=== PATIENT | female | born 1965 | race Caucasian/White ===

== ENCOUNTER 2021-10-01 21:27 | Emergency (ER) | payer MEDICARE, MEDICAID, SELFPAY ==
--- NOTE | ~2021-10-01 | XR_ITS ---
EXAMINATION: XR chest 2V DATE: 10/01/2021 22:28 INDICATION: Right to midsternal chest pain radiating to the right shoulder TECHNIQUE: PA and lateral views of the chest were obtained. COMPARISON: None FINDINGS: The lungs are clear with no focal airspace opacities, pulmonary edema, pleural effusion or pneumothor ax. The cardiomediastinal silhouette is normal. Mild thoracic kyphosis. Anterior wedging of a midthor acic vertebral body. IMPRESSION: 1. No acute cardiopulmonary disease. Reviewed, dictated and finalized at location A.
--- NOTE | ~2021-10-01 | CT_ITS ---
EXAMINATION: CTA chest PE protocol DATE: 10/02/2021 00:03 INDICATION: Midsternal chest pain. TECHNIQUE: Computed tomography (CT) pulmonary angiogram of the chest was performed with 100 mL Omnipa que-350 intravenous contrast. Additional 3D reconstructions utilizing coronal maximum intensity proje ction (MIP) were performed. Automated exposure control and iterative reconstruction technique were em ployed. The dose-length product was 794.42 mGy-cm. COMPARISON: None FINDINGS: Good contrast opacification of the pulmonary arteries. There is mild streak artifact from dense contr ast in the superior vena cava and right atrium. No significant motion artifact yielding diagnostic qu ality study which demonstrates no pulmonary embolism. Minimal linear discoid atelectasis at the later al basilar right lower lobe. No pneumonia, pulmonary edema, pleural effusion or pneumothorax. Heart s ize is normal. No pericardial effusion. Thoracic aorta is normal in caliber with no dissection. No pa thologically enlarged thoracic lymphadenopathy. Diffuse hepatic steatosis. Mild thoracic spondylosis. IMPRESSION: 1. No pulmonary embolism or other acute cardiopulmonary disease. Reviewed, dictated and finalized at location A.
--- NOTE | 2021-10-01 21:28 | ECG_ITS ---
Measurements Intervals [place] Rate: 72 P: -31 [place]: 154 QRS: 48 QRSD: 106 T: 24 QT: 398 QTc: 437 Interpretive Statements SINUS RHYTHM NONSPECIFIC T-WAVE ABNORMALITY NO PREVIOUS ECG AVAILABLE FOR COMPARISON Electronically Signed On 10-02-2021 8:03:56 CDT by Zak Gordon M.D.
[2021-10-01 21:38] VITALS: BP 151/76; PULSE 74; RESP 16; TEMP 36.3; O2SAT 100
--- NOTE | 2021-10-01 22:07 | ED.CHESTPAIN ---
HPI - Chest Pain General Chief Complaint: Chest Pain Stated Complaint: CHEST PAIN RADIATED TO BACK Time Seen by Provider: 10/01/21 21:46 History of Present Illness HPI narrative: 56-year-old female presents to the emergency room for evaluation of right anterior chest pain. Patient states that approximately 4:00 this afternoon she developed a constant, sharp chest pain that radiates up into her right shoulder. Patient states she is able to reproduce the pain with inspiration and with movement. Patient states that prior to arrival she took 1 nitro, and this did not change her pain level. Patient denies shortness of breath, dyspnea, nausea/vomiting or syncope. Related Data Allergies Allergy/AdvReac Type Severity Reaction Status Date / Time No Known Allergies Allergy Verified 10/01/21 22:03 Review of Systems Review of Systems: CONSTITUTIONAL: Denies fever, chills, or sweats. EYES: Denies visual changes, redness, or discharge. ENT: Denies rhinorrhea, congestion, sore throat, or otalgia. CARDIOVASCULAR: Reports chest pain RESPIRATORY: Denies cough or dyspnea. GASTROINTESTINAL: Denies abdominal pain, nausea, vomiting, or diarrhea. GENITOURINARY: Denies dysuria or hematuria. SKIN: Denies rash or itching. MUSCULOSKELETAL: Denies back pain, joint pain, or myalgia. NEUROLOGIC: Denies headache, numbness, dizziness, or weakness. PSYCHIATRIC: Denies anxiety or depression. [facility] Past Medical History Medical History (Updated 10/02/21 @ 02:56 by Dread Kenyon, EXECUTIVE MEETING MANAGER) Angina at rest Diabetes GERD (gastroesophageal reflux disease) Exam Narrative: GENERAL: Well-appearing, well-nourished, and in no acute distress. HEAD: Normocephalic, atraumatic. EYES: PERRLA and EOMI. CHEST: Clear to auscultation. No respiratory distress. No wheezes rales or rhonchi HEART: Regular rate and rhythm. No murmur heard. Normal peripheral pulses. ABDOMEN: Soft, nontender, nondistended, normal active bowel sounds. EXTREMITIES: Normal range of motion. No edema. SKIN: Warm, dry, no rash. NEURO: No focal deficits. Alert and oriented x3. PSYCH: Normal mood and affect. Course Vital Signs Vital signs: Vital Signs Temperature 36.3 C L 10/01/21 21:38 Pulse Rate 74 10/01/21 21:38 Respiratory Rate 16 10/01/21 21:38 Blood Pressure 151/76 H 10/01/21 21:38 Pulse Oximetry 100 10/01/21 21:38 Temperature 36.3 C L 10/01/21 21:38 Pulse Rate 64 10/02/21 01:58 Respiratory Rate 20 10/02/21 01:58 Blood Pressure 130/69 10/02/21 01:58 Pulse Oximetry 98 10/02/21 01:58 MDM - Chest Pain MDM Narrative Medical decision making narrative: 56-year-old female presented to the emergency room for evaluation of chest pain. Patient states that prior to arrival she took a nitro which did not alleviate her symptoms. Patient states that her chest pain was reproducible with inspiration and movement, then she frequently experiences pain. CBC, CMP and serial troponins were all unremarkable. Chest x-ray showed no acute cardio pulmonary process. Patient was given a course of Toradol for which she said resolved her pain. Patient has denied any shortness of breath. Discussed the CTA results with the patient, she is requesting to go home and will follow up with her primary care physician on Sunday. Discussed the risks and benefits of the patient not seeking further evaluation while she is here in the emergency room patient stated understanding. Differential Diagnosis Differential diagnosis: Likely atypical chest pain Medical Records Data Attestation: I reviewed the patient's medical records. Lab Data Attestation: I reviewed the patient's lab results. Result diagrams: 10/01/21 22:10 10/01/21 22:10 Labs: Lab Results 10/01/21 10/01/21 10/01/21 Range/Units 22:10 22:10 22:10 WBC 6.6 (4.5-10.0) K/mm3 RBC 4.13 L (4.2-5.4) M/mm3 Hgb 12.5 (12.0-15.0) g/dL Hct 38.1 (37.0-47.0) % MCV 92.3 (80-100) fl M
[2021-10-01 22:15] LABS: Basophils Percent Auto 0.5 % (0.2-1.2); Eosinophils Absolute Auto 0.1 K/mm3 (0-0.3); Eosinophils Percent Auto 1.7 % (0-4.4); Hematocrit 38.1 % (37.0-47.0); Hemoglobin 12.5 g/dL (12.0-15.0); Immature Granulocyte Absolute 0.02 K/mm3 (0.00-0.031); Immature Granulocyte Percent A 0.3 % (0-0.5); Lymphocytes Absolute Auto 2.21 K/mm3 (0.9-3.2); Lymphocytes Percent Auto 33.7 % (18.3-44.2); Mean Corpuscular HGB Conc 32.8 g/dl (32-36); Mean Corpuscular Hemoglobin 30.3 pg (26-34); Mean Corpuscular Volume 92.3 fl (80-100); Mean Platelet Volume 11.8 fl (7.4-10.4); Monocytes Absolute Auto 0.4 K/mm3 (0.1-0.6); Monocytes Percent Auto 6.4 % (2.6-8.5); Neutrophils Absolute Auto 3.8 K/mm3 (1.3-6.7); Neutrophils Percent Auto 57.4 % (45.5-73.1); Platelet Count Result 189 k/mm3 (150-375); Red Blood Count 4.13 M/mm3 (4.2-5.4); Red Cell Distribution Width 13.7 % (11.5-14.5); White Blood Count 6.6 K/mm3 (4.5-10.0)
[2021-10-01 22:25] LABS: Alanine Aminotransferase 51 U/L (4-35); Albumin Level 4.3 g/dL (3.5-5.1); Alkaline Phosphatase 115 U/L (38-126); Anion Gap 8 mmol/L (8-16); Aspartate Amino Transferase 43 U/L (14-36); Bilirubin,Total 0.2 mg/dL (0.2-1.3); Blood Urea Nitrogen 7 mg/dL (7-17); Calcium 9.7 mg/dL (8.4-10.2); Carbon Dioxide 21 mmol/L (22-30); Chloride 110 mmol/L (98-107); Estimated CRCL calculation 100 ml/min; Estimated Glomerular Filt Rate > 60; Glucose 97 mg/dL (65-110); Lipase 113 U/L (23-300); Potassium 3.4 mmol/L (3.4-5.0); Sodium 139 mmol/L (137-145)
[2021-10-01 22:27] LABS: INR 1.1; Prothrombin Time 13.5 Seconds (11.1-14.7)
[2021-10-01 22:28] LABS: Partial Thromboplastin Time 34.5 SECONDS (22.3-36.8)
[2021-10-01] MEDS: KETOROLAC 30 MG/ML VIAL (*BKC) IV PUSH (22:30)
[2021-10-01 22:37] LABS: Troponin I < 0.012 ng/mL (0.000-0.034)
[2021-10-01 22:48] LABS: D Dimer 0.86 ug/mL (<0.48)
[2021-10-02 00:08] VITALS: BP 128/75; PULSE 68; RESP 19; O2SAT 96
--- NOTE | 2021-10-02 01:52 | PC.NURSE ---
This RN called lab to follow-up on 3hr trop. Lab states that they had issues with machine and will result soon
[2021-10-02 01:55] LABS: Troponin I < 0.012 ng/mL (0.000-0.034)
[2021-10-02 01:58] VITALS: BP 130/69; PULSE 64; RESP 20; O2SAT 98
[2021-10-02 03:08] VITALS: BP 136/75; PULSE 66; RESP 20; O2SAT 96
== END 2021-10-02 03:09 | disposition home or self-care (01) ==
PROVIDERS: Emergency Medicine; Emergency Provider Nurse Practitioner Family; PCP Internal Medicine Gastroenterology
DX: R07.89 Other chest pain (principal); E11.9 Type 2 diabetes mellitus without complications; K21.9 Gastro-esophageal reflux disease without esophagitis; R94.31 Abnormal electrocardiogram [ECG] [EKG]
CPT/HCPCS: 36415; 71046; 71275; 80053; 83690; 84484; 85025; 85380; 85610; 85730; 93005; 96374; 99284; J1885; Q9967

== ENCOUNTER 2022-04-18 16:25 | Emergency (ER) | payer MEDICARE, MEDICAID, SELFPAY ==
--- NOTE | ~2022-04-18 | XR_ITS ---
EXAMINATION: XR chest 2V DATE: 04/18/2022 17:05 INDICATION: Cough. TECHNIQUE: Frontal and lateral views of the chest were obtained on 3 radiographs. COMPARISON: Chest 2 views 10/01/2021, chest CT 10/01/2021 FINDINGS: The chest demonstrates clear lungs without pneumonia, pleural effusion, or pneumothorax. Th e heart size is normal. IMPRESSION: 1. No acute cardiopulmonary disease. Reviewed, dictated and finalized at location A. ARE MANAGER
[2022-04-18 16:27] VITALS: BP 155/78; PULSE 82; RESP 18; TEMP 36.5; O2SAT 100
--- NOTE | 2022-04-18 16:32 | ECG_ITS ---
Measurements Intervals [place] Rate: 70 P: 22 [place]: 159 QRS: 49 QRSD: 104 T: 45 QT: 382 QTc: 413 Interpretive Statements SINUS RHYTHM NORMAL ECG COMPARED TO ECG 10/01/2021 21:34:24 NO SIGNIFICANT CHANGES Electronically Signed On 04-18-2022 19:24:21 MANAGER BENEFIT by Tal Woodson D.O.
[2022-04-18 17:27] LABS: Basophils Absolute Auto 0.1 K/mm3 (0.0-0.1); Basophils Percent Auto 0.7 % (0.2-1.2); Eosinophils Absolute Auto 0.1 K/mm3 (0-0.3); Eosinophils Percent Auto 1.7 % (0-4.4); Hematocrit 40.6 % (37.0-47.0); Hemoglobin 13.1 g/dL (12.0-15.0); Immature Granulocyte Absolute 0.01 K/mm3 (0.00-0.031); Immature Granulocyte Percent A 0.1 % (0-0.5); Lymphocytes Absolute Auto 2.32 K/mm3 (0.9-3.2); Mean Corpuscular HGB Conc 32.3 g/dl (32-36); Mean Corpuscular Hemoglobin 30.3 pg (26-34); Mean Corpuscular Volume 93.8 fl (80-100); Mean Platelet Volume 11.7 fl (7.4-10.4); Monocytes Absolute Auto 0.5 K/mm3 (0.1-0.6); Monocytes Percent Auto 6.3 % (2.6-8.5); Neutrophils Absolute Auto 4.5 K/mm3 (1.3-6.7); Neutrophils Percent Auto 60.2 % (45.5-73.1); Platelet Count Result 203 k/mm3 (150-375); Red Blood Count 4.33 M/mm3 (4.2-5.4); Red Cell Distribution Width 13.2 % (11.5-14.5); White Blood Count 7.5 K/mm3 (4.5-10.0)
[2022-04-18 17:38] LABS: Alanine Aminotransferase 34 U/L (6-35); Albumin Level 4.2 g/dL (3.5-5.1); Alkaline Phosphatase 111 U/L (38-126); Anion Gap 10 mmol/L (8-16); Aspartate Amino Transferase 26 U/L (14-36); Bilirubin,Total 0.4 mg/dL (0.2-1.3); Blood Urea Nitrogen 9 mg/dL (7-17); Calcium 9.7 mg/dL (8.4-10.2); Carbon Dioxide 24 mmol/L (22-30); Chloride 107 mmol/L (98-107); Estimated CRCL calculation 89 ml/min; Estimated Glomerular Filt Rate > 60; Glucose 175 mg/dL (65-110); Potassium 3.9 mmol/L (3.4-5.0); Sodium 141 mmol/L (137-145)
[2022-04-18 19:12] VITALS: BP 142/90; PULSE 85; RESP 16; O2SAT 99
[2022-04-18 19:50] VITALS: PULSE 78; RESP 18
[2022-04-18] MEDS: IPRATROPIUM BR 0.02% INH SOLN 0.5 MG/2.5 ML VIAL INHALATION (19:50)
[2022-04-18] MEDS: ALBUTEROL SULFATE NEB 2.5 MG/3 ML INH 5 MG INHALATION (19:50)
--- NOTE | 2022-04-18 19:55 | ED.SOB ---
HPI - SOB/Dyspnea General Chief Complaint: Shortness of Breath/Dyspnea Stated Complaint: cough X3 months, SOB Time Seen by Provider: 04/18/22 19:02 History of Present Illness HPI Narrative: Patient is a 56-year-old female who presents ER with cough. Reports its ongoing for the last 3 months. Over the last 3 days she has developed some green sputum. Has history of asthma for which she does not take any medications that she used to be prescribed. She is a smoker. No fevers or chills or sweats. She does have some pain in the chest wall due to coughing frequently. No exertional chest discomfort. No fevers or chills or sweats. Patient reports in September she had a possible PE so she takes Xarelto. Chart review shows [facility] radiology saw streak artifact and could not make a determination however radiology here read as no PE. Patient also reports stress test last year that was negative. Patient reports she was talking to family members who reported that her grandma had cancer and this made her concerned and she felt she should come be evaluated. Related Data Home Medications Medication Instructions Recorded Confirmed hydrocodone 7.5 mg-acetaminophen tablet 04/18/22 325 mg tablet metformin 500 mg tablet mg 04/18/22 metoprolol tartrate 25 mg tablet mg 04/18/22 omeprazole 20 mg capsule,delayed mg 04/18/22 release rivaroxaban 20 mg tablet (Xarelto) mg 04/18/22 Allergies Allergy/AdvReac Type Severity Reaction Status Date / Time No Known Allergies Allergy Verified 04/18/22 19:15 Review of Systems Review of Systems: All systems reviewed & are unremarkable except as noted in HPI and below Constitutional: Constitutional: Denies chills, Denies fatigue and Denies fever(s) ENT: Denies nasal congestion and Denies sore throat Cardiovascular: Cardiovascular: Denies chest pain, Denies rapid heart rate and Denies radiating jaw, neck or arm pain Comments: Chest wall pain Respiratory: Respiratory: Reports cough, Denies dyspnea and Denies wheezing Gastrointestinal: Gastrointestinal: Denies abdominal pain, Denies nausea and Denies vomiting [facility] Past Medical History Medical History (Updated 04/18/22 @ 20:46 by Hector Mederos MD) Angina at rest Asthma Diabetes GERD (gastroesophageal reflux disease) Surgical History Surgical History (Updated 04/18/22 @ 19:59 by Hector Mederos MD) No pertinent past surgical history Social History Social History (Updated 04/18/22 @ 19:59 by Hector Mederos MD) Smoking status: Current every day smoker Exam Narrative: GENERAL: Well-appearing, well-nourished, and in no acute distress. HEAD: Normocephalic, atraumatic. ENT: Mucous membranes moist. CHEST: Mild scattered wheezing bilaterally right greater than left. No respiratory distress. HEART: Regular rate and rhythm. Normal peripheral pulses. ABDOMEN: Soft, nontender, nondistended. EXTREMITIES: Normal range of motion. No edema. SKIN: Warm, dry, no rash. NEURO: Alert and oriented x3. PSYCH: Normal mood and affect. Course Course Emergency Course: Lungs clear after nebulizer treatment. Patient feels like she is breathing better. Discharge home. Vital Signs Vital signs: Vital Signs Temperature 97.7 F 04/18/22 16:27 Pulse Rate 82 04/18/22 16:27 Respiratory Rate 18 04/18/22 16:27 Blood Pressure 155/78 H 04/18/22 16:27 Pulse Oximetry 100 04/18/22 16:27 Oxygen Delivery Room Air 04/18/22 16:27 Temperature 97.7 F 04/18/22 16:27 Pulse Rate 79 04/18/22 20:04 Respiratory Rate 19 04/18/22 20:04 Blood Pressure 142/90 H 04/18/22 19:12 Pulse Oximetry 99 04/18/22 19:12 Oxygen Delivery Room Air 04/18/22 16:27 MDM - SOB/Dyspnea Lab Data Result diagrams: 04/18/22 17:18 04/18/22 17:18 Labs: Lab Results 04/18/22 04/18/22 Range/Units 17:18 17:18 WBC 7.5 (4.5-10.0) K/mm3 RBC 4.33 (4.2-5.4) M/mm3 Hgb 13.1 (12.0-15.0) g
[2022-04-18 20:04] VITALS: PULSE 79; RESP 19
[2022-04-18 20:50] VITALS: BP 137/60; PULSE 88; RESP 19; O2SAT 99
== END 2022-04-18 20:50 | disposition home or self-care (01) ==
PROVIDERS: Emergency Medicine; Emergency Provider Emergency Medicine; PCP Internal Medicine Gastroenterology
DX: J40 Bronchitis, not specified as acute or chronic (principal); E11.9 Type 2 diabetes mellitus without complications; K21.9 Gastro-esophageal reflux disease without esophagitis
CPT/HCPCS: 36415; 71046; 80053; 85025; 93005; 94640; 99283

== ENCOUNTER 2022-12-29 17:42 | Emergency (ER) | payer MEDICARE, MEDICAID, SELFPAY ==
[2022-12-29] VITALS (13 sets, daily range): BP systolic 137–149; BP diastolic 74–83; PULSE 58–65; RESP 12–21; TEMP 36.4; O2SAT 96–100
--- NOTE | 2022-12-29 18:38 | ED.GENADULT ---
HPI - General Adult General Chief complaint: Dizziness Stated complaint: Dizzy and emesis Time Seen by Provider: 12/29/22 18:11 History of Present Illness HPI narrative: Patient is a 57-year-old female who presents ER with spinning dizziness. Sudden onset this morning. Anytime she turns her head to room moves and she feels nauseous. She has had multiple episodes of emesis. No focal numbness or weakness to an arm or leg. No slurred speech. No ringing or ears. No recent sinus congestion or sore throat or productive cough. She has not had similar symptoms previously. She has not taken any medications. Related Data Home Medications Medication Instructions Recorded Confirmed hydrocodone 7.5 mg-acetaminophen tablet 04/18/22 325 mg tablet metformin 500 mg tablet mg 04/18/22 metoprolol tartrate 25 mg tablet mg 04/18/22 omeprazole 20 mg capsule,delayed mg 04/18/22 release rivaroxaban 20 mg tablet (Xarelto) mg 04/18/22 Allergies Allergy/AdvReac Type Severity Reaction Status Date / Time No Known Allergies Allergy Verified 12/29/22 18:13 Review of Systems Review of Systems: All systems reviewed & are unremarkable except as noted in HPI and below Constitutional: Constitutional: Denies chills, Denies fatigue and Denies fever(s) Eyes: Eyes: Denies change in vision Neurologic: Reports dizziness, Denies headache(s), Denies focal weakness and Denies numbness PMFSH Past Medical History Medical History (Updated 12/29/22 @ 20:34 by Hector Mederos MD) Angina at rest Asthma Diabetes GERD (gastroesophageal reflux disease) Surgical History Surgical History (Updated 04/18/22 @ 19:59 by Hector Mederos MD) No pertinent past surgical history Social History Social History (Updated 04/18/22 @ 19:59 by Hector Mederos MD) Smoking status: Current every day smoker Exam Narrative: GENERAL: Well-appearing, well-nourished, and in no acute distress. HEAD: Normocephalic, atraumatic. EYES: PERRL and EOMI. ENT: Mucous membranes moist. TMs normal bilaterally. CHEST: Clear to auscultation. No respiratory distress. HEART: Regular rate and rhythm. Normal peripheral pulses. EXTREMITIES: Normal range of motion. No edema. SKIN: Warm, dry, no rash. NEURO: Alert and oriented x3. PSYCH: Normal mood and affect. Course Course Emergency Course: Patient resting comfortably. Dizziness significant improved with fluids and meclizine. Discussed treatment for home and patient verbalized understanding and feels comfortable with plan. Vital Signs Vital signs: Vital Signs Temperature 97.5 F L 12/29/22 17:53 Pulse Rate 65 12/29/22 17:53 Respiratory Rate 15 12/29/22 17:53 Blood Pressure 144/75 H 12/29/22 17:53 Pulse Oximetry 97 12/29/22 17:53 Oxygen Delivery Room Air 12/29/22 17:53 Temperature 97.5 F L 12/29/22 17:53 Pulse Rate 60 12/29/22 20:54 Respiratory Rate 20 12/29/22 20:54 Blood Pressure 137/77 12/29/22 20:54 Pulse Oximetry 100 12/29/22 20:54 Oxygen Delivery Room Air 12/29/22 18:09 Medical Decision Making Vital Signs Vital Signs: Vital Signs Temperature 97.5 F L 12/29/22 17:53 Pulse Rate 65 12/29/22 17:53 Respiratory Rate 15 12/29/22 17:53 Blood Pressure 144/75 H 12/29/22 17:53 Pulse Oximetry 97 12/29/22 17:53 Oxygen Delivery Room Air 12/29/22 17:53 Temperature 97.5 F L 12/29/22 17:53 Pulse Rate 60 12/29/22 20:54 Respiratory Rate 20 12/29/22 20:54 Blood Pressure 137/77 12/29/22 20:54 Pulse Oximetry 100 12/29/22 20:54 Oxygen Delivery Room Air 12/29/22 18:09 Lab Data Labs: Lab Results 12/29/22 Range/Units 19:07 POC Capillary Glucose 118 H (65-105) mg/dl Discharge Plan Discharge Clinical Impression: Vertigo Patient Disposition: Home, Self-Care Condition: Stable Instructions: Vertigo (ED) Additional Instructions: Return the ER if you have focal weakness or
[2022-12-29] MEDS: ONDANSETRON INJ 4 MG/2 ML VIAL IV PUSH (18:45)
[2022-12-29] MEDS: MECLIZINE HCL 25 MG TABLET PO (18:45)
[2022-12-29] MEDS: SODIUM CHLORIDE 0.9% IV 1,000 ML 999 ML IV CONT (18:46)
[2022-12-29 19:10] LABS: Glucose Point of Care 118 mg/dl (65-105)
== END 2022-12-29 21:00 | disposition home or self-care (01) ==
PROVIDERS: Emergency Provider Emergency Medicine; PCP Internal Medicine Gastroenterology
DX: R42 Dizziness and giddiness (principal); J45.909 Unspecified asthma, uncomplicated; E11.9 Type 2 diabetes mellitus without complications; K21.9 Gastro-esophageal reflux disease without esophagitis; F17.200 Nicotine dependence, unspecified, uncomplicated; Z79.84 Long term (current) use of oral hypoglycemic drugs; Z79.01 Long term (current) use of anticoagulants
CPT/HCPCS: 82948; 96361; 96374; 99284; A9270; J2405; J7030

== ENCOUNTER 2023-10-13 16:47 | Emergency (ER) | payer MEDICARE, MEDICAID, SELFPAY ==
[2023-10-13 16:58] VITALS: BP 143/70; PULSE 91; RESP 17; TEMP 36.4; O2SAT 99
--- NOTE | 2023-10-13 17:19 | ED.EXTPRO ---
HPI - Extremity Problem General Chief complaint: Extremity Problem,Nontraumatic Stated complaint: left elbow pain Time Seen by Provider: 10/13/23 17:10 Source: patient Mode of arrival: ambulatory Limitations: no limitations History of Present Illness HPI Narrative: This is a 58 year old female who presents to the ED with chief complaint of left elbow pain ongoing for the past month. Patient reports the pain is intermittent and worse with certain movements. Reports full flexion and full extension of the elbow worsens the pain. Unsure of any specific injury. Patient reports she had negative x-rays with her doctor at [place] recently. She has not been using any [id number] pain medications. Reports that she has tried hot water bottles on the elbow with minimal relief. Denies numbness, weakness or any further sites of pain. Related Data Home Medications Medication Instructions Recorded Confirmed hydrocodone 7.5 mg-acetaminophen tablet 04/18/22 325 mg tablet metformin 500 mg tablet mg 04/18/22 metoprolol tartrate 25 mg tablet mg 04/18/22 omeprazole 20 mg capsule,delayed mg 04/18/22 release rivaroxaban 20 mg tablet (Xarelto) mg 04/18/22 Allergies Allergy/AdvReac Type Severity Reaction Status Date / Time No Known Allergies Allergy Verified 10/13/23 17:00 Review of Systems Review of Systems: All systems as dictated in [facility] Past Medical History Medical History (Updated 10/13/23 @ 17:36 by Philippe Ya PA-C) Angina at rest Asthma Diabetes GERD (gastroesophageal reflux disease) Surgical History Surgical History (Updated 04/18/22 @ 19:59 by Hector Mederos MD) No pertinent past surgical history Social History Social History (Updated 04/18/22 @ 19:59 by Hector Mederos MD) Smoking status: Current every day smoker Exam Narrative: GENERAL: Well-appearing, well-nourished, and in no acute distress. MSK: Mild tenderness to the lateral epicondyle of the elbow. Pain with full extension and full flexion of the elbow. Soft compartments. Neurovascularly intact distally SKIN: Warm, dry, no rash. NEURO: Alert and oriented x3. No focal deficits. PSYCH: Normal mood and affect. Course Vital Signs Vital signs: Vital Signs Temperature 97.6 F 10/13/23 16:58 Pulse Rate 91 10/13/23 16:58 Respiratory Rate 17 10/13/23 16:58 Blood Pressure 143/70 H 10/13/23 16:58 Pulse Oximetry 99 10/13/23 16:58 Oxygen Delivery Room Air 10/13/23 16:58 Temperature 97.6 F 10/13/23 16:58 Pulse Rate 91 10/13/23 16:58 Respiratory Rate 17 10/13/23 16:58 Blood Pressure 143/70 H 10/13/23 16:58 Pulse Oximetry 99 10/13/23 16:58 Oxygen Delivery Room Air 10/13/23 16:58 MDM - Extremity (Nontraumatic) MDM Narrative Medical decision making narrative: This is a 58-year-old female who presents to the ED with chief complaint of 1 month left elbow pain. No injury. Vitals are normal. Exam shows tenderness at the lateral epicondyle. Symptoms and presentation are consistent with lateral epicondylitis/tendinitis. No need for further imaging today. Will Rx naproxen b.i.d.. Pt will be discharged in stable condition. Return precautions given and supportive measures discussed. Pt is understanding and agreeable with plan for discharge and follow-up with PCP. Discharge Plan Discharge Clinical Impression: Epicondylitis, lateral Patient Disposition: Home, Self-Care Condition: Stable Instructions: Antibiotic Form, Tennis Elbow (ED) Additional Instructions: Exam is reassuring. This should self resolve over the next several weeks. Please take naproxen twice per day. Follow-up with your doctor. If you have any new or worsening symptoms please return to the ER for further evaluation. Prescriptions: New naproxen 500 mg tablet 500 mg PO BID PRN (Reason: pain) Qty: 30 0RF No Action metformin 500 mg tablet hydrocodone-acetami
[2023-10-13] MEDS: NAPROXEN 500 MG TABLET PO (17:48)
== END 2023-10-13 17:55 | disposition home or self-care (01) ==
LOC: ANHED 17:38
PROVIDERS: Emergency Provider Physician Assistant; PCP Internal Medicine Gastroenterology
DX: M77.12 Lateral epicondylitis, left elbow (principal); J45.909 Unspecified asthma, uncomplicated; E11.9 Type 2 diabetes mellitus without complications; K21.9 Gastro-esophageal reflux disease without esophagitis; F17.200 Nicotine dependence, unspecified, uncomplicated; Z79.84 Long term (current) use of oral hypoglycemic drugs; Z79.01 Long term (current) use of anticoagulants
CPT/HCPCS: 99283; A9270

== ENCOUNTER 2024-07-28 09:48 | Outpatient (CLI) | payer MEDICARE, SELFPAY ==
--- NOTE | ~2024-07-28 | MR_ITS ---
EXAMINATION: MR sacroiliac jts wo con DATE: 07/28/2024 10:35 INDICATION: Low back pain TECHNIQUE: Magnetic resonance imaging (MRI) of the sacroiliac joints was performed without intravenou s contrast. Sequences included sagittal PD-weighted FS FSE, coronal oblique T2-weighted FS FSE, viraj nal oblique T1-weighted FSE, coronal oblique T2-weighted FSE, oblique axial T2-weighted FS FSE and ob lique axial T1-weighted FSE. COMPARISON: None FINDINGS: 3 mm retrolisthesis L4 on L5. Discs are minimally bulging with annular fissures at both L4-L5 and L5- S1 but without central canal stenosis. Moderate osteoarthritis at the bilateral facet joints at L4-5 and L5-S1. Bone alignment is otherwise normal. Likely osteonecrosis at the bilateral femoral heads wi th high signal intensity crescent sign underlying the surface at the anterosuperior left femoral head . Mild osteoarthritis at the bilateral hips. Marrow signal is otherwise unremarkable. Moderate osteoa rthritis at the bilateral sacroiliac joints without erosions to suggest an inflammatory sacroiliitis. 1.6 cm low signal intensity likely calcified uterine fibroid. IMPRESSION: 1. Moderate bilateral sacral back osteoarthritis without erosions to suggest inflammatory sacroiliiti s. 2. 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 3. Mild lower lumbar spondylosis. 4. 1.6 cm likely calcified uterine fibroid. Reviewed, dictated and finalized at location A. [facility] IMPRESSION: 1. Moderate bilateral sacral back osteoarthritis without erosions to suggest in flammatory sacroiliitis. 2. 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 3. Mild lower lumbar spondylosis. 4. 1.6 cm likely calcified uterine fibroid.
--- OUTSIDE RECORDS SUMMARY | 2024-07-28 12:35 | XMS_ITS | Data Portability ---
Author Organization [facility] Address [address] [place] [address] Care Team Providers Care Conduit Bender Name Role Phone SURJIT FULLER Primary Care Provider [phone] Assessment No assessment recorded. Plan of Treatment Reminders Order Date Submit Date Provider Last Modified By Organization Details Last Modified Time Details Appointments ANY 15 2024 04:00P M Dee Hernandez MD Not available Not available Not available ANY 2024 01:30P M Surjit Fuller MD Not available Not available Not available Lab ESR (erythroc yte sedimenta tion rate), blood 2024 025 [facility], [address], [place], [address], 07/10/2024 10:13:25 YOMI (antinucl ear antibodie s) screen, ifa, serum 2024 025 [facility], [address], [place], [address], 07/10/2024 10:13:23 rf (rheumato id factor), serum 2024 025 [facility], [address], [place], [address], 07/10/2024 10:13:26 ccp (cyclic citrullin ated peptide) iga+igg, serum 2024 025 [facility], [address], [place], [address], 07/10/2024 10:13:22 CMP, serum or plasma 2023 024 [facility], [address], [place], [address], 05/28/2024 07:13:22 CBC 2023 024 [facility], [address], [place], [address], 05/28/2024 07:13:23 surgical pathology study 2023 024 [facility], [address], [place], [address], 04/08/2024 15:17:09 bacterial vaginosis + vaginitis panel, vaginal 2023 024 [facility], [address], [place], [address], 03/30/2024 06:43:28 HbA1c (hemoglob in A1c), blood 2023 024 [email or web address] In-Office Order, Internal Use Only DO Not Attach Compendium DO Not Attach Compendium, Do Not Delete/merge, [id number] 03/25/2024 15:57:11 Referral dermatolo gist referral - vulvar psoriasis minimally responsiv e to steroid cream 2023 024 JOCE Hdz MD, [address] [facility] , [place], [address], 07/16/2024 04:43:50 Procedures None recorded. Surgeries None recorded. Imaging None recorded. Medication Orders clotrimaz ole 1 % topical cream 2024 025 [id number], [address], [place], [address], 07/07/2024 15:26:26 Diflucan 150 mg tablet 2024 025 [id number], [address], [place], [address], 07/07/2024 15:26:23 loratadin e 10 mg tablet 2024 025 [id number], [address] [place], [address], 07/07/2024 15:26:26 calcipotr iene 0.005 % topical ointment 2023 024 [id number], [address], [address], 05/13/2024 17:20:15 prednison e 20 mg tablet 2023 024 [id number], [address], [address], 05/13/2024 16:50:08 promethaz ine-DM 6.25 mg-15 mg/5 mL oral syrup 2023 024 [id number], [address], [address], 05/06/2024 16:51:31 clobetaso l 0.05 % topical cream 2023 024 [facility], [address] [place], [address], 04/15/2024 09:43:54 doxepin 25 mg capsule 2023 024 [facility][id number], [address] [place], [address], 05/22/2024 10:03:24 loratadin e 10 mg tablet 2023 [email or web address] [facility] #[id number], [address], [place], [address], 05/22/2024 10:04:22 Patient TargetsNo targets recorded. Patient Instructions Encounter Date Encounter Id Patient Instructions Last Modified By Organization Details Last Modified Time 05/06/2024 [id number] bronchitis: care instructions [email or web address] Not available 05/06/2024 16:51:26 cough: care instructions Not available 05/06/2024 16:51:26 When You Want to Lose Weight: Care Instructions [email or web address] Not available 05/06/2024 16:51:26 Reason for Referral Boiling Off Winder Referral for P soriasis vulvar psoriasis minimally responsive to steroid cream Referring Physician: Dee Hernandez, Family Medicine, Encounter Date: 05/13/2024 Results Created Date Observation Date Name Description Value Unit Range Abnormal Flag Note LastModifiedBy Organization Detail LastModifiedTime 03/25/2003/28/2024 NUSWA B BV YESSICA+C AND6+ CT/GC /T... atopobium vaginae LOW - 0 score Not Available [facility] ([facility]) [address] [facility], [place], [address], 03/30/2024 06:43:28 03/25/2003/28/2024 NUSWA B BV YESSICA+C AND6+ CT/GC /T... bvab 2 LOW - 0 score Not Available [facility] ([facility]) [address] [facility], [place], [address], 03/30/2024 06:43:28 03/25/2003/28/2024 NUSWA B BV YESSICA+C AND6+ CT/GC /T... megasphaera 1 LOW - 0 score Calcu late total score by jennifer romero the 3 indiv idual bacte rial vagin osis (BV) marke r score s toget her. Total score is inter prete d as follo ws: Total score 0-1: Indic ates the absen ce of BV. Total score 2: Indet ermin ate for BV. Addit ional clini radha data shoul d be evalu ated to estab tanisha a diagn osis. Total score 3-6: Indic ates the prese nce of BV. Not Available [facility] ([facility]) [address] [place], [address], 03/30/2024 06:43:28 03/25/2003/28/2024 NUSWA B BV YESSICA+C AND6+ CT/GC /T... dejah albicans, YESSICA NEGATI VE negati ve Not Available [facility] ([facility]) [address] [place], [address], 03/30/2024 06:43:28 03/25/2003/28/2024 NUSWA B BV YESSICA+C AND6+ CT/GC /T... dejah glabrata, YESSICA NEGATI VE negati ve Not Available [facility] ([facility]) [address] [place], [address], 03/30/2024 06:43:28 03/25/2003/28/2024 NUSWA B BV YESSICA+C AND6+ CT/GC /T... trich vag by YESSICA NEGATI VE negati ve Not Available [facility] ([facility]) [address] [place], [address], 03/30/2024 06:43:28 03/25/2003/28/2024 NUSWA B BV YESSICA+C AND6+ CT/GC /T... chlamydia trachomatis, YESSICA NEGATI VE negati ve Not Available [facility] ([facility]) [address] [place], [address], 03/30/2024 06:43:28 03/25/2003/28/2024 NUSWA B BV YESSICA+C AND6+ CT/GC /T... neisseria gonorrhoeae, YESSICA NEGATI VE negati ve Not Available [facility] ([facility]) [address] [place], [address], 03/30/2024 06:43:28 03/25/20 24 03/28/2024 NUSWA B BV YESSICA+C AND6+ CT/GC /T... hsv 1 YESSICA NEGATI VE negati ve Not Available [facility] ([facility]) [address] [place], [address], 03/30/2024 06:43:28 03/25/2003/28/2024 NUSWA B BV YESSICA+C AND6+ CT/GC /T... hsv 2 YESSICA NEGATI VE negati ve Not Available [facility] ([facility]) [address] [place], [address], 03/30/2024 06:43:28 03/25/2003/29/2024 NUSWA B BV YESSICA+C AND6+ CT/GC /T... C parapsilosis /tropicalis NEGATI VE negati ve This assay does not diffe renti ate C. tropi calis and C. parap suraj is. Not Available [facility] ([facility]) [address] [facility], [place], [address], 03/30/2024 06:43:28 03/25/2003/29/2024 NUSWA B BV YESSICA+C AND6+ CT/GC /T... dejah lusitaniae, YESSICA NEGATI VE negati ve Not Available [facility] ([facility]) [address] [place], [address], 03/30/2024 06:43:28 03/25/2003/29/2024 NUSWA B BV YESSICA+C AND6+ CT/GC /T... dejah krusei, YESSICA NEGATI VE negati ve Not Available [facility] ([facility]) [address] [place], [address], 03/30/2024 06:43:28 03/25/20 24 03/25/2024 HbA1c (hemo globi n A1c), blood HbA1c 8.9 Not Available In-Office Order Internal Use Only DO Not Attach Compendium DO Not Attach Compendium, Do Not Delete/merge, [id number] 03/25/2024 15:30:39 04/02/20 24 04/08/2024 PATHO LOGY REPOR T . COMMEN T Mater ial submi tted: . vulva - VULVA Not Available [facility] ([facility]) [address] [facility], [place], [address], 04/08/2024 15:17:09 04/02/20 24 04/08/2024 PATHO LOGY REPOR T . COMMEN T Clini tahir provi ded ICD-1 0: N90.8 9 Not Available [facility] ([facility]) [address] [facility], [place], [address], 04/08/2024 15:17:09 04/02/20 24 04/08/2024 PATHO LOGY REPOR T . COMMEN T Clini radha histo ry: . OTHER SPECI FIED NONIF LAMMA TORY DISOR DERS OF VULVA AND PERIN EUM Not Available [facility] ([facility]) [address] [facility], [place], [address], 04/08/2024 15:17:09 04/02/20 24 04/08/2024 PATHO LOGY REPOR T . COMMEN T Diagn osis: PSORI ASIFO RM VULVI TIS. COMME NT: THIS BIOPS Y SPECI MEN DEMON STRAT ES PROMI NENT PSORI ASIFO RM EPIDE RMAL HYPER PLASI A IN ADDIT ION TO FOCAL EROSI ON, CONFL UENT PARAK ERATO SIS AND INTRA EPIDE RMAL/ INTRA CORNE AL NEUTR OPHIL S. ALTHO UGH PAS STAIN IS NEGAT KULWANT FOR FUNGA L FORMS , A FALSE NEGAT KULWANT REACT ION FOR FUNGA L STAIN IN A SUPER FICIA L MYCOS IS SUCH MARITO DIASI S OR TINEA CRURI S CANNO T TOTAL LY BE EXCLU DED. INVER SE PSORI ASIS WOULD ALSO ENTER THE DIFFE R- ENTIA L DIAGN OSIS ON A HISTO PATHO LOGIC BASIS . NO DEFIN ITIVE DYSPL PANCHITO IS OBSER ERNESTO. CLINI COPAT HOLOG IC CORRE LATIO N IS RECOM CALEB Riley TMZ 04/08 1301 Local Not Available [facility] ([facility]) [address] [place], [address], 04/08/2024 15:17:09 04/02/2004/08/2024 PATHO LOGY REPOR T . COMMEN T Elect adrian rivera d: . Elisabeth MD, [place] topat holog ist Not Available [facility] ([facility]) [address] [place], [address], 04/08/2024 15:17:09 04/02/2004/08/2024 PATHO LOGY REPOR T . COMMEN T Gross descr iptio n: . 1 Conta iner, forma lina-f illed , label ed with patie nt ident ifica tion. VULVA : 1 SHAVE BIOPS Y OF MORRELL SKIN MEASU RING 0.4 X 0.2 X 0.2 CM. THE SURGI RADHA GRZEGORZ N IS INKED BLACK . THE SPECI MEN IS SUBMI TTED INTAC T. IT IS SUBMI TTED ENTIR KAVON IN CASSE TTE(S ) A1. ORT/O RT 04/03 1155 Local Not Available [facility] ([facility]) [address] [place], [address], 04/08/2024 15:17:09 04/02/20 24 04/08/2024 PATHO JOSSY STRINGER T Patho logis t provi ded ICD-1 0: L30.9 Not Available [facility] ([facility]) [address] [facility], [place], [address], 04/08/2024 15:17:09 04/02/20 24 04/08/2024 PATHO LOGIlia STRINGER T CPT . [address] 1, [address]802 1 Not Available [facility] ([facility]) [address] [facility], [place], [address], 04/08/2024 15:17:09 05/27/20 24 05/28/2024 COMP. METAB OLIC PANEL (14) glucose 484 mg/dL 70-99 above high normal Not Available [facility] ([facility]) [address] [facility], [place], [address], 05/28/2024 07:13:22 05/27/20 24 05/28/2024 COMP. METAB OLIC PANEL (14) BUN 9 mg/dL 6-24 Not Available [facility] ([facility]) [address] [facility], [place], [address], 05/28/2024 07:13:22 05/27/20 24 05/28/2024 COMP. METAB OLIC PANEL (14) creatinine 0.83 mg/dL 0.57-1 .00 Not Available [facility] ([facility]) [address] [facility], [place], [address], 05/28/2024 07:13:22 05/27/20 24 05/28/2024 COMP. METAB OLIC PANEL (14) eGFR 83 mL/mi n/1.7 3 >59 Not Available [facility] ([facility]) [address] [facility], [place], [address], 05/28/2024 07:13:22 05/27/20 24 05/28/2024 COMP. METAB OLIC PANEL (14) BUN/creatini ne ratio 11 9-23 Not Available [facility] [address] [facility], [place], [address], 05/28/2024 07:13:22 05/27/20 24 05/28/2024 COMP. METAB OLIC PANEL (14) sodium 137 mmol/ L 134-14 4 Not Available [facility] ([facility]) [address] [facility], [place], [address], 05/28/2024 07:13:22 05/27/20 24 05/28/2024 COMP. METAB OLIC PANEL (14) potassium 4.4 mmol/ L 3.5-5. 2 Not Available [facility] ([facility]) [address] [facility], [place], [address], 05/28/2024 07:13:22 05/27/20 24 05/28/2024 COMP. METAB OLIC PANEL (14) chloride 102 mmol/ L 96-106 Not Available [facility] ([facility]) [address] [facility], [place], [address], 05/28/2024 07:13:22 05/27/20 24 05/28/2024 COMP. METAB OLIC PANEL (14) carbon dioxide, total 22 mmol/ L 20-29 Not Available [facility] ([facility]) [address] [facility], [place], [address], 05/28/2024 07:13:22 05/27/20 24 05/28/2024 COMP. METAB OLIC PANEL (14) calcium 10.2 mg/dL 8.7-10 .2 Not Available [facility] ([facility]) [address] [facility], [place], [address], 05/28/2024 07:13:22 05/27/20 24 05/28/2024 COMP. METAB OLIC PANEL (14) protein, total 6.2 g/dL 6.0-8. 5 Not Available [facility] ([facility]) [address] [facility], [place], [address], 05/28/2024 07:13:22 05/27/20 24 05/28/2024 COMP. METAB OLIC PANEL (14) albumin 3.9 g/dL 3.8-4. 9 Not Available [facility] ([facility]) [address] [facility], [place], [address], 05/28/2024 07:13:22 05/27/20 24 05/28/2024 COMP. METAB OLIC PANEL (14) globulin, total 2.3 g/dL 1.5-4. 5 Not Available [facility] ([facility]) [address] [facility] [place], [address], 05/28/2024 07:13:22 05/27/20 24 05/28/2024 COMP. METAB OLIC PANEL (14) bilirubin, total 0.3 mg/dL 0.0-1. 2 Not Available [facility] ([facility]) [address] [facility], [place], [address], 05/28/2024 07:13:22 05/27/20 24 05/28/2024 COMP. METAB OLIC PANEL (14) alkaline phosphatase 123 IU/L 44-121 above high normal Not Available [facility] ([facility]) [address] [facility] [place], [address], 05/28/2024 07:13:22 05/27/20 24 05/28/2024 COMP. METAB OLIC PANEL (14) AST (SGOT) 18 IU/L 0-40 Not Available [facility] ([facility]) [address] [facility] [place], [address], 05/28/2024 07:13:22 05/27/20 24 05/28/2024 COMP. METAB OLIC PANEL (14) ALT (SGPT) 28 IU/L 0-32 Not Available [facility] ([facility]) [address] [place], [address], 05/28/2024 07:13:22 05/27/20 24 05/28/2024 CBC, PLATE LET, NO DIFFE RENTI AL WBC 5.9 x10e3 /uL 3.4-10 .8 Not Available [facility] ([facility]) [address] [facility], [place], [address], 05/28/2024 07:13:23 05/27/20 24 05/28/2024 CBC, PLATE LET, NO DIFFE RENTI AL RBC 4.42 x10e6 /uL 3.77-5 .28 Not Available [facility] ([facility]) [address] [facility], [place], [address], 05/28/2024 07:13:23 05/27/20 24 05/28/2024 CBC, PLATE LET, NO DIFFE RENTI AL hemoglobin 13.1 g/dL 11.1-1 5.9 Not Available [facility] ([facility]) [address] [facility], [place], [address], 05/28/2024 07:13:23 05/27/2005/28/2024 CBC, PLATE LET, NO DIFFE RENTI AL hematocrit 41.9 % 34.0-4 6.6 Not Available [facility] ([facility]) [address] [facility], [place], [address], 05/28/2024 07:13:23 05/27/20 24 05/28/2024 CBC, PLATE LET, NO DIFFE RENTI AL MCV 95 fL 79-97 Not Available [facility] ([facility]) [address] [place], [address], 05/28/2024 07:13:23 05/27/20 24 05/28/2024 CBC, PLATE LET, NO DIFFE RENTI AL MCH 29.6 pg 26.6-3 3.0 Not Available [facility] ([facility]) [address] [place], [address], 05/28/2024 07:13:23 05/27/20 24 05/28/2024 CBC, PLATE LET, NO DIFFE RENTI AL MCHC 31.3 g/dL 31.5-3 5.7 below low normal Not Available [facility] ([facility]) [address] [facility], [place], [address], 05/28/2024 07:13:23 05/27/20 24 05/28/2024 CBC, PLATE LET, NO DIFFE RENTI AL RDW 12.9 % 11.7-1 5.4 Not Available [facility] ([facility]) [address] [facility], [place], [address], 05/28/2024 07:13:23 05/27/20 24 05/28/2024 CBC, PLATE LET, NO DIFFE RENTI AL platelets 172 x10e3 /uL 150-45 0 Not Available [facility] ([facility]) [address] [facility], [place], [address], 05/28/2024 07:13:23 07/07/19 25 07/08/2024 ANTI- CCP AB, IGG/I GA anti-ccp Ab, IgG/IgA 3 units 0-19 Negat kulwant <20 Weak posit kulwant 20 - 39 Moder ate posit kulwant 40 - 59 Stron g posit kulwant >59 Not Available [facility] ([facility]) [address] [place], [address], 07/10/2024 10:13:22 07/07/19 25 07/10/2024 YOMI BY IFA RFX TITER /LANA KAMI YOMI by ifa rfx titer/patter n POSITI VE abnormal Negat kulwant <1:80 Borde rline 1:80 Posit kulwant >1:80 Not Available [facility] ([facility]) [address] [place], [address], 07/10/2024 10:13:23 07/07/19 25 07/08/2024 SEDIM ENTAT ION RATE- WESTE RGREN sedimentatio n rate-westerg bjorn 59 mm/HR 0-40 above high normal Not Available [facility] ([facility]) [address] [facility], [place], [address], 07/10/2024 10:13:25 07/07/19 25 07/08/2024 RHEUM ATOID FACTO R (RF) rheumatoid factor (rf) <10.0 IU/mL <14.0 Not Available [facility] [address] [facility], [place], [address], 07/10/2024 10:13:26 07/07/19 25 07/10/2024 JOSEPH STAIN ING PATTE RNS nucleolar pattern 1:160 above high normal ICAP nomen clatu re: AC-8, 9,10 Not Available [facility] ([facility]) [address] [facility], [place], [address], 07/10/2024 10:13:27 07/07/19 25 07/10/2024 JOSEPH STAIN ING PATTE RNS speckled pattern 1:80 ICAP nomen clatu re: AC-2, 4,5,2 9 Not Available [facility] ([facility]) [address] [facility], [place], [address], 07/10/2024 10:13:27 07/07/1907/10/2024 JOSEPH STAIN ING PATTE RNS note: [facility] ----- ----- --- ----- ----- ----- ----- ----- ----- ----- ----- ----- Homog eneou s Syste adilia Lupus Eryth emato diego, Drug Induc ed Syste adilia Lupus Eryth emato diego, Chron ic Autoi mmune hepat itis, Fitz ile Idiop athic Arthr itis ----- ----- --- ----- ----- ----- ----- ----- ----- ----- ----- ----- Speck led Sjogr en Syndr ome, Syste adilia Lupus Eryth emato diego, Subac brittani Cutan eous Lupus , Neona efrain Lupus , Conge nital Heart Block , Mixed Conne ctive Tissu e Disea se, Scler oderm a-dif fuse, Scler oderm a-Aut oimmu ne Myosi tis Overl ap Syndr ome, Syste adilia Lupus Eryth emato diego-S clero derma -Auto immun e Myosi tis Overl ap Syndr ome, Syste adilia Autoi mmune Rheum atic Disea se, Melany Gomez ctive Tissu e Disea se ----- ----- --- ----- ----- ----- ----- ----- ----- ----- ----- ----- Nucle olar Syste adilia Scler osis, Scler oderm a-Aut oimmu ne Myosi tis Overl ap Syndr ome, Sjogr en Syndr ome, Gabby ud pheno bob , Pulmo nary Arter ial Hyper tensi on, Syste adilia Autoi mmune Rheum atic Disea se, Lindsay chris ----- ----- --- ----- ----- ----- ----- ----- ----- ----- ----- ----- Centr omere Scler oderm a-CRE ST, Limit ed Cutan eous SSc, Gabby ud's Pheno bob , Prima ry Bilia ry Chola ngiti s ----- ----- --- ----- ----- ----- ----- ----- ----- ----- ----- ----- Nucle ar Dot Prima ry Bilia ry Chola ngiti s ----- ----- --- ----- ----- ----- ----- ----- ----- ----- ----- ----- Nucle ar Prima ry Bilia ry Chola ngiti s, Autoi mmune Membr ane Hepat itis/ Liver disea se, Syste adilia Autoi mmune Rheum atic Disea se, Autoi mmune Cytop enias , Linea r Scler oderm a, Antip hosph olipi d Syndr ome ----- ----- --- ----- ----- ----- ----- ----- ----- ----- ----- ----- Not Available [facility] ([facility]) [address] [facility], [place], [address], 07/10/2024 10:13:27 07/12/19 25 07/11/2024 XR, sacro iliac joint (s) No observ ation record ed. [address] [place], [address], 07/14/2024 10:34:43 07/12/19 25 07/11/2024 XR, sacro iliac joint (s) No observ ation record ed. [facility] [address] [place], [address], 07/13/2024 17:44:38 07/12/19 25 07/11/2024 XR, lumba r spine No observ ation record ed. [facility] [address] [place], [address], 07/13/2024 17:44:38 07/12/19 25 07/11/2024 XR, lumba r spine No observ ation record ed. [address] [place], [address], 07/14/2024 10:35:05 07/28/19 25 07/28/2024 MRI, sacro iliac joint (s), w/o contr ast No observ ation record ed. [facility] [address], [place], [address], 07/28/2024 12:17:48 Result Notes None recorded. Problems Name Problem SNOMED Code Status Onset Date Resolution Date Notes Provider Name and Address Organization Details Recorded Time Pain in pelvis 15258887 Completed 03/11/2021 MEGAN Mccollum 1 13:03:04 Bilatera l hip joint pain 81019796284 078029 Active 2017 Not Available [facility] 4 02:26:05 Skin lesion 49961089 Completed 201703/11/2021 MEGAN Mccollum 13:03:45 History of respirat ory disease 698188426 Completed 201803/11/2021 Resolved MEGAN Mccollum SISKIP 13:04:06 Pain in left thumb 72667887828 82904 Completed 201803/11/2021 MEGAN Mccollum [facility] 13:03:07 Pain in throat 098010414 Completed 201803/11/2021 MEGAN Mccollum [facility] 1 13:03:01 Effusion of joint of right knee 21030639720 9104 Completed 201803/11/2021 MEGAN Mccollum [facility] 13:02:24 Varicose veins of lower extremit y 08925843 Active 2018 Not Available [facility] 4 02:26:05 Subacrom ial impingem ent 723303305 Active Not Available [facility] 4 02:26:05 Disorder of joint of foot 292637134 Active 2019 Not Available [facility] 4 02:26:05 Screenin g for disorder Completed 201903/11/2021 MEGAN Mccollum 1 13:02:56 Pre-surg lucía evaluati on Completed 201903/11/2021 Dylan oliveira, [place] - [facility] 1 13:02:59 Low back pain 638772151 Active 2020 Not Available [facility] 4 02:26:05 Medicati on monitori ng Active 2020 Not Available [facility] 4 02:26:05 Sore throat 678744064 Active 2021 Not Available [facility] 4 02:26:05 Type 2 diabetes mellitus 70331351 Active 2021 Not Available [facility] 4 02:26:05 Lesion of left eyelid 55228485001 164608 Active 2021 Not Available [facility] 4 02:26:05 Hypercal cemia 02186972 Active 2021 Not Available [facility] 4 02:26:05 Cough 50976817 Active 2021 Not Available [facility] 4 02:26:05 Dysphagi a 95294118 Active 2021 Not Available [facility] 4 02:26:05 Morbid obesity 244008839 Active 2022 Not Available [facility] 4 02:26:05 Disorder of vision 75982965 Active 2022 Not Available [facility] 4 02:26:05 Obese 895458548 Completed 03/11/2021 Dylan [place], [place] [facility] 1 13:03:12 Pain of bilatera l knee regions 23106582803 4102 Active 2022 Not Available [facility] 4 02:26:05 Bilatera l shoulder joint pain 91958813560 153722 Active 2022 Not Available [facility] 4 02:26:05 Pain of left elbow joint 70990142703 164120 Active 2023 Surjit Fuller MD Attn: Accounting ,[address] [place], [address] , [place] [facility] 4 16:48:54 Hyperlip idemia 03659873 Active 2023 Surjit Fuller MD Attn: Accounting ,[address] [facility], [place], [address] , [place] [facility] 4 14:59:10 Bronchit is 64925592 Active 2023 Surjit Fuller MD Attn: Accounting ,[address] [facility], [place], [address] , [place] [facility] 4 16:35:58 Chest pain 70282711 Completed 03/11/2021 Dylan [place], [place] [facility] 13:02:11 Knee pain Completed 03/11/2021 [place] [facility] 13:03:26 Shoulder pain 65764266 Completed 03/11/2021 [place] [facility] 13:02:51 Hypergly cemia 18449520 Completed 03/11/2021 [place] [facility] 13:03:34 Hypoglyc emic disorder 171075032 Completed 03/11/2021 [place] [facility] 13:03:36 Low back pain 764332430 Completed 03/11/2021 Surjit Fuller MD Attn: Accounting ,[address] [facility], [place], [address] , [place] [facility] 18:27:38 Urticari a 546416643 Completed 03/11/2021 [place] [facility] 13:02:46 Injury of shoulder region 589814456 Completed 03/11/2021 [place] [facility] 13:03:27 Hemorrho ids 76215340 Active Not Available [facility] 4 02:26:05 Osteoart hritis [id number] Active Not Available [facility] 4 02:26:05 Disorder of shoulder [id number] Completed 03/11/2021 Dylan Tanika null, [place] [facility] 1 13:02:16 Uterine leiomyom a [id number] Active Not Available [facility] 4 02:26:05 Asthma [id number] Active Not Available [facility] 4 02:26:05 Gastroes ophageal reflux disease [id number] Active Not Available [facility] 4 02:26:05 Degenera tion of interver tebral disc [id number] Active Not Available [facility] 4 02:26:05 Hypoglyc emia [id number] Completed 02/06/2017 Surjit Fuller MD Attn: Accounting ,[address] [place], [address] , [place] - [facility] 7 19:12:24 Atherosc lerosis Active Not Available [facility] 4 02:26:05 Hip pain 04168357 Completed 03/11/2021 MEGAN Mccollum - [facility] 13:02:32 Constipa tion 00803609 Active 2015 Not Available [facility] 4 02:26:05 Foot callus 643909473 Completed 201603/11/2021 MEGAN Mccollum - [facility] 13:02:27 Vitamin D deficien cy 35846594 Active 2016 Not Available [facility] 4 02:26:05 Random blood glucose outside referenc e range 810874068 Completed 201603/11/2021 Dylan oliveira [place] - [facility] 13:02:54 Hypergly cemic disorder 247366486 Completed 201603/11/2021 Dylan oliveira [place] - [facility] 13:03:38 Venous insuffic iency of leg 316111225 Completed 201603/11/2021 Dylan oliveira [place] - [facility] 13:02:43 Impaired glucose toleranc e with hyperins ulism 235520323 Completed 201603/11/2021 MEGAN Mccollum - [facility] 13:03:40 Sleep pattern disturba moe 01726792 Completed 201603/11/2021 Dylan oliveira, [facility] 13:02:49 Medicati on monitori ng Completed 201603/11/2021 Surjit Fuller MD Attn: Accounting ,[address] [place], [address] , [facility] - [facility] 17:01:09 Notes:Some problems listed i n Documents: #[id number], #[id number], #[id number], #[id number], #[id number] could not be added to this patient's chart. Please review these documents and add these problems to the patient's chart manually as needed. Problem Notes None recorded. Procedures Surgical History Date Name Laterality Status Provider Name and Address Organization Details Recorded Time 2 Date of Last Pap Smear completed Violette Calvin [place] - [facility] 01/18/2022 15:59:18 7 Joint Injection completed Dread Barrientos MD [address], [place], [address], [facility] - [facility] 05/22/2017 13:55:43 7 Joint Injection completed Dread Barrientos MD [address], [place], [address], [facility] - [facility] 04/24/2017 11:20:55 7 Most Recent Mammogram completed Mercedez Allen MA [place] - [facility] 01/07/2019 15:37:24 7 Joint Injection completed Dread Barrientos MD [address], [place], [address], [facility] - [facility] 04/17/2017 12:32:53 7 Joint Injection completed Dread Barrientos MD [address], [place], [address], [facility] - [facility] 10/10/2016 12:25:30 7 Joint Injection completed Dread Barrientos MD [address], [place], [address], [place] - [facility] 10/03/2016 11:19:10 6 Joint Injection completed Dread Barrientos MD [address] [place], [address], [facility] - [facility] 03/07/2016 10:50:52 5 Unlisted procedure shoulder completed Sylvia Urrutia [place] - [facility] 03/28/2016 16:09:14 6 Elbow mold outsid lock hinge completed Sylvia Urrutia MA [place] - [facility] 03/28/2016 16:07:48 6 Knee arthroscopy/dr medellin completed Alfred Chowdary MD Attn: Accounting,[address] [place], [address], [facility] - [facility] 07/25/2019 14:34:28 4 Other completed Betzy Christy [place] - [facility] 07/08/2014 15:23:43 2 Tubal Ligation completed Gay Sin [place] - [facility] 02/19/2017 16:29:11 hammer toe operation completed Violette Calvin [place] - [facility] 03/14/2021 16:16:44 Imaging Results Imaging Date Name Status LastModified by Organiz ation Details LastModified Time 07/11/2024 XR, sacroiliac joint(s) completed [address] [place], [address], 07/14/2024 10:34:43 07/11/2024 XR, sacroiliac joint(s) active [facility] [address] [place], [address], 07/13/2024 17:44:38 07/11/2024 XR, lumbar spine active [facility] [address] [place], [address], 07/13/2024 17:44:38 07/11/2024 XR, lumbar spine completed [address] [facility], [place], [address], 07/14/2024 10:35:05 07/28/2024 MRI, sacroiliac joint(s), w/o contrast active [facility] [address] [facility] [address], [place], [address], 07/28/2024 12:17:48 Procedure Notes None recorded. Medical Equipment None Reported. Allergies No known drug allergies Medications Name Sig Start Date Stop Date Status Note LastModified by Organization Details LastModified Time Prescript ion - Renewal 11/01 completed Not Available Not Available Not Available eq acetamin tab 500mg active Not Available Not Available No t Available accu-chek guide test strips strp active Not Available Not Available Not Available multivita min tablet Take 1 tablet every day by oral route. 07/27 completed Not Available Not Available Not Available cyclobenz aprine 10 mg tablet 05/31 completed Not Available Not Available Not Available metformin 500 mg tablet TAKE 1 TABLET BY MOUTH TWICE A DAY 07/12 completed Diarrhea Not Available Not Available Not Available promethaz ine-DM 6.25 mg-15 mg/5 mL oral syrup Take 5 mL 4 times a day by oral route. 2023 active Not Available Not Available Not Avai lable acetamino phen 325 mg tablet 12/20 completed Not Available Not Available Not Available tizanidin e 2 mg tablet Take 1 tablet every 8 hours by oral route as needed. 05/16 completed Not Available Not Available Not Available cetirizin e 10 mg tablet TAKE 1 TABLET BY MOUTH EVERY DAY active Not Available Not Available No t Available azithromy aarti 250 mg tablet TAKE DIRECTED ON PACKAGE 05/06 completed Not Available Not Available Not Available ibuprofen 800 mg tablet Take 1 tablet 3 times a day by oral route with meals. 12/20 completed Not Available Not Available Not Available Lidocaine Viscous 2 % mucosal solution gargle with two tsp four times daily 05/02 completed Not Available Not Available Not Available fluconazo le 150 mg tablet TAKE 1 TABLET BY MOUTH NOW THEN REPEAT IN 2 DAYS active Not Available Not Available No t Available benzonata te 200 mg capsule TAKE 1 CAPSULE BY MOUTH EVERY 8 HOURS NEEDED FOR COUGH 05/06 completed Not Available Not Available Not Available doxepin 25 mg capsule PLEASE SEE ATTACHED FOR DETAILED DIRECTIO NS 05/22 completed Not Available Not Available Not Available ranitidin e 300 mg tablet TAKE 1 TABLET BY MOUTH TWICE A DAY 12/20 completed Not Available Not Available Not Available Senna Lax 8.6 mg tablet 11/01 completed Not Available Not Available Not Available hydrocodo ne 5 mg-acetam inophen 325 mg tablet Take 1 tablet every 12 hours by oral route. 12/13 completed Not Available Not Available Not Available ondansetr on HCl 8 mg tablet 05/16 completed Not Available Not Available Not Available prednison e 20 mg tablet TAKE 1 TABLET BY MOUTH TWICE DAILY FOR 3 DAYS 05/13 completed Not Available Not Available Not Available clobetaso l 0.05 % topical cream APPLY TO AFFECTED AREA TWICE A DAY 04/15 completed Changed to ointment Not Available Not Available Not Available Accu-Chek Softclix Lancets USE TO CHECK BLOOD SUGAR TWICE A DAY DIRECTED 12/04 completed Not Available Not Available Not Available clotrimaz ole 1 % vaginal cream INSERT 1 APPLICAT ORFUL VAGINALL Y DAILY AT BEDTIME X7 DAYS 12/04 completed Not Available Not Available Not Available meclizine 12.5 mg tablet TAKE 1 TABLET BY MOUTH THREE TIMES A DAY NEEDED FOR DIZZINES S, VERTIGO active Not Available Not Available No t Available dextromet horphan-g uaifenesi n 10 mg-100 mg/5 mL oral syrup Take 10 mL 4 times a day by oral route. 12/04 completed Not Available Not Available Not Available ciproflox acin 500 mg tablet 11/01 completed Not Available Not Available Not Available sulfameth oxazole 800 mg-trimet hoprim 160 mg tablet 05/16 completed Not Available Not Available Not Available omeprazol e 40 mg capsule,d elayed release TAKE 1 CAPSULE BY MOUTH TWICE A DAY BEFORE A MEAL active Not Available Not Available No t Available aspirin 81 mg tablet,de layed release 11/01 completed Not Available Not Available Not Available acetamino phen 500 mg tablet Take 2 tablets every 6 hours by oral route as needed. active Not Available Not Available No t Available glimepiri de 2 mg tablet TAKE 1 TABLET BY MOUTH EVERY DAY 09/05 completed Not Available Not Available Not Available Kenalog 40 mg/mL suspensio n for injection Take 1 mL by injectio n route. 05/16 completed Not Available Not Available Not Available meloxicam 7.5 mg tablet 07/25 completed Not Available Not Available Not Available oxycodone -acetamin ophen 5 mg-325 mg tablet Take 1 tablet every 12 hours by oral route as needed. 03/28 completed Not Available Not Available Not Available famotidin e 20 mg tablet Take 1 tablet twice a day by oral route. 05/02 completed Not Available Not Available Not Available magnesium oxide 400 mg (241.3 mg magnesium ) tablet active Not Available Not Available Not Available dexametha sone 1 mg tablet 05/16 completed Not Available Not Available Not Available hydrocodo ne 7.5 mg-acetam inophen 325 mg tablet TAKE 1 TABLET BY MOUTH TWICE A DAY NEEDED active Not Available Not Available No t Available cephalexi n 500 mg capsule active Not Available Not Available Not Available nystatin 100,000 unit/gram topical cream APPLY 1 APPLICAT ION ON THE SKIN TWICE A DAY 05/06 completed Not Available Not Available Not Available ranitidin e 150 mg tablet TAKE ONE TABLET BY MOUTH TWICE DAILY active Not Available Not Available No t Available glimepiri de 4 mg tablet Take 1 tablet every day by oral route with meal(s) for 90 days, for DM. 2023 active Not Available Not Available Not Avai lable prednison e 50 mg tablet TAKE 1 TABLET BY MOUTH EVERY DAY 05/02 completed Not Available Not Available Not Available promethaz ine 25 mg tablet 12/20 completed Not Available Not Available Not Available omeprazol e 20 mg capsule,d elayed release TAKE 1 CAPSULE BY MOUTH TWICE A DAY 12/04 completed Not Available Not Available Not Available hydroxyzi ne HCl 25 mg tablet TAKE 1 TABLET BY MOUTH 3 TIMES A DAY NEEDED FOR ITCHING active Not Available Not Available No t Available ergocalci ferol (vitamin D2) 1,250 mcg (50,000 unit) capsule TAKE 1 CAPSULE BY MOUTH ONE TIME PER WEEK 05/16/ 2023 active Not Available Not Available Not Avai lable clobetaso l 0.05 % topical ointment APPLY TO AFFECTED AREA TWICE A DAY active Not Available Not Available No t Available levofloxa aarti 500 mg tablet 05/16 completed Not Available Not Available Not Available methylpre dnisolone 4 mg tablets in a dose pack TAKE DIRECTED ON PACKAGE 05/06 completed Not Available Not Available Not Available albuterol sulfate HFA 90 mcg/actua tion aerosol inhaler 2 PUFF INHALED FOUR TIMES DAILY NEEDED FOR SHORTNES S OF BREATH OR WHEEZING 12/04 completed Not Available Not Available Not Available ondansetr on 4 mg disintegr ating tablet TAKE 1 TABLET BY MOUTH EVERY 6 HOURS NEEDED FOR NAUSEA AND VOMITING 05/06 completed Not Available Not Available Not Available fluticaso ne propionat e 50 mcg/actua tion nasal spray,diego pension 1 SPRAY IN EACH NOSTRIL EVERY NIGHT BEFORE BED active Not Available Not Available No t Available clotrimaz ole 1 % topical cream APPLY TO AFFECTED AREA TWICE A DAY IN THE MORNING AND IN THE EVENING active Not Available Not Available No t Available loratadin e 10 mg tablet one tab po q am 2024 active Not Available Not Available Not Avai lable naproxen 500 mg tablet TAKE 1 TABLET BY MOUTH TWICE A DAY NEEDED FOR PAIN active Not Available Not Available No t Available amoxicill in 875 mg-potass ium clavulana te 125 mg tablet TAKE 1 TABLET BY MOUTH TWICE A DAY 12/20 completed Not Available Not Available Not Available nabumeton e 500 mg tablet Take 1 tablet twice a day by oral route. active Not Available Not Available No t Available acarbose 25 mg tablet 07/25 completed Not Available Not Available Not Available calcipotr iene 0.005 % topical ointment APPLY A THIN LAYER TO THE AFFECTED AREA(S) BY TOPICAL ROUTE ONCE DAILY ; RUB IN GENTLY AND COMPLETE LY active Not Available Not Available No t Available oxycodone 5 mg tablet 11/01 completed Not Available Not Available Not Available neomycin 3.5 mg/g-poly myxin B 10,000 unit/g-de xameth 0.1 % eye oint APPLY A SMALL AMOUNT TO LEFT UPPER EYE LID TWICE A DAY FOR 1 WEEK 05/02 completed Not Available Not Available Not Available Low Dose Aspirin 81 mg tablet,de layed release Take 1 tablet every day by oral route. 01/18 completed Not Available Not Available Not Available Alcohol Prep Pads USE TO TEST BLOOD SUGAR ONCE DAILY 12/04 completed Not Available Not Available Not Available metoprolo l tartrate 25 mg tablet TAKE 1 TABLET BY MOUTH TWICE A DAY 12/04 completed Not Available Not Available Not Available lactulose 10 gram/15 mL oral solution TAKE 15 ML EVERY DAY BY ORAL ROUTE. 07/25 completed Not Available Not Available Not Available Proctosol HC active Not Available Not Available Not Available Januvia 100 mg tablet TAKE 1 TABLET BY MOUTH EVERY DAY 02/26 completed Not Available Not Available Not Available Symbicort 80 mcg-4.5 mcg/actua tion HFA aerosol inhaler 2 puff INH BID 2014 active Not Available Not Available Not Avai lable omeprazol e 20 mg tablet,de layed release TAKE ONE TABLET BY MOUTH ONCE DAILY 05/16 completed Not Available Not Available Not Available Calcium with Vitamin D 600 mg-10 mcg (400 unit) tablet Take 1 tablet twice a day by oral route. 07/27 completed Not Available Not Available Not Available GaviLyte- N 420 gram oral solution 12/20 completed Not Available Not Available Not Available Xarelto 15 mg tablet TAKE 1 TABLET BY MOUTH TWICE DAILY X21 DAYS, THEN 20 MG TABLET ONCE DAILY 05/02 completed Not Available Not Available Not Available Xarelto 20 mg tablet TAKE 1 TABLET BY MOUTH EVERY DAY active Not Available Not Available No t Available Linzess 290 mcg capsule 05/16 completed Not Available Not Available Not Available Farxiga 5 mg tablet Take one tab daily in AM 2024 active Not Available Not Available Not Avai lable Jardiance 10 mg tablet TAKE 1 TABLET EVERY DAY BY ORAL ROUTE DIRECTED FOR 30 DAYS, FOR DM. 07/07 completed Not Available Not Available Not Available Jardiance 25 mg tablet TAKE 1 TABLET BY MOUTH EVERY DAY active Not Available Not Available No t Available Movantik 25 mg tablet Take 1 tablet every day by oral route. 05/16 completed Not Available Not Available Not Available Accu-Chek Guide test strips USE TO TEST TWICE DAILY BEFORE BREAKFAS T AND DINNER 2024 active Not Available Not Available Not Avai lable Accu-Chek Guide Me Glucose Meter USE DIRECTED 12/04 completed Not Available Not Available Not Available Flowflex COVID-19 Antigen Home Test kit USE DIRECTED 12/04 completed Not Available Not Available Not Available Vitals Date Recorded Body height Body mass index (BMI) Body weight Oxygen saturation Oxygen saturation in Arterial blood by Pulse oximetry Heart rate Systolic blood pressure Diastolic blood pressure Provider Name and Address Organization Details Last Updated DateTime 4 181.61 cm 35.9 kg/m2 212718. 61 g 98 % 98 % 90 /min 130 mm[Hg] 80 mm[Hg] Sue Perkins MA [facility] 4 15:07:07 Date Recorded Body height Body mass index (BMI) Body weight Oxygen saturation Oxygen saturation in Arterial blood by Pulse oximetry Heart rate Systolic blood pressure Diastolic blood pressure Provider Name and Address Organization Details Last Updated DateTime 4 181.61 cm 36.2 kg/m2 875387. 79 g 98 % 98 % 77 /min 128 mm[Hg] 80 mm[Hg] Sue Perkins MA [facility] 4 14:02:48 Date Recorded Body height Body mass index (BMI) Body weight Heart rate Oxygen saturation Oxygen saturation in Arterial blood by Pulse oximetry Systolic blood pressure Diastolic blood pressure Provider Name and Address Organization Details Last Updated DateTime 4 181.61 cm 35.9 kg/m2 450804. 61 g 84 /min 97 % 97 % 134 mm[Hg] 85 mm[Hg] Candi Garland MA [facility] 4 16:15:33 Date Recorded Body height Body mass index (BMI) Body weight Oxygen saturation Oxygen saturation in Arterial blood by Pulse oximetry Heart rate Systolic blood pressure Diastolic blood pressure Provider Name and Address Organization Details Last Updated DateTime 4 181.61 cm 36 kg/m2 918008. 2 g 97 % 97 % 88 /min 122 mm[Hg] 80 mm[Hg] Sue Perkins MA [facility] 4 16:52:02 Date Recorded Body height Body temperature Body mass index (BMI) Body weight Oxygen saturation Oxygen saturation in Arterial blood by Pulse oximetry Heart rate Systolic blood pressure Diastolic blood pressure Provider Name and Address Organization Details Last Updated DateTime 5 179.07 cm 98 [degF] 37.5 kg/m2 658453. 98 g 97 % 97 % 82 /min 120 mm[Hg] 78 mm[Hg] Sue Perkins MA [place] - [facility] 5 14:04:11 Social History Question Answer Notes LastModified by Organizat ion Details LastModified Time Tobacco Smoking Status Current Some Day Smoker Glenys Lorenz MA null, [place] - [facility] 09/18/2023 14:37:54 Do You Have An Advance Directive? No [email or web address] Information not available 03/28/2016 What Is Your Level Of Alcohol Consumption? Occasional Special Occasions Only Information not available 07/27/2021 Is Blood Transfusion Acceptable In An Emergency? Yes Information not available 03/28/2016 What Is Your Level Of Caffeine Consumption? Heavy Daily Soda And Tea [email or web address] Information not available 03/28/2016 How Much Tobacco Do You Chew? None [email or web address] Information not available 03/28/2016 Are You Currently Employed? Yes Information not available 02/19/2017 What Type Of Diet Are You Following? REGULAR [email or web address] Information not available 03/28/2016 Which Illicit Or Recreational Drugs Have You Used? Denies [email or web address] Information not available 03/28/2016 Do You Or Have You Ever Used E-cigarettes Or Vape? 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 With Others Information not available 02/19/2017 What Was The Date Of Your Most Recent Tobacco Screening? 07/07/2024 Information not available 07/07/2024 How Many Children Do You Have? 3 Information not available 03/28/2016 Performs Monthly Self-breast Exam? No [email or web address] Information not available 03/28/2016 Do You Use Protection During Sex? No [email or web address] Information not available 03/28/2016 What Is Your Relationship Status? Information not available 03/28/2016 Seat Belts Used Routinely Yes Information not available 03/28/2016 Are You Sexually Active? No Been 3-4 Months [email or web address] Information not available 03/28/2016 Do You Have Smoke And Carbon Monoxide Detectors In Your Home? No Information not available 07/27/2021 At What Age Did You Start Smoking Tobacco? 15 [email or web address] Information not available 11/30/2014 Are You Passively Exposed To Smoke? Yes [email or web address] Information not available 07/06/2022 Do You Or Have You Ever Used Smokeless Tobacco? Never Used Smokeless Tobacco [email or web address] Information not available 07/25/2019 How Much Tobacco Do You Smoke? 0.5 PPD Information not available 12/28/2016 General Stress Level Medium Depends [email or web address] Information not available 03/28/2016 Do You Use Any Illicit Or Recreational Drugs? No Information not available 07/27/2021 Do You Use Sunscreen Routinely? No [email or web address] Information not available 03/28/2016 Has Tobacco Cessation Counseling Been Provided? Yes Information not available 03/14/2021 On What Date Was Tobacco Cessation Counseling Provided? 07/07/2024 Information not available 07/07/2024 How Many Years Have You Smoked Tobacco? 36 [email or web address] Information not available 03/28/2016 Do You Or Have You Ever Used Any Other Forms Of Tobacco Or Nicotine? No Information not available 03/14/2021 Sex: Unknown Functional Status Question Answer Note LastModified by Organizat ion Details LastModified Time What is your exercise level? Occasional [email or web address] Information not available 03/28/2016 Mental Status None recorded. Family History Relationship Description Onset Age of this Age Resolved Age Notes LastModified by Organization Details LastModified Time Mother Heart disease 62 [email or web address] Not available 03/07 09:45:12 Father Malignant tumor of lung 41 [email or web address] Not available 03/07 09:45:12 Sister Alive Adore [email or web address] Not available 03/07/2016 09:45:12 Sister Alive Stanton mills [email or web address] Not available 03/07/2016 09:45:12 Sister Motor vehicle accident victim 24 Amina [email or web address] Not available 03/07 09:45:12 Brother Alive Not availabl e 03/07/2016 09:45:12 Medical History Condition Response Heart Problems Y Other N High Blood Pressure N Breast Cancer N Thyroid Problems N Kidney or Bladder Problems N GI Problems Y Depression N Blood Clots N Lung Disease N Acne N Eating Disorder N Anemia N Anesthesia Complications N Headaches/Migraines N Anxiety Disorder N Diabetes Y Ovarian Cancer N Muscle, Joint, or Bone Problems Y Blood Transfusions N Arthritis Y Seizures/Epilepsy N Polyps N Infertility N Acid Reflux (GERD) Y Cancer N Abuse/Domestic Violence N Asthma Y Endometriosis N High Cholesterol N Hepatitis N Liver Disease N Heart Disease N Pre-Eclampsia N Hypertension N Osteoporosis Y Gynecological History Statement/Question Response Abnormal Pap N Date of LMP STIs/STDs N HPV Vaccine N Duration of Flow (days) 0 Most Recent Mammogram 04/23/2017 Age at Menarche 17 Current Control Method Tubal Ligat ion Age at First Child 21 Frequency of Cycle (Q days) Sexually Active? N Menses Monthly N Date of Last Pap Smear 01/18/2022 Sexual Problems? N LMP Desired Control Method Sterilizati on Obstetrics History GPAL:G 3 P 3 0 0 3 Type Value Multiple Births 0 Full Term 3 Induced 0 Spontaneous 0 Premature 0 Living 3 Ectopics 0 Total 3 Immunizations Vaccine Type Date Status Note Provider Nam e and Address Organization Details Recorded Time COVID-19, mRNA, LNP-S, PF, 30 mcg/0.3 mL dose 1 completed Not Available [facility] 06/29/2023 02:26:06 Tdap 9 completed Not Available [facility] 06/28/2019 02:44:51 Influenza, split virus, quadrivalent, preservative 0 completed Alfred Chowdary MD Attn: Accounting[address] [facility], [place], [address], [facility] 07/25/2019 15:04:16 Past Encounters Encounter ID Performer Location Encounter Start Date Encounter Closed Date Diagnosis/Indication Diagnosis SNOMED-CT Code Diagnosis ICD10 Code Diagnosis Note [id number] Rocio [place] [address] [place] [address] 05/22/2014 14:48:27 05/25/2014 09:53:52 Osteoarthritis 084156425 Offered orthopedic injection, but patient declined as if she is surgical candidate we did not want to prolong timeframe. Also she is to alternate acetaminop hen and ibuprofen. Gastroesop hageal reflux disease [id number] CARLEY Jacome (MANAGER STAR) [address] [place] [phone] 07/08/2014 14:47:32 07/08/2014 20:36:17 Pain in pelvis 33008733 Uterine leiomyoma 71927058 [id number] Linnette Felix, EDMOND-C Rocio r[place]y [address] [facility] [place] [address] 08/14/2014 14:42:00 08/14/2014 16:30:22 Obese [id number] Exposure t o Hepatitis C virus 010783632 Asthma 471281919 Gastroesop hageal reflux disease 973543852 Osteoarthritis 546135983 Offered orthopedic injection, but patient declined as if she is surgical candidate we did not want to prolong timeframe. Also she is to alternate acetaminop hen and ibuprofen. [id number] Chandana (Adult Med) [address] [place] [phone] 11/30/2014 10:31:26 11/30/2014 12:39:36 Chest pain 42113206 Gastroesop hageal reflux disease 273269410 Asthma 584873660 Knee pain 71161058 Shoulder pain 85792533 Hyperglycemia 03235522 Hypoglycemic disorder 460651277 Pain in pelvis 67823659 Low back pain 733345212 Urticaria 638362624 [id number] Rosa Ellington (Adult Med) [address] [place] [id number] 02/08/2015 15:21:52 02/08/2015 16:40:21 Hyperglycemia 37354001 Shoulder pain 55838826 Knee pain 76705032 [id number] Sasha Diaz is Chandana (Adult Med) [address] [place] [address] 05/10/2015 15:08:13 05/10/2015 15:56:09 Disorder of shoulder 018539392 M25.811 Hyperglycemia 29513196 R 73.9 [id number] Garcia Ellington (Adult Med) [address] [place] [address] 08/02/2015 13:43:24 08/02/2015 16:03:18 Shoulder pain 40688566 M25.511 Obese 360181029 E66.9 Knee pain 11979997 M25.5 69 [id number] MD Chandana Barraagn (Adult Med) [address] [place] [address] 11/29/2015 15:24:40 11/29/2015 18:10:02 Shoulder pain 99363525 M25.511 Gastroesop hageal reflux disease 108807876 K21.0 [id number] Sasha Diaz is Chandana (Adult Med) [address] [place] [address] 01/24/2016 12:17:38 01/24/2016 18:06:57 Knee pain 53341534 M25.569 Hip pain 51276319 M25.55 1 M25.552 [id number] Leah [facility] [address] [place] [address] 03/07/2016 09:29:32 03/07/2016 12:08:45 Knee pain 80902364 M25.561 M25.562 Degenerati on of intervertebral disc 01703856 M51.9 Gastroesop hageal reflux disease 880662365 K21.9 Low back pain 648979503 M54.5 Obese 639998404 E66.9 [id number] FREDDY Schroeder (MANAGER STAR) [address] [place] [address] 29704-958 0 03/28/2016 15:02:47 03/30/2016 10:13:41 Uterine leiomyoma 94953739 D25.9 Gynecologi c examination 76036176 Z01.419 Screening mammography 24 452589 Z12.31 [id number] MD Chandana Barragan (Adult Med) [address] [place] [address] 86857-673 0 05/10/2016 16:15:36 05/10/2016 17:53:38 Knee pain 22649422 M25.569 Constipation 23612270 K5 9.00 Possibly opioid induced [id number] MD Chandana Barragan (Adult Med) [address] [place] [address] 97755-791 0 09/25/2016 15:31:12 09/25/2016 16:36:34 Hyperglycemia 35254842 R73.9 Osteoarthritis 108765034 M19.90 Atherosclerosis 62268059 I70.90 Gastroesop hageal reflux disease 185717427 K21.0 Knee pain 32071216 M25.5 69 [id number] Dread Barrientos MD [facility] [address] [place] [address] 10/03/2016 10:03:21 10/03/2016 11:55:59 Osteoarthritis of knee 003415163 M17.0 [id number] Dread Barrientos MD [facility] [address] [place] [address] 2 10/10/2016 10:54:55 10/10/2016 12:58:39 Osteoarthritis of knee 029122619 M17.0 Pain in right knee 39996 16908 02661 M25.363 [id number] Dylan Ellington (MANAGER STAR) [address] [place] [address]11-081 0 11/01/2016 14:56:31 11/01/2016 17:41:22 Surgical follow-up 684082184 Z09 E 07/2016 Uterine leiomyoma 488737 05 D25.9 Chronic id iopathic constipation 38847371 K59.04 [id number] MD Chandana Barragan (Adult Med) [address] [place] [address]20-990 0 12/28/2016 14:06:53 12/29/2016 15:04:17 Hyperglycemic disorder 136164584 R73.9 Random blo od glucose outside reference range 828284997 R73.09 Hypoglycemic disorder 23 1906180 E16.2 Venous ins ufficiency of leg 878541384 I87.2 Diccussed wearing support hose [id number] MD Chandana Barragan (Adult Med) [address] [place] [address] 41374-376 0 02/06/2017 16:08:55 02/06/2017 18:00:15 Impaired glucose tolerance with hyperinsulism 539857827 R73.02 Has been referred to endocrinol ogy. Awaiting appt. 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 Vitamin D deficiency 347 28942 E55.9 Gastroesop hageal reflux disease 967584957 K21.0 [id number] Dylan Sagastume Chandana (MANAGER STAR) [address] [place] [address] 81907-439 0 02/19/2017 15:56:55 02/20/2017 15:58:47 Chronic constipation 690235749 K59.09 Impaired g lucose tolerance 2127432 R73.02 increase exercise and portion control, increase protein Reactive hypoglycemia 31 7006 E16.1 needs to eat small, frequent meals throughout the day- increase protein in diet- note provided for work Uterine leiomyoma 084120 05 D25.9 discussed results of most recent pelvic U/S- fibroids essentiall y unchanged Screening mammography 24 360309 Z12.31 [id number] MD Chandana Barragan (Adult Med) [address] [place] [address]64-502 0 04/09/2017 15:43:10 04/10/2017 13:03:25 Knee pain 57956963 M25.569 Impaired g lucose tolerance with hyperinsulism 196897496 R73.02 Obese 960772442 E66.9 Asthma 721697145 J45.90 9 Medication monitoring 39 8852194 Z51.81 [id number] Dread Barrientos MD [facility] [address] [place] [address] 04/17/2017 10:55:55 04/17/2017 12:54:34 Shoulder pain 46749003 M25.511 Subacromia l impingement 770088696 M75.41 [id number] Dread Barrientos MD [facility] [address] [place] [address] 04/24/2017 09:44:23 04/24/2017 12:23:45 Osteoarthritis of knee 942263344 M17.0 [id number] Dread Barrientos MD [facility] [address] [place] [address] 05/22/2017 10:41:04 05/22/2017 14:00:40 Osteoarthritis of knee 783184618 M17.0 [id number] MD Chandana Barragan (Adult Med) [address] [place] [address] 71527[address]220 0 09/19/2017 16:11:16 09/20/2017 09:58:47 Medication monitoring 625777298 Z51.81 Pt to do on 09/20/2017 Low back pain 789301150 M54.5 Knee pain 86241796 M25.5 69 [id number] MD Chandana Barragan (Adult Med) [address] [place] [address] 11539-876 0 10/30/2017 16:14:45 10/31/2017 10:36:59 Low back pain 305544083 M54.5 Bilateral hip joint pain 9422190542 0396711 M25.551 M25.488 [id number] Dread Barrientos MD [facility] [address] [place] [address]784 2 01/01/2018 10:02:16 01/07/2018 16:09:10 Knee pain 04073608 M25.561 M25.317 [id number] MD Chandana Barragan (Adult Med) [address] [place] [address] 18851-474 0 01/10/2018 14:57:20 01/10/2018 16:21:16 Skin lesion 54311857 L98.9 Hip pain 31404357 M25.55 1 M25.552 Osteoarthritis 779291955 M19.90 [id number] MD Chandana Schwab (Adult Med) [address] [place] [address]959[address]949 0 05/16/2018 12:00:37 05/16/2018 12:51:28 Chronic instability of knee 316345907 M23.52 M23.51 F/U with her PCP DR. Cayden Fuller. [id number] FREDDY Aldrich (Adult Med) [address] [place] [address]63-110 0 09/11/2018 11:58:28 09/12/2018 11:46:17 Pain in left thumb 9688854533 903081 M79.645 Knee pain 62987095 M25.5 69 Medication monitoring 39 6198876 Z51.81 History of respiratory disease 998132540 Z87.09 Resolved Pain in throat 499802841 R07.0 Observe Chest pain 96501385 R07. 9 F/U with cardiology Bilateral hip joint pain 5168454840 3870724 M25.551 M25.440 [id number] MD Chandana Barragan (Adult Med) [address] [place] [address] 83379-169 0 12/02/2018 17:11:32 12/02/2018 18:24:41 Varicose veins of lower extremity 37054177 I83.893 Effusion o f joint of right knee 8832071035 01816 M25.927 [id number] Dylan Sagastume Chandana (MANAGER STAR) [address] [place] [address] 21587-499 0 01/07/2019 15:05:52 01/08/2019 11:50:51 Gynecologic examination 75503629 Z01.419 please call patient at for all test results. ok to leave voicemail no problem Exposure t o sexually transmissible disorder 576614956 Z20.2 Screening mammography 24 860044 Z12.31 [id number] FREDDY Aldrich (Adult Med) [address] [place] [address] 88102-105 0 02/20/2019 11:47:07 02/24/2019 10:06:36 Administration of diphtheria, pertussis, and tetanus vaccine 116390720 Z23 [id number] MD Chandana Barragan (Adult Med) [address] [place] [address] 20802-300 0 04/03/2019 14:55:10 04/04/2019 09:42:31 Effusion of joint of right knee 3883865262 37236 M25.461 History of respiratory disease 816915116 Z87.09 Resolved Bilateral hip joint pain 7538350732 7415677 M25.551 M25.367 [id number] MD Chandana Blake (Adult Med) [address] [place] [address] 68462-404 0 07/25/2019 14:06:14 07/28/2019 08:53:42 Administration of influenza vaccine 54868011 Z23 Osteoarthr itis of knee 421517074 M17.9 [place] is neededUDS okay but needs to be repeatedHy drocodone PRN Screening for malignant neoplasm of colon 087858627 Z12.11 General ex amination of patient 068527214 Z00.01 Hypoglycemia 297007586 E 16.2 Nicotine dependence 5629 4008 F17.555 [id number] MD Chandana Barragan (Adult Med) [address] [place] [address] 40554-053 0 08/12/2019 14:52:07 08/12/2019 17:35:57 Gastroesophageal reflux disease 396650122 K21.0 Osteoarthr itis of knee 032243750 M17.9 [id number] MD Chandana Barragan (Adult Med) [address] [place] [address] 97040-718 0 04/08/2020 08:47:26 04/09/2020 10:59:30 Disorder of joint of foot 529676295 M25.9 Will need cardiology and medical clearance for foot surgery [id number] MD Chandana Barragan (Adult Med) [address] [place] [address] 30323-727 0 04/28/2020 16:03:27 04/29/2020 14:39:20 Disorder of joint of foot 400568406 M25.9 Pre-surger y evaluation 455726635 Z01.818 Osteoarthr itis of knee 618477657 M17.9 [id number] MD Chandana Barragan (Adult Med) [address] [place] [address] 65601-406 0 09/13/2020 09:37:35 09/14/2020 14:12:58 Gastroesophageal reflux disease 662017055 K21.9 Low back pain 477556249 M54.5 Medication monitoring 39 5906403 Z51.81 [id number] MD Chandana Barragan (Adult Med) [address] [place] [address] 23677-145 0 12/20/2020 12:09:56 12/21/2020 14:02:01 Low back pain 993748478 M54.5 Osteoarthritis 023323164 M17.11 Vitamin D deficiency 347 10105 E55.9 Bilateral hip joint pain 7471446816 6213459 M25.551 M25.552 Degenerati on of intervertebral disc 74661795 M51.9 [id number] Dylan Sagastume Chandana (MANAGER STAR) [address] [place] [address] 48951-141 0 03/14/2021 16:03:08 03/15/2021 10:35:27 Gynecologic examination 95878369 Z01.419 Z11.51 please call patient at for all test results. [facility] Screening mammography 24 103220 Z12.31 Gastroesop hageal reflux disease 214784025 K21.9 [id number] MD Chandana Barragan (Adult Med) [address] [place] [address] 46112-079 0 05/31/2021 16:35:33 06/01/2021 07:45:57 Gastroesophageal reflux disease 492520108 K21.9 Will restart H2 chandler Osteoarthritis 962382540 M17.11 Atherosclerosis 74439873 I70.90 Asthma 764487485 J45.90 9 [id number] BARBRA FAIR (MANAGER STAR) [address] [place] [address] 47467-158 0 07/27/2021 16:21:09 08/08/2021 10:02:41 Well woman monitoring check done 491966585 Z76.89 Cervical cancer screening: Last Pap December 2018, unsatisfac tory, HPV negative. Pt due to for repeat cytology, to reschedule at later date.Breas t cancer screening: Last mammogram Mar 2021, BIRADS 2. Discussed SBEColonos copy: [facility] eption: s/p BTL, postmenopa usalDiet/e xercise: Counseled regarding importance of physical activity, healthy diet and appropriat e calcium intake.RTC in 6 months for Pap/WWE. [id number] MD Chandana Barragan (Adult Med) [address] [place] [address] 17981-698 0 08/08/2021 12:32:16 08/09/2021 10:32:36 Gastroesophageal reflux disease 115103061 K21.9 Hold H2 chandler. Increase PPI dose [id number] BARBRA FAIR [facility] (MANAGER STAR) [address] [place] [address] 76307-976 0 01/18/2022 15:44:32 02/08/2022 11:46:23 Gynecologic examination 98955516 Z01.419 Normal gynecologi c exam today.Cerv ical cancer screening: Last Pap smear on 01/07/2019 that was unsatisfac tory cytology. Pap performed today.Olga st cancer screening: Last mammogram was on 03/24/21 and was normal. Discussed SBEColonos copy: UTDSTI screening: Deferred. Patient reports she hasn't been sexually active for about 1 year and has been in a monogamous ecu healthh ip with her for 14 years.Cont raception: s/p tubal ligationDi et/exercis e: Counseled regarding importance of physical activity, healthy diet and appropriat e calcium intake.RTC in 1yr Screening for malignant neoplasm of breast 311215545 Z12.31 Annual screening mammogram due March 2022. Obesity 355272941 E66.9 BMI 35.1. Educated patient on healthy lifestyle including well balanced diet and daily exercise of 30 minutes or more. [id number] MD Chandana Barragan (Adult Med) [address] [place] [address] 56057-205 0 02/06/2022 14:51:26 02/07/2022 08:37:01 Lesion of left eyelid 0843741190 7108720 H02.9 Bilateral hip joint pain 8561086088 4511952 M25.551 M25.287 [id number] MD Chandana Barragan (Adult Med) [address] [place] [address] 86261-122 0 05/02/2022 12:14:26 05/03/2022 15:31:26 Cough 00575511 R05.9 Hypercalcemia 83869222 E 83.52 PTH Nl; elevated ionized Ca [id number] BARBRA FAIR (MANAGER STAR) [address] [place] [address] 10234-932 0 07/06/2022 15:40:34 07/13/2022 12:23:50 Hemorrhoids 76925853 K64.9 Persistent x years with intermitte nt flares. Requests referral for hemorrhoid removal. Vulvovaginitis 40484710 N76.0 PE c/w persistent yeast infection. Cultures obtained to confirm. Nystatin cream prescribed since clotrimazo le was ineffectiv e. Fluconazol e renewed. Advised to apply ice packs for itching instead of scratching to avoid further infection. Keep areas clean and dry. Limit pad use and make sure to remove wet pads. RTC if symptoms do not improve. Urge incon tinence of urine 06317165 N39.41 Discussed lifestyle adjustment s such as bladder training and PFPT/Kegel 's and good glycemic control. Pt will consider medication s if symptoms persist. [id number] MD Chandana Barragan (Adult Med) [address] [place] [address] 87583-421 0 07/12/2022 11:02:27 07/17/2022 14:44:37 Type 2 diabetes mellitus 47045641 E11.9 patient requesting testing supplies. [id number] MD Chandana Barragan (Adult Med) [address] [place] [address] 67178-712 0 08/07/2022 13:44:03 08/09/2022 10:55:17 Type 2 diabetes mellitus 57555148 E11.9 Needs better control. Will increase glimepirid e. F/U with dietary Morbid obesity 127204440 E66.01 [id number] MD Chandana Barragan (Adult Med) [address] [place] [address] 36744-611 0 09/05/2022 10:05:41 09/06/2022 16:18:41 Type 2 diabetes mellitus 33186791 E11.9 Well controlled on current regimen. Pt to continue current regimen. F/U with dietary. OK to get cataract surgery. Morbid obesity 067268629 E66.01 Disorder of vision 17971 002 H53.9 OK toproceed wiht [id number] MD Chandana Barragan (Adult Med) [address] [place] [address] 27119-438 0 09/18/2022 14:49:41 09/19/2022 11:38:48 Bilateral hip joint pain 5254347545 0104487 M25.551 M25.552 Type 2 mulu betes mellitus 51756512 E11.9 Well controlled on current regimen. Pt to continue current regimen. F/U with dietary. OK to get eyes checked for new prescripti ons Morbid obesity 646298899 E66.01 [id number] Surjit Fuller MD [facility] (Adult Med) [address] [place] [address] 48156-694 0 01/15/2023 14:23:30 01/16/2023 14:04:21 Obesity 610805900 E66.9 Varicose v eins of lower extremity 12378611 I83.893 Bilateral shoulder joint pain 5812514959 6681306 M25.511 Refer to ortho. Pain of bi lateral knee regions 6942045309 30138 M25.561 M25.562 Refer back to ortho. Hypoglycemic disorder 23 9900003 E16.2 Decrease glimepirid e to 2 mg/d Type 2 mulu betes mellitus 95893017 E11.9 PM hypoglycem ia . Decrease glimepirid e to 2 mg/dl [id number] MD Chandana Barragan (Adult Med) [address] [place] [address] 38331-299 0 02/26/2023 14:54:40 02/27/2023 12:15:11 Morbid obesity 337108978 E66.01 Low back pain 444523807 M54.50 Asthma 988784478 J45.90 9 Atherosclerosis 30128205 I70.90 Degenerati on of intervertebral disc 40035353 M51.9 Dysphagia 49532818 R13.1 0 Type 2 mulu betes mellitus 75578832 E11.9 PM hypoglycem ia . Decrease glimepirid e to 2 mg/dl Varicose v eins of lower extremity 82635628 I83.893 Bilateral hip joint pain 1770092844 3549592 M25.551 M25.468 [id number] Surjit Fuller MD [facility] (Adult Med) [address] [place] [address] 27607-410 0 08/06/2023 14:29:32 08/07/2023 16:25:15 Obesity 368295507 E66.9 Type 2 mulu betes mellitus 69114480 E11.9 PM hypoglycem ia . Decrease glimepirid e to 2 mg/dl. Has been inconsiste nt since her sister's in 4/23 Medication monitoring 39 1657974 Z51.81 Will do with labs Bilateral hip joint pain 3877327290 6561528 M25.551 M25.855 [id number] Dee Hernandez MD [facility] (Adult Med) [address] [place] [address] 51369-628 0 09/18/2023 14:25:04 10/04/2023 14:18:34 Obesity 922093733 E66.9 Discussed healthy diet. Recommende d lean meats. Recommende d less carbohydra miller and more fiber and protein. Vaginitis 14459107 N76.0 Recurrent vaginal itching. Explained to patient that may be due to vaginal dryness secondary to post menopause. Will try Diflucan but if symptoms continue recommend a follow up appointmen t for an exam and treatment options for vaginal dryness. Screening for malignant neoplasm of breast 318950347 Z12.39 Menopause 107057759 Z78. 0 Patient had a period for several years after her ablation and then she did not have a period for over a year. I confirmed to patient that she is menopausal . She is not experienci ng menopausal symptoms except the possibilit y of menopausal dryness. If symptoms continue despite treatment with antifungal will follow up for further evaluation . Screening mammography 24 082168 Z12.31 [id number] Surjit Fuller MD [facility] (Adult Med) [address] [place] [address] 39978-746 0 12/05/2023 14:29:00 12/08/2023 08:21:44 Obesity 978299344 E66.8 Atherosclerosis 69716403 I70.90 Hyperlipidemia 82356780 E78.5 Shoulder pain 51791038 M 25.511 Type 2 mulu betes mellitus 63069867 E11.9 Discussed importance of dietary control [id number] MD Chandana Moreno (Adult Med) [address] [place] [address] 60826-387 0 03/25/2024 14:54:40 04/01/2024 09:30:13 Type 2 diabetes mellitus 83947155 E11.9 Recently uncontroll ed and may be contributi ng to recurrent yeast vaginitis. Vaginitis 44487903 N76.0 Symptoms and exam consistent with lichen sclerosis. Will return for biopsy to confirm. Has an appointmen t in two weeks so week will do the biopsy then. Until then will treat with oral medication to avoid interferin g with the biopsy. If she is still not able to tolerate it she will let me know and I will try to work her in earlier for the biopsy. Will treat with Doxepin at night and antihistam ine during the day. [id number] MD Chandana Moreno (Adult Med) [address] [place] [address] 44309-760 0 04/02/2024 13:53:04 04/09/2024 12:21:46 Lesion of vulva 400169527 N90.89 Tolerated biopsy procedure well. Hemostasis maintained . Advised patient to contact me if she has any evidence of bleeding or infection (drainage, fever, pain). She can take Tylenol or Ibuprofen for the first forty eight hours if needed. If she needs any pain medication after that she should let me know. Since we have the biopsy and the exam and symptoms are consistent with vulvar lichen sclerosus, I will have her start treatment with Clobestaso l cream, and I will let her know when I get the biopsy result. [id number] MD Chandana Barragan (Adult Med) [address] [place] [address] 33907-553 0 05/06/2024 15:53:58 05/07/2024 12:34:42 Morbid obesity 692533153 E66.01 Bronchitis 31315328 J40 Continue prednisone . Add cough suppressan t Cough 66930481 R05.9 Pain of bi lateral knee regions 9625413088 58809 M25.561 M25.562 Refer back to ortho. Disability plate card form completed [id number] MD Chandana Moreno (Adult Med) [address] [place] [address] 95573-321 0 05/13/2024 16:39:29 05/15/2024 12:02:29 Psoriasis 7053100 L40.9 vulvar psoriasis. Has used high potency steroid cream for several months. Was using it regularly and now has decreased to as needed. 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 Discussed side effects including skin irritation . If she cannot tolerate the Calcipotri femi consider oral medication such as Methotrexa te. Discussed this with patient. Will get CMP and CBC today in case we need to consider oral medication . Will also put in a Dermatolog y referral in case we need assistance with medication s for treatment. Will follow up in two months. [id number] MD Chandana Moreno (Adult Med) [address] [place] [address] 07/07/2024 13:51:15 07/09/2024 10:18:58 Joint pain 90843062 M25.50 Has been dealing with multiple joint pains for some time. 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 Will do some blood work to check for auto immune arthritis. Type 2 muul betes mellitus 45100840 E11.9 Uncontroll ed and likely contributi ng to yeast infection. Discussed adding a GLP-1 which could help her glucose and help her with weight control for her joint pains. I will leave a message with Dr. Fuller to let him know we discussed this. Psoriasis of vulva 41451 4003 L40.9 Only thing that has helped is the Clobetasol cream. Calcipotri femi did not help. We discussed using a systemic medication . Would like to try Methotrexa te. Reviewed side effects. Would start with 2.5 mg three times a day once a week. Will wait to start this until she gets the yeast infection treated and hopefully her diabetes is better controlled . She will follow up in three weeks after her visit with her primary care. Tinea cruris 763043561 B 35.6 Rash on inguinal crease consistent with fungus. Treat with topical cream and pill. Follow up in three weeks. Health Concerns Section Related Observation LastModified by Organization Detai ls LastModified Time None Recorded Concern Status LastModified by Organization Details LastModified Time None Recorded Advance Directives Directive N: Payers Encounter Date Sequence Insurance Name Policy Number Policy Lieberman Covered Member ID Lieberman Member ID Guarantor Name 03/25/2024 1 [facility] (MEDICARE REPLACEMENT/AD VANTAGE - HMO) [id number] Brittney Joseph [id number] Brittney Joseph 03/25/2024 2 [place] WHEN MEDICARE OR MEDICARE REPLACEMENT PRIMARY) Brittney Joseph [id number] Brittney Joseph 04/02/2024 1 [facility] (MEDICARE REPLACEMENT/AD VANTAGE - HMO) [id number] Brittney M Drummer [id number] Brittney Drummer 05/06/2024 1 [facility] (MEDICARE REPLACEMENT/AD VANTAGE - HMO) [id number] Brittney M Drummer [id number] Brittney Drummer 05/13/2024 1 [facility] (MEDICARE REPLACEMENT/AD VANTAGE - HMO) [id number] Brittney M Drummer [id number] Brittney Drummer 07/07/2024 1 [facility] (MEDICARE REPLACEMENT/AD VANTAGE - HMO) [id number] Brittney M Drummer [id number] Brittney Drummer Notes Date Note Type Note Provider Name and Address Organization Details Recorded Time 03/25/2024 text/html here for vaginal complaints, when saw me in September had vaginal itching, when took first Diflucan it helped for a week, when took second one it didn't help at all, vaginal cream did not help either, has been itching very bad since, stays in gown all day long, took medicine on September, at the top on the inside there is a bump, toward the bottom on both sides noticed two other bumps, sister had cervical cancer, diabetes not well controlled, PAP in 2021 normal, with twenty one years, Dee Hernandez MD Attn: Accounting, [address] [place], [address], [facility] 03/25/2024 18:07:37 04/02/2024 text/html here for vulvar biopsy, symptoms continue, medication did not help itching at all, took one Doxepin at night and the Loratidine in the morning, no allergies, Dee Hernandez MD Attn: Accounting[address] [place], [address], [place] [facility] 04/02/2024 14:49:55 05/06/2024 text/html Three week histo ry of URI with cough, headache, sore throat. Treated with medrol, z pack, antihistamine, flonase and cough suppressant. Pt somewhat improved. Cough no better and causes headache. Surjit Fuller MD Attn: Accounting[address] [place], [address], [place] [facility] 05/06/2024 16:54:48 05/13/2024 text/html follow up, used cream showers maybe once a week, when first got it used it every night for about a week or week and a half, then went down to when it started itching which was every two to four days, Dee Hernandez MD Attn: Accounting[address] , [place], [address], [place] [facility] 05/13/2024 18:07:03 07/07/2024 text/html new rash in the groin area, it is in the femoral crease, first noticed it a month ago, it is different than the psoriasis, does not itch but is painful, was there for about a week and a half, resolved and now has been back for a week and a half, the only time the psoriaisis was better was when she was using the Clobetasol cream, has been out of it, the calcipotriene has not been helping, wipes after she urinates instead of blotting, has had multiple joint pains for some time, knees need to be replaced, back pain and hip pain, Dee Hernandez MD Attn: Accounting[address] , [place], [address], [place] [facility] 07/07/2024 18:48:37 OBGyn Episode Ob Episode Information Episode Created Date Number of Fetuses Patient Bloodtype Patient rh Status Prepregnancy Weight lbs Domestic Partner Domestic Partner Phone Father Name Noodle Maker Status 03/28/20 16 1 CLOSED Fetus Data First Name Last Name Admitted to NICU Weight (g) Sex Living Outcome Pediatric Complications Fetus ID Race Codes Race Delivery Type 2778.25 1 Full Term [id number] Fabian Calculation Initial Fabian Date Initial Exam Date Initial Exam Provider Initial Ultrasound Date Last Menstrual Period Date Ultra Sound Weeks Gestation 0 Eighteen To Twenty Week Fabian Update Ultra Sound Date Fundal Height At Umbil Quickening Date Ultra Sound Latest Weeks Gestation Final Fabian Confirmed By Final Fabian Confirmed Date Final Fabian Date Ultra Sound Latest Days Gestation 0 0 Menstrual History Last Menstrual Date Menses Monthly On Bcp Conception Prior Menses Frequency Hcg Plus Date Menarche Onset Age Delivery Information Delivery Date Delivery Type Labor Anesthesia Weeks Gestation Incision Type Labor Labor Length Hrs Delivered By Post Complications Tubal Sterilization Discharge Date Comments 7 None 40 false Discharge Information Feeding Method Contraceptive Method Maternal HG B and HCT Levels Ob Episode Information Episode Created Date Number of Fetuses Patient Bloodtype Patient rh Status Prepregnancy Weight lbs Domestic Partner Domestic Partner Phone Father Name Noodle Maker Status 03/28/20 16 1 CLOSED Fetus Data First Name Last Name Admitted to NICU Weight (g) Sex Living Outcome Pediatric Complications Fetus ID Race Codes Race Delivery Type [id number] Full Term [id number] Vaginal Fabian Calculation Initial Fabian Date Initial Exam Date Initial Exam Provider Initial Ultrasound Date Last Menstrual Period Date Ultra Sound Weeks Gestation 0 Eighteen To Twenty Week Fabian Update Ultra Sound Date Fundal Height At Umbil Quickening Date Ultra Sound Latest Weeks Gestation Final Fabian Confirmed By Final Fabian Confirmed Date Final Fabian Date Ultra Sound Latest Days Gestation 0 0 Menstrual History Last Menstrual Date Menses Monthly On Bcp Conception Prior Menses Frequency Hcg Plus Date Menarche Onset Age Delivery Information Delivery Date Delivery Type Labor Anesthesia Weeks Gestation Incision Type Labor Labor Length Hrs Delivered By Post Complications Tubal Sterilization Discharge Date Comments 2 None 40 false Discharge Information Feeding Method Contraceptive Method Maternal HG B and HCT Levels Ob Episode Information Episode Created Date Number of Fetuses Patient Bloodtype Patient rh Status Prepregnancy Weight lbs Domestic Partner Domestic Partner Phone Father Name Noodle Maker Status 03/28/20 16 1 CLOSED Fetus Data First Name Last Name Admitted to NICU Weight (g) Sex Living Outcome Pediatric Complications Fetus ID Race Codes Race Delivery Type [id number] Full Term [id number] Fabian Calculation Initial Fabian Date Initial Exam Date Initial Exam Provider Initial Ultrasound Date Last Menstrual Period Date Ultra Sound Weeks Gestation 0 Eighteen To Twenty Week Fabian Update Ultra Sound Date Fundal Height At Umbil Quickening Date Ultra Sound Latest Weeks Gestation Final Fabian Confirmed By Final Fabian Confirmed Date Final Fabian Date Ultra Sound Latest Days Gestation 0 0 Menstrual History Last Menstrual Date Menses Monthly On Bcp Conception Prior Menses Frequency Hcg Plus Date Menarche Onset Age Delivery Information Delivery Date Delivery Type Labor Anesthesia Weeks Gestation Incision Type Labor Labor Length Hrs Delivered By Post Complications Tubal Sterilization Discharge Date Comments 9 None 40 false Discharge Information Feeding Method Contraceptive Method Maternal HG B and HCT Levels
--- OUTSIDE RECORDS SUMMARY | 2024-07-28 12:35 | XMS_ITS | Data Portability ---
Author Organization [place] - [facility] [employer], Main Office Address [address] [place] [address] Care Team Providers Care Aircraft [employer] Name Role Phone RUTH FULLER Primary Care Provider RUTH FULLER Referring Provider Assessment Encounter Date Assessment Date Assessment LastModified by Organization Details LastModified Time 02/01/2023 02/01/2023 HPI: 57-year-old female came in today for evaluation of her bilateral knee pain. She has been having symptoms in her knees for years. She has been using zkgl-xvb-ctraeai anti-inflammatori es pain control. Recently she has had to stop using those because she was started on Xarelto due to onset of AFib. Patient was seeing Dr. Barrientos and getting cortisone injections in the past. They quit working for her. She has not had an injection for at least 5 or 6 years. She has had no previous surgeries to either knee. Physical exam: 57-year-old female she is 5 ft 11 and 258 lb or BMI is 36.1. She has mild effusions in both knees. Range motion is from 3-135 degrees bilaterally. She has moderate tenderness over both medial joint lines to palpation. No pain with patellofemoral grind bilaterally. No lateral joint line tenderness bilaterally. Hip range of motion is full without discomfort bilaterally. Negative Stinchfield maneuver bilaterally. No edema in either lower extremity. 2+ dorsalis pedis pulse in both feet. Normal ligament exam to both knees. After ChloraPrep used on skin 20 mg Kenalog and 3 cc of 0.5% ropivacaine was injected into the right knee. Risk infection discussed. Patient is diabetic and we talked about the fact that her blood sugars will go up for the next several days due to the injections so that she is aware that. Impression: 57-year-old female who has xhck-wp-isaszwnj medial compartment osteoarthritis both knees. I discussed x-ray findings with her. Again she is not a candidate for anti-inflammatori es due to being on the Xarelto. One option is to obtain MRI scans of both knees to determine whether not she may have meniscal pathology causing her symptoms. I think this is less likely to be the case. She is having no symptoms or catching locking. It is mostly just pain that progresses as the day progresses. And certainly this typically correlates with osteoarthritis. She is obese. BMI is 36. We discussed weight loss by reducing her caloric intake. Her arthritis is mild enough that I think that if she loses weight there is a good chance that her symptoms will significantly improve. We did talk about cortisone injections. She did not have good luck with them approximately 5 years ago but would like to try them at this point. She is diabetic so we will separate these by week to allow her blood sugars to regulate back down. She tolerated the injection well on the right knee and we will see her back in a week for injection in the left. We can also reassess how the right knee is doing. Certainly if the shots will give her satisfactory improvement then the next step would be MRIs of the knees we discussed that as well. 30 minutes was spent in treatment patient more than half of this in tprn-ac-ebtv conversation Not available 02/01/2023 15:40:44 02/08/2023 02/08/2023 HPI: Patient returns. She is here for cortisone injection in the left knee. She has shot the right 1 week ago. Blood sugars barely change she states. The highest it was 130 following cortisone injection. Again she has medial compartment osteoarthritis in both knees. She is on Xarelto and not a anti-inflammatori es candidate. She is here for the injection left knee. Physical exam: 57-year-old female she walks well. She has mild effusion left knee. Range of motion is from 0-135 degrees. Auzn-ka-myukpqoz tenderness over the medial joint line to palpation. After ChloraPrep was used on the skin 20 mg Kenalog and 3 cc of 0.5% ropivacaine was injected into the left knee. Impression: 57-year-old female who has erwf-ws-vsacnrab medial compartment osteoarthritis in both knees. She is on Xarelto chronically therefore a candidate for anti-inflammatori es. She did get good relief from the injection right knee 1 week ago so hopefully she will get the same relief from the 1 on the left today. She can repeat these in the future as often as every 3 months needed she will keep that mind. Discussed again about weight loss which is going to be the most beneficial thing for her. At this point will see her back as needed. 20 minutes spent treatment patient more than half of this in jyfj-vc-fiao conversation Not available 02/08/2023 11:37:33 02/22/2023 02/22/2023 HPI: 57-year-old female came in today for evaluation of her right greater than left shoulder pain. She has been having symptoms for about 6 weeks. She recalls no injury or trauma. She has pain with overhead activities or with overuse. She feels most the pain over the anterior deltoid and occasionally the lateral deltoid. Patient had arthroscopy done to her right shoulder 2014 by us. Her rotator cuff was in excellent condition and did not require any surgical intervention. She had acromioplasty and arthroscopic distal clavicle excision. She had uneventful recovery. She has had no surgery or treatments done on the left in the past. 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 Physical exam: 57-year-old female alert. She is 5 ft 11 and 258 lb her BMI is 361. She has active elevation of both shoulders to 145 with some ajtx-jj-jjuejlrp discomfort in the anterior deltoid. External rotation 80 bilaterally internal rotation is to T10 bilaterally. She has no pain with external rotation or internal rotation. Subscap lift-off is intact in both shoulders. She has excellent strength with abduction as well as external rotation in both shoulders. Tfkj-dm-lybyxthu pain with primary impingement testing bilaterally. There is no AC joint tenderness in either shoulder. Mild tenderness over the anterior supraspinatus tendon insertion in both shoulders. 2+ radial pulse in both wrists. Impression: 57-year-old female who has most likely rotator cuff tendinitis in both shoulders right greater than left. She has excellent strength on physical exam so I think that her rotator cuffs are intact and healthy. As initial management I have recommended a course of formal physical therapy for impingement tendinitis protocol. Am also going to prescribe her a Medrol Dosepak to try to help get a jump start on his symptoms in her shoulders. We will set up therapy will see her back in a month for re-evaluation. Not available 02/22/2023 14:44:20 03/22/2023 03/22/2023 HPI: Patient returns. She is here for follow-up of her bilateral shoulder pain. She did not get therapy set up yet. First opening They had is not until next week. She took a Medrol Dosepak in her shoulders are doing much better. a right shoulder little bit sore today because she was throwing darts last night which she does every Sunday. Otherwise her symptoms are very minimal in the shoulders. Physical exam: 57-year-old female alert pleasant. She has active elevation to 145 bilaterally. External rotation 80 bilaterally internal rotation is to T12 bilaterally. No pain with range of motion. She has good strength with external rotation well as abduction both shoulders. Impression: 57-year-old female who had most likely rotator cuff tendinitis in both of her shoulders. She is still having a little irritation in the right most likely due to the overuse of throwing darts last night. I did recommend she keep her therapy appointments so that she can be taught how to stretch and strengthen the rotator cuff muscles and hopefully will keep her from having symptoms in the future and she is going to do this. At this point see her back as needed. Not available 03/22/2023 14:25:06 Plan of Treatment Reminders Order Date Submit Date Provider Last Modified By Organization Details Last Modified Time Details Appointments None recorded. Lab None recorded. Referral None recorded. Procedures injection/a spiration joint/bursa (PROC) - in office procedure, administere d by provider 2022 023 [email or web address] In-Office Order, Internal Use Only DO Not Attach Compendium DO Not Attach Compendium, Do Not Delete/merge, [id number] 3 11:19:09 Surgeries None recorded. Imaging XR, shoulder 2022 023 [email or web address] [facility] [place], [address] [place] [address], [place], [address], 3 08:50:49 XR, knee 2022 023 [email or web address] [facility], [address] [place] [address], [place], [address], 3 16:03:17 Medication Orders Kenalog 10 mg/mL suspension for injection 2022 023 Not available 14:00:42 ropivacaine (PF) 5 mg/mL (0.5 %) injection solution 2022 023 [email or web address] Not available 14:00:47 Patient TargetsNo targets recorded. Patient InstructionsNo instructions recorded. Reason for Referral None Reported. Results Created Date Observation Date Name Description Value Unit Range Abnormal Flag Note LastModifiedBy Organization Detail LastModifiedTime 02/02/20 23 XR, knee No observ ation record ed. [facility] [address], [place], [address], 02/01/2023 15:36:55 02/23/20 XR, shoul jessica No observ ation record ed. [facility] [address] [facility], [place], [address], 02/22/2023 14:41:34 Result Notes None recorded. Problems Name Problem SNOMED Code Status Onset Date Resolution Date Notes Provider Name and Address Organization Details Recorded Time Radiothera py follow-up 287172973 Active Not Available [facility] 3 16:28:25 Partial thickness rotator cuff tear 366224291 Active Not Available [facility] 3 16:28:25 Osteoarthr itis of knee 059865410 Active Not Available [facility] 3 16:28:26 Shoulder joint pain 651121783 Active Not Available [facility] 3 16:28:26 Recurrent dislocatio n of shoulder region 01022755 Active Not Available [facility] 3 16:28:26 Disorder of rotator cuff 450981731 Active Not Available [facility] 3 16:28:26 Pain of bilateral knee joints 7806835562682 04 Active 2022 AI Reeves null, [facility] 3 14:45:15 Osteoarthr itis of left knee joint 0587320517751 09 Active 2022 AI Solis null, [facility] 3 11:15:04 Bilateral shoulder joint pain 2434539292744 9104 Active 2022 AI Solis null, [facility] 3 14:01:49 Problem Notes None recorded. Procedures Surgical History Date Name Laterality Status Provider Name and Address Organization Details Recorded Time hammer toe operation completed Not Available [facility] 08/09/2022 16:27:20 Unlisted procedure shoulder completed Not Available [facility] 08/09/2022 16:27:20 Elbow mold outsid lock hinge completed Not Available [facility] 08/09/2022 16:27:20 Tubal Ligation completed Not Available [facility] 08/09/2022 16:27:20 other completed Not Available [facility] 06/2022 16:27:20 Knee arthroscopy/dra rodriguez completed Not Available [facility] 08/09/2022 16:27:20 Imaging Results Imaging Date Name Status LastModified by Organiz ation Details LastModified Time 02/01/2023 XR, knee completed [facility] [address], [place], [address], 02/01/2023 15:36:55 02/22/2023 XR, shoulder completed [facility] [address], [address], 02/22/2023 14:41:34 Procedure Notes None recorded. Medical Equipment None Reported. Medications Name Sig Start Date Stop Date Status Note LastModified by Organization Details LastModified Time accu-chek guide test strips strp active Not Available Not Available Not Available metformin 500 mg tablet TAKE 1 TABLET BY MOUTH TWICE A DAY 02/01 completed Not Available Not Available Not Available ibuprofen 800 mg tablet 02/01 completed Not Available Not Available Not Available fluconazol e 150 mg tablet TAKE 1 TABLET BY MOUTH EVERY 72 HOURS DIRECTED 02/01 completed Not Available Not Available Not Available benzonatat e 200 mg capsule TAKE 1 CAPSULE BY MOUTH THREE TIMES DAILY 02/01 completed Not Available Not Available Not Available ranitidine 300 mg tablet 02/01 completed Not Available Not Available Not Available Senna Lax 8.6 mg tablet 02/01 completed Not Available Not Available Not Available hydrocodon e 5 mg-acetami nophen 325 mg tablet 02/08 completed Not Available Not Available Not Available ondansetro n HCl 8 mg tablet 02/01 completed Not Available Not Available Not Available prednisone 20 mg tablet TAKE 1 TABLET BY MOUTH TWICE DAILY FOR 3 DAYS 02/01 completed Not Available Not Available Not Available Accu-Chek Softclix Lancets USE TO CHECK BLOOD SUGAR TWICE A DAY DIRECTED active Not Available Not Available No t Available clotrimazo le 1 % vaginal cream INSERT 1 APPLICATO RFUL VAGINALLY DAILY AT BEDTIME X7 DAYS 02/01 completed Not Available Not Available Not Available meclizine 12.5 mg tablet TAKE 1 TABLET BY MOUTH THREE TIMES A DAY NEEDED FOR DIZZINESS , VERTIGO 02/22 completed Not Available Not Available Not Available ciprofloxa aarti 500 mg tablet 02/01 completed Not Available Not Available Not Available omeprazole 40 mg capsule,de layed release TAKE 1 CAPSULE BY MOUTH TWICE A DAY BEFORE A MEAL active Not Available Not Available No t Available aspirin 81 mg tablet,del ayed release 02/01 completed Not Available Not Available Not Available acetaminop hen 500 mg tablet 02/22 completed Not Available Not Available Not Available glimepirid e 2 mg tablet TAKE 1 TABLET BY MOUTH EVERY DAY active Not Available Not Available No t Available oxycodone- acetaminop hen 5 mg-325 mg tablet 02/01 completed Not Available Not Available Not Available magnesium oxide 400 mg (241.3 mg magnesium) tablet 02/08 completed Not Available Not Available Not Available Kenalog 10 mg/mL suspension for injection in office 02/22 completed [facility]: [id number] lot:[id number] exp: 025 Not Available Not Available Not Available hydrocodon e 7.5 mg-acetami nophen 325 mg tablet TAKE 1 TABLET BY MOUTH TWICE DAILY NEEDED active Not Available Not Available No t Available cephalexin 500 mg capsule 02/01 completed Not Available Not Available Not Available nystatin 100,000 unit/gram topical cream APPLY 1 APPLICATI ON ON THE SKIN TWICE A DAY 02/01 completed Not Available Not Available Not Available ranitidine 150 mg tablet 02/01 completed Not Available Not Available Not Available glimepirid e 4 mg tablet TAKE 1 TABLET BY MOUTH EVERY DAY active Not Available Not Available No t Available prednisone 50 mg tablet TAKE 1 TABLET BY MOUTH EVERY DAY 02/01 completed Not Available Not Available Not Available omeprazole 20 mg capsule,de layed release TAKE 1 CAPSULE BY MOUTH EVERY DAY 02/08 completed Not Available Not Available Not Available ergocalcif romina (vitamin D2) 1,250 mcg (50,000 unit) capsule TAKE 1 CAPSULE BY MOUTH ONE TIME PER WEEK 02/01 completed Not Available Not Available Not Available methylpred nisolone 4 mg tablets in a dose pack TAKE 6 TABLETS ON DAY 1 DIRECTED ON PACKAGE AND DECREASE BY 1 TAB EACH DAY FOR A TOTAL OF 6 DAYS 03/22 completed Not Available Not Available Not Available albuterol sulfate HFA 90 mcg/actuat ion aerosol inhaler 2 PUFF INHALED FOUR TIMES DAILY NEEDED FOR SHORTNESS OF BREATH OR WHEEZING active Not Available Not Available No t Available ondansetro n 4 mg disintegra ting tablet TAKE 1 TABLET BY MOUTH EVERY 6 HOURS NEEDED FOR NAUSEA AND VOMITING 02/08 completed Not Available Not Available Not Available loratadine 10 mg tablet 02/01 completed Not Available Not Available Not Available naproxen 500 mg tablet TAKE 1 TABLET BY MOUTH EVERY 12 HOURS NEEDED 02/01 completed Not Available Not Available Not Available oxycodone 5 mg tablet 02/01 completed Not Available Not Available Not Available neomycin 3.5 mg/g-polym yxin B 10,000 unit/g-dex ameth 0.1 % eye oint APPLY A SMALL AMOUNT TO LEFT UPPER EYE LID TWICE A DAY FOR 1 WEEK 02/01 completed Not Available Not Available Not Available Alcohol Prep Pads USE TO TEST BLOOD SUGAR ONCE DAILY active Not Available Not Available No t Available metoprolol tartrate 25 mg tablet TAKE 1 TABLET BY MOUTH TWICE A DAY 02/01 completed Not Available Not Available Not Available lactulose 10 gram/15 mL oral solution 02/01 completed Not Available Not Available Not Available loratadine 02/01 completed 1 daily Not Available Not Available Not Available ranitidine HCl 02/01 completed Not Available Not Available Not Available naproxen 02/01 completed 1 twice daily Not Available Not Available Not Available diclofenac potassium 02/01 completed Not Available Not Available Not Available ProAir HFA 2013 active 2 puffs 4-6 hours Not Available Not Available Not Available Januvia 100 mg tablet TAKE 1 TABLET BY MOUTH EVERY DAY 03/22 completed Not Available Not Available Not Available Symbicort 80 mcg-4.5 mcg/actuat ion HFA aerosol inhaler 02/08 completed Not Available Not Available Not Available Symbicort 02/01 completed 2 puffs daily Not Available Not Available Not Available ropivacain e (PF) 5 mg/mL (0.5 %) injection solution in office 02/22 completed [facility] [id number] [id number] lot:[id number] exp:11/10/2023 Not Available Not Available Not Available Xarelto 15 mg tablet TAKE 1 TABLET BY MOUTH TWICE DAILY X21 DAYS, THEN 20 MG TABLET ONCE DAILY 02/08 completed Not Available Not Available Not Available Xarelto 20 mg tablet TAKE 1 TABLET BY MOUTH EVERY DAY active Not Available Not Available No t Available Jardiance 10 mg tablet TAKE 1 TABLET BY MOUTH EVERY DAY active Not Available Not Available No t Available Accu-Chek Guide test strips TEST TWICE DAILY, BEFORE BREAKFAST AND BEFORE DINNER active Not Available Not Available No t Available Accu-Chek Guide Me Glucose Meter USE DIRECTED active Not Available Not Available No t Available Flowflex COVID-19 Antigen Home Test kit USE DIRECTED 02/08 completed Not Available Not Available Not Available Vitals Date Recorded Body mass index (BMI) Body height Oxygen saturation Oxygen saturation in Arterial blood by Pulse oximetry Heart rate Respiratory rate Body temperature Body weight Systolic blood pressure Diastolic blood pressure Provider Name and Address Organization Details Last Updated DateTime 35.3 kg/m2 180.34 cm 98 % 98 % 75 /min 16 /min 97.3 [degF] 694148. 87 g 140 mm[Hg] 90 mm[Hg] Not Available [facility] 16:27:29 Date Recorded Body height Body mass index (BMI) Body weight Provider Name and Address Organization Details Last Updated DateTime 02/01/2023 180.34 cm 36.1 kg/m2 955994.71 g Mindy Jessica [facility] [place] [employer] [facility] 02/01/2023 14:48:45 Date Recorded Body height Provider Name an d Address Organization Details Last Updated DateTime 02/08/2023 180.34 cm Mindy Mendesadeline [facility] [employer] [facility] [facility] 02/08/2023 10:50:04 Date Recorded Body height Provider Name an d Address Organization Details Last Updated DateTime 02/22/2023 180.34 cm Marissa Reji [facility] [place] [employer] [facility] 02/22/2023 13:59:44 Date Recorded Body height Provider Name an d Address Organization Details Last Updated DateTime 03/22/2023 180.34 cm Marissa Reji [facility] [place] [employer] [facility] 03/22/2023 14:01:46 Social History Question Answer Notes LastModified by Organizat ion Details LastModified Time Tobacco Smoking Status Current Every Day Smoker Not Available [facility] 08/09/2022 16:27:11 What Is Your Level Of Alcohol Consumption? Occasional [id number] Information not available 08/09/2022 What Is Your Level Of Caffeine Consumption? 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 02/01/2023 [email or web address] Information not available 02/01/2023 What Is Your Relationship Status? [id number] Information not available 08/09/2022 Are You Sexually Active? Yes [id number] Information not available 08/09/2022 How Much Tobacco Do You Smoke? 0.5 PPD [id number] Information not available 08/09/2022 Do You Use Any Illicit Or Recreational Drugs? No [id number] Information not available 08/09/2022 How Many Years Have You Smoked Tobacco? 36 [id number] Information not available 08/09/2022 Have You Recently Traveled Abroad? No [id number] Information not available 08/09/2022 Sex: Unknown Functional Status None recorded. Mental Status None recorded. Family History Relationship Description Onset Age of this Age Resolved Age Notes LastModified by Organization Details LastModified Time Mother Heart disease [id number] Not available 08/09/2022 16:27:21 Father Malignant tumor of lung [id number] Not available 08/09/2022 16:27:21 Maternal Grandfather Family history of malignant neoplasm [email or web address] Not available 2022 14:43:10 Medical History Condition Response OTHER # 1 GERD/NAUSEA Y USE OF BLOOD THINNERS Y ASTHMA Y OSTEOPOROSIS Y ARTHRITIS Y DIABETES, TYPE Y HEARTBURN / REFLUX Y Gynecological HistoryNo gynecological history recorded. Obstetrics History GPAL:G 0 P 0 0 0 0 Past Encounters Encounter ID Performer Location Encounter Start Date Encounter Closed Date Diagnosis/Indication Diagnosis SNOMED-CT Code Diagnosis ICD10 Code Diagnosis Note [id number] [facility] General Surgery [address] [facility] [address] [place] [address] 07/20/2022 00:00:00 07/20/2022 13:52:31 [id number] BARBRA Lomas [facility] [address] [address] 02/01/2023 14:11:13 02/01/2023 16:03:17 Pain of bilateral knee joints 9472068587 70356 M25.147 [id number] BARBRA LomasGMDanny [address] [address] 02/08/2023 10:42:24 02/08/2023 11:46:17 Osteoarthritis of left knee joint 3327871136 37733 M17.12 [id number] BARBRA Lomas S[facility] [address] [address] 02/22/2023 13:47:51 02/22/2023 14:52:31 Bilateral shoulder joint pain 9731695082 8594391 M25.511 M25.621 [id number] BARBRA Lomas [facility] [place] [address] [place] [address] 03/22/2023 13:49:31 03/22/2023 14:36:23 Bilateral shoulder joint pain 5440966938 1131654 M25.511 M25.512 Health Concerns Section Related Observation LastModified by Organization Detai ls LastModified Time None Recorded Concern Status LastModified by Organization Details LastModified Time None Recorded Advance Directives Directive None Recorded Payers Encounter Date Sequence Insurance Name Policy Number Policy Lieberman Covered Member ID Lieberman Member ID Guarantor Name 02/01/2023 1 [facility] (MEDICARE REPLACEMENT/A DVANTAGE - HMO) [id number] Brittney Joseph [id number] Brittney Joseph 02/01/2023 2 [place] Brittney Joseph [id number] Brittney Joseph 02/08/2023 1 [facility] (MEDICARE REPLACEMENT/A DVANTAGE - HMO) [id number] Brittney Joesph [id number] Brittney Joseph 02/08/2023 2 [place] Brittney Joseph [id number] Brittney Joseph 02/22/2023 1 [facility] (MEDICARE REPLACEMENT/A DVANTAGE - HMO) [id number] Brittney Joseph [id number] Brittney Joseph 02/22/2023 2 [place] Brittney Joseph [id number] Brittney Joseph 03/22/2023 1 [facility] (MEDICARE REPLACEMENT/A DVANTAGE - HMO) [id number] Brittney Joseph [id number] Brittney Joseph 03/22/2023 2 [place] Brittney Joseph [id number] Brittney Joseph OBGyn Episode No OBEpisode recorded.
--- OUTSIDE RECORDS SUMMARY | 2024-07-28 12:36 | XMS_ITS | Clinical Summary ---
Author Organization [facility] Address [address] [place] [address] Care Team Providers Care Engine Dispatcher Name Role Phone Surjit Rosenberg MD Primary Care Provider [phone] Source Comments [facility],non-owned Affiliates and Associated Physician Practices is amultiple site organization consisting of ambulatory clinics and hospital sitesin [place], [place] and [place]. This disclosure is being madepursuant to the Care Everywhere program and may not contain all information available regarding this patient. Last updated 18.[facility] Allergies No known active allergies Medications * Be aware that medications may not be up to date on this document. Alwaysverify current medications with the patient. Medication Sig Dispensed Refills Start Date End Date Status vitamin D, ergocalciferol, (DRISDOL) 33259 UNITS capsule 2 05/07/2017 Active raNITIdine (ZANTAC) 300 MG tablet Take 300 mg by mouth BID. 3 05/11/2017 Active metoprolol tartrate (LOPRESSOR) 25 MG tablet 05/23/2017 Active acarbose (PRECOSE) 25 MG tablet Take 25 mg by mouth daily with breakfast. 30 tablet 11 05/28/2017 Active Additional Information Patient not taking.Reported on 03/20/2019 HYDROcodone-acetami nophen (NORCO) 7.5-325 MG tablet Take 1 tablet by mouth q8h PRN. 0 04/09/2017 Active nystatin (MYCOSTATIN) 385215 UNIT/GM cream 4 02/28/2017 Active tiZANidine (ZANAFLEX) 2 MG tablet Take 2 mg by mouth q8h PRN. 0 05/22/2017 Active TRUE METRIX BLOOD GLUCOSE TEST test stripIndications:Pr e-diabetes TEST BLOOD SUGAR ONCE DAILY 5 08/11/2017 Active lactulose (CHRONULAC) 10 GM/15ML solutionIndications :Pre-diabetes TAKE 15 ML EVERY DAY BY ORAL ROUTE. 5 08/11/2017 Active Multiple Vitamin (DAILY-VISHAL) TABS Take 1 tablet by mouth once daily 11 03/07/2019 Active CALCIUM 600-D 600-400 MG-UNIT Take 1 tablet by mouth once daily 03/07/2019 Active Active Problems Problem Noted Date Diagnosed Date Neoplasm of uncertain behavior of skin 9 Polyosteoarthritis 05/28/2017 Prediabetes 05/28/2017 Family History Medical History Relation Name Comments Diabetes - Type 2 Mother Diabetes - Type 2 Sister Relation Name Status Comments Mother Sister Social History Tobacco Use Types Packs/Day Years Used Date Smoking Tobacco: Some Days Cigarettes Smokeless Tobacco: Never Tobacco Cessation:Ready to Q uit: No; Counseling Given: Yes Alcohol Use Standard Drinks/Week Comments No 0 (1 standard drink = 0.6 oz pur e alcohol) Sex and Gender Information Value Date Recorded Sex Assigned at Not on file Gender Identity Not on file Sexual Orientation Not on file Last Filed Vital Signs Vital Sign Reading Time Taken Comments Blood Pressure 148/86 09/27/2017 2:31 PM CDT Pulse 85 09/27/2017 2:31 PM CDT Temperature 36.6 C (97.8 F) 09/27/2017 2:31 PM CDT Respiratory Rate - - Oxygen Saturation 98% 09/27/2017 2:31 PM CDT Inhaled Oxygen Concentration - - Weight 110.2 kg (243 lb) 04/14/2019 1:32 PM 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 Height 181.6 cm (5' 11.5 ) 04/14/2019 1:32 PM CS T Body Mass Index 33.42 04/14/2019 1:32 PM 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 Plan of Treatment Health Maintenance Due Date Last Done Comments COLOGUARD (AGES 45-75) - COL ON CA SCREENING 1967 COLON MONITORING 1967 COLONOSCOPY - COLON CA SCREENING 1967 CT COLONOGRAPHY - COLON CA SCREENING 1967 Colorectal Cancer Screening 1967 FIT - COLON CA SCREENING 1967 FLEX SIG - COLON CA SCREENING 1967 LIPID TESTING 1967 MAMMOGRAM 1967 PAP SMEAR 1967 HIV SCREENING 1982 HEPATITIS C SCREENING 07/29/1985 DTAP/TDAP/TD VACCINES (1 - Tdap) 1986 HEPATITIS B VACCINE (1 of 3 - 19+ 3-dose series) 1986 PNEUMOCOCCAL VACCINE 50+ (1 of 2 - PCV) 1986 PNEUMOCOCCAL VACCINE (1 of 2 - PCV) 1986 ZOSTER VACCINE (1 of 2) 2017 SCREENING FOR DIABETES 09/27/2020 09/27/2017 COVID-19 VACCINE (1 - 2023-2 5 season) 2024 INFLUENZA VACCINE (#1) 2024 DEPRESSION SCREENING 06/11/2024 HIB VACCINE Aged Out No longer eligi ble based on patient's age to complete this topic HPV VACCINE Aged Out No longer eligi ble based on patient's age to complete this topic MENINGOCOCCAL (Group B) VACCINE Aged Out No longer eligible based on patient's age to complete this topic MENINGOCOCCAL VACCINE Aged Out No katey apurva eligible based on patient's age to complete this topic Goals Goal Patient Goal Type Associated Problems Recent Progress Patient-Stated? Author Mobility General No June Combs, RN Note: Expected end date: 06/11/2019 The goal is to maintain or improve your mobility at the optimum level for you. Interventions: Procedures Procedure Name Priority Date/Time Associated Diagnosis Comments HEMOGLOBIN A1C - POINT OF CARE (AMB) Routine 09/27/2017 Pre-diabetes from Last 3 Months or Most Recently Relevant to Health Maintenance Results * HEMOGLOBIN A1C - POINT OF CARE (AMB) (09/27/2017) Hemoglobin A1c POCT 5.9 % QC Verified Yes Blood BLOOD SPECIMEN / Unknown 09/27/2017 Chuckie Olsen MD LAB - POINT OF CARE ORDERABLES from Last 3 Months or Most Recently Relevant to Health Maintenance Care Teams Engine Dispatcher Relationship Specialty Start Date End Date Surjit Rosenberg MD [address] [place] [phone] PCP - General 04/16/17
--- OUTSIDE RECORDS SUMMARY | 2024-07-28 12:36 | XMS_ITS | Referral Summary ---
Author Organization [facility] Address [address] [place] [address] Care Team Providers Care Humanities Coordinator Name Role Phone Surjit Rosenberg MD Primary Care Provider Source Comments [facility],non-owned Affiliates and Associated Physician Practices is amultiple site organization consisting of ambulatory clinics and hospital sitesin [place], [place], [place] and [place]. This disclosure is being madepursuant to the Care Everywhere program and may not contain all information available regarding this patient. Last updated 18.[facility] Allergies No known active allergies Medications * Be aware that medications may not be up to date on this document. Alwaysverify current medications with the patient. Medication Sig Dispensed Refills Start Date End Date Status vitamin D, ergocalciferol, (DRISDOL) 04562 UNITS capsule 2 05/07/2017 Active raNITIdine (ZANTAC) [...] q8h PRN. 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
--- OUTSIDE RECORDS SUMMARY | 2024-07-28 12:36 | XMS_ITS | Patient Health Summary ---
Author Organization [facility] Address [address] [place] [address] Care Team Providers Care Over The Road Driver Name Role Phone Surjit Rosenberg MD Primary Care Provider [phone] Note from [facility],non-owned Affiliates and Associated Physician Practices is amultiple site organization consisting of ambulatory clinics and hospital sitesin [place], [place], [place] and [place]. This disclosure is being madepursuant to the Care Everywhere program and may not contain all information available regarding this patient. Last updated 18.[facility] Allergies No known active allergies Medications * Be aware that medications may not be up to date on this document. Alwaysverify current medications with the patient. * vitamin D, ergocalciferol, (DRISDOL) 75005 UNITS capsule(Started 05/07/2017) 2 refills left * raNITIdine (ZANTAC) 300 MG tablet(Started 05/11/2017) Take 300 mg by mouth BID. 3 refills left * metoprolol tartrate (LOPRESSOR) 25 MG tablet(Started 05/23/2017) * acarbose (PRECOSE) 25 MG tablet(Started 05/28/2017) Take 25 mg by mouth daily with breakfast. 11 refills left * HYDROcodone-acetaminophen (NORCO) 7.5-325 MG tablet(Started 04/09/2017) Take 1 tablet by mouth q8h PRN. * nystatin (MYCOSTATIN) 515904 UNIT/GM cream(Started 02/28/2017) 4 refills left * tiZANidine (ZANAFLEX) 2 MG tablet(Started 05/22/2017) Take 2 mg by mouth q8h PRN. * TRUE METRIX BLOOD GLUCOSE TEST test strip(Started 08/11/2017) TEST BLOOD SUGAR ONCE DAILY 5 refills left * lactulose (CHRONULAC) 10 GM/15ML solution(Started 08/11/2017) TAKE 15 ML EVERY DAY BY ORAL ROUTE. 5 refills left * Multiple Vitamin (DAILY-VISHAL) TABS(Started 03/07/2019) Take 1 tablet by mouth once daily 11 refills left * CALCIUM 600-D 600-400 MG-UNIT(Started 03/07/2019) Take 1 tablet by mouth once daily 11 refills left Active Problems Problem Noted Date Diagnosed Date [...] 110.2 kg (243 lb) 04/14/2019 1:32 PM GENERAL PARTNER Height 181.6 cm (5' 11.5 ) 04/14/2019 1:32 PM CS T Body Mass Index 33.42 04/14/2019 1:32 PM GENERAL PARTNER Procedures * TN DRAIN/INJECT LARGE JOINT/BURSA(Performed 04/14/2019) Performed for Primary osteoarthritis of left knee * TN DRAIN/INJECT LARGE JOINT/BURSA(Performed 04/14/2019) Performed for Primary osteoarthritis of right knee * XR KNEE LEFT 4VW OR MORE(Performed 04/14/2019) Performed for Primary osteoarthritis of left knee * XR KNEE RIGHT 4VW OR MORE(Performed 04/14/2019) Performed for Right knee pain, unspecified chronicity * TN INTRALESIONAL INJECTION(S) 7 OR LESS(Performed 03/20/2019) Performed for Neoplasm of uncertain behavior of skin * LAB RESULTS ORDER(Performed 10/08/2017) * HEMOGLOBIN A1C - POINT OF CARE (AMB)(Performed 09/27/2017) Performed for Pre-diabetes Results * TN DRAIN/INJECT LARGE JOINT/BURSA (04/14/2019 2:27 PM GENERAL PARTNER) Narrative Vianey Segovia PA-C - 04/14/2019 2:27 PM GENERAL PARTNER Vianey Segovia PA-C 04/14/2019 2:28 PM Orthopaedic Surgery Procedure Note Diagnosis: Left knee pain Procedure: Injection of Corticosteroid into the Left knee. Indications: Brittney Joseph is a 53 year old female who has Left knee pain and arthritis. Procedure Details: Ms. Joseph was informed of her condition, and the potential benefits of injection of steroid. The patient was counseled as to the risks of the procedure. She was understanding and agreeable. The patient was placed into the supine position. The area was prepped with beta-dine. Utilizing the supralateral patellar portal, the skin, subcutaneous, and pericapsular tissues were injected with 3 cc 1% lidocaine without epinephrine using a 21 Ga needle. The patient's Left knee was then entered. Confirmation of location inside the joint was evidenced by aspiration of straw colored synovial fluid. 2 cc of Kenalog and 3 cc 1% lidocaine without epinephrine was injected into the joint. The needle was removed and the needle site dressed with a semi-sterile bandage. The patient tolerated the procedure well. Remainder of plan per note. Vianey Segovia PA-C 04/14/2019 2:27 PM Vianey Segovia PA-C PROCEDURE/MINOR SURGICAL ORDERABLES * TN DRAIN/INJECT LARGE JOINT/BURSA (04/14/2019 2:27 PM GENERAL PARTNER) Narrative Vianey Segovia PA-C - 04/14/2019 2:27 PM GENERAL PARTNER Vianey Segovia PA-C 04/14/2019 2:28 PM Orthopaedic Surgery Procedure Note Diagnosis: Right knee pain Procedure: Injection of Corticosteroid into the Right knee. Indications: Brittney Joseph is a 53 year old female who has Right knee pain and arthritis. Procedure Details: Ms. Joseph was informed of her condition, and the potential benefits of injection of steroid. The patient was counseled as to the risks of the procedure. She was understanding and agreeable. The patient was placed into the supine position. The area was prepped with beta-dine. Utilizing the supralateral patellar portal, the skin, subcutaneous, and pericapsular tissues were injected with 3 cc 1% lidocaine without epinephrine using a 21 Ga needle. The patient's Right knee was then entered. Confirmation of location inside the joint was evidenced by aspiration of straw colored synovial fluid. 2 cc of Kenalog and 3 cc 1% lidocaine without epinephrine was injected into the joint. The needle was removed and the needle site dressed with a semi-sterile bandage. The patient tolerated the procedure well. Remainder of plan per note. Vianey Segovia PA-C 04/14/2019 2:27 PM Vianey Segovia PA-C PROCEDURE/MINOR SURGICAL ORDERABLES * XR KNEE LEFT 4VW OR MORE (04/14/2019 1:55 PM GENERAL PARTNER) Anatomical Region Laterality Modality Lower Extremity Radiographic Kaylene ging 04/14/2019 1:56 PM GENERAL PARTNER Impressions 04/14/2019 2:04 PM GENERAL PARTNER IMPRESSION: Mild osteoarthritis of the left knee. Dictated by Jayson Dawkins MD (vice president of academic affairs). I, Dr. FRANCIE CYR M.D. have personally reviewed and interpreted this examination/study. This report was electronically signed by FRANCIE CYR M.D. on 04/14/2019 2:04 PM . Narrative 04/14/2019 2:04 PM GENERAL PARTNER EXAMINATION: XR KNEE LEFT 4VW OR MORE HISTORY: pain FINDINGS: No prior study is available for comparison at the time of this dictation. The osseous structures are intact and well aligned without acute fracture or dislocation. Mild deformity of the head of the fibula may be due to old trauma. There is mild medial compartment joint space narrowing with minimal subchondral sclerosis and osteophyte formation. No joint effusion is seen. The bone density and texture are normal. Procedure Note Francie Cyr MD - 04/14/2019 EXAMINATION: XR KNEE LEFT 4VW OR MORE HISTORY: pain FINDINGS: No prior study is available for comparison at the time of this dictation. The osseous structures are intact and well aligned without acutefracture or dislocation. Mild deformity of the head of the fibula may be due toold trauma. There is mild medial compartment joint space narrowing with minimal subchondral sclerosis and osteophyte formation. No jointeffusion is seen. The bone density and texture are normal. IMPRESSION: Mild osteoarthritis of the left knee. Dictated by Jayson Dawkins MD (vice president of academic affairs). Dr. FRANCIE Adam M.D. have personally reviewed and interpreted this examination/study. This report was electronically signed by FRANCIE CYR M.D. on 04/14/2019 2:04 PM . Vianey BELLE-Myra DIAGNOSTIC IMAG ING ORDERABLES * XR KNEE RIGHT 4VW OR MORE (04/14/2019 1:24 PM GENERAL PARTNER) Anatomical Region Laterality Modality Lower Extremity Radiographic Kaylene ging 04/14/2019 1:28 PM GENERAL PARTNER Impressions 04/14/2019 1:53 PM GENERAL PARTNER IMPRESSION: Minimal degenerative bony change medially. Dictated by Jayson Dawkins MD (vice president of academic affairs). Dr. FRANCIE Adam M.D. have personally reviewed and interpreted this examination/study. This report was electronically signed by FRANCIE CYR M.D. on 04/14/2019 1:53 PM . Narrative 04/14/2019 1:53 PM GENERAL PARTNER EXAMINATION: XR KNEE RIGHT 4VW OR MORE HISTORY: knee pain FINDINGS: No prior study is available for comparison at the time of this dictation. The osseous structures are intact and well aligned without acute fracture or dislocation. Joint spaces are preserved. Minimal osteophyte formation is seen medially. Bone density is normal. No joint effusion is seen. Procedure Note Francie Cyr MD - 04/14/2019 EXAMINATION: XR KNEE RIGHT 4VW OR MORE HISTORY: knee pain FINDINGS: No prior study is available for comparison at the time of this dictation. The osseous structures are intact and well aligned without acutefracture or dislocation. Joint spaces are preserved. Minimal osteophyte formation is seen medially. Bone density is normal. No joint effusion is seen. IMPRESSION: Minimal degenerative bony change medially. Dictated by Jayson Dawkins MD (vice president of academic affairs). I, Dr. FRANCIE CYR M.D. have personally reviewed and interpreted this examination/study. This report was electronically signed by FRANCIE CYR M.D. on 04/14/2019 1:53 PM . Vianey Segovia PA-C DIAGNOSTIC IMAG ING ORDERABLES * LAB RESULTS ORDER (10/08/2017 11:05 AM CDT) Narrative 10/08/2017 11:05 AM CDT Ordered by an unspecified provider. Scanned Document LAB - THERAPEUTIC DR SMITH MONITORING ORDERABLES * HEMOGLOBIN A1C - POINT OF CARE (AMB) (09/27/2017) Hemoglobin A1c POCT 5.9 % QC Verified Yes Blood BLOOD SPECIMEN / Unknown 09/27/2017 Chuckie Olsen MD LAB - POINT OF CARE ORDERABLES Care Teams Over The Road Driver Relationship Specialty Start Date End Date Surjit Rosenberg MD [address] [place] [phone] PCP - General 04/16/17
--- OUTSIDE RECORDS SUMMARY | 2024-07-28 12:36 | XMS_ITS | Clinical Summary ---
Author Organization [facility] Address [address] [place] [id number] Care Team Providers Care Supervisor Transferring And Boxing Name Role Phone Unavailable Primary Care Provider Unavailabl e Social History Tobacco Use Types Packs/Day Years Used Date Smoking Tobacco: Never Assessed Comments Unknown Sex and Gender Information Value Date Recorded Sex Assigned at Not on file Legal Sex Female 5:29 PM CDT Gender Identity Not on file Sexual Orientation Not on file Last Filed Vital Signs Vital Sign Reading Time Taken Comments Blood Pressure 118/76 11/25/2014 4:45 PM CDT Pulse - - Temperature - - Respiratory Rate - - Oxygen Saturation - - Inhaled Oxygen Concentration - - Weight 114.8 kg (253 lb) 06/24/2014 4:03 PM SUPERVISOR MILL Height 180.3 cm (5' 11 ) 06/24/2014 4:03 PM SUPERVISOR MILL Body Mass Index 35.29 06/24/2014 4:03 PM SUPERVISOR MILL Plan of Treatment Health Maintenance Due Date Last Done Comments Cervical Cancer Screening Pa p Smear (Age 30 to 64) Every 3 Years 1967 Colorectal Cancer Screening Colonoscopy (10 Years) 1967 Annual Physical 1970 Hepatitis C 1985 DTaP, Tdap and Td Vaccines ( 1 - Tdap) 1986 Hepatitis B Vaccines (1 of 3 - 19+ 3-dose series) 1986 Cervical Cancer Screening Pa p with HPV Testing (Age 30 to 64) Every 5 Years 1997 Cervical Cancer Screening with HPV 1997 Mammogram Screening 2007 Zoster Vaccines (1 of 2) 2017 COVID-19 Vaccine (2023-2 5 season) 2024 Influenza Adult (#1) 2024 Meningococcal B Vaccine Aged Out No l onger eligible based on patient's age to complete this topic Meningococcal Vaccine Aged Out No katey apurva eligible based on patient's age to complete this topic Pneumococcal Vaccine: Pediat rics (0 to 5 Years) and At-Risk Patients (6 to 64 Years) Aged Out No longer eligible b ased on patient's age to complete this topic RSV Immunizations Under 20 Months Aged Out No longer eligible based on patient's age to complete this topic
== END 2024-07-28 09:49 | disposition home or self-care (01) ==
LOC: ANHIMG 09:49
PROVIDERS: PCP Internal Medicine Gastroenterology; Visit Provider Emergency Medicine
DX: M47.816 Spondylosis without myelopathy or radiculopathy, lumbar region (principal); D25.9 Leiomyoma of uterus, unspecified
CPT/HCPCS: 72195

== ENCOUNTER 2024-08-28 14:46 | Outpatient (CLI) | payer MEDICARE, SELFPAY ==
--- NOTE | ~2024-08-28 | MR_ITS ---
MRI of the bilateral hips Clinical history: Bilateral hip pain Technique: Coronal T1-weighted, T2-weighted, and proton-density fat-sat images, and axial T1-weighted and proton-density fat-sat images were acquired through the pelvis. Coronal T2-weighted images and c oronal, axial, and sagittal proton-density fat-sat images were acquired through the bilateral hips. Findings: No fracture identified. There are probable small areas of avascular necrosis of the bilater al femoral heads, left more extensive than right. No subchondral fracture articular surface collapse or significant secondary osteoarthritic change. There is probable mild chondromalacia of both hip praveen nts. No significant joint effusion identified. No acetabular labral tear evident on either side. Visualized musculature about the pelvis and bilateral hips is unremarkable. No muscle atrophy or juan a seen. Visualized tendons are intact. No evidence for bursitis. No soft tissue mass or fluid collect ion evident. IMPRESSION: Avascular necrosis of the bilateral femoral heads, relatively mild in extent, left worse than right. No subchondral fracture articular surface collapse evident. Mild chondromalacia of both hip joints. Reviewed, dictated and finalized at location . IMPRESSION: Avascular necrosis of the bilateral femoral heads, relatively mild in extent, l eft worse than right. No subchondral fracture articular surface collapse eviden t. Mild chondromalacia of both hip joints.
--- OUTSIDE RECORDS SUMMARY | 2024-08-28 15:16 | XMS_ITS | Clinical Summary ---
Author Organization [facility] Address [address] [place] [address] Care Team Providers Care Equipment Planner Name Role Phone Surjit Rosenberg MD Primary Care Provider Source Comments [facility],non-owned Affiliates and Associated Physician Practices is amultiple site organization consisting of ambulatory clinics and hospital sitesin [place], [place], [place] and [place]. This disclosure is being madepursuant to the Care Everywhere program and may not contain all information available regarding this patient. Last updated 18.[facility] Allergies No known active allergies Medications * Be aware that medications may not be up to date on this document. Alwaysverify current medications with the patient. Medication Sig Dispensed Refills Start Date End Date Status vitamin D, ergocalciferol, (DRISDOL) 18641 UNITS capsule 2 05/07/2017 Active raNITIdine (ZANTAC) [...] q8h PRN. 0 04/09/2017 Active nystatin (MYCOSTATIN) 877798 UNIT/GM cream 4 02/28/2017 Active tiZANidine (ZANAFLEX) [...] 110.2 kg (243 lb) 04/14/2019 1:32 PM VAMP THROATER Height 181.6 cm (5' 11.5 ) 04/14/2019 1:32 PM CS T Body Mass Index 33.42 04/14/2019 1:32 PM VAMP THROATER Plan of Treatment Health Maintenance Due Date [...] - 19+ 3-dose series) 1986 PNEUMOCOCCAL VACCINE (1 of 2 - PCV) 1986 PNEUMOCOCCAL VACCINE 50+ (1 of 1 - PCV) 2017 ZOSTER VACCINE (1 of 2) 2017 SCREENING FOR DIABETES 09/27/2020 09/27/2017 COVID-19 VACCINE (1 - 2023-2 5 season) 2024 INFLUENZA VACCINE (#1) 2024 DEPRESSION SCREENING 06/11/2024 HIB VACCINE Aged Out No longer eligi ble based on patient's age to complete this topic HPV VACCINE Aged Out No longer eligi ble based on patient's age to complete this topic MENINGOCOCCAL (Group B) VACC INE SHARED DECISION-MAKING Aged Out No longer eligibl e based on patient's age to complete this topic MENINGOCOCCAL GROUPS A/C/Y/W VACCINE Aged Out No longer eligible b ased [...] Recently Relevant to Health Maintenance Care Teams Equipment Planner Relationship Specialty Start Date End Date Surjit Rosenberg MD [address] [place] [phone] PCP - General 04/16/17
--- OUTSIDE RECORDS SUMMARY | 2024-08-28 15:16 | XMS_ITS | Data Portability ---
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 She has been having symptoms in her knees for years. She has been using ebyr-lzl-riarqde anti-inflammatori es pain control. Recently she has [...] aware that. Impression: 57-year-old female who has qyde-hd-hghoqqak medial compartment osteoarthritis both knees. I discussed [...] patient more than half of this in rgyy-to-jxqw conversation Not available 02/01/2023 15:40:44 02/08/2023 02/08/2023 [...] Range of motion is from 0-135 degrees. Vsei-al-pcxddbmq tenderness over the medial joint line to palpation. After ChloraPrep was used on the skin 20 mg Kenalog and 3 cc of 0.5% ropivacaine was injected into the left knee. Impression: 57-year-old female who has iixn-fi-aaepwbjx medial compartment osteoarthritis in both knees. She [...] patient more than half of this in lrsa-ds-ngig conversation Not available 02/08/2023 11:37:33 02/22/2023 02/22/2023 [...] of both shoulders to 145 with some wmjz-bf-gaxoynqm discomfort in the anterior deltoid. External rotation 80 bilaterally internal rotation is to T10 bilaterally. She has no pain with external rotation or internal rotation. Subscap lift-off is intact in both shoulders. She has excellent strength with abduction as well as external rotation in both shoulders. Nczj-ix-qonqqrki pain with primary impingement testing bilaterally. There [...] procedure, administere d by provider 2022 023 In-Office Order, Internal Use Only DO Not Attach Compendium DO Not Attach Compendium, Do Not Delete/merge, [id number] 3 11:19:09 Surgeries None recorded. Imaging XR, shoulder 2022 023 [email or web address] [facility], [address] [place] [address], [place], [address], 3 08:50:49 XR, knee 2022 023 [email or web address] [facility], [address] [place] [address], [place], [address], 3 16:03:17 Medication Orders Kenalog 10 mg/mL suspension for injection 2022 023 Not available 14:00:42 ropivacaine (PF) 5 mg/mL (0.5 %) injection solution 2022 023 [email or web address] Not available 14:00:47 Patient TargetsNo targets recorded. Patient InstructionsNo instructions recorded. Reason for Referral None Reported. Results Created Date Observation Date Name Description Value Unit Range Abnormal Flag Note LastModifiedBy Organization Detail LastModifiedTime 02/02/20 23 XR, knee No observ ation record ed. [facility] [address], [place], [address], 02/01/2023 15:36:55 02/23/20 XR, shoul jessica No observ ation record ed. [facility] [address] [facility], [place], [address], 02/22/2023 14:41:34 Result Notes None recorded. Problems Name Problem SNOMED Code Status Onset Date Resolution Date Notes Provider Name and Address Organization Details Recorded Time Radiothera py follow-up 657360526 Active Not Available [facility] 3 16:28:25 Partial thickness rotator cuff tear 874052859 Active Not Available [facility] 3 16:28:25 Osteoarthr itis of knee 401331023 Active Not Available [facility] 3 16:28:26 Shoulder joint pain 407172148 Active Not Available [facility] 3 16:28:26 Recurrent dislocatio n of shoulder region 80004627 Active Not Available [facility] 3 16:28:26 Disorder of rotator cuff 049100877 Active Not Available [facility] 3 16:28:26 Pain of bilateral knee joints 5057926339968 04 Active 2022 AI Reeves null, [facility] 3 14:45:15 Osteoarthr itis of left knee joint 1321488582259 09 Active 2022 AI Solis null, [facility] 3 11:15:04 Bilateral shoulder joint pain 6767285355766 9104 Active 2022 AI Solis null, [facility] 3 14:01:49 Problem Notes None recorded. Procedures Surgical History Date Name Laterality Status Provider Name and Address Organization Details Recorded Time hammer toe operation completed Not Available [facility] 08/09/2022 16:27:20 Unlisted procedure shoulder completed Not Available [facility] 08/09/2022 16:27:20 Elbow mold outsid lock hinge completed Not Available [facility] 08/09/2022 16:27:20 Tubal Ligation completed Not Available [facility] 08/09/2022 16:27:20 other completed Not Available [facility] 06/2022 16:27:20 Knee arthroscopy/dra rodriguez completed Not Available [facility] 08/09/2022 16:27:20 Imaging Results Imaging Date Name Status LastModified by Organiz ation Details LastModified Time 02/01/2023 XR, knee completed [facility] [address], [place], [address], 02/01/2023 15:36:55 02/22/2023 XR, shoulder completed [facility] [address], [address], 02/22/2023 14:41:34 Procedure Notes None recorded. Medical [...] suspension for injection in office 02/22 completed [facility]: [id number] lot:[id number] exp: 025 Not Available Not Available Not [...] %) injection solution in office 02/22 completed [facility] 60559- 064-01 lot:[id number] exp:11/10/2023 Not Available Not Available Not Available [...] % 75 /min 16 /min 97.3 [degF] 443583. 87 g 140 mm[Hg] 90 mm[Hg] Not Available [facility] 16:27:29 Date Recorded Body height Body mass index (BMI) Body weight Provider Name and Address Organization Details Last Updated DateTime 02/01/2023 180.34 cm 36.1 kg/m2 793720.71 g Mindy Jessica [facility] [employer] [facility] 02/01/2023 14:48:45 Date Recorded Body height Provider Name an d Address Organization Details Last Updated DateTime 02/08/2023 180.34 cm Mindy Mendesadeline [facility] I [facility] [employer] [facility] 02/08/2023 10:50:04 Date Recorded Body height Provider Name an d Address Organization Details Last Updated DateTime 02/22/2023 180.34 cm Marissa Reji [facility] [employer] [facility] 02/22/2023 13:59:44 Date Recorded Body height Provider Name an d Address Organization Details Last Updated DateTime 03/22/2023 180.34 cm Marissa Reji [facility] [employer] [facility] 03/22/2023 14:01:46 Social History Question Answer Notes LastModified by Organizat ion Details LastModified Time Tobacco Smoking Status Current Every Day Smoker Not Available [facility] 08/09/2022 16:27:11 What Is Your Level Of Alcohol Consumption? Occasional [id number] Information not available 08/09/2022 What Is Your Level Of Caffeine Consumption? 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 02/01/2023 [email or web address] Information not available 02/01/2023 What Is Your Relationship Status? [id number] Information not available 08/09/2022 Are You Sexually Active? Yes [id number] Information not available 08/09/2022 How Much Tobacco Do You Smoke? 0.5 PPD [id number] Information not available 08/09/2022 Do You Use Any Illicit Or Recreational Drugs? No [id number] Information not available 08/09/2022 How Many Years Have You Smoked Tobacco? 36 MIGRATION.[id number] 7530 Information not available 08/09/2022 Have You Recently Traveled Abroad? No [id number].[id number] Information not available 08/09/2022 Sex: Unknown Functional Status None recorded. Mental Status None recorded. Family History Relationship Description Onset Age of this Age Resolved Age Notes LastModified by Organization Details LastModified Time Mother Heart disease [id number] Not available 08/09/2022 16:27:21 Father Malignant tumor of lung [id number].021 [id number] Not available 08/09/2022 16:27:21 Maternal Grandfather Family history of malignant neoplasm [email or web address] Not available 2022 14:43:10 Medical History Condition Response ARTHRITIS Y USE OF BLOOD THINNERS Y GERD/NAUSEA Y ASTHMA Y DIABETES, TYPE Y OSTEOPOROSIS Y OTHER # 1 HEARTBURN / REFLUX Y Gynecological HistoryNo gynecological history recorded. Obstetrics History GPAL:G 0 P 0 0 0 0 Past Encounters Encounter ID Performer Location Encounter Start Date Encounter Closed Date Diagnosis/Indication Diagnosis SNOMED-CT Code Diagnosis ICD10 Code Diagnosis Note [id number] [facility] Surgery [address] [facility] [address] [place] [address] 07/20/2022 00:00:00 07/20/2022 13:52:31 [id number] BARBRA Lomas [facility] [address] [address] 02/01/2023 14:11:13 02/01/2023 16:03:17 Pain of bilateral knee joints 6995113561 72925 M25.728 [id number] BARBRA LomasGMDanny [address] [address] 02/08/2023 10:42:24 02/08/2023 11:46:17 Osteoarthritis of left knee joint 1578691326 98329 M17.12 [id number] BARBRA Lomas [facility] [address] [address] 02/22/2023 13:47:51 02/22/2023 14:52:31 Bilateral shoulder joint pain 5162179735 2025915 M25.511 M25.966 [id number] BARBRA Lomas [facility] [address] [place] [address] 03/22/2023 13:49:31 03/22/2023 14:36:23 Bilateral shoulder joint pain 5770734221 3674634 M25.511 M25.512 Health Concerns Section Related Observation LastModified by Organization Detai ls LastModified Time None Recorded Concern Status LastModified by Organization Details LastModified Time None Recorded Advance Directives Directive None Recorded Payers Encounter Date Sequence Insurance Name Policy Number Policy Lieberman Covered Member ID Lieberman Member ID Guarantor Name 02/01/2023 1 [facility] (MEDICARE REPLACEMENT/A DVANTAGE - HMO) [id number] Brittney Joseph [id number] Brittney Joseph 02/01/2023 2 [place] [employer] Brittney Joseph [id number] Brittney Joseph 02/08/2023 1 [facility] (MEDICARE REPLACEMENT/A DVANTAGE - HMO) [id number] Brittney Joseph [id number] Brittney Joseph 02/08/2023 2 [place] [employer] Brittney Joseph [id number] Brittney Joseph 02/22/2023 1 [facility] (MEDICARE REPLACEMENT/A DVANTAGE - HMO) [id number] Brittney Joseph [id number] Brittney Joseph 02/22/2023 2 [place] Brittney Joseph [id number] Brittney Joseph 03/22/2023 1 [facility] (MEDICARE REPLACEMENT/A DVANTAGE - HMO) [id number] Brittney Joseph [id number] Brittney Joseph 03/22/2023 2 [place] [employer] Brittney Joseph [id number] Brittney Joseph OBGyn Episode No OBEpisode recorded.
--- OUTSIDE RECORDS SUMMARY | 2024-08-28 15:16 | XMS_ITS | Data Portability ---
Author Organization [facility] Address [address] [place] [address] Care Team Providers Care Digital Technician Name Role Phone SURJIT FULLER Primary Care Provider Assessment No assessment recorded. Plan of Treatment Reminders Order Date Submit Date Provider Last Modified By Organization Details Last Modified Time Details Appointments ANY 30 2024 01:00P M Dee Hernandez MD Not available Not available Not available ANY 2024 01:45P Erwin Fuller MD Not available Not available Not available Lab HbA1c (hemogl obin A1c), blood 2024 025 In-Office Order, Internal Use Only DO Not Attach Compendium DO Not Attach Compendium, Do Not Delete/merge, [id number] 07/30/2024 15:25:59 drug screen, 14 drugs (detect imed), urine 2024 025 JOCE [facility], [address], [address], [place], [address], 08/05/2024 10:13:25 ESR (erythr ocyte sedimen tation rate), blood 2024 025 JOCE [facility], [address], [place], [address], 07/10/2024 10:13:25 YOMI (antinu clear antibod ies) screen, ifa, serum 2024 025 JOCE [facility], [address], [place], [address], 07/10/2024 10:13:23 rf (rheuma toid factor) , serum [address] [facility], [address], [place], [address], 07/10/2024 10:13:26 ccp (cyclic citrull inated peptide ) iga+igg , serum [address] [facility], [address], [place], [address], 07/10/2024 10:13:22 CMP, serum or plasma [address] [facility], [address], [place], [address], 05/28/2024 07:13:22 CBC 2023 024 [facility], [address], [place], [address], 05/28/2024 07:13:23 Referral orthope dic surgeon referra l - bilater al osteone crosis of hips, needing narcoti cs for pain control and basical ly home bound, may be time for surgery 2024 025 JOCE [facility], [address] [facility] , [address], [place], [address], 08/12/2024 15:26:46 dermato logist referra l - vulvar psorias is minimal ly respons sarah to steroid cream 2023 024 JOCE Hdz MD, [address] [facility] , [place], [address], 07/16/2024 04:43:50 Procedures None recorde d. Surgeries None recorde d. Imaging None recorde d. Medication Orders glimepi ride 4 mg tablet 2024 025 [facility] #62118, [address] [place], [place], [id number], 07/30/2024 15:45:40 hydroco done 7.5 mg-acet aminoph en 325 mg tablet 2024 025 [facility] #75296, [address] [place], [place], [id number], 07/30/2024 15:39:57 clotrim azole 1 % topical cream 2024 025 [facility], [address], [place], [address], 07/28/2024 18:26:33 clobeta derrek 0.05 % topical ointmen t 2024 025 [facility], [address] [place], [address], 07/28/2024 18:34:25 clotrim azole 1 % topical cream 2024 025 [facility], [address], [place], [address], 07/07/2024 15:26:26 Difluca n 150 mg tablet 2024 025 [facility], [address], [place], [address], 07/30/2024 14:54:44 loratad ine 10 mg tablet 2024 025 [facility] #93426, [address], [place], [address], 07/07/2024 15:26:26 calcipo triene 0.005 % topical ointmen t 2023 024 [facility] #57009, [address] [place], [address], 05/13/2024 17:20:15 prednis one 20 mg tablet 2023 [facility], [address], [place], [address], 05/13/2024 16:50:08 prometh azine-D M 6.25 mg-15 mg/5 mL oral syrup 2023 024 [facility], [address], [place], [address], 05/06/2024 16:51:31 Patient TargetsNo targets recorded. 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 METAB OLIC PANEL (14) glucose 484 mg/dL 70-99 above high normal Not Available [facility] ([facility]) [address] [facility], [place], [address], 05/28/2024 07:13:22 05/27/20 24 05/28/2024 COMP. METAB OLIC PANEL (14) BUN 9 mg/dL 6-24 Not Available [facility] ([facility]) [address] [place], [address], 05/28/2024 07:13:22 05/27/20 24 05/28/2024 COMP. METAB OLIC PANEL (14) creatinine 0.83 mg/dL 0.57-1 .00 Not Available [facility] ([facility]) [address] [place], [address], 05/28/2024 07:13:22 05/27/20 24 05/28/2024 COMP. METAB OLIC PANEL (14) eGFR 83 mL/mi n/1.7 3 >59 Not Available [facility] ([facility]) [address] [facility] [place], [address], 05/28/2024 07:13:22 05/27/20 24 05/28/2024 COMP. METAB OLIC PANEL (14) BUN/creatini ne ratio 11 9-23 Not Available [facility] ([facility]) [address] [facility] [place], [address], 05/28/2024 07:13:22 05/27/20 24 05/28/2024 COMP. METAB OLIC PANEL (14) sodium 137 mmol/ L 134-14 4 Not Available [facility] ([facility]) [address] [facility] [place], [address], 05/28/2024 07:13:22 05/27/20 24 05/28/2024 COMP. METAB OLIC PANEL (14) potassium 4.4 mmol/ L 3.5-5. 2 Not Available [facility] ([facility]) [address] [facility] [place], [address], 05/28/2024 07:13:22 05/27/20 24 05/28/2024 COMP. METAB OLIC PANEL (14) chloride 102 mmol/ L 96-106 Not Available [facility] ([facility]) [address] [facility] [place], [address], 05/28/2024 07:13:22 05/27/20 24 05/28/2024 COMP. METAB OLIC PANEL (14) carbon dioxide, total 22 mmol/ L 20-29 Not Available [facility] ([facility]) [address] [facility], [place], [address], 05/28/2024 07:13:22 05/27/20 24 05/28/2024 COMP. METAB OLIC PANEL (14) calcium 10.2 mg/dL 8.7-10 .2 Not Available [facility] ([facility]) [address] [facility], [place], [address], 05/28/2024 07:13:22 05/27/20 24 05/28/2024 COMP. METAB OLIC PANEL (14) protein, total 6.2 g/dL 6.0-8. 5 Not Available [facility] ([facility]) [address] [facility] [place], [address], 05/28/2024 07:13:22 05/27/20 24 05/28/2024 COMP. METAB OLIC PANEL (14) albumin 3.9 g/dL 3.8-4. 9 Not Available [facility] ([facility]) [address] [facility], [place], [address], 05/28/2024 07:13:22 05/27/20 24 05/28/2024 COMP. METAB OLIC PANEL (14) globulin, total 2.3 g/dL 1.5-4. 5 Not Available [facility] ([facility]) [address] [facility], [place], [address], 05/28/2024 07:13:22 05/27/20 24 05/28/2024 COMP. METAB OLIC PANEL (14) bilirubin, total 0.3 mg/dL 0.0-1. 2 Not Available [facility] ([facility]) [address] [facility] [place], [address], 05/28/2024 07:13:22 05/27/20 24 05/28/2024 COMP. METAB OLIC PANEL (14) alkaline phosphatase 123 IU/L 44-121 above high normal Not Available [facility] ([facility]) [address] [facility], [place], [address], 05/28/2024 07:13:22 05/27/20 24 05/28/2024 COMP. METAB OLIC PANEL (14) AST (SGOT) 18 IU/L 0-40 Not Available [facility] ([facility]) [address] [facility], [place], [address], 05/28/2024 07:13:22 05/27/20 24 05/28/2024 COMP. METAB OLIC PANEL (14) ALT (SGPT) 28 IU/L 0-32 Not Available [facility] ([facility]) [address] [place], [address], 05/28/2024 07:13:22 05/27/20 24 05/28/2024 CBC, PLATE LET, NO DIFFE RENTI AL WBC 5.9 x10e3 /uL 3.4-10 .8 Not Available [facility] ([facility]) [address] [place], [address], 05/28/2024 07:13:23 05/27/20 24 05/28/2024 CBC, PLATE LET, NO DIFFE RENTI AL RBC 4.42 x10e6 /uL 3.77-5 .28 Not Available [facility] ([facility]) [address] [place], [address], 05/28/2024 07:13:23 05/27/20 24 05/28/2024 CBC, PLATE LET, NO DIFFE RENTI AL hemoglobin 13.1 g/dL 11.1-1 5.9 Not Available [facility] ([facility]) [address] [facility], [place], [address], 05/28/2024 07:13:23 05/27/20 24 05/28/2024 CBC, PLATE LET, NO DIFFE RENTI AL hematocrit 41.9 % 34.0-4 6.6 Not Available [facility] ([facility]) [address] [facility], [place], [address], 05/28/2024 07:13:23 05/27/20 24 05/28/2024 CBC, PLATE LET, NO DIFFE RENTI AL MCV 95 fL 79-97 Not Available [facility] ([facility]) [address] [facility], [place], [address], 05/28/2024 07:13:23 05/27/20 24 05/28/2024 CBC, PLATE LET, NO DIFFE RENTI AL MCH 29.6 pg 26.6-3 3.0 Not Available [facility] ([facility]) [address] [facility], [place], [address], 05/28/2024 07:13:23 05/27/20 24 05/28/2024 CBC, PLATE LET, NO DIFFE RENTI AL MCHC 31.3 g/dL 31.5-3 5.7 below low normal Not Available [facility] ([facility]) [address] [facility], [place], [address], 05/28/2024 07:13:23 05/27/20 24 05/28/2024 CBC, PLATE LET, NO DIFFE RENTI AL RDW 12.9 % 11.7-1 5.4 Not Available [facility] ([facility]) [address] [facility], [place], [address], 05/28/2024 07:13:23 05/27/20 24 05/28/2024 CBC, PLATE LET, NO DIFFE RENTI AL platelets 172 x10e3 /uL 150-45 0 Not Available [facility] ([facility]) [address] [facility], [place], [address], 05/28/2024 07:13:23 07/07/19 25 07/08/2024 ANTI- CCP AB, IGG/I GA anti-ccp Ab, IgG/IgA 3 units 0-19 Negat sarah <20 Weak posit sarah 20 - 39 Moder ate posit sarah 40 - 59 Stron g posit sarah >59 Not Available [facility] ([facility]) [address] [facility], [place], [address], 07/10/2024 10:13:22 07/07/19 25 07/10/2024 YOMI BY IFA RFX TITER /LANA AKMI YOMI by ifa rfx titer/patter n POSITI VE abnormal Negat sarah <1:80 Borde rline 1:80 Posit sarah >1:80 Not Available [facility] ([facility]) [address] [facility], [place], [address], 07/10/2024 10:13:23 07/07/19 25 07/08/2024 SEDIM ENTAT ION RATE- WESTE RGREN sedimentatio n rate-westerg bjorn 59 mm/HR 0-40 above high normal Not Available [facility] ([facility]) [address] [place], [address], 07/10/2024 10:13:25 07/07/19 25 07/08/2024 RHEUM ATOID FACTO R (RF) rheumatoid factor (rf) <10.0 IU/mL <14.0 Not Available [facility] ([facility]) [address] [place], [address], 07/10/2024 10:13:26 07/07/19 25 07/10/2024 JOSEPH STAIN ING PATTE RNS nucleolar pattern 1:160 above high normal ICAP nomen clatu re: AC-8, 9,10 Not Available [facility] ([facility]) [address] [place], [address], 07/10/2024 10:13:27 07/07/19 25 07/10/2024 JOSEPH STAIN ING PATTE RNS speckled pattern 1:80 ICAP shani west re: AC-2, 4,5,2 9 Not Available [facility] ([facility]) [address] [facility], [place], [address], 07/10/2024 10:13:27 07/07/19 25 07/10/2024 JOSEPH STAIN ING PATTE RNS note: [employer] ----- ----- --- [...] Syste adilia Lupus Eryth emato diego, Subac pascua yaqui Cutan eous Lupus , Neona efrain Lupus , Conge nital Heart Block , Mixed Conne ctive Tissu e Disea se, Scler oderm a-dif fuse, Scler oderm a-Aut oimmu ne Myosi tis Overl ap Syndr ome, Syste adilia Lupus Eryth emato diego-S clero derma -Auto immun e Myosi tis Overl ap Syndr ome, Syste adilia Autoi mmune Rheum atic Disea se, Undif jadiel Gomez ctive Tissu e Disea se ----- ----- --- ----- ----- ----- ----- ----- ----- ----- ----- ----- Nucle olar Syste adilia Scler osis, Scler oderm a-Aut oimmu ne Myosi tis Overl ap Syndr ome, Sjogr en Syndr ome, Gabby ud pheno bob , Pulmo nary Arter ial Hyper tensi on, Syste adilia Autoi mmune Rheum atic Disea se, Cance r ----- ----- --- ----- ----- ----- ----- [...] ----- ----- ----- ----- Not Available [facility] ([facility]) [address] [facility], [place], [address], 07/10/2024 10:13:27 07/30/19 25 08/05/2024 COMPL IANCE DRUG JACKELIN SIS, UR summary report (summary) FINAL ===== ===== ===== ===== ===== ===== ===== ===== ===== ===== ===== ===== ===== === TOXAS SURE COMP DRUG JACKELIN SIS,U R ===== ===== ===== ===== ===== ===== ===== ===== ===== ===== ===== ===== ===== === Test Resul t Flag Units Drug Prese nt Alcoh ol, Ethyl 0.050 g/dL Sourc es of ethyl alcoh ol inclu de alcoh olic bever ages or as a ferme ntati on produ ct of gluco se; gluco se is prese nt in this speci men. Inter pret resul t with cauti on, as the prese nce of ethyl alcoh ol is likel y due, at least in part, to ferme ntati on of gluco se. [place] xyzin e PRESE NT Metop rolol PRESE NT ===== ===== ===== ===== ===== ===== ===== ===== ===== ===== ===== ===== ===== === Test Resul t Flag Units Ref Range Creat inine 48 mg/dL >=20 ===== ===== ===== ===== ===== ===== ===== ===== ===== ===== ===== ===== ===== === Decla red Medic ation s: Medic ation list was not provi ded. ===== ===== ===== ===== ===== ===== ===== ===== ===== ===== ===== ===== ===== === For aditya arthur consu ltati on, pleas e call . ===== ===== ===== ===== ===== ===== ===== ===== ===== ===== ===== ===== ===== === Not Available [facility] ([facility]) [address] [facility], [place], [address], 08/05/2024 10:13:24 07/30/1908/05/2024 COMPL IANCE DRUG JACKELIN SIS, UR pdf . Not Available [facility] ([facility]) [address] [facility], [place], [address], 08/05/2024 10:13:24 07/30/19 25 07/30/2024 HbA1c (hemo globi n A1c), blood HbA1c 9.2 Not Available In-Office Order Internal Use Only DO Not Attach Compendium DO Not Attach Compendium, Do Not Delete/merge, [id number] 07/30/2024 15:25:42 07/12/1907/11/2024 XR, sacro iliac joint (s) No observ ation record ed. [email or web address] [place], [address], 07/14/2024 10:34:43 07/12/19 25 07/11/2024 XR, sacro iliac joint (s) No observ ation record ed. [facility] [address] [place], [address], 08/05/2024 11:47:44 07/12/19 25 07/11/2024 XR, lumba r spine No observ ation record ed. [facility] [address] [place], [address], 08/05/2024 11:47:45 07/12/19 25 07/11/2024 XR, lumba r spine No observ ation record ed. [email or web address] [facility] [address], [place], [address], 07/14/2024 10:35:05 07/28/19 25 07/28/2024 MRI, sacro iliac joint (s), w/o contr ast No observ ation record ed. [facility] [address] [facility] [address], [place], [address], 08/10/2024 15:05:10 Result Notes None recorded. Problems Name Problem SNOMED Code Status Onset Date Resolution Date Notes Provider Name and Address Organization Details Recorded Time Pain in pelvis 59873544 Completed 03/11/2021 MEGAN Mccollum 13:03:04 Bilatera l hip joint pain 33222780723 988947 Active 2017 Not Available [facility] 4 02:26:05 Skin lesion 36672640 Completed 201703/11/2021 MEGAN Mccollum [facility] 13:03:45 History of respirat ory disease 360356153 Completed 201803/11/2021 Resolved MEGAN Mccollum [facility] 13:04:06 Pain in left thumb 35867329016 96524 Completed 201803/11/2021 MEGAN Mccollum [facility] 13:03:07 Pain in throat 303290738 Completed 201803/11/2021 MEGAN Mccollum [facility] 13:03:01 Effusion of joint of right knee 48365296098 9104 Completed 201803/11/2021 MEGAN Mccollum [facility] 13:02:24 Varicose veins of lower extremit y 05887736 Active 2018 Not Available [facility] 4 02:26:05 Subacrom ial impingem ent 472443788 Active Not Available [facility] 4 02:26:05 Disorder of joint of foot 659908653 Active 2019 Not Available [facility] 4 02:26:05 Screenin g for disorder Completed 201903/11/2021 Dylan [place], [place] - [facility] 1 13:02:56 Pre-surg lucía evaluati on Completed 201903/11/2021 Dylan Tanika [place], [place] - [facility] 1 13:02:59 Low back pain 305993101 Active 2020 Not Available [facility] 4 02:26:05 Medicati on monitori ng Active 2020 Not Available [facility] 4 02:26:05 Sore throat 995439267 Active 2021 Not Available [facility] 4 02:26:05 Type 2 diabetes mellitus 97653587 Active 2021 Not Available [facility] 4 02:26:05 Lesion of left eyelid 51623172692 605616 Active 2021 Not Available [facility] 4 02:26:05 Hypercal cemia 01443339 Active 2021 Not Available [facility] 4 02:26:05 Cough 14479363 Active 2021 Not Available [facility] 4 02:26:05 Dysphagi a 00172600 Active 2021 Not Available [facility] 4 02:26:05 Morbid obesity 383138454 Active 2022 Not Available [facility] 4 02:26:05 Disorder of vision 02222268 Active 2022 Not Available [facility] 4 02:26:05 Obese 417177309 Completed 03/11/2021 Dylan [place], [place] [facility] 1 13:03:12 Pain of bilatera l knee regions 40298505051 4102 Active 2022 Not Available [facility] 4 02:26:05 Bilatera l shoulder joint pain 41320860460 655455 Active 2022 Not Available [facility] 4 02:26:05 Pain of left elbow joint 66782561701 735158 Active 2023 Surjit Fuller MD Attn: Accounting ,[address] [facility], [place], [address] , [place] - [facility] 4 16:48:54 Hyperlip idemia 92197262 Active 2023 Surjit Fuller MD Attn: Accounting ,[address] [facility] [address] [address], [place], [address] , [place] [facility] 4 14:59:10 Bronchit is 07366343 Active 2023 Surjit Fuller MD Attn: Accounting ,[address] [facility] [address], [place], [address] , [place] [facility] 4 16:35:58 Chest pain 68212401 Completed 03/11/2021 Dylan Tanika [place], [place] [facility] 13:02:11 Knee pain Completed 03/11/2021 [place] [facility] 13:03:26 Shoulder pain 44769503 Completed 03/11/2021 [place] [facility] 13:02:51 Hypergly cemia 48571063 Completed 03/11/2021 [place] [facility] 13:03:34 Hypoglyc emic disorder 315547631 Completed 03/11/2021 [place] [facility] 13:03:36 Low back pain 064885609 Completed 03/11/2021 Surjit Fuller MD Attn: Accounting ,[address] [facility] [address] [address], [place], [address] , [place] [facility] 18:27:38 Urticari a 992462944 Completed 03/11/2021 [place] [facility] 13:02:46 Injury of shoulder region 662376844 Completed 03/11/2021 Dylan Sagastume [place] [facility] 1 13:03:27 Hemorrho ids 65094177 Active Not Available [facility] 4 02:26:05 Osteoart hritis 030455940 Active Not Available [facility] 4 02:26:05 Disorder of shoulder 915735256 Completed 03/11/2021 Dylan Tan[place] [facility] 13:02:16 Uterine leiomyom a 16655809 Active Not Available [facility] 4 02:26:05 Asthma 799267774 Active Not Available [facility] 4 02:26:05 Gastroes ophageal reflux disease 394521421 Active Not Available [facility] 4 02:26:05 Degenera tion of interver tebral disc 55056306 Active Not Available [facility] 4 02:26:05 Hypoglyc emia 448332551 Completed 02/06/2017 Surjit Fuller MD Attn: Accounting ,[address] [place], [address] , [place] [facility] 7 19:12:24 Atherosc lerosis Active Not Available [facility] 4 02:26:05 Hip pain 77171422 Completed 03/11/2021 Dylan Tan[place] [facility] 1 13:02:32 Constipa tion 45888615 Active 2015 Not Available [facility] 4 02:26:05 Foot callus 296829568 Completed 201603/11/2021 Dylan WhiteTanikamandie [place], [place] [facility] 1 13:02:27 Vitamin D deficien cy 94275323 Active 2016 Not Available [facility] 4 02:26:05 Random blood glucose outside referenc e range 974949882 Completed 201603/11/2021 [place] [facility] 1 13:02:54 Hypergly cemic disorder 441018374 Completed 201603/11/2021 [place] [facility] 13:03:38 Venous insuffic iency of leg 747347858 Completed 201603/11/2021 Dylan oliveira, [facility] SI 13:02:43 Impaired glucose toleranc e with hyperins ulism 486738966 Completed 201603/11/2021 Dylan oliveira, [facility] SI 13:03:40 Sleep pattern disturba tne 73123786 Completed 201603/11/2021 Dylan oliveira, [place] - [facility] 13:02:49 Medicati on monitori ng Completed 201603/11/2021 Surjit Fuller MD Attn: Accounting ,[address] [place], [address] , [facility] 17:01:09 Notes:Some problems listed i n Documents: #[id number], #[id number], #[id number], #[id number], #[id number], #[id number] could not be added to this patient's chart. Please review these documents and add these problems to the patient's chart manually as needed. Problem Notes None recorded. Procedures Surgical History Date Name Laterality Status Provider Name and Address Organization Details Recorded Time 2 Date of Last Pap Smear completed Violette Calvin [place] - [facility] 01/18/2022 15:59:18 7 Joint Injection completed Dread Barrientos MD [address] [place], [address], [facility] - [facility] 05/22/2017 13:55:43 7 Joint Injection completed Dread Barrientos MD [address] [place], [address], [facility] - [facility] 04/24/2017 11:20:55 7 Most Recent Mammogram completed Mercedez Allen MA [place] - [facility] 01/07/2019 15:37:24 7 Joint Injection completed Dread Barrientos MD [address] [place], [address], [place] [facility] 04/17/2017 12:32:53 7 Joint Injection completed Dread Barrientos MD [address], [place], [address], [place] [facility] 10/10/2016 12:25:30 7 Joint Injection completed Dread Barrientos MD [address], [place], [address], [place] [facility] 10/03/2016 11:19:10 6 Joint Injection completed Dread Barrientos MD [address], [place], [address], [place] [facility] 03/07/2016 10:50:52 5 Unlisted procedure shoulder completed Sylvia Urrutia MA [place] - [facility] 03/28/2016 16:09:14 6 Elbow mold outsid lock hinge completed Sylvia Urrutia MA [place] - [facility] 03/28/2016 16:07:48 6 Knee arthroscopy/dr medellin completed Alfred Chowdary MD Attn: Accounting,[address] [place], [address], [facility] - [facility] 07/25/2019 14:34:28 4 Other completed Betzy Christy MA [place] - [facility] 07/08/2014 15:23:43 2 Tubal Ligation completed Gay Sin MA [place] - [facility] 02/19/2017 16:29:11 hammer toe operation completed Violette Calvin MA [place] - [facility] 03/14/2021 16:16:44 Imaging Results Imaging Date Name Status LastModified by Organiz ation Details LastModified Time 07/11/2024 XR, sacroiliac joint(s) completed [email or web address] [place], [address], 07/14/2024 10:34:43 07/11/2024 XR, sacroiliac joint(s) completed [facility] [address] [place], [address], 08/05/2024 11:47:44 07/11/2024 XR, lumbar spine completed [facility] [address] [place], [address], 08/05/2024 11:47:45 07/11/2024 XR, lumbar spine completed [email or web address] [place], [address], 07/14/2024 10:35:05 07/28/2024 MRI, sacroiliac joint(s), w/o contrast completed [facility] [address], [place], [address], 08/10/2024 15:05:10 Procedure Notes None recorded. Medical Equipment None Reported. Allergies No known drug allergies Medications Name Sig Start Date Stop Date Status Note LastModified by Organization Details LastModified Time Prescript ion - Renewal 11/01 completed Not Available Not Available Not Available accu-chek guide test strips strp active Not Available Not Available Not Available eq acetamin tab 500mg active Not Available Not Available No t Available multivita min tablet Take 1 tablet [...] MOUTH NOW THEN REPEAT IN 2 DAYS 07/30 completed Not Available Not Available Not Available benzonata te 200 mg capsule TAKE [...] MOUTH TWICE A DAY BEFORE A MEAL 2024 active Not Available Not Available Not Avai lable aspirin 81 mg tablet,de layed release 11/01 [...] ne 7.5 mg-acetam inophen 325 mg tablet Take 1 tablet twice a day by oral route. 2024 active Not Available Not Available Not Avai lable cephalexi n 500 mg capsule active Not Available Not Available Not Available nystatin 100,000 unit/gram topical cream APPLY 1 APPLICAT ION ON THE SKIN TWICE A DAY 05/06 completed Not Available Not Available Not Available ranitidin e 150 mg tablet TAKE ONE TABLET BY MOUTH TWICE DAILY active Not Available Not Available No t Available glimepiri de 4 mg tablet TAKE 2 TABLETS BY MOUTH DAILY WITH MEALS active Not Available Not Available No t Available prednison e 50 mg tablet TAKE 1 TABLET BY MOUTH EVERY DAY 05/02 completed Not Available Not Available Not Available promethaz ine 25 mg tablet 12/20 completed Not Available Not Available Not Available omeprazol e 20 mg capsule,d elayed release TAKE 1 CAPSULE BY MOUTH TWICE A DAY 12/04 completed Not Available Not Available Not Available hydroxyzi ne HCl 25 mg tablet one tab po tid prn itching active Not Available Not Available No t Available ergocalci ferol (vitamin D2) 1,250 mcg (50,000 unit) capsule TAKE 1 CAPSULE BY MOUTH ONE TIME PER WEEK 2022 active Not Available Not Available Not Avai lable clobetaso l 0.05 % topical ointment APPLY TO AFFECTED AREA TWICE A DAY NEEDED active Not Available [...] 1 % topical cream APPLY TO AFFECTED & SURROUND ING AREAS OF SKIN TWICE A DAY IN THE MORNING AND [...] calcipotr iene 0.005 % topical ointment APPLY THIN LAYER TO AFFECTED AREA(S) AND RUB IN GENTLY AND COMPLETE LY ONCE DAILY active Not Available Not Available [...] tablet Take one tab daily in AM 07/30 completed Not Available Not Available Not Available Jardiance 10 mg tablet TAKE 1 TABLET EVERY DAY BY ORAL ROUTE DIRECTED FOR 30 DAYS, FOR DM. active Not Available Not Available No t Available Jardiance 25 mg tablet TAKE 1 [...] Updated DateTime 4 181.61 cm 35.9 kg/m2 562572. 61 g 84 /min 97 % 97 % 134 mm[Hg] 85 mm[Hg] Candi Garland MA [facility] 4 16:15:33 Date Recorded Body height Body mass index (BMI) Body weight Oxygen saturation Oxygen saturation in Arterial blood by Pulse oximetry Heart rate Systolic blood pressure Diastolic blood pressure Provider Name and Address Organization Details Last Updated DateTime 4 181.61 cm 36 kg/m2 947621. 2 g 97 % 97 % 88 /min 122 mm[Hg] 80 mm[Hg] Sue Perkins MA [facility] 4 16:52:02 Date Recorded Body height Body temperature Body mass index (BMI) Body weight Oxygen saturation Oxygen saturation in Arterial blood by Pulse oximetry Heart rate Systolic blood pressure Diastolic blood pressure Provider Name and Address Organization Details Last Updated DateTime 5 179.07 cm 98 [degF] 37.5 kg/m2 590367. 98 g 97 % 97 % 82 /min 120 mm[Hg] 78 mm[Hg] Sue Perkins MA [facility] 5 14:04:11 Date Recorded Body height Body mass index (BMI) Body weight Oxygen saturation Oxygen saturation in Arterial blood by Pulse oximetry Heart rate Body temperature Systolic blood pressure Diastolic blood pressure Provider Name and Address Organization Details Last Updated DateTime 5 179.07 cm 38.3 kg/m2 738233. 53 g 97 % 97 % 80 /min 98 [degF] 146 mm[Hg] 76 mm[Hg] Seu Perkins MA [facility] 5 17:16:35 Date Recorded Body height Body mass index (BMI) Body weight Heart rate Oxygen saturation Oxygen saturation in Arterial blood by Pulse oximetry Systolic blood pressure Diastolic blood pressure Provider Name and Address Organization Details Last Updated DateTime 5 179.07 cm 38.5 kg/m2 622905. 41 g 82 /min 99 % 99 % 158 mm[Hg] 79 mm[Hg] Candi Garland MA [facility] 5 14:59:04 Social History Question Answer Notes LastModified by Organizat ion Details LastModified Time Tobacco Smoking Status Current Some Day Smoker Glenys Lorenz [place] null, [place] - [facility] 09/18/2023 14:37:54 Do You Have An Advance Directive? No [email or web address] Information not available 03/28/2016 What Is Your Level Of Alcohol Consumption? Occasional Special Occasions Only Information not available 07/27/2021 Is Blood Transfusion Acceptable In An Emergency? Yes [email or web address] Information not available 03/28/2016 What Is Your Level Of Caffeine Consumption? Heavy Daily Soda And Tea [email or web address] Information not available 03/28/2016 How Much Tobacco Do You Chew? None [email or web address] Information not available 03/28/2016 Are You Currently Employed? Yes Information not available 02/19/2017 What Type Of Diet Are You Following? REGULAR [email or web address] Information not available 03/28/2016 Which Illicit Or Recreational Drugs Have You Used? Denies [email or web address] Information not available 03/28/2016 Do You Or Have You Ever Used E-cigarettes Or Vape? 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 With Others Information not available 02/19/2017 What Was The Date Of Your Most Recent Tobacco Screening? 07/30/2024 Information not available 07/30/2024 How Many Children Do You Have? 3 [email or web address] Information not available 03/28/2016 Performs Monthly Self-breast Exam? No [email or web address] Information not available 03/28/2016 Do You Use Protection During Sex? No [email or web address] Information not available 03/28/2016 What Is Your Relationship Status? [email or web address] Information not available 03/28/2016 Seat Belts Used Routinely Yes [email or web address] Information not available 03/28/2016 Are You Sexually Active? No Been 3-4 Months [email or web address] Information not available 03/28/2016 Do You Have [...] available 12/28/2016 General Stress Level Medium Depends Information not available 03/28/2016 Do You Use Any Illicit Or Recreational Drugs? No Information not available 07/27/2021 Do You Use Sunscreen Routinely? No [email or web address] Information not available 03/28/2016 Has Tobacco Cessation Counseling Been Provided? Yes Information not available 03/14/2021 On What Date Was Tobacco Cessation Counseling Provided? 07/30/2024 Information not available 07/30/2024 How Many Years Have You Smoked Tobacco? 36 [email or web address] Information not available 03/28/2016 Do You Or Have You Ever Used Any Other Forms Of Tobacco Or Nicotine? No Information not available 03/14/2021 Sex: Unknown Functional Status Question Answer Note LastModified by Organizat ion Details LastModified Time What is your exercise level? Occasional [email or web address] Information not available 03/28/2016 Mental Status None recorded. Family History Relationship Description Onset Age of this Age Resolved Age Notes LastModified by Organization Details LastModified Time Mother Heart disease 62 [email or web address] Not available 03/07 09:45:12 Father Malignant tumor of lung 41 [email or web address] Not available 03/07 09:45:12 Sister Alive Adore [email or web address] Not available 03/07/2016 09:45:12 Sister Alive Stanton mills Not available 03/07/2016 09:45:12 Sister Motor vehicle accident victim 24 Amina Not available 03/07 09:45:12 Brother Alive [email or web address] Not availabl e 03/07/2016 09:45:12 Medical History [...] mcg/0.3 mL dose 1 completed Not Available [facility] 06/29/2023 02:26:06 Tdap 9 completed Not Available [facility] 06/28/2019 02:44:51 Influenza, split virus, quadrivalent, preservative 0 completed Alfred Chowdary MD Attn: Accounting[address] [place], [address], [facility] 07/25/2019 15:04:16 Past Encounters Encounter ID Performer Location Encounter Start Date Encounter Closed Date Diagnosis/Indication Diagnosis SNOMED-CT Code Diagnosis ICD10 Code Diagnosis Note [id number] Rocio ramey [address] [facility] [place] [address] 05/22/2014 14:48:27 05/25/2014 09:53:52 Osteoarthritis 649600440 Offered orthopedic injection, but patient declined as if she is surgical candidate we did not want to prolong timeframe. Also she is to alternate acetaminop hen and ibuprofen. Gastroesop hageal reflux disease [id number] [id number] CARLEY Jacome ([employer]) [address] [place] [address]562-408 0 07/08/2014 14:47:32 07/08/2014 20:36:17 Pain in pelvis 48374941 Uterine leiomyoma 04701063 [id number] Linnette Felix NP-Myra Rodríguez meño [address] [place] [address] 08/14/2014 14:42:00 08/14/2014 16:30:22 Obese 216536502 Exposure t o Hepatitis C virus 886369421 Asthma 532098623 Gastroesop hageal reflux disease 002680212 Osteoarthritis 107683215 Offered orthopedic injection, but patient declined as if she is surgical candidate we did not want to prolong timeframe. Also she is to alternate acetaminop hen and ibuprofen. [id number] Chandana (Adult Med) [address] [place] [address] 34954-188 0 11/30/2014 10:31:26 11/30/2014 12:39:36 Chest pain 56677422 Gastroesop hageal reflux disease 973485307 Asthma 391449745 Knee pain 71697324 Shoulder pain 71791007 Hyperglycemia 96126682 Hypoglycemic disorder 899054321 Pain in pelvis 65202107 Low back pain 448938505 Urticaria 195194794 [id number] Rosa Ellington (Adult Med) [address] [place] [address] 24267-519 0 02/08/2015 15:21:52 02/08/2015 16:40:21 Hyperglycemia 48621332 Shoulder pain 38649836 Knee pain 43235231 [id number] Sasha Diaz is Chandana (Adult Med) [address] [place] [address] 59221-281 0 05/10/2015 15:08:13 05/10/2015 15:56:09 Disorder of shoulder 088852021 M25.811 Hyperglycemia 93804165 R 73.9 [id number] Garcia English Chandana (Adult Med) [address] [place] [address] 48156-723 0 08/02/2015 13:43:24 08/02/2015 16:03:18 Shoulder pain 84527154 M25.511 Obese 116451596 E66.9 Knee pain 46716367 M25.5 69 [id number] MD Chandana Barragan (Adult Med) [address] [place] [address] 03341-835 0 11/29/2015 15:24:40 11/29/2015 18:10:02 Shoulder pain 01890000 M25.511 Gastroesop hageal reflux disease 708238484 K21.0 [id number] Sasha Diaz is Chandana [facility] (Adult Med) [address] [place] [address] 94262-974 0 01/24/2016 12:17:38 01/24/2016 18:06:57 Knee pain 70159645 M25.569 Hip pain 72783494 M25.55 1 M25.552 [id number] [facility] [address] [place] [address] 03/07/2016 09:29:32 03/07/2016 12:08:45 Knee pain 87168811 M25.561 M25.562 Degenerati on of intervertebral disc 41068094 M51.9 Gastroesop hageal reflux disease 174592121 K21.9 Low back pain 981557572 M54.5 Obese 538083785 E66.9 [id number] FREDDY Schroeder ([employer]) [address] [place] [address] 30883-292 0 03/28/2016 15:02:47 03/30/2016 10:13:41 Uterine leiomyoma 52948494 D25.9 Gynecologi c examination 85823862 Z01.419 Screening mammography 24 943592 Z12.31 [id number] MD Chandana Barragan (Adult Med) [address] [place] [address] 36234-154 0 05/10/2016 16:15:36 05/10/2016 17:53:38 Knee pain 89645419 M25.569 Constipation 43400739 K5 9.00 Possibly opioid induced [id number] MD Chandana Barragan (Adult Med) [address] [place] [address] 43684-188 0 09/25/2016 15:31:12 09/25/2016 16:36:34 Hyperglycemia 85794420 R73.9 Osteoarthritis 140365577 M19.90 Atherosclerosis 24074779 I70.90 Gastroesop hageal reflux disease 551219722 K21.0 Knee pain 97326835 M25.5 69 [id number] Dread Barrientos MD [facility] [address] [place] [address] 10/03/2016 10:03:21 10/03/2016 11:55:59 Osteoarthritis of knee 519670549 M17.0 [id number] Dread Barrientos MD [facility] [address] [place] [address] 10/10/2016 10:54:55 10/10/2016 12:58:39 Osteoarthritis of knee 824219662 M17.0 Pain in right knee 61656 59880 26928 M25.884 [id number] Dylan Sagastume Chandana ([employer]) [address] [place] [address] 97300-301 0 11/01/2016 14:56:31 11/01/2016 17:41:22 Surgical follow-up 575820572 Z09 UFE 07/2016 Uterine leiomyoma 666483 05 D25.9 Chronic id iopathic constipation 37603846 K59.04 [id number] MD Chandana Barragan (Adult Med) [address] [place] [address] 74920-105 0 12/28/2016 14:06:53 12/29/2016 15:04:17 Hyperglycemic disorder 578156323 R73.9 Random blo od glucose outside reference range 670974034 R73.09 Hypoglycemic disorder 23 7024959 E16.2 Venous ins ufficiency of leg 891233184 I87.2 Diccussed wearing support hose [id number] MD Chandana Barragan (Adult Med) [address] [place] [address] 11331-492 0 02/06/2017 16:08:55 02/06/2017 18:00:15 Impaired glucose tolerance with hyperinsulism 043847642 R73.02 Has been referred to endocrinol ogy. Awaiting appt. Also to f/u with [facility] Vitamin D deficiency 347 78921 E55.9 Gastroesop hageal reflux disease 954761918 K21.0 [id number] Dylan Sagastume Chandana ([employer]) [address] [place] [address] 86929-952 0 02/19/2017 15:56:55 02/20/2017 15:58:47 Chronic constipation 995488731 K59.09 Impaired g lucose tolerance 8567782 R73.02 increase exercise and portion control, increase protein Reactive hypoglycemia 31 7006 E16.1 needs to eat small, frequent meals throughout the day- increase protein in diet- note provided for work Uterine leiomyoma 745267 05 D25.9 discussed results of most recent pelvic U/S- fibroids essentiall y unchanged Screening mammography 24 288712 Z12.31 [id number] [facility] [address] [place] [address] 70099-441 0 04/09/2017 15:43:10 04/10/2017 13:03:25 Knee pain 77348206 M25.569 Impaired g lucose tolerance with hyperinsulism 696954953 R73.02 Obese 634124247 E66.9 Asthma 947489113 J45.90 9 Medication monitoring 39 6358540 Z51.81 [id number] Dread Barrientos MD [facility] [address] [place] [address] 04/17/2017 10:55:55 04/17/2017 12:54:34 Shoulder pain 32848896 M25.511 Subacromia l impingement 692798841 M75.41 [id number] Dread Barrientos MD [facility] [address] [place] [address] 04/24/2017 09:44:23 04/24/2017 12:23:45 Osteoarthritis of knee 429750090 M17.0 [id number] Dread Barrientos MD [facility] [address] [place] [address] 05/22/2017 10:41:04 05/22/2017 14:00:40 Osteoarthritis of knee 570201498 M17.0 [id number] MD Chandana Barragan (Adult Med) [address] [place] [address] 04108-084 0 09/19/2017 16:11:16 09/20/2017 09:58:47 Medication monitoring 579424276 Z51.81 Pt to do on 09/20/2017 Low back pain 355903371 M54.5 Knee pain 83920038 M25.5 69 [id number] MD Chandana Barragan (Adult Med) [address] [place] [address] 69353-895 0 10/30/2017 16:14:45 10/31/2017 10:36:59 Low back pain 015797934 M54.5 Bilateral hip joint pain 0204708720 3586034 M25.551 M25.730 [id number] Dread Barrientos MD [facility] [address] [place] [address] 01/01/2018 10:02:16 01/07/2018 16:09:10 Knee pain 77369883 M25.561 M25.225 [id number] MD Chandana Barragan (Adult Med) [address] [place] [address] 27756-920 0 01/10/2018 14:57:20 01/10/2018 16:21:16 Skin lesion 98390930 L98.9 Hip pain 24544633 M25.55 1 M25.552 Osteoarthritis 277875800 M19.90 [id number] MD Chandana Schwab (Adult Med) [address] [place] [address] 90471-196 0 05/16/2018 12:00:37 05/16/2018 12:51:28 Chronic instability of knee 485441491 M23.52 M23.51 F/U with her PCP DR. Cayden Fuller. [id number] FREDDY Aldrich (Adult Med) [address] [place] [address] 48483-993 0 09/11/2018 11:58:28 09/12/2018 11:46:17 Pain in left thumb 4749724026 307978 M79.645 Knee pain 32619620 M25.5 69 Medication monitoring 39 5729359 Z51.81 History of respiratory disease 670048110 Z87.09 Resolved Pain in throat 991909396 R07.0 Observe Chest pain 54485965 R07. 9 F/U with cardiology Bilateral hip joint pain 6994994851 8026289 M25.551 M25.574 [id number] MD Chandana Barragan (Adult Med) [address] [place] [address] 88114-005 0 12/02/2018 17:11:32 12/02/2018 18:24:41 Varicose veins of lower extremity 23334465 I83.893 Effusion o f joint of right knee 5299068973 08777 M25.064 [id number] Dylan Sagastume Chandana ([employer]) [address] [place] [address] 47854-418 0 01/07/2019 15:05:52 01/08/2019 11:50:51 Gynecologic examination 84543194 Z01.419 please call patient at for all test results. ok to leave voicemail no problem Exposure t o sexually transmissible disorder 249663873 Z20.2 Screening mammography 24 342865 Z12.31 [id number] FREDDY Aldrich (Adult Med) [address] [place] [address] 23460-482 0 02/20/2019 11:47:07 02/24/2019 10:06:36 Administration of diphtheria, pertussis, and tetanus vaccine 820578489 Z23 [id number] MD Chandana Barragan (Adult Med) [address] [place] [address] 03814-551 0 04/03/2019 14:55:10 04/04/2019 09:42:31 Effusion of joint of right knee 6712656368 65826 M25.461 History of respiratory disease 996083087 Z87.09 Resolved Bilateral hip joint pain 7703387652 2981474 M25.551 M25.458 [id number] MD Chandana Blake (Adult Med) [address] [place] [address] 33500-114 0 07/25/2019 14:06:14 07/28/2019 08:53:42 Administration of influenza vaccine 65293784 Z23 Osteoarthr itis of knee 629876613 M17.9 [place] new CDA is neededUDS okay but needs to be repeatedHy drocodone PRN Screening for malignant neoplasm of colon 206477265 Z12.11 General ex amination of patient 077530742 Z00.01 Hypoglycemia 200053990 E 16.2 Nicotine dependence 5629 4008 F17.503 [id number] MD Chandana Barragan (Adult Med) [address] [place] [address] 22335-851 0 08/12/2019 14:52:07 08/12/2019 17:35:57 Gastroesophageal reflux disease 334012018 K21.0 Osteoarthr itis of knee 315404574 M17.9 [id number] MD Chandana Barragan (Adult Med) [address] [place] [address] 93554-021 0 04/08/2020 08:47:26 04/09/2020 10:59:30 Disorder of joint of foot 092250234 M25.9 Will need cardiology and medical clearance for foot surgery [id number] MD Chandana Barragan (Adult Med) [address] [place] [address] 59365-617 0 04/28/2020 16:03:27 04/29/2020 14:39:20 Disorder of joint of foot 213683979 M25.9 Pre-surger y evaluation 188398456 Z01.818 Osteoarthr itis of knee 896814960 M17.9 [id number] MD Chandana Barragan (Adult Med) [address] [place] [address] 53145-153 0 09/13/2020 09:37:35 09/14/2020 14:12:58 Gastroesophageal reflux disease 529447229 K21.9 Low back pain 919236524 M54.5 Medication monitoring 39 7841386 Z51.81 [id number] MD Chandana Barragan (Adult Med) [address] [place] [address] 76181-866 0 12/20/2020 12:09:56 12/21/2020 14:02:01 Low back pain 523796016 M54.5 Osteoarthritis 520155320 M17.11 Vitamin D deficiency 347 45167 E55.9 Bilateral hip joint pain 7193484447 5069802 M25.551 M25.552 Degenerati on of intervertebral disc 77721238 M51.9 [id number] Dylan Ellington ([employer]) [address] [place] [address] 98239-869 0 03/14/2021 16:03:08 03/15/2021 10:35:27 Gynecologic examination 38182457 Z01.419 Z11.51 please call patient at for all test results. ok to leave voicemail no problem Screening mammography 24 846162 Z12.31 Gastroesop hageal reflux disease 793193030 K21.9 [id number] MD Chandana Barragan (Adult Med) [address] [place] [address] 76745-516 0 05/31/2021 16:35:33 06/01/2021 07:45:57 Gastroesophageal reflux disease 745904481 K21.9 Will restart H2 chandler Osteoarthritis 378401997 M17.11 Atherosclerosis 06939659 I70.90 Asthma 887998253 J45.90 9 [id number] BARBRA FAIR ([employer]) [address] [place] [address] 30569-006 0 07/27/2021 16:21:09 08/08/2021 10:02:41 Well woman monitoring check done 819151075 Z76.89 Cervical cancer screening: Last Pap December 2018, unsatisfac tory, HPV negative. Pt due to for repeat cytology, to reschedule at later date.Breas t cancer screening: Last mammogram Mar 2021, BIRADS 2. Discussed SBEColonos copy: UTDContrac eption: s/p BTL, postmenopa usalDiet/e xercise: Counseled regarding importance of physical activity, healthy diet and appropriat e calcium intake.RTC in 6 months for Pap/WWE. [id number] MD Chandana Barragan (Adult Med) [address] [place] [address] 03616-750 0 08/08/2021 12:32:16 08/09/2021 10:32:36 Gastroesophageal reflux disease 276436208 K21.9 Hold H2 chandler. Increase PPI dose [id number] BARBRA FAIR ([employer]) [address] [place] [address] 92773-859 0 01/18/2022 15:44:32 02/08/2022 11:46:23 Gynecologic examination 91648946 Z01.419 Normal gynecologi c exam today.Cerv ical cancer screening: Last Pap smear on 01/07/2019 that was unsatisfac tory cytology. Pap performed today.Olga st cancer screening: Last mammogram was on 03/24/21 and was normal. Discussed SBEColonos copy: UTDSTI screening: Deferred. Patient reports she hasn't been sexually active for about 1 year and [facility].Cont raception: s/p tubal ligationDi et/exercis e: Counseled regarding importance of physical activity, healthy diet and appropriat e calcium intake.RTC in 1yr Screening for malignant neoplasm of breast 922834738 Z12.31 Annual screening mammogram due March 2022. Obesity 290514055 E66.9 BMI 35.1. Educated patient on healthy lifestyle including well balanced diet and daily exercise of 30 minutes or more. [id number] MD Chandana Barragan (Adult Med) [address] [place] [address] 08677-541 0 02/06/2022 14:51:26 02/07/2022 08:37:01 Lesion of left eyelid 9329602451 1768630 H02.9 Bilateral hip joint pain 6484008583 8876190 M25.551 M25.365 [id number] MD Chandana Barragan (Adult Med) [address] [place] [address] 85348-995 0 05/02/2022 12:14:26 05/03/2022 15:31:26 Cough 86871109 R05.9 Hypercalcemia 81469173 E 83.52 PTH Nl; elevated ionized Ca [id number] BARBRA FAIR ([employer]) [address] [place] [address] 73039-930 0 07/06/2022 15:40:34 07/13/2022 12:23:50 Hemorrhoids 54171605 K64.9 Persistent x years with intermitte nt flares. Requests referral for hemorrhoid removal. Vulvovaginitis 15561012 N76.0 PE c/w persistent yeast infection. Cultures obtained to confirm. Nystatin cream prescribed since clotrimazo le was ineffectiv e. Fluconazol e renewed. Advised to apply ice packs for itching instead of scratching to avoid further infection. Keep areas clean and dry. Limit pad use and make sure to remove wet pads. RTC if symptoms do not improve. Urge incon tinence of urine 78228993 N39.41 Discussed lifestyle adjustment s such as bladder training and PFPT/Kegel 's and good glycemic control. Pt will consider medication s if symptoms persist. [id number] MD Chandana Barragan (Adult Med) [address] [place] [address] 51146-513 0 07/12/2022 11:02:27 07/17/2022 14:44:37 Type 2 diabetes mellitus 50450396 E11.9 patient requesting testing supplies. [id number] MD Chandana Barragan (Adult Med) [address] [place] [address] 05432-659 0 08/07/2022 13:44:03 08/09/2022 10:55:17 Type 2 diabetes mellitus 18641861 E11.9 Needs better control. Will increase glimepirid e. F/U with dietary Morbid obesity 594795267 E66.01 [id number] MD Chandana Barragan (Adult Med) [address] [place] [address] 12195-954 0 09/05/2022 10:05:41 09/06/2022 16:18:41 Type 2 diabetes mellitus 88685550 E11.9 Well controlled on current regimen. Pt to continue current regimen. F/U with dietary. OK to get cataract surgery. Morbid obesity 487271237 E66.01 Disorder of vision 30082 002 H53.9 OK toproceed wiht [id number] MD Chandana Barragan (Adult Med) [address] [place] [address] 59485-466 0 09/18/2022 14:49:41 09/19/2022 11:38:48 Bilateral hip joint pain 3717748171 6113510 M25.551 M25.552 Type 2 mulu betes mellitus 85553036 E11.9 Well controlled on current regimen. Pt to continue current regimen. F/U with dietary. OK to get eyes checked for new prescripti ons Morbid obesity 104239163 E66.01 [id number] MD Chandana Barragan (Adult Med) [address] [place] [address] 19418-420 0 01/15/2023 14:23:30 01/16/2023 14:04:21 Obesity 054555522 E66.9 Varicose v eins of lower extremity 09260118 I83.893 Bilateral shoulder joint pain 9928240434 [id number] M25.511 Refer to ortho. Pain of bi lateral knee regions [id number] 77180 M25.561 M25.562 Refer back to ortho. Hypoglycemic disorder 23 6553664 E16.2 Decrease glimepirid e to 2 mg/d Type 2 mulu betes mellitus 58741560 E11.9 PM hypoglycem ia . Decrease glimepirid e to 2 mg/dl [id number] MD Chandana Barragan (Adult Med) [address] [place] [address] [phone] 0 02/26/2023 14:54:40 02/27/2023 12:15:11 Morbid obesity 187110454 E66.01 Low back pain 159397133 M54.50 Asthma 962523770 J45.90 9 Atherosclerosis 22317513 I70.90 Degenerati on of intervertebral disc 67766883 M51.9 Dysphagia 71146651 R13.1 0 Type 2 mulu betes mellitus 75923294 E11.9 PM hypoglycem ia . Decrease glimepirid e to 2 mg/dl Varicose v eins of lower extremity 53803607 I83.893 Bilateral hip joint pain 4198281935 2748438 M25.551 M25.655 [id number] MD Chandana Barragan (Adult Med) [address] [place] [address] [phone] 08/06/2023 14:29:32 08/07/2023 16:25:15 Obesity 964779296 E66.9 Type 2 mulu betes mellitus 39712130 E11.9 PM hypoglycem ia . Decrease glimepirid e to 2 mg/dl. Has been inconsiste nt since her sister's in 10/01 Medication monitoring 39 7909002 Z51.81 Will do with labs Bilateral hip joint pain 4280022057 5240725 M25.551 M25.974 [id number] MD Chandana Moreno (Adult Med) [address] [place] [address] [phone] 0 09/18/2023 14:25:04 10/04/2023 14:18:34 Obesity 086685000 E66.9 Discussed healthy diet. Recommende d lean meats. Recommende d less carbohydra miller and more fiber and protein. Vaginitis 39189655 N76.0 Recurrent vaginal itching. Explained to patient that may be due to vaginal dryness secondary to post menopause. Will try Diflucan but if symptoms continue recommend a follow up appointmen t for an exam and treatment options for vaginal dryness. Screening for malignant neoplasm of breast 545387866 Z12.39 Menopause 880660988 Z78. 0 Patient had a period for [...] for further evaluation . Screening mammography 24 866946 Z12.31 [id number] MD Chandana Barragan (Adult Med) [address] [place] [address] [phone] 0 12/05/2023 14:29:00 12/08/2023 08:21:44 Obesity 987628112 E66.8 Atherosclerosis 97089396 I70.90 Hyperlipidemia 44193140 E78.5 Shoulder pain 02097072 M 25.511 Type 2 mulu betes mellitus 92755050 E11.9 Discussed importance of dietary control [id number] MD Chandana Moreno (Adult Med) [address] [place] [address] [phone] 0 03/25/2024 14:54:40 04/01/2024 09:30:13 Type 2 diabetes mellitus 81776085 E11.9 Recently uncontroll ed and may be contributi ng to recurrent yeast vaginitis. Vaginitis 38010166 N76.0 Symptoms and exam consistent with lichen [...] night and antihistam ine during the day. [id number] MD Chandana Moreno (Adult Med) [address] [place] [address] [phone] 0 04/02/2024 13:53:04 04/09/2024 12:21:46 Lesion of vulva 725352640 N90.89 Tolerated biopsy procedure well. Hemostasis maintained [...] know when I get the biopsy result. [id number] MD Chandana Barragan (Adult Med) [address] [place] [address] [phone] 0 05/06/2024 15:53:58 05/07/2024 12:34:42 Morbid obesity 278434130 E66.01 Bronchitis 65904224 J40 Continue prednisone . Add cough suppressan t Cough 25635131 R05.9 Pain of bi lateral knee regions 2863821195 85408 M25.561 M25.562 Refer back to ortho. 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 Has used high potency steroid cream for several months. Was using it regularly and now has decreased to as needed. Will have her try Calcipotri femi to see if we can get better control so she does not have to use a high dose steroid regularly jail. Discussed side effects including skin irritation . [...] treatment. Will follow up in two months. [id number] [facility] [address] [place] [address] [phone] 0 07/07/2024 13:51:15 07/09/2024 10:18:58 Joint pain 05671299 M25.50 Has been dealing with multiple joint pains for some time. 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 Will do some blood work to check for auto immune arthritis. Type 2 mulu betes mellitus 27896778 E11.9 Uncontroll ed and likely contributi ng to yeast infection. Discussed adding a GLP-1 which could help her glucose and help her with weight control for her joint pains. I will leave a message with Dr. Fuller to let him know we discussed this. Psoriasis of vulva 97771 4003 L40.9 Only thing that has helped [...] visit with her primary care. Tinea cruris 417072650 B 35.6 Rash on inguinal crease consistent with fungus. Treat with topical cream and pill. Follow up in three weeks. [id number] MD Chandana Moreno (Adult Med) [address] [place] [address] [phone] 0 07/28/2024 16:45:39 07/29/2024 13:39:57 Psoriasis 3127544 L40.9 Vulvar psoriasis. Much better control today. No scaly patches appreciate d on exam today. Will use the steroid cream as needed. Will follow up in six weeks to see how she is doing. Continue the Hydroxyzin e in the morning for itching. Tinea cruris 138451988 B 35.6 Rash on inguinal crease much improved. Still mild discomfort . Will use the cream for another week. If rash is not resolved or continues having discomfort she will let me know. Osteonecrosis of hip 444 447867 M87.859 Severe osteonecro sis of both hips. Requires narcotics for pain control and is basically home bound. Will refer to orthopedic surgeon for further evaluation and to consider the possibilit y of surgical interventi on. Will follow up in six weeks. Type 2 mulu betes mellitus 71535021 E11.9 Uncontroll ed and likely contributi ng to yeast infection. Discussed adding a GLP-1 which could help her glucose and help her with weight control for her joint pains. Left a message with Dr. Fuller to let him know we discussed this. Elevated blood-pressure reading without diagnosis of hypertension 718777701 R03.0 Has an appointmen t in two days. Will repeat blood pressure then to see if it is still elevated. No history of hypertensi on. [id number] Surjit Fuller MD [facility] (Adult Med) [address] [place] [address] [phone] 0 07/30/2024 14:25:42 07/31/2024 09:38:40 Type 2 diabetes mellitus 13073377 E11.9 Increase glimepirid e to 8 mg/d Medication monitoring 39 5248837 Z51.81 Will do with labs Bilateral hip joint pain [id number] 6213982 M25.551 M25.552 Health Concerns Section Related Observation LastModified by Organization Detai ls LastModified Time None Recorded Concern Status LastModified by Organization Details LastModified Time None Recorded Advance Directives Directive N: Payers Encounter Date Sequence Insurance Name Policy Number Policy Lieberman Covered Member ID Lieberman Member ID Guarantor Name 05/06/2024 1 [facility] (MEDICARE REPLACEMENT/A DVANTAGE - HMO) [id number] Brittney Joseph [id number] Brittney Joseph 05/13/2024 1 [facility] (MEDICARE REPLACEMENT/A DVANTAGE - HMO) [id number] Brittney M Drummer [id number] Brittney Drummer 07/07/2024 1 [facility] (MEDICARE REPLACEMENT/A DVANTAGE - HMO) [id number] Brittney M Drummer [id number] Brittney Drummer 07/28/2024 1 [facility] (MEDICARE REPLACEMENT/A DVANTAGE - HMO) [id number] Brittney M Drummer [id number] Brittney Drummer 07/30/2024 1 [facility] (MEDICARE REPLACEMENT/A DVANTAGE - HMO) [id number] Brittney M Drummer [id number] Brittney Drummer Notes Date Note Type Note Provider Name and Address Organization Details Recorded Time 05/06/2024 text/html Three week histo ry of URI with cough, headache, sore throat. Treated with medrol, z pack, antihistamine, flonase and cough suppressant. Pt somewhat improved. Cough no better and causes headache. Surjit Fuller MD Attn: [address] [place], [address], [place] [facility] 05/06/2024 16:54:48 05/13/2024 text/html follow up, used cream showers maybe once a week, when first got it used it every night for about a week or week and a half, then went down to when it started itching which was every two to four days, Dee Hernandez MD Attn: [address] [place], [address], [place] [facility] 05/13/2024 18:07:03 07/07/2024 text/html [...] pain, Dee Hernandez MD Attn: [address] [place], [address], [place] [facility] 07/07/2024 18:48:37 07/28/2024 text/html doing much lizy r, only mild tenderness in the right inguinal crease, needs refill on the creams, taking the pill for itching once a day and feels much better, had psoriasis and joint pains so did blood work for inflammatory arthritis, Sed rate was elevated so did MRI of SI joints and hips Dee Hernandez MD Attn: [address] [facility], [place], [address], [place] [facility] 07/28/2024 18:43:05 07/30/2024 text/html Here for DM f/u. She has moderate fluctuation in fasting glucose levels from 150- 300 mg/dl. Recent autoimmune markers elevated. Surjit Fuller MD Attn: [address] [place], [address], [place] [facility] 07/30/2024 15:46:06 OBGyn Episode Ob Episode Information Episode Created Date Number of Fetuses Patient Bloodtype Patient rh Status Prepregnancy Weight lbs Domestic Partner Domestic Partner Phone Father Name Director Machine Status 03/28/20 16 1 CLOSED Fetus Data First Name Last Name Admitted to NICU Weight (g) Sex Living Outcome Pediatric Complications Fetus ID Race Codes Race Delivery Type 2778.25 1 Full Term [id number] Fabian Calculation Initial Fabian Date Initial Exam [...] Domestic Partner Domestic Partner Phone Father Name Director Machine Status 03/28/20 16 1 CLOSED Fetus Data First Name Last Name Admitted to NICU Weight (g) Sex Living Outcome Pediatric Complications Fetus ID Race Codes Race Delivery Type 3146.56 7704 Full Term 87477 Vaginal Fabian Calculation Initial Fabian Date Initial [...] Domestic Partner Domestic Partner Phone Father Name Director Machine Status 03/28/20 16 1 CLOSED Fetus Data First Name Last Name Admitted to NICU Weight (g) Sex Living Outcome Pediatric Complications Fetus ID Race Codes Race Delivery Type 2976.47 0704 Full Term 89036 Fabian Calculation Initial Fabian Date Initial Exam [...]
--- OUTSIDE RECORDS SUMMARY | 2024-08-28 15:16 | XMS_ITS | Clinical Summary ---
Author Organization [facility] Address [address] [place] [address] Care Team Providers Care Wood Borer Name Role Phone Unavailable Primary Care Provider [...] 114.8 kg (253 lb) 06/24/2014 4:03 PM BLUEPRINT DUPLICATOR Height 180.3 cm (5' 11 ) 06/24/2014 4:03 PM BLUEPRINT DUPLICATOR Body Mass Index 35.29 06/24/2014 4:03 PM BLUEPRINT DUPLICATOR Plan of Treatment Health Maintenance Due Date [...]
== END 2024-08-28 14:47 | disposition home or self-care (01) ==
PROVIDERS: PCP Internal Medicine Gastroenterology; Visit Provider Orthopaedic Surgery
DX: M87.852 Other osteonecrosis, left femur (principal); M87.851 Other osteonecrosis, right femur; M94.252 Chondromalacia, left hip; M94.251 Chondromalacia, right hip
CPT/HCPCS: 73721

== ENCOUNTER 2024-12-04 21:46 | Emergency (ER) | payer MEDICARE, MEDICAID, SELFPAY ==
--- NOTE | ~2024-12-04 | XR_ITS ---
HISTORY: r knee pain COMPARISON: None TECHNIQUE: 3 views of the right knee were performed FINDINGS: No acute or subacute fracture is identified. Medial and lateral tibiofemoral joint space narrowing is identified, with osteophytic bridging. Small suprapatellar joint effusion is identified. The infrapatellar joint space is clear. Ossification of the insertion of the quadriceps tendon. Ossification of the insertion of the tibial patellar tendon. IMPRESSION: Degenerative disease, without acute fracture. Reviewed, dictated and finalized at location A.
--- NOTE | ~2024-12-04 | XR_ITS ---
HISTORY: shoulder pain after fall COMPARISON: Reference is made to a plain film evaluation of the chest dated 04/18/2022 TECHNIQUE: 3 views of the right shoulder were performed FINDINGS: No acute fracture. The glenohumeral joint space is maintained. Narrowing is evident in the acromioclavicular joint, with an extra-articular osseous density, unchang ed from 2021 and upsloping of the distal right clavicle. The visualized portion of the adjacent right lung is clear. The humeral head is well seated within the glenoid fossa. IMPRESSION: Degenerative disease, without acute fracture or anterior dislocation. Reviewed, dictated and finalized at location A.
--- NOTE | ~2024-12-04 | XR_ITS ---
HISTORY: ankle pain after fall COMPARISON: None TECHNIQUE: 3 views of the right ankle were performed FINDINGS: No acute fracture or dislocation. No significant soft tissue swelling. The ankle mortise is preserved. Bone mineralization is age-appropriate. Ossification of the insertion of the Achilles tendon. Prominent calcaneal spur. IMPRESSION: Degenerative disease without acute fracture, as detailed above. Reviewed, dictated and finalized at location A.
--- NOTE | ~2024-12-04 | XR_ITS ---
HISTORY: foot pain after fall COMPARISON: None TECHNIQUE: 3 views of the right foot were performed FINDINGS: Acute fracture of the distal metaphysis of the fifth metatarsal is identified with medial and plantar deviation of the distal fracture fragments. Moderate degenerative disease is noted. The base of the fifth metatarsal is intact. Prominent calcaneal spur is noted. Ossification of the insertion of the Achilles tendon is noted. Moderate soft tissue swelling of the lateral forefoot is present. IMPRESSION: Acute fracture of the distal metaphysis of the fifth metatarsal with medial and plantar deviation of the distal fracture fragment. Reviewed, dictated and finalized at location A. IMPRESSION: Acute fracture of the distal metaphysis of the fifth metatarsal wi th medial and plantar deviation of the distal fracture fragment.
[2024-12-04 22:05] VITALS: PULSE 85; RESP 14; TEMP 36.7; O2SAT 99
--- NOTE | 2024-12-04 22:11 | ECG_ITS ---
Test Date: 2024-12-04 22:17:39 Measurements Intervals [place] Rate: 83 P: -11 MS: 134 QRS: 55 QRSD: 105 T: 40 QT: 372 QTc: 438 Interpretive Statements SINUS RHYTHM NONSPECIFIC ST-T WAVE ABNORMALITY- INF/HIGH LAT LEADS BASELINE ARTIFACT- I, II, III, AVR, AVL, AVF BORDERLINE ECG No previous ECG available for comparison Electronically Signed On 12-05-2024 06:08:51 CDT by Tal Woodson D.O.
--- NOTE | 2024-12-05 01:16 | ED_ITS ---
HPI - General Adult General Chief complaint: Extremity Injury, Lower Stated complaint: fell, right leg pain Time Seen by Provider: 12/05/24 01:16 History of Present Illness HPI narrative: 59-year-old female presented to the emergency department for evaluation after having a ground level fall. Patient states she had been swimming in the pool and had been sitting on a deck chair when she stood up lost her balance and fell injuring her right knee right ankle and right foot. Patient's primary complaint of pain is in the right foot and patient does have associated swelling and pain with ambulation. Related Data Home Medications ?Medication ?Instructions ?Recorded ?Confirmed ?Last Taken ?Type hydrocodone 7.5 mg-acetaminophen tablet 04/18/22 Unknown History 325 mg tablet metformin 500 mg tablet mg 04/18/22 Unknown History metoprolol tartrate 25 mg tablet mg 04/18/22 Unknown History omeprazole 20 mg capsule,delayed mg 04/18/22 Unknown History release rivaroxaban 20 mg tablet (Xarelto) mg 04/18/22 Unknown History Allergies Allergy/AdvReac Type Severity Reaction Status Date / Time No Known Allergies Allergy Verified 12/04/24 22:05 Review of Systems Review of Systems: All systems reviewed & are unremarkable except as noted in HPI and below PMFSH Past Medical History Medical History (Updated 12/05/24 @ 01:37 by Brenden Frank MD) Asthma GERD (gastroesophageal reflux disease) Angina at rest Diabetes Surgical History Surgical History (Updated 04/18/22 @ 19:59 by Hector Mederos MD) No pertinent past surgical history Social History Social History (Updated 04/18/22 @ 19:59 by Hector Mederos MD) Smoking status: Current every day smoker Exam Narrative: APPEARANCE: Well appearing, no pain, no distress, well-nourished. HEAD: normocephalic, atraumatic. EYES: PERRLA/EOMI, conjunctivae clear. NOSE: Normal no drainage EARS:TMS clear with good light reflex. THROAT: Pharynx clear, no exudate. NECK: Supple. No adenopathy, no masses. RESPIRATORY: Airway patent, respirations nonlabored. Clear to auscultation bilaterally, no rales, rhonchi, wheezing. CARDIOVASCULAR: Regular rate and rhythm without murmurs rubs or gallops. ABDOMINAL: Soft, nontender, nondistended, normal bowel sounds MUSCULOSKELETAL: Tenderness to right lateral foot, no tenderness to proximal tib-fib NEURO: Alert. Cranial nerves II through XII intact. Good gait. Good coordination SKIN: Bruising and ecchymosis to right lower extremity Course Vital Signs Vital signs: Vital Signs Temperature 98.0 F 12/04/24 22:05 Pulse Rate 85 12/04/24 22:05 Respiratory Rate 14 12/04/24 22:05 Pulse Oximetry 99 12/04/24 22:05 Oxygen Delivery Room Air 12/04/24 22:05 Temperature 98.0 F 12/04/24 22:05 Pulse Rate 81 12/05/24 02:47 Respiratory Rate 18 12/05/24 02:47 Blood Pressure 152/78 H 12/05/24 02:47 Pulse Oximetry 96 12/05/24 02:47 Oxygen Delivery Room Air 12/04/24 22:05 Medical Decision Making MDM Narrative Medical decision making narrative: 59-year-old female present to the emergency department for evaluation for shoulder pain, knee pain, ankle pain, foot pain. X-rays for shoulder knee and ankle were negative for acute fracture dislocation. Patient's foot x-ray does show a fracture of the 5th metatarsal. Patient does have point tenderness to pa lpation. Patient is neurovascularly intact on the exam. Patient will be placed in a short-leg splint. Patient states she is unable to walk on crutches but is able to utilize a walker. Patient has her own walker that she brought with her. Patient was educated on the importance of doing nonweightbearing on the foot while in the splint. Patient was encouraged to have close follow-up with Orthop edics. All questions concerns were addressed patient was comfortable with plan for discharge and close follow-up. Differential Diagnosis Differential Diagnosis: Shoulder fracture, knee fracture, ankle fracture, foot fracture Vital Signs Vital Signs: Vital Signs Temperature 98.0 F 12/04/24 22:05 Pulse Rate 85 12/04/24 22:05 Respiratory Rate 14 12/04/24 22:05 Pulse Oximetry 99 12/04/24 22:05 Oxygen Delivery Room Air 12/04/24 22:05 Temperature 98.0 F 12/04/24 22:05 Pulse Rate 81 12/05/24 02:47 Respiratory Rate 18 12/05/24 02:47 Blood Pressure 152/78 H 12/05/24 02:47 Pulse Oximetry 96 06/27/25 02:47 Oxygen Delivery Room Air 12/04/24 22:05 Imaging Data Radiologist's impression: Impressions Ankle X-Ray 12/04/24 22:59 IMPRESSION: Degenerative disease without acute fracture, as detailed above. Shoulder X-Ray 12/04/24 23:01 IMPRESSION: Degenerative disease, without acute fracture or anterior dislocation. Foot X-Ray 12/04/24 23:03 IMPRESSION: Acute fracture of the distal metaphysis of the fifth metatarsal with medial and plantar deviation of the distal fracture fragment. Knee X-Ray 12/04/24 23:05 IMPRESSION: Degenerative disease, without acute fracture. Discharge Plan Discharge Clinical Impression: Closed fracture of fifth metatarsal bone Patient Disposition: Home Condition: Stable Instructions: Antibiotic Form, Foot Fracture in Adults (ED), Splint Care (ED) Additional Instructions: Since you are unable to utilize crutches use a walker for nonweightbearing the right foot. Splint care as directed. Tylenol and ibuprofen for pain control. Elevate foot as directed. Continue have close follow-up with Orthopedics. If you have any worsening symptoms then please call or return to the emergency department. Patient Language: Maltese Prescriptions: No Action metformin 500 mg tablet hydrocodone-acetaminophen 7.5-325 mg tablet omeprazole 20 mg capsule,delayed release(DR/EC) metoprolol tartrate 25 mg tablet Xarelto 20 mg tablet prednisone 50 mg tablet 50 mg PO DAILY Qty: 7 0RF albuterol sulfate 90 mcg/actuation HFA aerosol inhaler 2 puff INHALATION QID PRN (Reason: shortness of breath or wheezing) Qty: 8 0RF meclizine 12.5 mg tablet 12.5 mg PO TID PRN (Reason: dizziness) Qty: 20 0RF ondansetron 4 mg tablet,disintegrating 4 mg PO Q6H PRN (Reason: nausea and vomiting) Qty: 10 0RF naproxen 500 mg tablet 500 mg PO BID PRN (Reason: pain) Qty: 30 0RF Follow-up/Referrals: Chet,Surjit Delong MD [Non-Staff] - Blair Plascencia MD [Physician] -
[2024-12-05 01:18] VITALS: BP 147/71; PULSE 85; RESP 23; O2SAT 98
[2024-12-05 01:19] VITALS: PULSE 90; RESP 21; O2SAT 97
[2024-12-05 01:20] VITALS: BP 147/71; PULSE 84; RESP 19; O2SAT 98
[2024-12-05 01:39] VITALS: PULSE 85; RESP 14; O2SAT 97
[2024-12-05 02:22] VITALS: BP 152/78; PULSE 81; RESP 18; O2SAT 96
[2024-12-05 02:47] VITALS: BP 152/78; PULSE 81; RESP 18; O2SAT 96
== END 2024-12-05 02:49 | disposition home or self-care (01) ==
PROVIDERS: Emergency Provider Emergency Medicine; PCP Emergency Medicine
DX: S92.351A Displaced fracture of fifth metatarsal bone, right foot, initial encounter for closed fracture (principal); E11.9 Type 2 diabetes mellitus without complications; J45.909 Unspecified asthma, uncomplicated; K21.9 Gastro-esophageal reflux disease without esophagitis; F17.210 Nicotine dependence, cigarettes, uncomplicated; M17.11 Unilateral primary osteoarthritis, right knee; M19.011 Primary osteoarthritis, right shoulder; M19.071 Primary osteoarthritis, right ankle and foot; Z79.84 Long term (current) use of oral hypoglycemic drugs; Z79.01 Long term (current) use of anticoagulants; W18.39XA Other fall on same level, initial encounter
CPT/HCPCS: 29515; 73030; 73562; 73610; 73630; 93005; 99284

== ENCOUNTER 2024-12-29 14:31 | Outpatient (CLI) | payer MEDICARE, MEDICAID, SELFPAY ==
--- NOTE | ~2024-12-29 | MR_ITS ---
EXAMINATION: MR shoulder RT wo con DATE: 12/29/2024 15:20 INDICATION: Right shoulder pain TECHNIQUE: Magnetic resonance imaging (MRI) of the right shoulder was performed without intravenous c ontrast. Sequences included axial PD-weighted FS FSE, coronal oblique PD-weighted FS FSE, coronal obl ique T2-weighted FS FSE, sagittal PD-weighted FS FSE, and sagittal T1-weighted SE. COMPARISON: None. FINDINGS: Coracoacromial arch: The acromion undersurface is curved in morphology (type II). Subacromial spurs, moderate sized anteri fartun at the site of insertion of the coracoacromial ligament and small on the lateral rim of the acro mion. Change of prior distal right clavicle resection. Rotator cuff: Mild to moderate supraspinatus and mild infraspinatus tendinopathy without discrete tear. Irregular c ortical contour with prominent underlying increased signal at the junction of the superior and middle facets of the greater tuberosity which could represent degenerative change related to rotator cuff d isease versus potentially a suture anchor tracks from prior rotator cuff repair. Correlate with detai ls of prior surgical history. Teres minor tendon is normal. Minimal tendinopathy without tear of the subscapularis tendon. Normal rotator cuff muscle bulk and signal. Biceps tendon, glenoid labrum and glenohumeral cartilage: Mild tendinopathy and longitudinal split tear along the intra-articular long head biceps tendon. Diff use labral tear which appears irregular degenerative appearance at the posterior superior and inferio r to anteroinferior labrum. This transitions to a more well-defined linear tear/Perthes lesion at the base of the posterior labrum with associated stripping of the periosteum extending up to 9 mm medial ly from the rim of the 8-9:00 position of the posterior inferior glenoid. The tear extends across inf erior to the anterior labrum where it encounters a normal and there is persistent labral recess. Ther e is small region of associated deep chondral ulceration with underlying subarticular edema-like and potentially developing cystlike change at the 9:00-10:30 margin of the glenoid. There is additional d eep chondral ulceration without degenerative subchondral changes along the posterior superomedial asp ect of the humeral head. Fluid: Small glenohumeral joint effusion with mild synovitis at the axillary recess extending to the deep rabago bscapular recess. This and there is small amount of fluid and mild tenosynovitis along the long head biceps tendon sheath. No loose osteochondral bodies. Small amount of fluid in the subacromial/subdelt oid bursa consistent with mild bursitis. Bones: Bone alignment is normal. No fracture or pathologic marrow replacing process. IMPRESSION: 1. Diffuse labral tear with well-defined (lesion with associated periosteal stripping at the posterio r glenoid labrum. 2. Mild glenohumeral osteoarthritis with high-grade chondromalacia at the posterior superior glenoid and moderate grade chondromalacia at the humeral head. 3. Mild rotator cuff tendinopathy without discrete tear. Suggestion of possible suture anchor site re lated to prior rotator cuff repair along the greater tuberosity footplate. Correlate with surgical hi story. 4. Status post prior distal clavicle resection. 5. Mild bicipital tenosynovitis with mild tendinopathy and partial split tear along the intra-articul ar portion of the tendon. 6. Small to moderate-sized subacromial spurs with underlying mild subacromial/subdeltoid bursitis. Reviewed, dictated and finalized at location A. IMPRESSION: 1. Diffuse labral tear with well-defined (lesion with associated periosteal str ipping at the posterior glenoid labrum. 2. Mild glenohumeral osteoarthritis with high-grade chondromalacia at the poste rior superior glenoid and moderate grade chondromalacia at the humeral head. 3. Mild rotator cuff tendinopathy without discrete tear. Suggestion of possible suture anchor site related to prior rotator cuff repair along the greater tube rosity footplate. Correlate with surgical history. 4. Status post prior distal clavicle resection. 5. Mild bicipital tenosynovitis with mild tendinopathy and partial split tear a long the intra-articular portion of the tendon. 6. Small to moderate-sized subacromial spurs with underlying mild subacromial/s ubdeltoid bursitis.
== END 2024-12-29 14:32 | disposition home or self-care (01) ==
PROVIDERS: PCP Emergency Medicine; Visit Provider Orthopaedic Surgery
DX: M19.011 Primary osteoarthritis, right shoulder (principal); M75.21 Bicipital tendinitis, right shoulder; M75.101 Unspecified rotator cuff tear or rupture of right shoulder, not specified as traumatic
CPT/HCPCS: 73221

== ENCOUNTER 2025-05-18 17:46 | Inpatient (IN) | payer MEDICARE, MEDICAID, SELFPAY ==
[2025-05-18] VITALS (12 sets, daily range): BP systolic 115–141; BP diastolic 54–82; PULSE 95–102; RESP 16–21; TEMP 36.5–36.9; O2SAT 93–98
--- NOTE | ~2025-05-18 | XR_ITS ---
EXAMINATION: BONE SURVEY/METASTATIC SURVEY DATE: 05/21/2025 INDICATION: Bone pain TECHNIQUE: A skeletal survey was performed including AP views of the chest, abdomen and pelvis; AP and lateral/lateral swimmers views of the cervical, thoracic and lumbar spine; lateral view of the skull, and AP and lateral views of the appendicular skeleton excluding the hands and feet. COMPARISON: CT of chest dated 05/21/[address] abdomen pelvis dated 05/18/2025 FINDINGS: Diffuse osteopenia. Small lytic lesion in the left parietal lobe. No other suspicious lytic or blastic bone lesions. Moderate thoracic and mild cervical and lumbar spondylosis with severe multilevel cervical facet osteoarthritis. Postoperative change of prior distal right clavicle resection. Small bilateral pleural effusions with opacities at the bilateral lung bases which could represent atelectasis or pneumonia. Heart size within normal limits for AP technique. Peripheral IV at the right antecubital fossa. Bilateral tubal ligation clips in the pelvis. IMPRESSION: 1. Diffuse osteopenia with single nonspecific round lytic left calvarial lesion which could be related to more focal spotty osteopenia, epidermoid cyst, hemangioma, multiple myeloma or less likely other metastatic disease. 2. Small bilateral pleural effusions with bibasilar atelectasis versus pneumonia. Reviewed, dictated and finalized at location A. OL MOTHER IMPRESSION: 1. Diffuse osteopenia with single nonspecific round lytic left calvarial lesion which could be related to more focal spotty osteopenia, epidermoid cyst, heman gioma, multiple myeloma or less likely other metastatic disease. 2. Small bilateral pleural effusions with bibasilar atelectasis versus pneumoni a.
--- NOTE | ~2025-05-18 | CT_ITS ---
EXAMINATION: CT abdomen pelvis w con DATE: 05/18/2025 22:47 INDICATION: Left abdominal pain. TECHNIQUE: Computed tomography (CT) of the abdomen and pelvis was performed with 100 mL Omnipaque 350 intravenous contrast. Automated exposure control and iterative reconstruction technique were employed. The dose-length product was 1438.48 mGy-cm. COMPARISON: Chest CT 10/01/2021 FINDINGS: The visualized portions of the lung bases demonstrate mild atelectasis. There are trace pleural effusions. The heart size is normal. No pericardial effusion. The liver and gallbladder are normal. There is moderate splenomegaly. There is an infarct in the spleen. The pancreas, adrenal glands, and kidneys are normal. There are fibroids in the uterus measuring up to 2.1 cm . There are no dilated loops of bowel. The appendix is normal. There is gastrohepatic, gastrosplenic, periportal, mesenteric, left para-aortic, and aortocaval lymphadenopathy. For example, a mesenteric node measures 3.8 x 2.2 cm. There is trace pelvic ascites. There is mild thoracic and lumbar spondylosis. IMPRESSION: 1. Moderate splenomegaly. Splenic infarct. 2. Abdominal lymphadenopathy suspicious for lymphoma. Reviewed, dictated and finalized at location E. [employer]
--- NOTE | ~2025-05-18 | CT_ITS ---
EXAMINATION:CT diagnostic chest w con DATE: 05/21/2025 20:43 INDICATION: Multiple myeloma. TECHNIQUE: Computed tomography (CT) of the chest was performed with 100 cc intravenous contrast. Automated exposure control and iterative reconstruction technique were employed. The dose-length product (DLP) was 286.32 mGy-cm. COMPARISON: Chest x-ray dated 04/18/2022 FINDINGS: No abnormalities of supraclavicular fossa and axilla. No focal pulmonary mass. Small bilateral pleural effusion. No hilar adenopathy. No mediastinal adenopathy. No evidence of lytic or blastic lesions of the thoracic spine sternum and ribs are seen. IMPRESSION: 1. Small bilateral pleural effusion. No lymphadenopathy in the chest. 2. No focal lytic or blastic lesions of thoracic spine, sternum and ribs. Reviewed, dictated and finalized at location T. EKEEPING ROOM ATTENDANT
--- OUTSIDE RECORDS SUMMARY | 2025-05-18 21:00 | XMS_ITS | Data Portability ---
Author Organization [facility] [employer], Main Office Address [address] [place] [address] Care Team Providers Care Retail Management Trainee Name Role Phone RUTH FULLER Primary Care Provider [phone] RUTH FULLER Referring Provider [phone] Assessment Encounter Date Assessment Date Assessment LastModified by Organization Details LastModified Time 02/01/2023 02/01/2023 HPI: 57-year-old female came in today for evaluation of her bilateral knee pain. She has been having symptoms in her knees for years. She has been using nasq-fcb-edpjntz anti-inflammatori es pain control. Recently she has [...] aware that. Impression: 57-year-old female who has knhf-kt-onbjofvy medial compartment osteoarthritis both knees. I discussed [...] patient more than half of this in [id number]-sg-kmnp conversation Not available 02/01/2023 15:40:44 02/08/2023 02/08/2023 [...] Range of motion is from 0-135 degrees. Xswq-qm-syywkqla tenderness over the medial joint line to palpation. After ChloraPrep was used on the skin 20 mg Kenalog and 3 cc of 0.5% ropivacaine was injected into the left knee. Impression: 57-year-old female who has utyo-xb-oizsqxbw medial compartment osteoarthritis in both knees. She [...] patient more than half of this in dmqx-oa-vuvj conversation Not available 02/08/2023 11:37:33 02/22/2023 02/22/2023 [...] of both shoulders to 145 with some hmre-ps-zioofokp discomfort in the anterior deltoid. External rotation 80 bilaterally internal rotation is to T10 bilaterally. She has no pain with external rotation or internal rotation. Subscap lift-off is intact in both shoulders. She has excellent strength with abduction as well as external rotation in both shoulders. Apig-md-lsfyvffv pain with primary impingement testing bilaterally. There [...] procedure, administere d by provider 2022 023 [email or web address] In-Office Order, Internal Use Only DO Not Attach Compendium DO Not Attach Compendium, Do Not Delete/merge, [id number] 3 11:19:09 Surgeries None recorded. Imaging XR, shoulder 2022 023 [email or web address] [facility], [address] [place] [address], [address], [place], [address], 3 08:50:49 XR, knee 2022 023 [email or web address] [facility] [address], [address], 3 16:03:17 Medication Orders Kenalog 10 mg/mL suspension for injection 2022 023 [email or web address] Not available 14:00:42 ropivacaine (PF) 5 mg/mL (0.5 %) injection solution 2022 023 [email or web address] Not available 14:00:47 Patient TargetsNo targets recorded. Patient InstructionsNo instructions recorded. Reason for Referral None Reported. Results Created Date Observation Date Name Description Value Unit Range Abnormal Flag Note LastModifiedBy Organization Detail LastModifiedTime 02/02/20 23 XR, knee No observ ation record ed. [facility] [address], [address], 02/01/2023 15:36:55 02/23/20 XR, shoul jessica No observ ation record ed. [facility] [address], [address], [address], 02/22/2023 14:41:34 Result Notes None recorded. Problems Name Problem SNOMED Code Status Onset Date Resolution Date Notes Provider Name and Address Organization Details Recorded Time Radiothera py follow-up 013605225 Active Not Available [facility] 3 16:28:25 Partial thickness rotator cuff tear 574454880 Active Not Available [facility] 3 16:28:25 Osteoarthr itis of knee 492957948 Active Not Available [facility] 3 16:28:26 Shoulder joint pain 689480032 Active Not Available [facility] 3 16:28:26 Recurrent dislocatio n of shoulder region 48964296 Active Not Available [facility] 3 16:28:26 Disorder of rotator cuff 216504609 Active Not Available [facility] 3 16:28:26 Pain of bilateral knee joints 5594507948535 04 Active 2022 Mindy Jessica AI null, [facility] 3 14:45:15 Osteoarthr itis of left knee joint 9613107912974 09 Active 2022 AI Solis null, [facility] 3 11:15:04 Bilateral shoulder joint pain 9179624545733 9104 Active 2022 Marissa Mendoza RMA null, [facility] 3 14:01:49 Problem Notes None recorded. Procedures Surgical History Date Name Laterality Status Provider Name and Address Organization Details Recorded Time hammer toe operation completed Not Available [facility] 08/09/2022 16:27:20 Unlisted procedure shoulder completed Not Available [facility] 08/09/2022 16:27:20 Elbow mold outsid lock hinge completed Not Available [facility] 08/09/2022 16:27:20 Tubal Ligation completed Not Available [facility] 08/09/2022 16:27:20 other completed Not Available [facility] 06/2022 16:27:20 Knee arthroscopy/dra rodriguez completed Not Available [facility] 08/09/2022 16:27:20 Imaging Results None recorded. Procedure Notes None recorded. Medical Equipment None [...] suspension for injection in office 02/22 completed [facility]: [id number] lot:[id number] exp: 025 Not Available Not Available Not [...] %) injection solution in office 02/22 completed [facility] [id number] [id number] lot:[id number] exp:11/10/2023 Not Available Not Available Not Available [...] mass index (BMI) Body height Oxygen saturation Heart rate Respiratory rate Body temperature Body weight Systolic And Diastolic Provider Name and Address Organization Details Last Updated DateTime 3 35.3 kg/m2 180.34 cm 98 % 75 /min 16 /min 97.3 [degF] 729977. 87 g 140/90 mm[Hg] Not Available [facility] 3 16:27:29 Date Recorded Body height Body mass index (BMI) Body weight Provider Name and Address Organization Details Last Updated DateTime 02/01/2023 180.34 cm 36.1 kg/m2 819458.71 g Mindy Jessica, [facility] 02/01/2023 14:48:45 Date Recorded Body height Provider Name an d Address Organization Details Last Updated DateTime 02/08/2023 180.34 cm Mindy Jessica [facility] 02/08/2023 10:50:04 Date Recorded Body height Provider Name an d Address Organization Details Last Updated DateTime 02/22/[address] [facility] 02/22/2023 13:59:44 Date Recorded Body height Provider Name an d Address Organization Details Last Updated DateTime 03/22/2023 180[address] [facility] 03/22/2023 14:01:46 Social History Question Answer Notes LastModified by [facility] Details LastModified Time Tobacco Smoking Status Current Every Day Smoker Not Available [facility] 08/09/2022 16:27:11 What Is Your Level Of Caffeine Consumption? Heavy [id number] Information not available 08/09/2022 What Was The Date Of Your Most Recent Tobacco Screening? 02/01/2023 Information not available 02/01/2023 What Is Your Relationship Status? [id number] Information not available 08/09/2022 Are You Sexually Active? Yes [id number] Information not available 08/09/2022 How Much Tobacco Do You Smoke? 0.5 PPD [id number] Information not available 08/09/2022 How Many Years Have You Smoked Tobacco? 36 [id number] 026 Information not available 08/09/2022 Have You Recently Traveled Abroad? No [id number] 026 Information not available 08/09/2022 Sex: Unknown Functional Status Question Answer Note LastModified by [employer] Details LastModified Time Do you use any illicit or recreational drugs? No [id number] Information not available 08/09/2022 What is your level of alcohol consumption? 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 Family History Relationship Description Onset Age of this Age Resolved Age Notes LastModified by Organization Details LastModified Time Mother Heart disease [id number] Not available 08/09/2022 16:27:21 Father Malignant neoplasm of lung [id number] Not available 08/09/2022 16:27:21 Maternal Grandfather Family history of malignant neoplasm [email or web address] Not available 2022 14:43:10 Medical History Condition [...] Diagnosis SNOMED-CT Code Diagnosis ICD10 Code Diagnosis IMO Codes Diagnosis Note [id number] Ben toribio MD [facility] [place] [place] General Surgery [address] [place] [address] 07/20/2022 00:00:00 07/20/2022 13:52:31 [id number] Sridhar Valero MD [place] [address] 9 02/01/2023 14:11:13 02/01/2023 16:03:17 Pain of bilateral knee joints 1608254706 36053 M25.414 [id number] Sridhar Valero MD [address] [address] 02/08/2023 10:42:24 02/08/2023 11:46:17 Osteoarthritis of left knee joint 8528837564 27689 M17.12 [id number] Sridhar Valero MD [address] [address] 02/22/2023 13:47:51 02/22/2023 14:52:31 Bilateral shoulder joint pain 7593142902 9621929 M25.511 M25.630 [id number] Sridhar Valero MD [address] [address] 03/22/2023 13:49:31 03/22/2023 14:36:23 Bilateral shoulder joint pain 8781296462 0308360 M25.511 M25.512 Health Concerns Section Related Observation LastModified by Organization Detai ls LastModified Time None Recorded Concern Status LastModified by Organization Details LastModified Time None Recorded Advance Directives Directive None Recorded Payers Insurance Date Sequence Insurance Name Policy Number Policy Lieberman Covered Member ID Lieberman Member ID Guarantor Name 03/26/2023 1 [facility] (MEDICARE REPLACEMENT/A DVANTAGE - O) [id number] Brittney Joseph [id number] Brittney Joseph 05/23/2023 2 [place]: [facility] Brittney Joseph [id number] Brittney Joseph 02/22/2023 3 [facility] [place] Brittney Joseph [id number] Brittney Joseph OBGyn Episode No OBEpisode recorded.
--- OUTSIDE RECORDS SUMMARY | 2025-05-18 21:01 | XMS_ITS | Clinical Summary ---
Author Organization [facility] Address [address] [place] [address] Care Team Providers Care Postulant Name Role Phone Surjit Rosenberg MD Primary Care Provider Source Comments [facility],non-owned Affiliates and Associated Physician Practices is amultiple site organization consisting of ambulatory clinics and hospital sitesin [place], [place], [place] and [place]. This disclosure is being madepursuant to the Care Everywhere program and may not contain all information available regarding this patient. Last updated 18.[facility] Allergies No known active allergies Medications * Be aware that medications may not be up to date on this document. Alwaysverify current medications with the patient. vitamin D, ergocalciferol, (DRISDOL) 62006 UNITS capsule 2 7 Active raNITIdine (ZANTAC) 300 MG tablet Take 300 mg by mouth BID. 3 7 Active metoprolol tartrate (LOPRESSOR) 25 MG tablet 7 Active acarbose (PRECOSE) 25 MG tablet Take 25 mg by mouth daily with breakfast. 30 tablet 11 7 Active Additional Information Patient not taking.Reported on 03/20/2019 HYDROcodone-estelita taminophen (NORCO) 7.5-325 MG tablet Take 1 tablet by mouth q8h PRN. 0 7 Active nystatin (MYCOSTATIN) 921089 UNIT/GM cream 4 7 Active tiZANidine (ZANAFLEX) 2 MG tablet Take 2 mg by mouth q8h PRN. 0 7 Active TRUE METRIX BLOOD GLUCOSE TEST test stripIndication s:Pre-diabetes TEST BLOOD SUGAR ONCE DAILY 5 8 Active lactulose (CHRONULAC) 10 GM/15ML solutionIndicat ions:Pre-diabet es TAKE 15 ML EVERY DAY BY ORAL ROUTE. 5 8 Active Multiple Vitamin (DAILY-VISHAL) TABS Take 1 tablet by mouth once daily 11 9 Active CALCIUM 600-D 600-400 MG-UNIT Take 1 tablet by mouth once daily 9 Active Active Problems Problem Noted Date Diagnosed [...] drink = 0.6 oz pur e alcohol) Comments No Sex and Gender Information Value Date Recorded Sex Assigned at Not on file Legal Sex Female 5:13 PM LAW OFFICE MANAGER Gender Identity Not on file Sexual Orientation [...] 110.2 kg (243 lb) 04/14/2019 1:32 PM LAW OFFICE MANAGER Height 181.6 cm (5' 11.5) 04/14/2019 1:32 PM CS T Body Mass Index 33.42 04/14/2019 1:32 PM LAW OFFICE MANAGER Plan of Treatment Health Maintenance Due Date Last Done Comments COLOGUARD (AGES 45-75) - COL ON CA SCREENING 1967 COLON MONITORING 1967 COLONOSCOPY - COLON CA SCREENING 1967 CT COLONOGRAPHY - COLON CA SCREENING 1967 Colorectal Cancer Screening 1967 FIT - COLON CA SCREENING 1967 FLEX SIG - COLON CA SCREENING 1967 LIPID TESTING 1967 MAMMOGRAM 1967 HIV SCREENING 1982 HEPATITIS C SCREENING 07/29/1985 DTAP/TDAP/TD VACCINES (1 - Tdap) 1986 HEPATITIS B VACCINE (1 of 3 - 19+ 3-dose series) 1986 PNEUMOCOCCAL VACCINE 50+ (1 of 2 - PCV) 1986 PAP SMEAR 1988 ZOSTER VACCINE (1 of 2) 2017 SCREENING FOR DIABETES 09/27/2020 09/27/2017 DEPRESSION SCREENING 06/11/2024 MEDICARE AWV CALENDAR YEAR 2024 COVID-19 VACCINE (1 - 2024-2 6 season) 2025 INFLUENZA VACCINE (#1) 2025 HIB VACCINE Aged Out No longer eligi [...] Yes Blood BLOOD SPECIMEN / Unknown 09/27/2017 us Chuckie Olsen MD LAB - POINT OF CARE OR DERABLES Final Result from Last 3 Months or Most Recently Relevant to Health Maintenance Insurance [facility] MEDICARE [facility] Care Teams Postulant Relationship Specialty Start Date End Date Surjit Rosenberg MD [address] [place] [address] [phone] PCP - General 04/16/17
--- OUTSIDE RECORDS SUMMARY | 2025-05-18 21:01 | XMS_ITS | Continuity of Care Document ---
Author Organization [facility] ([facility]) Address [address] [place] [address] Assessment Encounter Date Assessment Date Assessment LastModified by Organization Details LastModified Time 04/27/2025 04/27/2025 Had colonoscopy in 2019. Was advised to repeat in ten years. Mammogram 03/05/25: Negative [email or web address] Not available 04/27/2025 18:49:26 Plan of Treatment Reminders Order Date Submit Date Provider Last Modified By Organization Details Last Modified Time Details Appointments None recorded. Lab CMP, serum or plasma 2024 025 [facility], [address], [place] [address], [place], [address], 06:28:48 Referral None recorded. Procedures None recorded. Surgeries None recorded. Imaging None recorded. Medication Orders Ozempic 1 mg/dose (4 mg/3 mL) subcutaneou s pen injector 2024 025 [facility], [address], [place], [id number], 16:22:51 glimepiride 4 mg tablet 2024 025 [facility], [address], [place], [id number], 18:46:07 Jardiance 25 mg tablet 2024 025 [facility], [address], [place], [id number], 5 18:46:07 omeprazole 40 mg capsule,del ayed release 2024 025 [facility]1977, [address], [place], [id number], 18:46:08 Patient TargetsNo targets recorded. Patient InstructionsNo instructions recorded. Reason for Referral None Reported. Problems Name Problem SNOMED Code Status Onset Date Resolution Date Notes Provider Name and Address Organization Details Recorded Time Pain in pelvis 91273557 Completed 03/11/2021 Dylan oliveira [place] [facility] 13:03:04 Subacrom ial impingem ent 429476440 Active Not Available [facility] 4 02:26:05 Obese 283296310 Completed 03/11/2021 [place] [facility] 13:03:12 Chest pain 21533664 Completed 03/11/2021 [place] [facility] 13:02:11 Knee pain Completed 03/11/2021 [place] [facility] 13:03:26 Pain of shoulder region 80542961 Completed 03/11/2021 [place] [facility] 13:02:51 Hypergly cemia 46509627 Completed 03/11/2021 [place] [facility] 13:03:34 Hypoglyc emic disorder 122939539 Completed 03/11/2021 [place] [facility] 13:03:36 Low back pain 200653604 Completed 03/11/2021 Surjit Rosenberg MD Attn: Accounting ,[address] [place], [address] , [place] [facility] 18:27:38 Urticari a 755823232 Completed 03/11/2021 [place] [facility] 13:02:46 Injury of shoulder region 685791592 Completed 03/11/2021 [place] WhiteTanika null[place] [facility] 1 13:03:27 Hemorrho ids 08795629 Active Not Available [facility] 4 02:26:05 Osteoart hritis 386965709 Active Not Available [facility] 4 02:26:05 Disorder of shoulder 433178435 Completed 03/11/2021 [place] WhiteTanika null [place] [facility] 13:02:16 Uterine leiomyom a 62837869 Active Not Available [facility] 4 02:26:05 Asthma 858488185 Active Not Available [facility] 4 02:26:05 Gastroes ophageal reflux disease 739247546 Active Not Available [facility] 4 02:26:05 Degenera tion of interver tebral disc 22982322 Active Not Available [facility] 4 02:26:05 Hypoglyc emia 608157138 Completed 02/06/2017 Surjit Rosenberg MD Attn: Accounting ,[address] [place], [address] , [place] [facility] 7 19:12:24 Atherosc lerosis Active Not Available [facility] 4 02:26:05 Pain of hip region 24791327 Completed 03/11/2021 Dylan WhiteTanika tee [place] [facility] 1 13:02:32 Constipa tion 64962796 Active 2015 Not Available [facility] 4 02:26:05 Foot callus 734751911 Completed 201603/11/2021 Dylan White[place]and[place]ira [place] [facility] 1 13:02:27 Vitamin D deficien cy 14614118 Active 2016 Not Available [facility] 4 02:26:05 Random blood glucose outside referenc e range 770885998 Completed 201603/11/2021 [place] [facility] 13:02:54 Hypergly cemic disorder 330184105 Completed 201603/11/2021 [place] [facility] 13:03:38 Venous insuffic iency of lower limb 647648579 Completed 201603/11/2021 [place] [facility] 13:02:43 Impaired glucose toleranc e with hyperins ulism 872848307 Completed 201603/11/2021 [place] [facility] 13:03:40 Sleep pattern disturba nce 94015658 Completed 201603/11/2021 [place] [facility] 13:02:49 Medicati on monitori ng Completed 201603/11/2021 Surijt Rosenberg MD Attn: Accounting ,[address] [place], [address] , [place] [facility] 17:01:09 Pain of bilatera l hip joints 34806795032 576022 Active 2017 Not Available [facility] 4 02:26:05 Skin lesion 68515412 Completed 201703/11/2021 [place] [facility] 13:03:45 History of respirat ory disease 956585277 Completed 201803/11/2021 [place] [facility] 13:04:06 Pain in left thumb 28842841804 18840 Completed 201803/11/2021 [place] [facility] 13:03:07 Pain in throat 104120320 Completed 201803/11/2021 [place] [facility] 13:03:01 Effusion of joint of right knee 48193417917 9104 Completed 201803/11/2021 [place] [facility] 10/01/202 1 13:02:24 Varicose veins of lower extremit y 46707039 Active 2018 Not Available [facility] 4 02:26:05 Disorder of joint of foot 221206490 Active 2019 Not Available [facility] 4 02:26:05 Screenin g for disorder Completed 201903/11/2021 [place] [facility] 1 13:02:56 Pre-surg lucía evaluati on Completed 201903/11/2021 [place] [facility] 1 13:02:59 Low back pain 542973069 Active 2020 Not Available [facility] 4 02:26:05 Medicati on monitori ng Active 2020 Not Available [facility] 4 02:26:05 Sore throat 187754460 Active 2021 Not Available [facility] 4 02:26:05 Type 2 diabetes mellitus 34497709 Active 2021 Not Available [facility] 4 02:26:05 Lesion of left eyelid 27820854464 799805 Active 2021 Not Available [facility] 4 02:26:05 Hypercal cemia 50177689 Active 2021 Not Available [facility] 4 02:26:05 Cough 87036704 Active 2021 Not Available [facility] 4 02:26:05 Dysphagi a 38182452 Active 2021 Not Available [facility] 4 02:26:05 Morbid obesity 124125798 Active 2022 Not Available [facility] 4 02:26:05 Disorder of vision 50520171 Active 2022 Not Available [facility] 4 02:26:05 Pain of bilatera l knee regions 68431130457 4102 Active 2022 Not Available [facility] 4 02:26:05 Bilatera l shoulder joint pain 72927061258 891846 Active 2022 Not Available [facility] 4 02:26:05 Pain of left elbow joint 14574331718 279159 Active 2023 Surjit Rosenberg MD Attn: Accounting ,[address] [facility], [place], [address] , [place] [facility] 4 16:48:54 Hyperlip idemia 34312079 Active 2023 Surjit Rosenberg MD Attn: Accounting ,[address] [facility], [place], [address] , [place] [facility] 4 14:59:10 Bronchit is 18004413 Active 2023 Surjit Rosenberg MD Attn: Accounting ,[address] [facility], [place], [address] , [place] [facility] 4 16:35:58 Notes:Some problems listed i n Documents: #[id number], #[id number], #[id number], #[id number], #[id number], #[id number], #[id number] could not be added to this patient's chart. Please review these documents and add these problems to the patient's chart manually as needed. Problem Notes None recorded. Procedures Surgical History Date Name Laterality Status Provider Name and Address Organization Details Recorded Time 2 Date of Last Pap Smear completed Violette Calvin [place] [facility] 01/18/2022 15:59:18 7 Joint Injection completed Dread Barrientos MD [address] [place], [address], [place] [facility] 05/22/2017 13:55:43 7 Joint Injection completed Dread Barrientos MD [address] [place], [address], [place] [facility] 04/24/2017 11:20:55 7 Most Recent Mammogram completed Mercedez Allen [place] [facility] 01/07/2019 15:37:24 7 Joint Injection completed Dread Barrientos MD [address] [place], [address], [place] [facility] 04/17/2017 12:32:53 7 Joint Injection completed Dread Barrientos MD [address] [place], [address], [facility] - [facility] 10/10/2016 12:25:30 7 Joint Injection completed Dread Barrientos MD [address] [place], [address], [facility] - [facility] 10/03/2016 11:19:10 6 Joint Injection completed Dread Barrientos MD [address] [place], [address], [facility] - [facility] 03/07/2016 10:50:52 5 Unlisted procedure shoulder completed Sylvia Urrutia MA [place] - [facility] 03/28/2016 16:09:14 6 Elbow mold outsid lock hinge completed Sylvia Urrutia MA [facility] 03/28/2016 16:07:48 6 Knee arthroscopy/dr medellin completed Alfred Chowdary MD Attn: Accounting,[address] [facility], [place], [address], [facility] - [facility] 07/25/2019 14:34:28 4 Other completed Betzy Christy [place] [facility] 07/08/2014 15:23:43 2 Tubal Ligation completed Gay Sin MA [facility] 02/19/2017 16:29:11 hammer toe operation completed Violette Calvin MA [facility] 03/14/2021 16:16:44 Imaging Results None recorded. Procedure Notes None [...] 4 times a day by oral route. 02/12 completed Not Available Not Available Not Available acetamino phen 325 mg tablet 12/20 completed Not Available Not Available Not Available tizanidin e 2 mg tablet Take 1 tablet every 8 hours by oral route as needed. 05/16 completed Not Available Not Available Not Available cetirizin e 10 mg tablet TAKE 1 TABLET BY MOUTH EVERY DAY 09/10 completed Not Available Not Available Not Available azithromy aarti 250 mg tablet TAKE DIRECTED ON PACKAGE 05/06 completed Not Available Not Available Not Available ibuprofen 800 mg tablet TAKE 1 TABLET BY MOUTH THREE TIMES DAILY FOR 10 DAYS 02/12 completed Not Available Not Available Not Available Lidocaine Viscous 2 % mucosal solution gargle with two tsp four times daily 05/02 completed Not Available Not Available Not Available fluconazo le 150 mg tablet TAKE 1 TABLET BY MOUTH DAILY FOR 7 DAYS 12/23 completed Not Available Not Available Not Available [...] Not Available prednison e 20 mg tablet Take 1 tablet every day by oral route. 05/13 completed Not Available Not Available Not [...] A DAY NEEDED FOR DIZZINES S, VERTIGO 12/23 completed Not Available Not Available Not Available dextromet horphan-g uaifenesi n 10 mg-100 mg/5 mL oral syrup Take 10 mL 4 times a day by oral route. 12/04 completed Not Available Not Available Not Available ciproflox acin 500 mg tablet 11/01 completed Not Available Not Available Not Available sulfameth oxazole 800 mg-trimet hoprim 160 mg tablet 05/16 completed Not Available Not Available Not Available hydrocodo ne 10 mg-acetam inophen 325 mg tablet Take 1 tablet twice a day by oral route. 01/04 completed Not Available Not Available Not Available omeprazol e 40 mg capsule,d elayed release TAKE 1 CAPSULE BY MOUTH EVERY DAY active Not Available [...] completed Not Available Not Available Not Available amoxicill in 875 mg tablet TAKE 1 TABLET BY MOUTH THREE TIMES DAILY 04/27 completed Not Available Not Available Not Available [...] TAKE 2 TABLETS BY MOUTH DAILY WITH A MEAL active Not Available Not Available No t Available prednison e 50 mg tablet TAKE 1 TABLET BY MOUTH EVERY DAY 05/02 completed Not Available Not Available Not Available promethaz ine 25 mg tablet 12/20 completed Not Available Not Available Not Available gabapenti n 300 mg capsule TAKE 1 CAPSULE BY MOUTH AT BEDTIME 04/27 completed Not Available Not Available Not Available omeprazol e 20 mg capsule,d elayed release TAKE 1 CAPSULE BY MOUTH TWICE A DAY 12/04 completed Not Available Not Available Not Available hydrocort isone 2.5 % topical cream APPLY TWICE DAILY NEEDED TO OUTSIDE SOON ITCHING STARTS FOR LITTLE POSSIBLE . 12/23 completed Not Available Not Available Not Available hydroxyzi ne HCl 25 mg tablet TAKE 1 TABLET BY MOUTH THREE TIMES DAILY NEEDED FOR ITCHING 12/23 completed Not Available Not Available Not Available ergocalci ferol (vitamin D2) 1,250 mcg (50,000 unit) capsule TAKE 1 CAPSULE BY MOUTH ONE TIME PER WEEK 12/23 completed Not Available Not Available Not Available clobetaso l 0.05 % topical ointment APPLY TO AFFECTED AREA TWICE A DAY NEEDED 12/23 completed Not Available Not Available Not Available levofloxa aarti 500 mg tablet 05/16 completed Not Available Not Available Not Available methylpre dnisolone 4 mg tablets in a dose pack TAKE DIRECTED ON PACKAGE 05/06 completed Not Available Not Available Not Available albuterol sulfate HFA 90 mcg/actua tion aerosol inhaler INHALE 2 PUFFS BY MOUTH FOUR TIMES DAILY NEEDED active Not Available Not Available No t Available ketoconaz ole 2 % topical cream APPLY TO RASH ON GROIN TWICE DAILY 12/23 completed Not Available Not Available Not Available ondansetr on 4 mg disintegr ating tablet TAKE 1 TABLET BY MOUTH EVERY 6 HOURS NEEDED FOR NAUSEA AND VOMITING 05/06 completed Not Available Not Available Not Available fluticaso ne propionat e 50 mcg/actua tion nasal spray,diego pension 1 SPRAY IN EACH NOSTRIL EVERY NIGHT BEFORE BED 12/23 completed Not Available Not Available Not Available clotrimaz ole 1 % topical cream APPLY TO AFFECTED & SURROUND ING AREAS OF SKIN TWICE A DAY IN THE MORNING AND IN THE EVENING 12/23 completed Not Available Not Available Not Available loratadin e 10 mg tablet one tab po q am 02/12 completed Not Available Not Available Not Available naproxen 500 mg tablet TAKE 1 TABLET BY MOUTH TWICE A DAY NEEDED FOR PAIN 02/12 completed Not Available Not Available Not Available amoxicill in 875 mg-potass ium clavulana [...] IN GENTLY AND COMPLETE LY ONCE DAILY 12/23 completed Not Available Not Available Not Available oxycodone 5 mg tablet 11/01 completed [...] 1 TABLET BY MOUTH TWICE A DAY active Not Available Not Available No t Available lactulose 10 gram/15 mL oral solution TAKE 15 ML EVERY DAY BY ORAL ROUTE. 07/25 completed Not Available Not Available Not Available hydroxyzi ne HCl active Not Available Not Available Not Available Proctosol HC active Not Available Not Available Not Available Januvia 100 mg tablet TAKE 1 TABLET BY MOUTH EVERY DAY 02/26 completed Not Available Not Available Not Available Symbicort 160 mcg-4.5 mcg/actua tion HFA aerosol inhaler INHALE 2 PUFFS BY MOUTH TWICE DAILY active Not Available Not Available No t Available Symbicort 80 mcg-4.5 mcg/actua tion HFA [...] TAKE 1 TABLET BY MOUTH EVERY DAY 02/12 completed Not Available Not Available Not Available Linzess 290 mcg capsule 05/16 completed Not Available Not Available Not Available Farxiga 5 mg tablet Take one tab daily in AM 07/30 completed Not Available Not Available Not Available Jardiance 10 mg tablet TAKE 1 TABLET BY MOUTH EVERY DAY DIRECTED FOR 30 DAYS, FOR DM. 12/23 completed Not Available Not Available Not Available [...] completed Not Available Not Available Not Available Ozempic 1 mg/dose (4 mg/3 mL) subcutane ous pen injector INJECT 1MG SUBCUTAN EOUS ONE DAY A WEEK active Not Available Not Available No t Available Flowflex COVID-19 Antigen Home Test kit USE DIRECTED 12/04 completed Not Available Not Available Not Available Ozempic 0.25 mg or 0.5 mg (2 mg/3 mL) subcutane ous pen injector INJECT 0.5 MG UNDER THE SKIN ONCE WEEKLY active Not Available Not Available No t Available Vitals Date Recorded Body height Body mass index (BMI) Body weight Oxygen saturation Heart rate Body temperature Systolic And Diastolic Provider Name and Address Organization Details Last Updated DateTime 5 179.07 cm 36.2 kg/m2 020828. 65 g 97 % 96 /min 97.2 [degF] 115/77 mm[Hg] Violette Calvin MA [facility] 5 15:04:09 Social History Question Answer Notes LastModified by Organizat ion Details LastModified Time Tobacco Smoking Status Current Some Day Smoker doesn't buy cigarettes Tiffany oliveira [facility] 02/12/2025 12:10:04 Do You Have An Advance Directive? No [email or web address] Information not available 03/28/2016 Is Blood Transfusion Acceptable In An Emergency? Yes [email or web address] Information not available 03/28/2016 What Is Your Level Of Caffeine Consumption? Heavy Daily Soda And Tea [email or web address] Information not available 03/28/2016 How Much Tobacco Do You Chew? None Information not available 03/28/2016 What Type Of Diet Are You Following? REGULAR [email or web address] Information not available 03/28/2016 Which Illicit Or Recreational Drugs Have You Used? Denies [email or web address] Information not available 03/28/2016 Education 12 [email or web address] Information no t available 03/28/2016 Live Alone Or With Others? With Others Information not available 02/19/2017 What Was The Date Of Your Most Recent Tobacco Screening? 02/12/2025 [email or web address] Information not available 02/12/2025 How Many Children Do You Have? 3 [email or web address] Information not available 03/28/2016 Performs Monthly Self-breast Exam? No [email or web address] Information not available 03/28/2016 Do You Use Protection During Sex? No Information not available 03/28/2016 What Is Your Relationship Status? [email or web address] Information not available 03/28/2016 Seat Belts Used Routinely Yes Information not available 03/28/2016 Are You Sexually Active? No Been 3-4 Months [email or web address] Information not available 03/28/2016 Do You Have Smoke And Carbon Monoxide Detectors In Your Home? No Information not available 07/27/2021 At What Age Did You Start Smoking Tobacco? 15 [email or web address] Information not available 11/30/2014 Are You Passively Exposed To Smoke? Yes [email or web address] Information not available 07/06/2022 How Much Tobacco Do You Smoke? 1 PPW Information not available 02/12/2025 General Stress Level Medium Depends [email or web address] Information not available 03/28/2016 Do You Use Sunscreen Routinely? No [email or web address] Information not available 03/28/2016 Has Tobacco Cessation Counseling Been Provided? Yes Information not available 03/14/2021 On What Date Was Tobacco Cessation Counseling Provided? 02/12/2025 [email or web address] Information not available 02/12/2025 How Many Years Have You Smoked Tobacco? 36 Information not available 03/28/2016 Sex: Unknown Functional Status Question Answer Note LastModified by Organizat ion Details LastModified Time Do you use any illicit or recreational drugs? No Information not available 07/27/2021 Do you or have you ever used any other forms of tobacco or nicotine? No Information not available 03/14/2021 What is your level of alcohol consumption? Occasional special occasions only Information not available 07/27/2021 Do you or have you ever used smokeless tobacco? Never used smokeless tobacco [email or web address] Information not available 07/25/2019 Are you currently employed? Yes Information not available 02/19/2017 What is your occupation? [employer] [email or web address] Information not available 12/02/2018 Do you or have you ever used e-cigarettes or vape? Current user of electronic cigarettes Every now and then Information not available 03/14/2021 What is your exercise level? Occasional [email or web address] Information not available 03/28/2016 Mental Status None recorded. Family History Relationship Description Onset Age of this Age Resolved Age Notes LastModified by Organization Details LastModified Time Mother Heart disease 62 Not available 03/07 09:45:12 Father Malignant neoplasm of lung 41 [email or web address] Not available 03/07 09:45:12 Sister Alive Adore [email or web address] Not available 03/07/2016 09:45:12 Sister Alive Stanton mills [email or web address] Not available 03/07/2016 09:45:12 Sister Motor vehicle accident victim 24 Amina Not available 03/07 09:45:12 Brother Alive Not availabl e 03/07/2016 09:45:12 Medical History Condition Response Heart Problems Y Other N High Blood Pressure N Breast Cancer N Kidney or Bladder Problems N Thyroid Problems N GI Problems Y Lung Disease N Depression N Blood Clots N Acne N Eating Disorder N Anemia N Anesthesia Complications N Headaches/Migraines N Anxiety Disorder N Ovarian Cancer N Diabetes Y Muscle, Joint, or Bone Problems Y Blood Transfusions N Arthritis Y Seizures/Epilepsy N Infertility N Polyps N Acid Reflux (GERD) Y Cancer N [...] mcg/0.3 mL dose 1 completed Not Available [facility] 06/29/2023 02:26:06 COVID-19, mRNA, LNP-S, PF, 30 mcg/0.3 mL dose 1 completed Not Available [facility] 04/27/2025 14:54:50 Tdap 9 completed Not Available [facility] 06/28/2019 02:44:51 Influenza, split virus, quadrivalent, preservative 0 completed Alfred Chowdary MD Attn: Accounting,[address] [facility], [place], [address], [facility] 07/25/2019 15:04:16 Past Encounters Encounter ID Performer Location Encounter Start Date Encounter Closed Date Diagnosis/Indication Diagnosis SNOMED-CT Code Diagnosis ICD10 Code Diagnosis IMO Codes Diagnosis Note [id number] Dee Hernandez MD [facility] (Adult Med) [address] [place] [address] 04/27/2025 14:53:26 04/28/2025 10:18:57 Type 2 diabetes mellitus 63705701 E11.9 01836013 Taking Ozempic. Tolerating it well. Recently had A1C checked and was 6.8. Given her age our goal is 6.5. Discussed diet and avoiding hunger. She says she is sometimes not hungry so she does not eat. That has caused her sugar to go low. Because of this we will avoid increasing her Ozempic at this time. Recommende d eating frequent small meals. Due for eye doctor appointmen t. Liver enzy mes level above reference range 432828529 R74.01 [id number] Slightly elevated transamina se levels on blood work done in February. Will repeat today. Foot callus 224445179 L8 4 580950 Callus on left fourth toe. Will mention to electrical installation supervisor when she goes for appointmen t next week. Pain in right foot 50378 43079 28422 M79.671 894446 History of fracture. Following up with electrical installation supervisor next week. Pain of hip region 83656 002 M25.551 M25.552 677841 Sees orthopod. Gastroesop hageal reflux disease without esophagitis 223336464 K21.9 Controlled with Omeprazole 40 mg daily. Health Concerns Section Related Observation LastModified by Organization Detai ls LastModified Time None Recorded Concern Status LastModified by Organization Details LastModified Time None Recorded Payers Encounter Date Sequence Insurance Name Policy Number Policy Lieberman Covered Member ID Lieberman Member ID Guarantor Name 04/27/2025 1 [facility] (MEDICARE REPLACEMENT/AD VANTAGE - HMO) [id number] Brittney Joseph [id number] Brittney Joseph 04/27/2025 2 [place] WHEN MEDICARE OR MEDICARE REPLACEMENT PRIMARY) Brittney Joseph [id number] Brittney Joseph Notes Date Note Type Note Provider Name and Address Organization Details Recorded Time 04/27/2025 text/html ROS as noted in the HPI follow up, takes medicine with Boost drinks, waits until two or three to eat something, by then hand starts shaking, last saw eye doctor last year at [facility], no sores on feet, toenail is coming back, between pinky toe and other toe keeps getting callus that hurt, right foot hurting since fracture, made appointment with electrical installation supervisor for , does not use Symbicort regularly, has used Albuterol maybe once every couple months, no hydroxyzine for one or two months, comfortable most of the time, may not be drinking fluids like was, dry mouth Dee Hernandez MD Attn: Accounting[address] [place], [address], [facility] 04/27/2025 18:51:09 OBGyn Episode No OBEpisode recorded.
--- OUTSIDE RECORDS SUMMARY | 2025-05-18 21:01 | XMS_ITS | Data Portability ---
Author Organization Emmanuel COLLADO Address [address] [place] [address] Assessment Encounter Date Assessment Date Assessment LastModified by Organization Details LastModified Time 04/27/2025 04/27/2025 Had colonoscopy in 2019. Was advised to repeat in ten years. Mammogram 03/05/25: Negative [email or web address] Not available 04/27/2025 18:49:26 Plan of Treatment Reminders Order Date Submit Date Provider Last Modified By Organization Details Last Modified Time Details Appointments None recorded. Lab CMP, serum or plasma 2024 025 JOCE [facility], [address], [place], [address], 5 06:28:48 erythrocyte sedimentati on rate by westergren method 2024 025 TROY [facility], [address], [address], [place], [address], 5 15:12:58 YOMI (antinuclea r antibodies) screen, serum 2024 025 JOCE [facility], [address], [address], [place], [address], 5 15:12:55 lipid panel, serum 2024 025 JOCE [facility], [address], [address], [place], [address], 5 15:12:56 CMP, serum or plasma 2024 TROY [facility], [address], [address], [place], [address], 15:12:57 albumin/cre atinine, mass ratio, urine 2024 TROY [facility], [address], [place], [address], 5 15:11:43 HbA1c (hemoglobin A1c), blood 2024 [email or web address] In-Office Order, Internal Use Only DO Not Attach Compendium DO Not Attach Compendium, Do Not Delete/merge, [id number] 17:27:49 HbA1c (hemoglobin A1c), blood 2024 adelaida otero [facility], [address], [address], [place], [address], 12:03:43 Referral orthopedic surgeon referral - Bilateral avascular necrosis and chronic pain, needing narcotics to control pain, interested to find out if surgical interventio n could be helpful 2024 [facility] Care Physician Referral Management, [address], [facility] Care [address], [place], [address], 04:06:33 endocrinolo gy referral - Would like Dexcom 2024 [facility] Division Of Endocrinology , Diabetes And Metabolism, [address], [address], [place], [address], 04:06:34 Procedures None recorded. Surgeries None recorded. Imaging None recorded. Medication Orders Ozempic 1 mg/dose (4 mg/3 mL) subcutaneou s pen injector 2024 TROY [facility] #58903, [address] [place], [id number], 5 16:22:51 glimepiride 4 mg tablet 2024 025 [facility] #34983, [address], [place], [id number], 5 18:46:07 Jardiance 25 mg tablet 2024 025 [facility] #28030, [address], [place], [id number], 5 18:46:07 omeprazole 40 mg capsule,del ayed release 2024 025 [facility] #73245, [address], [place], [id number], 5 18:46:08 amoxicillin 875 mg tablet 2024 025 [facility] #45070, [address], [place], [id number], 5 18:44:41 hydrocodone 7.5 mg-acetamin ophen 325 mg tablet 2024 025 [facility] #83764, [address], [place], [id number], 5 16:25:36 hydrocodone 7.5 mg-acetamin ophen 325 mg tablet 2024 025 [facility] #38371, [address], [place], [id number], 5 15:03:11 hydrocodone 7.5 mg-acetamin ophen 325 mg tablet 2024 025 [facility] #57218, [address], [place], [id number], 5 15:05:45 gabapentin 300 mg capsule 2024 0[address] [facility] #76917, [address], [place], [id number], 5 18:44:46 Symbicort 160 mcg-4.5 mcg/actuati on HFA aerosol inhaler 2024 025 [facility] #99588, [address], [place], [id number], 5 18:08:46 albuterol sulfate HFA 90 mcg/actuati on aerosol inhaler 2024 025 [facility] #20105, [address], [place], [id number], 5 18:08:46 Ozempic 0.25 mg or 0.5 mg (2 mg/3 mL) subcutaneou s pen injector 2024 025 [facility] #30632, [address], [place], [id number], 5 09:49:51 Ozempic 1 mg/dose (4 mg/3 mL) subcutaneou s pen injector 2024 025 [facility] #[id number], [address], [place], [id number], 10:03:29 Patient TargetsNo targets recorded. Patient Instructions Encounter Date Encounter Id Patient Instructions Last Modified By Organization Details Last Modified Time 10/27/2024 [id number] learning about t ype 2 diabetes [email or web address] Not available 10/27/2024 15:03:05 type 2 diabetes: care instructions [email or web address] Not available 10/27/2024 15:03:05 deciding about surgery for a herniated disc [email or web address] Not available 10/27/2024 15:03:05 gastroesophageal reflux disease (GERD): care instructions [email or web address] Not available 10/27/2024 15:03:05 Reason for Referral Orthopedic Surgeon Referral for Osteonecrosis Bilateral avascular necrosis and chronic pain, needing narcotics to control pain, interested to find out if surgical intervention could be helpful Referring Physician: Dee Hernandez [facility], Encounter Date: 10/22/2024 Endocrinology Referral for U ncontrolled type 2 diabetes mellitus Would like Dexcom Referring Physician: Dee Hernandez [facility], Encounter Date: 10/22/2024 Results Created Date Observation Date Name Description Value Unit Range Abnormal Flag Note LastModifiedBy Organization Detail LastModifiedTime 12/24/19 25 12/24/2024 ALBUM IN/CR EATIN INE RATIO ,URIN E creatinine, urine 67.6 mg/dL notest ab. Not Available [facility] ([facility]) [address] [place], [address], 12/24/2024 15:11:43 12/24/19 25 12/24/2024 ALBUM IN/CR EATIN INE RATIO ,URIN E albumin, urine 3.3 ug/mL notest ab. Not Available [facility] ([facility]) [address] [place], [address], 12/24/2024 15:11:43 12/24/19 25 12/24/2024 ALBUM IN/CR EATIN INE RATIO ,URIN E alb/creat ratio 5 mg/g_ creat 0-29 Rachel l: 0 - 29 Moder ately incre ased: 30 - 300 Sever bernabe incre ased: >300 Not Available [facility] ([facility]) [address] [place], [address], 12/24/2024 15:11:43 12/24/19 25 12/23/2024 HbA1c (hemo globi n A1c), blood HbA1C 8.0 % Not Available In-Office Order Internal Use Only DO Not Attach Compendium DO Not Attach Compendium, Do Not Delete/merge, [id number] 12/23/2024 16:30:43 02/13/2002/13/2025 ANTIN UCLEA R AB MULTI PLEX RFX 9 YOMI direct NEGATI VE negati ve Not Available [facility] ([facility]) [address] [place], [address], 02/13/2025 15:12:55 02/13/20 25 02/13/2025 LIPID PANEL cholesterol, total 91 mg/dL 100-19 9 below low normal Not Available [facility] ([facility]) [address] [place], [address], 02/13/2025 15:12:56 02/13/20 25 02/13/2025 LIPID PANEL triglyceride s 155 mg/dL 0-149 above high normal Not Available [facility] ([facility]) [address] [place], [address], 02/13/2025 15:12:56 02/13/20 25 02/13/2025 LIPID PANEL HDL cholesterol 23 mg/dL >39 below low normal Not Available [facility] ([facility]) [address] [place], [address], 02/13/2025 15:12:56 02/13/20 25 02/13/2025 LIPID PANEL VLDL cholesterol arthur 27 mg/dL 5-40 Not Available [facility] ([facility]) [address] [place], [address], 02/13/2025 15:12:56 02/13/20 25 02/13/2025 LIPID PANEL LDL chol calc ([facility]) 41 mg/dL 0-99 Not Available [facility] ([facility]) [address] [place], [address], 02/13/2025 15:12:56 02/13/20 25 02/13/2025 CMP14 +EGFR glucose 111 mg/dL 70-99 above high normal Not Available [facility] ([facility]) [address] [facility], [place], [address], 02/13/2025 15:12:57 02/13/20 25 02/13/2025 CMP14 +EGFR BUN 9 mg/dL 6-24 Not Available [facility] ([facility]) [address] [facility], [place], [address], 02/13/2025 15:12:57 02/13/20 25 02/13/2025 CMP14 +EGFR creatinine 1.01 mg/dL 0.57-1 .00 above high normal Not Available [facility] ([facility]) [address] [facility], [place], [address], 02/13/2025 15:12:57 02/13/20 25 02/13/2025 CMP14 +EGFR eGFR 65 mL/mi n/1.7 3 >59 Not Available [facility] ([facility]) [address] [facility], [place], [address], 02/13/2025 15:12:57 02/13/20 25 02/13/2025 CMP14 +EGFR BUN/creatini ne ratio 9 9-23 Not Available [facility] ([facility]) [address] [facility], [place], [address], 02/13/2025 15:12:57 02/13/20 25 02/13/2025 CMP14 +EGFR sodium 139 mmol/ L 134-14 4 Not Available [facility] ([facility]) [address] [facility], [place], [address], 02/13/2025 15:12:57 02/13/20 25 02/13/2025 CMP14 +EGFR potassium 4.1 mmol/ L 3.5-5. 2 Not Available [facility] ([facility]) [address] [facility], [place], [address], 02/13/2025 15:12:57 02/13/20 25 02/13/2025 CMP14 +EGFR chloride 100 mmol/ L 96-106 Not Available [facility] ([facility]) [address] [facility] [place], [address], 02/13/2025 15:12:57 02/13/20 25 02/13/2025 CMP14 +EGFR carbon dioxide, total 22 mmol/ L 20-29 Not Available [facility] ([facility]) [address] [facility] [place], [address], 02/13/2025 15:12:57 02/13/20 25 02/13/2025 CMP14 +EGFR calcium 10.8 mg/dL 8.7-10 .2 above high normal Not Available [facility] ([facility]) [address] [facility] [place], [address], 02/13/2025 15:12:57 02/13/20 25 02/13/2025 CMP14 +EGFR protein, total 8.9 g/dL 6.0-8. 5 above high normal Not Available [facility] ([facility]) [address] [facility] [place], [address], 02/13/2025 15:12:57 02/13/2002/13/2025 CMP14 +EGFR albumin 3.6 g/dL 3.8-4. 9 below low normal Not Available [facility] ([facility]) [address] [facility] [place], [address], 02/13/2025 15:12:57 02/13/20 25 02/13/2025 CMP14 +EGFR globulin, total 5.3 g/dL 1.5-4. 5 above high normal Not Available [facility] ([facility]) [address] [facility] [place], [address], 02/13/2025 15:12:57 02/13/2002/13/2025 CMP14 +EGFR bilirubin, total 0.7 mg/dL 0.0-1. 2 Not Available [facility] ([facility]) [address] [facility] [place], [address], 02/13/2025 15:12:57 02/13/20 25 02/13/2025 CMP14 +EGFR alkaline phosphatase 74 IU/L 44-121 Eff ectiv e Septe mber 2024 Alkal ine Phosp hatas e refer ence inter ángela will be phillip ing to: Age Male Femal e 0 - 5 days 47 - 127 47 - 127 6 - 10 days 29 - 242 29 - 242 11 - 20 days 109 - 357 109 - 357 21 - 30 days 94 - 494 94 - 494 1 - 2 month s 149 - 539 149 - 539 3 - 6 month s 131 - 452 131 - 452 7 - 11 month s 117 - 401 117 - 401 12 month s - 6 years 158 - 369 158 - 369 7 - 12 years 150 - 409 150 - 409 13 years 156 - 435 78 - 227 14 years 114 - 375 64 - 161 15 years 88 - 279 56 - 134 16 years 74 - 207 51 - 121 17 years 63 - 161 47 - 113 18 - 20 years 51 - 125 42 - 106 21 - 50 years 47 - 123 41 - 116 51 - 80 years 49 - 135 51 - 125 >80 years 48 - 129 48 - 129 Not Available [facility] ([facility]) [address] [place], [address], 02/13/2025 15:12:57 02/13/20 25 02/13/2025 CMP14 +EGFR AST (SGOT) 79 IU/L 0-40 above high normal Not Available [facility] ([facility]) [address] [place], [address], 02/13/2025 15:12:57 02/13/20 25 02/13/2025 CMP14 +EGFR ALT (SGPT) 66 IU/L 0-32 above high normal Not Available [facility] ([facility]) [address] [place], [address], 02/13/2025 15:12:57 02/13/20 25 02/13/2025 SEDIM ENTAT ION RATE- WESTE RGREN sedimentatio n rate-westerg bjorn 48 mm/HR 0-40 above high normal Not Available [facility] ([facility]) [address], [place], [address], 02/13/2025 15:12:58 12/06/19 25 12/04/2024 XR, ankle + foot No observ ation record ed. [facility] [address], [place], [address], 12/08/2024 09:39:00 12/06/19 25 12/04/2024 XR, shoul jessica No observ ation record ed. [place] [id number] [facility] [address], [place], [address], 12/08/2024 10:44:59 12/06/19 25 12/04/2024 XR, foot No observ ation record ed. [place] [id number] [facility] [address], [place], [address], 12/08/2024 10:45:15 12/06/19 25 12/04/2024 XR, knee No observ ation record ed. [place] [id number] [facility] [address], [place], [address], 12/08/2024 10:45:31 01/04/20 25 12/29/2024 MRI, shoul jessica, w/ contr ast No observ ation record ed. [facility] [address], [place], [address], 01/06/2025 13:02:28 03/06/20 25 03/05/2025 MAMMO , scree odilon, bilat eral No observ ation record ed. [address] [place], [address], 03/17/2025 11:36:10 Result Notes None recorded. Problems Name Problem SNOMED Code Status Onset Date Resolution Date Notes Provider Name and Address Organization Details Recorded Time Pain in pelvis 82668384 Completed 03/11/2021 MEGAN Mccollum - [facility] 13:03:04 Subacrom ial impingem ent 394833623 Active Not Available [facility] 4 02:26:05 Obese 871990658 Completed 03/11/2021 Dylan Tanika null, [place] - [facility] 13:03:12 Chest pain 40396189 Completed 03/11/2021 Dylan [place] [facility] 13:02:11 Knee pain Completed 03/11/2021 [place] [facility] 13:03:26 Pain of shoulder region 76458946 Completed 03/11/2021 Dylan [place] [facility] 13:02:51 Hypergly cemia 82008959 Completed 03/11/2021 Dylan [place] [facility] 13:03:34 Hypoglyc emic disorder 790371546 Completed 03/11/2021 Dylan [place] [facility] 13:03:36 Low back pain 197964000 Completed 03/11/2021 Surjit Rosenberg MD Attn: Accounting ,[address] [place], [address] , [place] [facility] 18:27:38 Urticari a 996936051 Completed 03/11/2021 yDlan [place] [facility] 13:02:46 Injury of shoulder region 559616081 Completed 03/11/2021 Dylan [place] [facility] 13:03:27 Hemorrho ids 38421093 Active Not Available [facility] 4 02:26:05 Osteoart hritis 954815625 Active Not Available [facility] 4 02:26:05 Disorder of shoulder 359298027 Completed 03/11/2021 Dylan [place] [facility] 13:02:16 Uterine leiomyom a 14034026 Active Not Available [facility] 4 02:26:05 Asthma 182461361 Active Not Available [facility] 4 02:26:05 Gastroes ophageal reflux disease 959053045 Active Not Available [facility] 4 02:26:05 Degenera tion of interver tebral disc 04293992 Active Not Available [facility] 4 02:26:05 Hypoglyc emia 906694131 Completed 02/06/2017 Surjit Rosenberg MD Attn: [place], [address] , [place] - [facility] 7 19:12:24 Atherosc lerosis Active Not Available [facility] 4 02:26:05 Pain of hip region 18151699 Completed 03/11/2021 MEGAN Mccollum - [facility] 13:02:32 Constipa tion 61967809 Active 2015 Not Available [facility] 4 02:26:05 Foot callus 332161745 Completed 201603/11/2021 Dylan oliveira [place] - [facility] 13:02:27 Vitamin D deficien cy 48161054 Active 2016 Not Available [facility] 4 02:26:05 Random blood glucose outside referenc e range 746282759 Completed 201603/11/2021 MEGAN Mccollum - [facility] 13:02:54 Hypergly cemic disorder 480837361 Completed 201603/11/2021 Dylan [place]ira [place] - [facility] 13:03:38 Venous insuffic iency of lower limb 202041905 Completed 201603/11/2021 [place] [facility] 13:02:43 Impaired glucose toleranc e with hyperins ulism 179062554 Completed 201603/11/2021 [place] [facility] 13:03:40 Sleep pattern disturba aze 87868179 Completed 201603/11/2021 [place] [facility] 1 13:02:49 Medicati on monitori ng Completed 201603/11/2021 Surjit Rosenberg MD Attn: Accounting ,[address] [place], [address] , [place] - [facility] 1 17:01:09 Pain of bilatera l hip joints 18776872670 533873 Active 2017 Not Available [facility] 4 02:26:05 Skin lesion 01817111 Completed 201703/11/2021 Dylan [place] [facility] 13:03:45 History of respirat ory disease 081175334 Completed 201803/11/2021 Resolved [place] [facility] 13:04:06 Pain in left thumb 34618989544 52266 Completed 201803/11/2021 [place] [facility] 13:03:07 Pain in throat 008057778 Completed 201803/11/2021 [place] [facility] 13:03:01 Effusion of joint of right knee 72909878871 9104 Completed 201803/11/2021 [place] [facility] 13:02:24 Varicose veins of lower extremit y 76593385 Active 2018 Not Available [facility] 4 02:26:05 Disorder of joint of foot 868257724 Active 2019 Not Available [facility] 4 02:26:05 Screenin g for disorder Completed 201903/11/2021 Dylan [place] [facility] 1 13:02:56 Pre-surg lucía evaluati on Completed 201903/11/2021 [place] [facility] 13:02:59 Low back pain 805253266 Active 10/04/ 2021 Not Available [facility] 4 02:26:05 Medicati on monitori ng Active 2020 Not Available [facility] 4 02:26:05 Sore throat 810898747 Active 2021 Not Available [facility] 4 02:26:05 Type 2 diabetes mellitus 62028113 Active 2021 Not Available [facility] 4 02:26:05 Lesion of left eyelid 17661231064 731598 Active 2021 Not Available [facility] 4 02:26:05 Hypercal cemia 16194873 Active 2021 Not Available [facility] 4 02:26:05 Cough 84214344 Active 2021 Not Available [facility] 4 02:26:05 Dysphagi a 76245373 Active 2021 Not Available [facility] 4 02:26:05 Morbid obesity 311308124 Active 2022 Not Available [facility] 4 02:26:05 Disorder of vision 02189660 Active 2022 Not Available [facility] 4 02:26:05 Pain of bilatera l knee regions 15298023018 4102 Active 2022 Not Available [facility] 4 02:26:05 Bilatera l shoulder joint pain 01868139809 160796 Active 2022 Not Available [facility] 4 02:26:05 Pain of left elbow joint 80291965753 024002 Active 2023 Surjit Rosenberg MD Attn: Accounting ,[address] [place], [address] , [place] [facility] 4 16:48:54 Hyperlip idemia 99901538 Active 2023 Surjit Rosenberg MD Attn: Accounting ,[address] [place], [address] , [place] - [facility] 4 14:59:10 Bronchit is 22683576 Active 2023 Surjit Rosenberg MD Attn: Accounting ,[address] , [place], [address] , [place] - [facility] 4 16:35:58 Notes:Some problems listed i n Documents: #[id number], #[id number], #[id number], #[id number], #[id number], #[id number], #[id number] could not be added to this patient's chart. Please review these documents and add these problems to the patient's chart manually as needed. Problem Notes None recorded. Procedures Surgical History Date Name Laterality Status Provider Name and Address Organization Details Recorded Time 2 Date of Last Pap Smear completed Violette Calvin [place] - [facility] 01/18/2022 15:59:18 7 Joint Injection completed MD [address], [place], [address], [facility] - [facility] 05/22/2017 13:55:43 7 Joint Injection completed MD [address], [place], [address], [facility] - [facility] 04/24/2017 11:20:55 7 Most Recent Mammogram completed Mercedez Allen [place] - [facility] 01/07/2019 15:37:24 7 [place], [address], [place] [facility] 04/17/2017 12:32:53 7 Joint Injection completed MD [address], [place], [address], [place] [facility] 10/10/2016 12:25:30 7 Joint [place], [address], [place] [facility] 10/03/2016 11:19:10 6 Joint [place], [address], [place] [facility] 03/07/2016 10:50:52 5 Unlisted procedure shoulder completed Sylvia Urrutia [place] - [facility] 03/28/2016 16:09:14 6 Elbow mold outsid lock hinge completed Sylvia Urrutia [place] - [facility] 03/28/2016 16:07:48 6 Knee arthroscopy/dr medellin completed Alfred Chowdary MD Attn: Accounting,[address] [facility], [place], [address], [facility] - [facility] 07/25/2019 14:34:28 4 Other completed Betzy Christy [place] - [facility] 07/08/2014 15:23:43 2 Tubal Ligation completed Gay Sin [place] - [facility] 02/19/2017 16:29:11 hammer toe operation completed Violette Calvin MA [facility] 03/14/2021 16:16:44 Imaging Results None recorded. [...] (BMI) Body weight Oxygen saturation Heart rate Systolic And Diastolic Provider Name and Address Organization Details Last Updated DateTime 5 179.07 cm 38.6 kg/m2 205758. 72 g 95 % 84 /min 128/80 mm[Hg] Violette Calvin MA [facility] 5 15:56:05 Date Recorded Body height Body mass index (BMI) Body weight Heart rate Oxygen saturation Systolic And Diastolic Provider Name and Address Organization Details Last Updated DateTime 5 179.07 cm 38.2 kg/m2 640248. 94 g 78 /min 98 % 103/72 mm[Hg] Candi Garland MA [facility] 5 14:46:38 Date Recorded Systolic And Diastolic Provider Name and Address Organization Details Last Updated DateTime 12/23/2024 150/94 mm[Hg] Mercedez Allen MA [facility] 12/23/2024 16:22:33 Date Recorded Body height Body temperature Oxygen saturation Heart rate Systolic And Diastolic Provider Name and Address Organization Details Last Updated DateTime 5 179.07 cm 97 [degF] 97 % 84 /min 130/94 mm[Hg] Tiffany Manriquez [facility] 5 15:12:46 Date Recorded Body height Body mass index (BMI) Body weight Oxygen saturation Heart rate Systolic And Diastolic Provider Name and Address Organization Details Last Updated DateTime 5 179.07 cm 36.4 kg/m2 294849. 24 g 97 % 72 /min 124/70 mm[Hg] Tiffany Manriquez [facility] 5 12:13:18 Date Recorded Body height Body mass index (BMI) Body weight Oxygen saturation Heart rate Body temperature Systolic And Diastolic Provider Name and Address Organization Details Last Updated DateTime 5 179.07 cm 36.2 kg/m2 614859. 65 g 97 % 96 /min 97.2 [degF] 115/77 mm[Hg] Violette Calvin MA [facility] 5 15:04:09 Social History Question Answer Notes LastModified by Organizat ion Details LastModified Time Tobacco Smoking Status Current Some Day Smoker doesn't buy cigarettes Tiffany oliveira, [place] - [facility] 02/12/2025 12:10:04 Do You Have An Advance Directive? No [email or web address] Information not available 03/28/2016 Is Blood Transfusion Acceptable In An Emergency? Yes [email or web address] Information not available 03/28/2016 What Is Your Level Of Caffeine Consumption? Heavy Daily Soda And Tea [email or web address] Information not available 03/28/2016 How Much Tobacco Do You Chew? None Information not available 03/28/2016 What Type Of Diet Are You Following? REGULAR [email or web address] Information not available 03/28/2016 Which Illicit Or Recreational Drugs Have You Used? Denies [email or web address] Information not available 03/28/2016 Education 12 [email or web address] Information no t available 03/28/2016 Live Alone Or With Others? With Others Information not available 02/19/2017 What Was The Date Of Your Most Recent Tobacco Screening? 02/12/2025 [email or web address] Information not available 02/12/2025 How Many Children Do You Have? 3 [email or web address] Information not available 03/28/2016 Performs Monthly Self-breast Exam? No [email or web address] Information not available 03/28/2016 Do You Use Protection During Sex? No Information not available 03/28/2016 What Is Your Relationship Status? Information not available 03/28/2016 Seat Belts Used Routinely Yes Information not available 03/28/2016 Are You Sexually Active? No Been 3-4 Months [email or web address] Information not available 03/28/2016 Do You Have Smoke And Carbon Monoxide Detectors In Your Home? No Information not available 07/27/2021 At What Age Did You Start Smoking Tobacco? 15 [email or web address] Information not available 11/30/2014 Are You Passively Exposed To Smoke? Yes [email or web address] Information not available 07/06/2022 How Much Tobacco Do You Smoke? 1 PPW [email or web address] Information not available 02/12/2025 General Stress Level Medium Depends [email or web address] Information not available 03/28/2016 Do You Use Sunscreen Routinely? No [email or web address] Information not available 03/28/2016 Has Tobacco Cessation Counseling Been Provided? Yes Information not available 03/14/2021 On What Date Was Tobacco Cessation Counseling Provided? 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 Current user of electronic cigarettes Every now and then Information not available 03/14/2021 What is your exercise level? Occasional [email or web address] Information not available 03/28/2016 Mental Status None recorded. Family History Relationship Description Onset Age of this Age Resolved Age Notes LastModified by Organization Details LastModified Time Mother Heart disease 62 [email or web address] Not available 03/07 09:45:12 Father Malignant neoplasm of lung 41 [email or web address] Not available 03/07 09:45:12 Sister Alive Adore [email or web address] Not available 03/07/2016 09:45:12 Sister Alive Stanton a [email or web address] Not available 03/07/2016 09:45:12 Sister Motor vehicle accident victim 24 Amina [email or web address] Not available 03/07 09:45:12 Brother Alive [email or web address] Not availabl e 03/07/2016 09:45:12 Medical History Condition Response Heart Problems Y Other N High Blood Pressure N Breast Cancer N Thyroid Problems N Kidney or Bladder Problems N Lung Disease N GI Problems Y Depression N Blood Clots N Acne N Eating Disorder N Anemia N Anesthesia Complications N Headaches/Migraines N Ovarian Cancer N Diabetes Y Anxiety Disorder N Muscle, Joint, or Bone Problems Y Blood Transfusions N Seizures/Epilepsy N Arthritis Y Polyps N Infertility N Acid Reflux (GERD) [...] mcg/0.3 mL dose 1 completed Not Available [facility] 06/29/2023 02:26:06 COVID-19, mRNA, LNP-S, PF, 30 mcg/0.3 mL dose 1 completed Not Available [facility] 04/27/2025 14:54:50 Tdap 9 completed Not Available [facility] 06/28/2019 02:44:51 Influenza, split virus, quadrivalent, preservative 0 completed Alfred Chowdary MD Attn: Accounting,[address] [place], [address], [facility] 07/25/2019 15:04:16 Past Encounters Encounter ID Performer Location Encounter Start Date Encounter Closed Date Diagnosis/Indication Diagnosis SNOMED-CT Code Diagnosis ICD10 Code Diagnosis IMO Codes Diagnosis Note [id number] [facility] Blackburn [address] [facility] [place] [address] 05/22/2014 14:48:27 05/25/2014 09:53:52 Osteoarthritis [id number] Offered orthopedic injection, but patient declined as if she is surgical candidate we did not want to prolong timeframe. Also she is to alternate acetaminop hen and ibuprofen. Gastroesop hageal reflux disease [id number] MD Chandana Chase (FACULTY MEMBER) [address] [place] [address]674-293 0 07/08/2014 14:47:32 07/08/2014 20:36:17 Pain in pelvis 01335899 Uterine leiomyoma 37455661 [id number] Linnette Felix, EDMOND-C Rocio sher [address] [facility] [place] [address] 08/14/2014 14:42:00 08/14/2014 16:30:22 Obese [id number] Exposure t o Hepatitis C virus 775458818 Asthma 853385752 Gastroesop hageal reflux disease 328460989 Osteoarthritis 300272415 O ffered orthopedic injection, but patient declined as if she is surgical candidate we did not want to prolong timeframe. Also she is to alternate acetaminop hen and ibuprofen. [id number] MD Chandana Barragan (Adult Med) [address] [place] [address]2005-253 0 11/30/2014 10:31:26 11/30/2014 12:39:36 Chest pain 59323678 Gastroesop hageal reflux disease 625756539 Asthma 364344095 Knee pain 75304981 Pain of sh oulder region 86681398 Hyperglycemia 87336972 Hypoglycemic disorder 464845915 Pain in pelvis 00658010 Low back pain 894005258 Urticaria 034813944 [id number] MD Chandana Barragan (Adult Med) [address] [place] [address] 73270-180 0 02/08/2015 15:21:52 02/08/2015 16:40:21 Hyperglycemia 89645365 Pain of sh oulder region 05976943 Knee pain 63431567 [id number] MD Chandana Barragan (Adult Med) [address] [place] [address] 53250-447 0 05/10/2015 15:08:13 05/10/2015 15:56:09 Disorder of shoulder 269283507 M25.811 Hyperglycemia 30331124 R 73.9 [id number] MD Chandana Barragan (Adult Med) [address] [place] [address] 46439-793 0 08/02/2015 13:43:24 08/02/2015 16:03:18 Pain of shoulder region 02767770 M25.511 Obese 369219852 E66.9 Knee pain 77277820 M25.5 69 [id number] MD Chandana Barragan (Adult Med) [address] [place] [address] 35166-862 0 11/29/2015 15:24:40 11/29/2015 18:10:02 Pain of shoulder region 85214233 M25.511 Gastroesop hageal reflux disease 732090884 K21.0 [id number] MD Chandana Barragan (Adult Med) [address] [place] [address] 54643-465 0 01/24/2016 12:17:38 01/24/2016 18:06:57 Knee pain 78854198 M25.569 Pain of hip region 19328 002 M25.551 M25.552 [id number] Dread Barrientos MD [facility] [address] [address] 03/07/2016 09:29:32 03/07/2016 12:08:45 Knee pain 80983502 M25.561 M25.562 Degenerati on of intervertebral disc 61447190 M51.9 Gastroesop hageal reflux disease 743865581 K21.9 Low back pain 494740664 M54.5 Obese 910186049 E66.9 [id number] MD Chandana Chase (FACULTY MEMBER) [address] [place] [address] 63975-500 0 03/28/2016 15:02:47 03/30/2016 10:13:41 Uterine leiomyoma 84553071 D25.9 Gynecologi c examination 09075222 Z01.419 Screening mammography 24 960981 Z12.31 [id number] MD Chandana Barragan (Adult Med) [address] [place] [address] 41698-920 0 05/10/2016 16:15:36 05/10/2016 17:53:38 Knee pain 75455199 M25.569 Constipation 72470713 K5 9.00 Possibly opioid induced [id number] MD Chandana Barragan (Adult Med) [address] [place] [address] 76027-800 0 09/25/2016 15:31:12 09/25/2016 16:36:34 Hyperglycemia 43828040 R73.9 Osteoarthritis 888985606 M19.90 Atherosclerosis 65416820 I70.90 Gastroesop hageal reflux disease 215713553 K21.0 Knee pain 25966650 M25.5 69 [id number] Dread Barrientos MD [facility] [address] [place] [address] 59199-877 2 10/03/2016 10:03:21 10/03/2016 11:55:59 Osteoarthritis of knee 154061086 M17.0 [id number] Dread Barrientos MD [facility] [address] [place] [address] 57802-536 2 10/10/2016 10:54:55 10/10/2016 12:58:39 Osteoarthritis of knee 042326512 M17.0 Pain in right knee 66403 39453 42645 M25.938 [id number] MD Chandana Chase (FACULTY MEMBER) [address] [place] [address] 64140-961 0 11/01/2016 14:56:31 11/01/2016 17:41:22 Surgical follow-up 242408342 Z09 E 07/2016 Uterine leiomyoma 676139 05 D25.9 Chronic id iopathic constipation 24776014 K59.04 [id number] MD Chandana Barragan (Adult Med) [address] [place] [address] 93058-509 0 12/28/2016 14:06:53 12/29/2016 15:04:17 Hyperglycemic disorder 485815790 R73.9 Random blo od glucose outside reference range 514431632 R73.09 Hypoglycemic disorder 23 2709781 E16.2 Venous ins ufficiency of lower limb 096894789 I87.2 Diccussed wearing support hose [id number] MD Chandana Barragan (Adult Med) [address] [place] [address] 45641-551 0 02/06/2017 16:08:55 02/06/2017 18:00:15 Impaired glucose tolerance with hyperinsulism 900769964 R73.02 Has been referred to endocrinol ogy. Awaiting appt. Also to f/u with TRANSIT PLANNING DIRECTOR Vitamin D deficiency 347 87364 E55.9 Gastroesop hageal reflux disease 614833877 K21.0 [id number] MD Chandana Chase (FACULTY MEMBER) [address] [place] [address] 71460-438 0 02/19/2017 15:56:55 02/20/2017 15:58:47 Chronic constipation 461207649 K59.09 Impaired g lucose tolerance 5659337 R73.02 increase exercise and portion control, increase protein Reactive hypoglycemia 31 7006 E16.1 needs to eat small, frequent meals throughout the day- increase protein in diet- note provided for work Uterine leiomyoma 938213 05 D25.9 discussed results of most recent pelvic U/S- fibroids essentiall y unchanged Screening mammography 24 813679 Z12.31 [id number] MD Chandana Barragan (Adult Med) [address] [place] [address] 32057-821 0 04/09/2017 15:43:10 04/10/2017 13:03:25 Knee pain 22276879 M25.569 Impaired g lucose tolerance with hyperinsulism 925290996 R73.02 Obese 696728698 E66.9 Asthma 712165015 J45.90 9 Medication monitoring 39 3921493 Z51.81 [id number] Dread Barrientos MD [facility] [address] [place] [address] 04/17/2017 10:55:55 04/17/2017 12:54:34 Pain of shoulder region 64029762 M25.511 Subacromia l impingement 438286621 M75.41 [id number] Dread Barrientos MD [facility] [address] [place] [address] 04/24/2017 09:44:23 04/24/2017 12:23:45 Osteoarthritis of knee 608352895 M17.0 [id number] Dread Barrientos MD [facility] [address] [place] [address] 05/22/2017 10:41:04 05/22/2017 14:00:40 Osteoarthritis of knee 614064771 M17.0 [id number] MD Chandana Barragan (Adult Med) [address] [place] [address] 79760-072 0 09/19/2017 16:11:16 09/20/2017 09:58:47 Medication monitoring 617892551 Z51.81 Pt to do on 09/20/2017 Low back pain 871644164 M54.5 Knee pain 00065678 M25.5 69 [id number] MD Chandana Barragan (Adult Med) [address] [place] [address] 11236-440 0 10/30/2017 16:14:45 10/31/2017 10:36:59 Low back pain 850185977 M54.5 Pain of bi lateral hip joints 8663681611 2914279 M25.551 M25.306 [id number] Dread Barrientos MD [facility] [address] [address] 01/01/2018 10:02:16 01/07/2018 16:09:10 Knee pain 42554532 M25.561 M25.824 [id number] MD Chandana Barragan (Adult Med) [address] [place] [address] 26524-007 0 01/10/2018 14:57:20 01/10/2018 16:21:16 Skin lesion 65786692 L98.9 Pain of hip region 36460 002 M25.551 M25.552 Osteoarthritis 257129289 M19.90 [id number] MD Chandana Schwba (Adult Med) [address] [place] [address] 77855-418 0 05/16/2018 12:00:37 05/16/2018 12:51:28 Chronic instability of knee 500129844 M23.52 M23.51 F/U with her PCP DR. Cayden Rosenberg. [id number] MD Chandana Barragan (Adult Med) [address] [place] [address] 75157-794 0 09/11/2018 11:58:28 09/12/2018 11:46:17 Pain in left thumb 4459584730 516165 M79.645 Knee pain 98093100 M25.5 69 Medication monitoring 39 4460346 Z51.81 History of respiratory disease 080361927 Z87.09 Resolved Pain in throat 162340370 R07.0 Observe Chest pain 09147670 R07. 9 F/U with cardiology Pain of bi lateral hip joints 2234650281 8011488 M25.551 M25.923 [id number] MD Chandana Barragan (Adult Med) [address] [place] [address] 28262-472 0 12/02/2018 17:11:32 12/02/2018 18:24:41 Varicose veins of lower extremity 24779603 I83.893 Effusion o f joint of right knee 8055759320 19786 M25.605 [id number] MD Chandana Chase (FACULTY MEMBER) [address] [place] [address] 75904-510 0 01/07/2019 15:05:52 01/08/2019 11:50:51 Gynecologic examination 09979237 Z01.419 please call patient at [phone] for all test results. ok to leave voicemail no problem Exposure t o sexually transmissible disorder 825902695 Z20.2 Screening mammography 24 180467 Z12.31 [id number] MD Chandana Barragan (Adult Med) [address] [place] [address] 49186-099 0 02/20/2019 11:47:07 02/24/2019 10:06:36 Administration of diphtheria, pertussis, and tetanus vaccine 535642767 Z23 [id number] MD Chandana Barragan (Adult Med) [address] [place] [address] 38806-677 0 04/03/2019 14:55:10 04/04/2019 09:42:31 Effusion of joint of right knee 1996883914 23835 M25.461 History of respiratory disease 408302771 Z87.09 Resolved Pain of bi lateral hip joints 0207944822 2590474 M25.551 M25.573 [id number] MD Chandana Blake (Adult Med) [address] [place] [address] 67145-210 0 07/25/2019 14:06:14 07/28/2019 08:53:42 Administration of influenza vaccine 05916771 Z23 Osteoarthr itis of knee 588050524 M17.9 [place] CDA is neededUDS okay but needs to be repeatedHy drocodone PRN Screening for malignant neoplasm of colon 965020952 Z12.11 General ex amination of patient 477775535 Z00.01 Hypoglycemia 182200576 E 16.2 Nicotine dependence 5629 4008 F17.907 [id number] MD Chandana Barragan (Adult Med) [address] [place] [address] 40328-421 0 08/12/2019 14:52:07 08/12/2019 17:35:57 Gastroesophageal reflux disease 177302185 K21.0 Osteoarthr itis of knee 280363188 M17.9 [id number] MD Chandana Barragan (Adult Med) [address] [place] [address] 25581-908 0 04/08/2020 08:47:26 04/09/2020 10:59:30 Disorder of joint of foot 587399565 M25.9 Will need cardiology and medical clearance for foot surgery [id number] MD Chandana Barragan (Adult Med) [address] [place] [address] 38302-435 0 04/28/2020 16:03:27 04/29/2020 14:39:20 Disorder of joint of foot 421716172 M25.9 Pre-surger y evaluation 248475045 Z01.818 Osteoarthr itis of knee 583524071 M17.9 [id number] MD Chandana Barragan (Adult Med) [address] [place] [address] 33752-158 0 09/13/2020 09:37:35 09/14/2020 14:12:58 Gastroesophageal reflux disease 731380727 K21.9 Low back pain 538157583 M54.5 Medication monitoring 39 2966960 Z51.81 [id number] MD Chandana Barragan (Adult Med) [address] [place] [address] 54724-114 0 12/20/2020 12:09:56 12/21/2020 14:02:01 Low back pain 969853484 M54.5 Osteoarthritis 372091486 M17.11 Vitamin D deficiency 347 52768 E55.9 Pain of bi lateral hip joints 4515856900 6398728 M25.551 M25.552 Degenerati on of intervertebral disc 08316952 M51.9 [id number] MD Chandana Chase (FACULTY MEMBER) [address] [place] [address] 94486-453 0 03/14/2021 16:03:08 03/15/2021 10:35:27 Gynecologic examination 66001991 Z01.419 Z11.51 please call patient at [phone] for all test results. ok to leave voicemail no problem Screening mammography 24 137327 Z12.31 Gastroesop hageal reflux disease 057826581 K21.9 [id number] MD Chandana Barragan (Adult Med) [address] [place] [address] 94938-224 0 05/31/2021 16:35:33 06/01/2021 07:45:57 Gastroesophageal reflux disease 491954755 K21.9 Will restart H2 chandler Osteoarthritis 783717390 M17.11 Atherosclerosis 47836607 I70.90 Asthma 355361752 J45.90 9 [id number] BARBRA FAIR (FACULTY MEMBER) [address] [place] [address] 26469-976 0 07/27/2021 16:21:09 08/08/2021 10:02:41 Well woman monitoring check done 255038385 Z76.89 Cervical cancer screening: Last Pap December 2018, unsatisfac tory, HPV negative. Pt due to for repeat cytology, to reschedule at later date.Breas t cancer screening: Last mammogram Mar 2021, BIRADS 2. [facility], postmenopa usalDiet/e xercise: Counseled regarding importance of physical activity, healthy diet and appropriat e calcium intake.RTC in 6 months for Pap/WWE. [id number] MD Chandana Barragan (Adult Med) [address] [place] [address] 86801-484 0 08/08/2021 12:32:16 08/09/2021 10:32:36 Gastroesophageal reflux disease 695603318 K21.9 Hold H2 chandler. Increase PPI dose [id number] BARBRA FAIR (FACULTY MEMBER) [address] [place] [address] 15290-692 0 01/18/2022 15:44:32 02/08/2022 11:46:23 Gynecologic examination 84641869 Z01.419 Normal gynecologi c exam today.Cerv ical cancer screening: Last Pap smear on 01/07/2019 that was unsatisfac tory cytology. Pap performed today.Olga st cancer screening: Last mammogram was on 03/24/21 and was normal. Discussed SBEColonos copy: UTDSTI screening: Deferred. Patient reports she hasn't been sexually active for about 1 year and has been in a monogamous relationsh ip with her for 14 years.Cont raception: s/p tubal ligationDi et/exercis e: Counseled regarding importance of physical activity, healthy diet and appropriat e calcium intake.RTC in 1yr Screening for malignant neoplasm of breast 598518866 Z12.31 Annual screening mammogram due March 2022. Obesity 593521024 E66.9 BMI 35.1. Educated patient on healthy lifestyle including well balanced diet and daily exercise of 30 minutes or more. [id number] MD Chandana Barragan (Adult Med) [address] [place] [address] 28269-556 0 02/06/2022 14:51:26 02/07/2022 08:37:01 Lesion of left eyelid 0362009978 8182513 H02.9 Pain of bi lateral hip joints 5662050366 8458839 M25.551 M25.477 [id number] MD Chandana Barragan (Adult Med) [address] [place] [address] 51412-440 0 05/02/2022 12:14:26 05/03/2022 15:31:26 Cough 04743758 R05.9 Hypercalcemia 71302057 E 83.52 PTH Nl; elevated ionized Ca [id number] BARBRA FAIR (FACULTY MEMBER) [address] [place] [address] 18134-382 0 07/06/2022 15:40:34 07/13/2022 12:23:50 Hemorrhoids 57830629 K64.9 Persistent x years with intermitte nt flares. Requests referral for hemorrhoid removal. Vulvovaginitis 78671333 N76.0 PE c/w persistent yeast infection. Cultures obtained to confirm. Nystatin cream prescribed since clotrimazo le was ineffectiv e. Fluconazol e renewed. Advised to apply ice packs for itching instead of scratching to avoid further infection. Keep areas clean and dry. Limit pad use and make sure to remove wet pads. RTC if symptoms do not improve. Urge incon tinence of urine 79548298 N39.41 Discussed lifestyle adjustment s such as bladder training and PFPT/Kegel 's and good glycemic control. Pt will consider medication s if symptoms persist. [id number] MD Chandana Barragan (Adult Med) [address] [place] [address] 15702-248 0 07/12/2022 11:02:27 07/17/2022 14:44:37 Type 2 diabetes mellitus 87593881 E11.9 patient requesting testing supplies. [id number] MD Chandana Barragan (Adult Med) [address] [place] [address] 71096-671 0 08/07/2022 13:44:03 08/09/2022 10:55:17 Type 2 diabetes mellitus 83848014 E11.9 Needs better control. Will increase glimepirid e. F/U with dietary Morbid obesity 773016289 E66.01 [id number] MD Chandana Barragan (Adult Med) [address] [place] [address] 75474-517 0 09/05/2022 10:05:41 09/06/2022 16:18:41 Type 2 diabetes mellitus 10763572 E11.9 Well controlled on current regimen. Pt to continue current regimen. F/U with dietary. OK to get cataract surgery. Morbid obesity 462373128 E66.01 Disorder of vision 20345 002 H53.9 OK toproceed wiht [id number] MD Chandana Barragan (Adult Med) [address] [place] [address] 93183-122 0 09/18/2022 14:49:41 09/19/2022 11:38:48 Pain of bilateral hip joints 5815843104 1514044 M25.551 M25.552 Type 2 mulu betes mellitus 81638917 E11.9 Well controlled on current regimen. Pt to continue current regimen. F/U with dietary. OK to get eyes checked for new prescripti ons Morbid obesity 415045236 E66.01 [id number] MD Chandana Barragan (Adult Med) [address] [place] [address] 57486-580 0 01/15/2023 14:23:30 01/16/2023 14:04:21 Obesity 666993653 E66.9 Varicose v eins of lower extremity 59028139 I83.893 Bilateral shoulder joint pain 2796328336 3817098 M25.511 Refer to ortho. Pain of bi lateral knee regions 1839933229 79388 M25.561 M25.562 Refer back to ortho. Hypoglycemic disorder 23 7897466 E16.2 Decrease glimepirid e to 2 mg/d Type 2 mulu betes mellitus 38611968 E11.9 PM hypoglycem ia . Decrease glimepirid e to 2 mg/dl [id number] MD Chandana Barragan (Adult Med) [address] [place] [address] 37251-130 0 02/26/2023 14:54:40 02/27/2023 12:15:11 Morbid obesity 776158486 E66.01 Low back pain 886463224 M54.50 Asthma 202053957 J45.90 9 Atherosclerosis 30477604 I70.90 Degenerati on of intervertebral disc 43765234 M51.9 Dysphagia 32853244 R13.1 0 Type 2 mulu betes mellitus 67042323 E11.9 PM hypoglycem ia . Decrease glimepirid e to 2 mg/dl Varicose v eins of lower extremity 85302247 I83.893 Pain of bi lateral hip joints 2086714196 8894360 M25.551 M25.893 [id number] MD Chandana Barragan (Adult Med) [address] [place] [address] 08842-382 0 08/06/2023 14:29:32 08/07/2023 16:25:15 Obesity 773300689 E66.9 Type 2 mulu betes mellitus 71534953 E11.9 PM hypoglycem ia . Decrease glimepirid e to 2 mg/dl. Has been inconsiste nt since her sister's in 10/01 Medication monitoring 39 3624495 Z51.81 Will do with labs Pain of bi lateral hip joints 2948742880 5115293 M25.551 M25.077 [id number] MD Chandana Moreno (Adult Med) [address] [place] [address] 82831-535 0 09/18/2023 14:25:04 10/04/2023 14:18:34 Obesity 070407483 E66.9 Discussed healthy diet. Recommende d lean meats. Recommende d less carbohydra miller and more fiber and protein. Vaginitis 39159126 N76.0 Recurrent vaginal itching. Explained to patient that may be due to vaginal dryness secondary to post menopause. Will try Diflucan but if symptoms continue recommend a follow up appointmen t for an exam and treatment options for vaginal dryness. Screening for malignant neoplasm of breast 475653367 Z12.39 Menopause 057693948 Z78. 0 Patient had a period for [...] for further evaluation . Screening mammography 24 768753 Z12.31 [id number] MD Chandana Barragan (Adult Med) [address] [place] [address] 22091-787 0 12/05/2023 14:29:00 12/08/2023 08:21:44 Obesity 597415569 E66.8 Atherosclerosis 32907101 I70.90 Hyperlipidemia 52258793 E78.5 Pain of sh oulder region 87348276 M25.511 Type 2 mulu betes mellitus 21893231 E11.9 Discussed importance of dietary control [id number] MD Chandana Moreno (Adult Med) [address] [place] [address] 13932-024 0 03/25/2024 14:54:40 04/01/2024 09:30:13 Type 2 diabetes mellitus 76837338 E11.9 Recently uncontroll ed and may be contributi ng to recurrent yeast vaginitis. Vaginitis 17986501 N76.0 Symptoms and exam consistent with lichen [...] night and antihistam ine during the day. [id number] MD Chandana Moreno (Adult Med) [address] [place] [address] 23983-239 0 04/02/2024 13:53:04 04/09/2024 12:21:46 Lesion of vulva 916438020 N90.89 Tolerated biopsy procedure well. Hemostasis maintained [...] know when I get the biopsy result. [id number] MD hCandana Barragan (Adult Med) [address] [place] [address] 87945-157 0 05/06/2024 15:53:58 05/07/2024 12:34:42 Morbid obesity 769099784 E66.01 Bronchitis 61686083 J40 Continue prednisone . Add cough suppressan t Cough 92372197 R05.9 Pain of bi lateral knee regions 6257930905 78184 M25.561 M25.562 Refer back to ortho. Disability plate card form completed [id number] MD Chandana Moreno (Adult Med) [address] [place] [address] 87826-348 0 05/13/2024 16:39:29 05/15/2024 12:02:29 Psoriasis 2483443 L40.9 vulvar psoriasis. Has used high potency steroid cream for several months. Was using it regularly and now has decreased to as needed. 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 Discussed side effects including skin irritation . [...] treatment. Will follow up in two months. [id number] MD Chandana Moreno (Adult Med) [address] [place] [address] 89528-450 0 07/07/2024 13:51:15 07/09/2024 10:18:58 Pain of joint 36721647 M25.50 Has been dealing with multiple joint pains for some time. 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 Will do some blood work to check for auto immune arthritis. Type 2 mulu betes mellitus 08188553 E11.9 Uncontroll ed and likely contributi ng to yeast infection. Discussed adding a GLP-1 which could help her glucose and help her with weight control for her joint pains. I will leave a message with Dr. Rosenberg to let him know we discussed this. Psoriasis of vulva 44412 4003 L40.9 Only thing that has helped [...] visit with her primary care. Tinea cruris 363662500 B 35.6 Rash on inguinal crease consistent with fungus. Treat with topical cream and pill. Follow up in three weeks. [id number] MD Chandana Moreno (Adult Med) [address] [place] [address] 80061-624 0 07/28/2024 16:45:39 07/29/2024 13:39:57 Psoriasis 7136707 L40.9 Vulvar psoriasis. Much better control today. No scaly patches appreciate d on exam today. Will use the steroid cream as needed. Will follow up in six weeks to see how she is doing. Continue the Hydroxyzin e in the morning for itching. Tinea cruris 065670355 B 35.6 Rash on inguinal crease much improved. Still mild discomfort . Will use the cream for another week. If rash is not resolved or continues having discomfort she will let me know. Osteonecrosis of hip 444 678608 M87.859 Severe osteonecro sis of both hips. Requires narcotics for pain control and is basically home bound. Will refer to orthopedic surgeon for further evaluation and to consider the possibilit y of surgical interventi on. Will follow up in six weeks. Type 2 mulu betes mellitus 76374898 E11.9 Uncontroll ed and likely contributi ng to yeast infection. Discussed adding a GLP-1 which could help her glucose and help her with weight control for her joint pains. Left a message with Dr. Rosenberg to let him know we discussed this. Elevated blood-pressure reading without diagnosis of hypertension 948012978 R03.0 Has an appointmen t in two days. Will repeat blood pressure then to see if it is still elevated. No history of hypertensi on. [id number] MD Chandana Barragan (Adult Med) [address] [place] [id number] 07/30/2024 14:25:42 07/31/2024 09:38:40 Type 2 diabetes mellitus 52209093 E11.9 Increase glimepirid e to 8 mg/d Medication monitoring 39 6780097 Z51.81 Will do with labs Pain of bi lateral hip joints [id number] 3818054 M25.551 M25.233 [id number] MD Chandana Moreno (Adult Med) [address] [place] [address] 09/10/2024 13:43:06 09/11/2024 12:24:52 Pain of bilateral hip joints [id number] 2009378 M25.552 Saw orthopedic doctor. Had MRI done for better visualizat ion of hips. MRI again showed bilateral avascular necrosis left greater than right but it said it was mild. Patient has not heard from orthopod. I will reach out to him to get his thoughts. For the time being will continue Hydrocodon e. Onychomyco sis of toenails 063204857 B35.1 Psoriasis 2436916 L40.9 Vulvar psoriasis. No lesions on the outside but I can see the atrophy from the extended use of steroids. Will have her continue the lotion and if she has any recurrence of symptoms I will send out a mild steroid cream for her to use. She is still having lesions on the inner labia minora that have not been controlled . Most of them are on the right side. She has been using the calcipotri femi cream instead of the steroid cream and it has not controlled it. I am going to have her switch to a steroid cream for a few weeks to see if she can get better control. She will continue the hydroxyzin e for itching. She will follow up in six weeks. [id number] Dee Hernandez MD [facility] (Adult Med) [address] [place] [address] 10/22/2024 15:37:34 10/23/2024 11:14:08 Diabetic peripheral neuropathy 798968404 E11.42 652405 Will try Gabapentin for symptoms management . Osteonecrosis 625167209 M87.00 143449 Avascular necrosis now on two hip MRIs. Referred to one orthopod in area who repeated the MRI and did not seem to want to treat patient. She has been taking narcotics which are still not relieving her pain. Will refer her to [facility] for their opinion and to find out if there is some type of surgical procedure that can help relieve her pain. This may be the cause of her elevated Sed rate. Will repeat that at follow up. Uncontroll ed type 2 diabetes mellitus 407244590 E11.65 10790500 Will refer to endocrine for 24 hour glucose monitor. Will also start her on Ozempic to help with glucose control and weight loss. Discussed potential side effects of nausea, stomach pain, pancreatit is, and thyroid cancer. Patient wants to take the medication . She will follow up in December. Lesion of skin of face 6915546821 06 L98.9 555705 Return for shave excision of possible basal cell on right side of forehead and removal of possible open comedone. Chronic cough 49893121 R 05.3 12091 History of asthma and chronic dry cough. Exam normal. Will have her try a preventati ve inhaler along with Albuterol as needed and see if cough improves. Raised ant inuclear antibody 180318569 R76.8 133601 Elevated YOMI and sed rate. This could be elevated because of Lupus, which can also cause avascular necrosis. Will continue to evaluate. Had put in a rheumatolo gy referral but unsure if patient made an appointmen t due to other referrals she has. [id number] MD Chandana Barragan (Adult Med) [address] [place] [address] 10/27/2024 14:25:07 10/28/2024 11:52:53 Gastroesophageal reflux disease 969690916 K21.9 Hold H2 chandler. Increase PPI dose Type 2 mulu betes mellitus 52506913 E11.9 F/U new PCP. Started on semaglutid e Degenerati on of intervertebral disc 78683474 M51.9 Pain of bi lateral hip joints 5718391749 3845851 M25.551 M25.114 [id number] MD Chandana Moreno (Adult Med) [address] [place] [phone] 12/23/2024 14:47:53 01/01/2025 08:21:33 Chronic low back pain 542579839 M54.50 G89.29 [id number] Has referral for rheumatolo gist. Blood work abnormal. I believe she probably has rheumatolo gic joint disease and would benefit from a biologic agent. I have discussed with her that I do not prescribe fpc opiates, but our hope is that there will be a medication appropriat e for her condition that can provide some benefit. Orthopedic provider she saw for her foot checked other joints. Will get his office note. Pain of bi lateral hip joints 8301144967 6123538 M25.552 Bilateral sacroiliit is. She likely has a rheumatolo gic condition. She has a rheumatolo gy referral. Closed fra cture of metatarsal bone of right foot [id number] 1558921 S92.301A 093930832 Saw pro blancas. Had follow up and said fracture was healing. Has boot on. Was told could discontinu e it but had pain. Advised her to wear it for another week but she does not need to wear it at bedtime. When she discontinu es it advised her to wear tennis shoes with good support. Type 2 mulu betes mellitus 09499917 E11.9 17417222 Has started Ozempic. Sugars and A1C have improved. She just increased dose to .5 mg and is tolerating it well. Will follow up in two months. [id number] MD Chandana Moreno (Adult Med) [address] [place] [phone] 02/12/2025 11:54:55 02/13/2025 11:31:33 Acute non-suppurative serous otitis media 648968940 H65.01 5532052616 Pain of mu ltiple joints 56034909 M25.50 903554 Will reschedule rheumatolo gy appointzaynab blancas. Repeat Sed rate and YOMI today. Hyperlipidemia 16589465 E78.49 4892999 Had tea with artificial sweetener today. Will check lipid panel. Laboratory test result abnormal 639567852 R89.9 565176 Pain of ri ght shoulder joint 7753776679 4941016 M25.511 797641 Complete physical therapy. If no better consider therapy. Closed fra cture of foot 037195273 S92.901D 92778538 Seeing specialist . Would like a scooter. Pain of hip region 84261 002 M25.551 M25.552 932751 Bilateral sacroiliit is. She likely has a rheumatolo gic condition. She has a rheumatolo gy referral. [id number] MD Chandana Moreno (Adult Med) [address] [place] [phone] 04/27/2025 14:53:26 04/28/2025 10:18:57 Type 2 diabetes mellitus 68373976 E11.9 91042739 Taking Ozempic. Tolerating it well. Recently had [...] frequent small meals. Due for eye doctor appointzaynab blancas. Liver enzy mes level above reference range 098644203 R74.01 0720727010 Slightly elevated transamina se levels on blood work done in February. Will repeat today. Foot callus 871258104 L8 4 479141 Callus on left fourth toe. Will mention [facility] bark [facility]. Pain in right foot 25827 72541 82318 M79.671 986053 History of fracture. Following up with bark fitter next week. Pain of hip region 44614 002 M25.551 M25.552 486272 Sees orthopod. Gastroesop hageal reflux disease without esophagitis 530055255 K21.9 Controlled with Omeprazole 40 mg daily. Health Concerns Section Related Observation LastModified by Organization Detai ls LastModified Time None Recorded Concern Status LastModified by Organization Details LastModified Time None Recorded Advance Directives Directive N: Payers Insurance Date Sequence Insurance Name Policy Number Policy Lieberman Covered Member ID Lieberman Member ID Guarantor Name 03/25/2024 2 [place] OR MEDIC[place] REPLACEMENT PRIMARY) Brittney Joseph [id number] Brittney Joseph 02/26/2023 2 [place] [facility] Brittney Joseph [id number] Brittney Joseph 04/24/2025 1 [facility] (MEDICARE REPLACEMENT/AD VANTAGE - HMO) [id number] Brittney Joseph [id number] Brittney Joseph 02/26/2023 [place] [facility] Brittney Joseph [id number] Brittney Joseph 02/26/2023 1 [place] Brittney Joseph [id number] Brittney Joseph 02/26/2023 1 [facility] (MEDICAID HMO) [id number] Brittney Joseph [id number] Brittney Joseph 02/26/2023 1 [place] [facility] Brittney Joseph [id number] Brittney Joseph 02/26/2023 1 [facility] (MEDICAID HMO) [id number] Brittney Joseph [id number] Brittney Joseph 04/24/2025 2 [place]PLACEMENT PRIMARY) Brittney Joseph [id number] Brittney Joseph 10/23/2024 2 [place] [facility] Brittney Joseph [id number] Brittney Joseph 02/26/2023 1 [place] [facility] Brittney Joseph [id number] Brittney Joseph 02/26/2023 1 [facility] - DOS PRIOR TO 2020 (MEDICAID REPLACEMENT - HMO) Brittney Joseph [id number] Brittney Joseph 02/26/2023 1 [facility] (MEDICAID HMO) [id number] Brittney Joseph [id number] Brittney Joseph Notes Date Note Type Note Provider Name and Address Organization Details Recorded Time 10/22/2024 text/html ROS as noted in the HPI follow up, hips are bothering her more, quite a bit of pain, 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, vaginal itching a lot better, was given Ketoconazole cream and Diflucan pills which have helped, much better, irritation in inguinal creases, left great toenail broke and yellow toe nail partially growing out underneath, toes burn, last two weeks constantly burn, bottom of feet hurt, does not check glucose values, would like a twenty four hour glucose monitor, has had a dry cough for two months, has a history of asthma but does not have an inhaler, skin lesion on forehead, Dee Hernandez MD Attn: [address] [place], [address], [facility] 10/22/2024 18:18:34 10/27/2024 text/html Here for DM f/u. Saw TRANSIT PLANNING DIRECTOR four days ago. Surjit Rosenberg MD Attn: [address] [place], [address], [facility] 10/27/2024 15:05:58 12/23/2024 text/html ROS as noted in the HPI follow up, broke right foot, was swimming and got out to sit in lawn chair, went to get up and feet were straddling chair, slung foot over chair, lost balance, flew over chair, landed on right side, fractured foot bone, saw bark fitter, has seen him twice, put in boot, has knee scooter, saw him yesterday for follow up, was told can come out of boot and drive, saw Dr. Plascencia who is an orthopedic surgeon, had multiple x-rays done and was also told had frozen shoulder right shoulder, was given shot, follow up appointment in four weeks, last checked sugar was 136, buys protein shakes, no stomach pain or nausea, hydrocodone, Dee Hernandez MD Attn: [address] [place], [address], [facility] 12/31/2024 19:39:37 02/12/2025 text/html ROS as noted in the HPI follow up, tested positive for COVID Sunday, started with symptoms last Sunday over a week ago, feeling better and no fever now, throat crib tender but better, was taking Tylenol, ears are sore, right one worse, slight cough, breathing okay when not in mask, has one more physical therapy session for shoulder, frozen shoulder is gone on the right, was given a shot which did not help, now has shoulder pain that they feel is from the initial fall, if therapy doesn't help considering another shoulder surgery, right foot is healing, hips still hurting, focusing on foot and shoulder right now, had film developer appointment made but had to cancel because of fractured foot, had colonoscopy about six years ago and was told to repeat in ten years, would like a ride a long scooter Dee Hernandez MD Attn: [address]ing[address] [place], [address], [facility] 02/12/2025 14:01:52 04/27/2025 text/html ROS as noted in the HPI follow up, takes medicine with Boost drinks, waits until two or three to eat something, by then hand starts shaking, last saw eye doctor last year at [facility], no sores on feet, toenail is coming back, between pinky toe and other toe keeps getting callus that hurt, right foot hurting since fracture, made appointment with bark fitter for , does not use Symbicort regularly, has used Albuterol maybe once every couple months, no hydroxyzine for one or two months, comfortable most of the time, may not be drinking fluids like was, dry mouth Dee Hernandez MD Attn: [address]ing[address] [place], [address], [place] [facility] 04/27/2025 18:51:09 OBGyn Episode Ob Episode Information Episode Created Date Number of Fetuses Patient Bloodtype Patient rh Status Prepregnancy Weight lbs Domestic Partner Domestic Partner Phone Father Name Electric Melt Operator Status 03/28/20 16 1 CLOSED Fetus Data First Name Last Name Admitted to NICU Weight (g) Sex Living Outcome Pediatric Complications Fetus ID Race Codes Race Delivery Type 2778.25 1 Full Term 37282 Fabian Calculation Initial Fabian Date Initial Exam [...] Domestic Partner Domestic Partner Phone Father Name Electric Melt Operator Status 03/28/20 16 1 CLOSED Fetus Data First Name Last Name Admitted to NICU Weight (g) Sex Living Outcome Pediatric Complications Fetus ID Race Codes Race Delivery Type 3146.56 7704 Full Term 06657 Vaginal Fabian Calculation Initial Fabian Date Initial [...] Domestic Partner Domestic Partner Phone Father Name Electric Melt Operator Status 03/28/20 16 1 CLOSED Fetus Data First Name Last Name Admitted to NICU Weight (g) Sex Living Outcome Pediatric Complications Fetus ID Race Codes Race Delivery Type 2976.47 0704 Full Term 55237 Fabian Calculation Initial Fabian Date Initial Exam [...]
--- OUTSIDE RECORDS SUMMARY | 2025-05-18 21:01 | XMS_ITS | Clinical Summary ---
Author Organization [facility] Address [address] [place] [id number] Care Team Providers Care Textile Science Technician Name Role Phone Unavailable Primary Care Provider [...] 114.8 kg (253 lb) 06/24/2014 4:03 PM STUDENT LIFE DEAN Height 180.3 cm (5' 11) 06/24/2014 4:03 PM [facility]UD[facility] DEAN Body Mass Index 35.29 06/24/2014 4:03 PM [facility]UD[facility] DEAN Plan of Treatment Health Maintenance Due Date [...] Screening with HPV 1997 Mammogram Screening 2007 Pneumococcal Vaccine: 50+ Ye ars (1 of 1 - PCV) 2017 Zoster Vaccines (1 of 2) 2017 COVID-19 Vaccine (2024-2 6 season) 2025 Influenza Adult (#1) 2025 Hepatitis A Vaccines Aged Out No long er eligible based on patient's age to complete this topic Meningococcal B Vaccine Aged Out No l onger eligible based on patient's age to complete this topic Meningococcal Vaccine Aged Out No katey apurva eligible based on patient's age to complete this topic RSV Immunizations Under 20 Months Aged Out No longer eligible based on patient's age to complete this topic
--- NOTE | 2025-05-18 21:05 | ECG_ITS ---
Test Date: 2025-05-18 21:14:59 Measurements Intervals [place] Rate: 95 P: 79 VT: 181 QRS: 51 QRSD: 109 T: 31 QT: 351 QTc: 443 Interpretive Statements SINUS RHYTHM BORDERLINE ST-T WAVE ABNORMALITY- INF/LAT LEADS BASELINE ARTIFACT- I, II, III, AVR, AVL, AVF, V1 BORDERLINE ECG Compared to ECG 12/04/2024 22:17:39 NO SIGNIFICANT CHANGE Electronically Signed On 05-19-2025 06:07:10 DRAPERY ESTIMATOR by Tal Woodson D.O.
--- NOTE | 2025-05-18 21:05 | ED.ABDPAIN ---
HPI - Abdominal Pain General Chief Complaint: Abdominal Pain <TERRIE Shelton Last Filed: 05/19/25 01:08> Stated Complaint: L UPPER ABD/RIB PAIN <TERRIE Shelton Last Filed: 05/19/25 01:08> Time Seen by Provider: 05/18/25 20:55 <TERRIE Shelton Last Filed: 05/19/25 01:08> Source: patient <TERRIE Shelton Last Filed: 05/19/25 01:08> Mode of arrival: ambulatory <TERRIE Shelton Last Filed: 05/19/25 01:08> Limitations: no limitations <TERRIE Shelton Last Filed: 05/19/25 01:08> History of Present Illness HPI narrative: This is a 59-year-old female that presents to the emergency department for left upper quadrant abdominal pain. Ongoing since yesterday. Worse with breathing, movement. Denies fever, cough, vomiting, diarrhea. <TERRIE Shelton Last Filed: 05/19/25 01:08> Related Data Home Medications: Home Medications ?Medication ?Instructions ?Recorded ?Confirmed ?Last Taken ?Type hydrocodone 7.5 mg-acetaminophen 1 tablet PO Q8H PRN pain 04/18/22 05/19/25 Unknown History 325 mg tablet metoprolol tartrate 25 mg tablet 25 mg PO Q12H 04/18/22 05/19/25 Unknown History omeprazole 20 mg capsule,delayed 20 mg PO Q12H 04/18/22 05/19/25 Unknown History release empagliflozin 10 mg tablet 10 mg PO DAILY 05/19/25 05/19/25 Unknown History (Jardiance) gabapentin 300 mg capsule 300 mg PO HS 05/19/25 05/19/25 Unknown History glimepiride 4 mg tablet 4 mg PO DAILY 05/19/25 05/19/25 Unknown History semaglutide 1 mg/dose (4 mg/3 mL) 1 mg subcut WEEKLY 05/19/25 05/19/25 Unknown History subcutaneous pen injector (Ozempic) <TERRIE Shelton Last Filed: 05/19/25 01:08> Allergies/Adverse Reactions: Allergies Allergy/AdvReac Type Severity Reaction Status Date / Time acetaminophen (From Tylenol) AdvReac Other Verified 05/19/25 01:45 <Louisa Gordon PA-C - Last Filed: 05/19/25 01:08> Review of Systems Review of Systems: All systems reviewed & are unremarkable except as noted in HPI and below <Louisa Gordon PA-C - Last Filed: 05/19/25 01:08> PMFSH Past Medical History Medical History: Medical History (Updated 05/19/25 @ 01:08 by Louisa Gordon PA-C) Asthma GERD (gastroesophageal reflux disease) Angina at rest Diabetes <Louisa Gordon PA-C - Last Filed: 05/19/25 01:08> Surgical History Surgical History: Surgical History (Updated 04/18/22 @ 19:59 by Hector Mederos MD) No pertinent past surgical history <Louisa Gordon PA-C - Last Filed: 05/19/25 01:08> Family History Family History: Family History (Updated 05/19/25 @ 01:47 by Jocelyn Wilson RN) Mother Acute myocardial infarction Asthma Chronic obstructive pulmonary disease Congestive heart failure Diabetes mellitus Hypertension Sibling Acute myocardial infarction Asthma Diabetes mellitus Hypertension Daughter Asthma <Louisa Gordon PA-C - Last Filed: 05/19/25 01:08> Social History Social History: Social History (Updated 04/18/22 @ 19:59 by Hector Mederos MD) Smoking status: Former smoker Tobacco type: cigarettes and e-cigarettes/vaping Alcohol intake: never Substance use: never Lack of Transportation: No Lack of Food: Never True Current Housing: I Have Housing Concerned About Future Housing: No Difficulty Paying Gas/Electric Bills: No Difficulty Paying for Meds: No Currently Unemployed: No Education: Grade School Difficulty w/ Childcare or Family Care: No Spiritual care concerns: No <Louisa Gordon PA-C - Last Filed: 05/19/25 01:08> Exam Narrative: GENERAL: Well-appearing, well-nourished, and in no acute distress. HEAD: Normocephalic, atraumatic. EYES: EOMI. CHEST: Clear to auscultation. No respiratory distress. No wheezes rales or rhonchi HEART: Regular rate and rhythm. No murmur heard. Normal peripheral pulses. ABDOMEN: Soft, nondistended, normal active bowel sounds. Tender to palpation in the left upper quadrant, without guarding EXTREMITIES: Normal range of motion. No edema. SKIN: Warm, dry, no rash. NEURO: No focal deficits. Alert and oriented x3. PSYCH: Normal mood and affect <Louisa Gordon PA-C - Last Filed: 05/19/25 01:08> Course COKE INSPECTOR/PA Physician Supervision This visit was performed by both a physician and an APC. I performed all aspects of the MDM as documented. <Brenden Frank MD - Last Filed: 05/19/25 02:54> Consultations Hospitalist: Time of Consult: 12:30 <Louisa Gordon PA-C - Last Filed: 05/19/25 01:08> I have discussed the care of this patient with the following provider: Dr. Proctor, accepts admission <Louisa Gordon PA-C - Last Filed: 05/19/25 01:08> Vital Signs Vital signs: Vital Signs Temperature 97.7 F 05/18/25 18:47 Pulse Rate 99 05/18/25 18:47 Respiratory Rate 18 05/18/25 18:47 Blood Pressure 126/67 05/18/25 18:47 Pulse Oximetry 98 05/18/25 18:47 Temperature 97.8 F 05/19/25 02:44 Pulse Rate 86 05/19/25 02:44 Respiratory Rate 20 05/19/25 02:44 Blood Pressure 121/58 L 05/19/25 02:44 Pulse Oximetry 97 05/19/25 02:44 <Louisa Gordon PA-C - Last Filed: 05/19/25 01:08> Vital Signs Temperature 97.7 F 05/18/25 18:47 Pulse Rate 99 05/18/25 18:47 Respiratory Rate 18 05/18/25 18:47 Blood Pressure 126/67 05/18/25 18:47 Pulse Oximetry 98 05/18/25 18:47 Temperature 97.8 F 05/19/25 02:44 Pulse Rate 86 05/19/25 02:44 Respiratory Rate 20 05/19/25 02:44 Blood Pressure 121/58 L 05/19/25 02:44 Pulse Oximetry 97 05/19/25 02:44 <Brenden Frank MD - Last Filed: 05/19/25 02:54> [facility] Narrative Medical decision making narrative: Patient presents to the emergency department for left upper quadrant abdominal pain. Ongoing since yesterday. She is afebrile and nontoxic appearing. Her vitals are stable. Cbc without leukocytosis. Shows macrocytic anemia with hemoglobin of 10. Also notable for thrombocytopenia. Metabolic panel without evidence of acute kidney injury, dehydration. Patient hydrated with 2 L IV fluids in the ER. Urine without evidence of infection. CT abdomen and pelvis showing splenomegaly, splenic infarct, mesenteric and upper abdominal adenopathy. Patient will be admitted to the hospitalist service for further evaluation <Louisa Gordon PA-C - Last Filed: 05/19/25 01:08> Differential Diagnosis Differential Diagnosis: Diverticulitis, splenic infarct, dehydration, anemia, thrombocytopenia, malignancy <Louisa Gordon PA-C - Last Filed: 05/19/25 01:08> Lab Data [facility] Lab Attestation statement: I personally reviewed the patient's lab results. <Louisa Gordon PA-C - Last Filed: 05/19/25 01:08> Result diagrams: 05/18/25 21:01 05/18/25 21:01 <Louisa Gordon PA-C - Last Filed: 05/19/25 01:08> Labs: Lab Results 05/18/25 05/18/25 05/18/25 Range/Units 21:01 21:06 23:21 WBC 8.3 (4.5-10.0) K/mm3 RBC 3.10 L (4.2-5.4) M/mm3 Hgb 10.0 L D (12.0-15.0) g/dL Hct 31.4 L (37.0-47.0) % MCV 101.3 H (80-100) fl MCH 32.3 (26-34) pg MCHC 31.8 L (32-36) g/dl RDW 15.3 H (11.5-14.5) % Plt Count 94 L D (150-375) k/mm3 MPV 11.6 H (7.4-10.4) fl Immature Gran % (Auto) Not Reportable Neut % (Auto) Not Reportable Lymph % (Auto) Not Reportable Bracken % (Auto) Not Reportable Eos % (Auto) Not Reportable Baso % (Auto) Not Reportable Lymph # (Auto) Not Reportable Bracken # (Auto) Not Reportable Eos # (Auto) Not Reportable Baso # (Auto) Not Reportable Abs Immat Gran (auto) Not Reportable Absolute Neuts (auto) Not Reportable Absolute Nucleated RBC Not Reportable Total Counted 100 Neutrophils % (Manual) 43 L (46-73) % Band Neutrophils % 4 (0-6) % Lymphocytes % (Manual) 32.0 (18-44) % Monocytes % (Manual) 21 H (3-9) % Nucleated RBC % Not Reportable Abs Neuts (Manual) 3.90 (1.3-6.7) K/mm3 Abs Lymphs (Manual) 2.65 (1.1-4.5) K/mm3 Abs Monocytes (Manual) 1.74 H (0.1-0.90) K/mm3 Platelet Estimate Decreased (Adequate) % Immature Plt Fraction 8.4 (0.9-11.2) % Hypochromasia 1+ Anisocytosis 1+ Schistocytes None seen PT 17.6 H (11.1-14.7) Seconds INR 1.5 APTT 43.5 H (22.3-36.8) Seconds D-Dimer < 0.27 (<0.48) ug/mL Sodium 143 (137-145) mmol/L Potassium 3.6 (3.4-5.0) mmol/L Chloride 104 (98-107) mmol/L Carbon Dioxide 25 (22-30) mmol/L Anion Gap 14 H (4-12) mmol/L BUN 8 (7-17) mg/dL Creatinine 1.51 H (0.7-1.0) mg/dL Estim Creat Clear Calc 53 ml/min Estimated GFR 36 L (59 - ) Glucose 97 (65-110) mg/dL POC Capillary Glucose 94 (65-105) mg/dl Calcium 11.6 H (8.4-10.2) mg/dL Total Bilirubin 0.3 (0.2-1.3) mg/dL AST 75 H (14-36) U/L ALT 46 H (6-35) U/L Alkaline Phosphatase 69 (38-126) U/L Troponin I < 0.012 (0.000-0.034) ng/mL Total Protein 12.5 H (6.3-8.2) g/dL Albumin 3.7 (3.5-5.1) g/dL Lipase 56 (23-300) U/L Urine Color Yellow (Yellow) Urine Appearance Cloudy H (Clear) Urine pH 5.0 (5.0-9.0) Ur Specific Gilman 1.020 (1.001-1.035) Urine Protein 1+ H (Negative) mg/dL Urine Glucose (UA) 2+ H (Negative) mg/dL Urine Ketones Negative (Negative) mg/dL Ur Blood (Man) Negative (Negative) Urine Nitrate Negative (Negative) Urine Bilirubin Negative (Negative) Urine Urobilinogen 1.0 (<2.0) mg/dL Add Ur Microanalysis Reviewed Leukocyte Esterase Rfl Trace H (Negative) ZEFERINO/UL Urine RBC 11-20 H (0-2) /hpf Urine WBC 0-5 (0-3) /hpf Ur Squamous Epith Cells Few (Few) /hpf Calcium Oxalate Crystal Present (None) /hpf Urine Bacteria Rare /hpf Urine Casts 0-2 POC Urine HCG, Qual Negative (Negative) Monoscreen Negative (Negative) HIV 1&2 Ab/P24 Ag 4thGn Negative (Negative) <Louisa Gordon PA-C - Last Filed: 05/19/25 01:08> Lab Results 05/18/25 05/18/25 05/18/25 Range/Units 21:01 21:06 23:21 WBC 8.3 (4.5-10.0) K/mm3 RBC 3.10 L (4.2-5.4) M/mm3 Hgb 10.0 L D (12.0-15.0) g/dL Hct 31.4 L (37.0-47.0) % MCV 101.3 H (80-100) fl MCH 32.3 (26-34) pg MCHC 31.8 L (32-36) g/dl RDW 15.3 H (11.5-14.5) % Plt Count 94 L D (150-375) k/mm3 MPV 11.6 H (7.4-10.4) fl Immature Gran % (Auto) Not Reportable Neut % (Auto) Not Reportable Lymph % (Auto) Not Reportable Bracken % (Auto) Not Reportable Eos % (Auto) Not Reportable Baso % (Auto) Not Reportable Lymph # (Auto) Not Reportable Bracken # (Auto) Not Reportable Eos # (Auto) Not Reportable Baso # (Auto) Not Reportable Abs Immat Gran (auto) Not Reportable Absolute Neuts (auto) Not Reportable Absolute Nucleated RBC Not Reportable Total Counted 100 Neutrophils % (Manual) 43 L (46-73) % Band Neutrophils % 4 (0-6) % Lymphocytes % (Manual) 32.0 (18-44) % Monocytes % (Manual) 21 H (3-9) % Nucleated RBC % Not Reportable Abs Neuts (Manual) 3.90 (1.3-6.7) K/mm3 Abs Lymphs (Manual) 2.65 (1.1-4.5) K/mm3 Abs Monocytes (Manual) 1.74 H (0.1-0.90) K/mm3 Platelet Estimate Decreased (Adequate) % Immature Plt Fraction 8.4 (0.9-11.2) % Hypochromasia 1+ Anisocytosis 1+ Schistocytes None seen PT 17.6 H (11.1-14.7) Seconds INR 1.5 APTT 43.5 H (22.3-36.8) Seconds D-Dimer < 0.27 (<0.48) ug/mL Sodium 143 (137-145) mmol/L Potassium 3.6 (3.4-5.0) mmol/L Chloride 104 (98-107) mmol/L Carbon Dioxide 25 (22-30) mmol/L Anion Gap 14 H (4-12) mmol/L BUN 8 (7-17) mg/dL Creatinine 1.51 H (0.7-1.0) mg/dL Estim Creat Clear Calc 53 ml/min Estimated GFR 36 L (59 - ) Glucose 97 (65-110) mg/dL POC Capillary Glucose 94 (65-105) mg/dl Calcium 11.6 H (8.4-10.2) mg/dL Total Bilirubin 0.3 (0.2-1.3) mg/dL AST 75 H (14-36) U/L ALT 46 H (6-35) U/L Alkaline Phosphatase 69 (38-126) U/L Troponin I < 0.012 (0.000-0.034) ng/mL Total Protein 12.5 H (6.3-8.2) g/dL Albumin 3.7 (3.5-5.1) g/dL Lipase 56 (23-300) U/L Urine Color Yellow (Yellow) Urine Appearance Cloudy H (Clear) Urine pH 5.0 (5.0-9.0) Ur Specific Gilman 1.020 (1.001-1.035) Urine Protein 1+ H (Negative) mg/dL Urine Glucose (UA) 2+ H (Negative) mg/dL Urine Ketones Negative (Negative) mg/dL Ur Blood (Man) Negative (Negative) Urine Nitrate Negative (Negative) Urine Bilirubin Negative (Negative) Urine Urobilinogen 1.0 (<2.0) mg/dL Add Ur Microanalysis Reviewed Leukocyte Esterase Rfl Trace H (Negative) ZEFERINO/UL Urine RBC 11-20 H (0-2) /hpf Urine WBC 0-5 (0-3) /hpf Ur Squamous Epith Cells Few (Few) /hpf Calcium Oxalate Crystal Present (None) /hpf Urine Bacteria Rare /hpf Urine Casts 0-2 POC Urine HCG, Qual Negative (Negative) Monoscreen Negative (Negative) HIV 1&2 Ab/P24 Ag 4thGn Negative (Negative) <Brenden Frank MD - Last Filed: 05/19/25 02:54> Imaging Data Radiologist's impression: CT abdomen and pelvis: Mild peripancreatic edema. Hepatic steatosis and hepatomegaly. Cholelithiasis. Splenomegaly. Splenic wedge shaped low-attenuation lesion concerning for infarct. Mesenteric and upper abdominal adenopathy associated with splenomegaly, may be seen with lymphoproliferative disease. No bowel obstruction or inflammation. Normal appendix. No hydronephrosis or renal calculus <Louisa Gordon PA-C - Last Filed: 05/19/25 01:08> ECG Data EKG #1: ECG completion date: 05/18/25 <Louisa Gordon PA-C - Last Filed: 05/19/25 01:08> normal rate, sinus rhythm, no ST changes and normal QT <Louisa Gordon PA-C - Last Filed: 05/19/25 01:08> Critical Care Time Critical Care Time Critical Care Time: No <Louisa Gordon PA-C - Last Filed: 05/19/25 01:08> Discharge Plan Discharge Clinical Impression: Splenic infarct, Thrombocytopenia, Adenopathy Anemia Qualifiers: Anemia type: unspecified type Qualified Code(s): D64.9 - Anemia, unspecified <Louisa Gordon PA-C - Last Filed: 05/19/25 01:08> Patient Disposition: Still a Patient <Louisa Gordon PA-C - Last Filed: 05/19/25 01:08> Condition: Stable <Louisa Gordon PA-C - Last Filed: 05/19/25 01:08>
[2025-05-18 21:11] LABS: BEDSIDEPREGUCG Negative (Negative)
[2025-05-18 21:11] LABS: Hematocrit 31.4 % (37.0-47.0); Hemoglobin 10.0 g/dL (12.0-15.0); Immature Platelet Fraction Pct 8.4 % (0.9-11.2); Mean Corpuscular HGB Conc 31.8 g/dl (32-36); Mean Corpuscular Hemoglobin 32.3 pg (26-34); Mean Corpuscular Volume 101.3 fl (80-100); Platelet Count Result 94 k/mm3 (150-375); Red Blood Count 3.10 M/mm3 (4.2-5.4); White Blood Count 8.3 K/mm3 (4.5-10.0)
[2025-05-18 21:18] LABS: Alanine Aminotransferase 46 U/L (6-35); Albumin Level 3.7 g/dL (3.5-5.1); Alkaline Phosphatase 69 U/L (38-126); Anion Gap 14 mmol/L (4-12); Aspartate Amino Transferase 75 U/L (14-36); Bilirubin,Total 0.3 mg/dL (0.2-1.3); Blood Urea Nitrogen 8 mg/dL (7-17); Calcium 11.6 mg/dL (8.4-10.2); Carbon Dioxide 25 mmol/L (22-30); Chloride 104 mmol/L (98-107); Estimated CRCL calculation 53 ml/min; Estimated Glomerular Filt Rate 36; Glucose 97 mg/dL (65-110); Lipase 56 U/L (23-300); Potassium 3.6 mmol/L (3.4-5.0); Sodium 143 mmol/L (137-145)
[2025-05-18] MEDS: MORPHINE SULFATE (*CRX) 4 MG/ML INJ IV PUSH (21:18)
[2025-05-18] MEDS: ONDANSETRON INJ 4 MG/2 ML VIAL IV PUSH (21:18)
[2025-05-18 21:25] LABS: Add Urine Microscopic? YES; Appearance Urine Cloudy (Clear); Glucose Urine UA 2+ mg/dL (Negative); Leukocyte Esterase Ur Trace LEU/UL (Negative); Need Manual Microscopic Reviewed; Nitrate Urine Negative (Negative); Non Pathogenic Casts 0-2; Specific Grav Ur 1.020 (1.001-1.035)
[2025-05-18 21:32] LABS: Troponin I < 0.012 ng/mL (0.000-0.034)
[2025-05-18 21:33] LABS: INR 1.5; Prothrombin Time 17.6 Seconds (11.1-14.7)
[2025-05-18 21:34] LABS: Partial Thromboplastin Time 43.5 Seconds (22.3-36.8); Total Protein 12.5 g/dL (6.3-8.2)
[2025-05-18] MEDS: SODIUM CHLORIDE 0.9% IV 1,000 ML 999 ML IV CONT (21:36)
[2025-05-18 21:37] LABS: Band Neutrophils Percent 4 % (0-6); Lymphocytes Absolute Manual 2.65 K/mm3 (1.1-4.5); Lymphocytes Percent Manual 32.0 % (18-44); Monocytes Absolute Manual 1.74 K/mm3 (0.1-0.90); Monocytes Percent Manual 21 % (3-9); Neutrophils Absolute Manual 3.90 K/mm3 (1.3-6.7); Neutrophils Percent Manual 43 % (46-73); Total Cells Counted 100
[2025-05-18 21:38] LABS: Anisocytosis 1+; Hypochromasia 1+; Schistocytes None Seen
[2025-05-19] VITALS (8 sets, daily range): BP systolic 115–133; BP diastolic 54–73; PULSE 78–96; RESP 16–20; TEMP 36.3–36.8; O2SAT 94–100; BMI 35.3
[2025-05-19] MEDS: SODIUM CHLORIDE 0.9% IV 1,000 ML 999 ML IV CONT (00:45)
--- NOTE | 2025-05-19 01:22 | WPCEDHO ---
ED Hand Off Checklist All vitals saved:Y IV Site documented:Y All med administrations documented:Y Triage Note Triage Note PT TO ED FOR EVAL OF L UPPER QUAD 05/18/25 17:48 ABD PAIN FOR PAST DAY. HX OF REPORTED ELEVATED LIVER ENZYMES. DENIES CONGESTION,FALL OR INJURY Allergies acetaminophen (From Tylenol) Adverse Reaction (Verified 05/18/25 17:47) Other ELEVATED LIVER ENZYMES Active Medications including assessments/comments Sodium Chloride (Normal Saline Iv) 1,000 mls @ 999 mls/hr IV CONT .Q1H1M STA Stop: 05/19/25 01:35 Last Admin: 05/19/25 00:45 Dose: 999 mls/hr Documented By: OMI Infusion/Titration Document 05/19/25 00:45 OMI (Rec: 05/19/25 00:45 [facility] [id number]) Intake IV Site Peripheral Access Right Antecubital Container Volume 1,000 Waste Amount 0 Dosing Infusion Rate 999 Cumulative Dose Not Applicable Increase/Decrease Started Elapsed Time Elapsed Time ( 0m minutes) Administered/Completed Medications Discontinued Medications Sodium Chloride (Normal Saline Iv) 1,000 mls @ 999 mls/hr IV CONT .Q1H1M STA Stop: 05/18/25 22:21 Last Infusion: 05/18/25 22:56 Dose: Infused Documented By: Admin: 05/18/25 21:36 Dose: 999 mls/hr Documented By: OMI(2) Morphine Sulfate (Morphine Sulfate (*Crx) 4 Mg/Ml Inj) 4 mg IV PUSH ONCE STA Stop: 05/18/25 21:05 Last Admin: 05/18/25 21:18 Dose: 4 mg Documented By: PHU Ondansetron HCl (Ondansetron Inj 4 Mg/2 Ml Vial) 4 mg IV PUSH ONCE STA Stop: 05/18/25 21:05 Last Admin: 05/18/25 21:18 Dose: 4 mg Documented By: PHU Interventions/Assessments IV / Saline Lock, Insert Start: 05/18/25 20:38 Freq: STAT Status: Active Protocol: Document 05/18/25 21:06 PHU (Rec: 05/18/25 21:09 PHU [id number]) IV Assessment Peripheral Access Right Antecubital IV Catheter Access Initiated IV Insertion Date 05/18/25 IV Insertion Time 21:09 Catheter Gauge 20 IV Insertion 1 Attempts Ultrasound Used for No Placement IV Site Assessment WNL IV Care and WNL Maintenance PA: Gastrointestinal Assessment Start: 05/18/25 17:48 Freq: Status: Active Protocol: Document 05/18/25 18:47 AZG (Rec: 05/18/25 18:47 AZG [id number]) GI Assessment Gastrointestinal Pain Symptoms Description Soft All Quadrants Bowel Sounds Active Pattern Normal Date of Last Bowel 05/17/25 Movement Stool Size Moderate Nausea/Vomiting Assessment Nausea Frequency None Emesis Frequency None Last Vital Signs Temperature 98.2 F 05/19/25 01:15 Pulse Rate 78 05/19/25 01:15 Respiratory Rate 18 05/19/25 01:15 Pulse Oximetry 98 05/19/25 01:15 Blood Pressure 130/73 05/19/25 01:15 Blood Pressure Mean 92 05/19/25 01:15 Blood Pressure Position Sitting 05/18/25 18:47 Weight 118 kg 05/18/25 17:48 Last Result - Abnormals Only RBC 3.10 M/mm3 (4.2-5.4) L 05/18/25 21:01 Hgb 10.0 g/dL (12.0-15.0) L D 05/18/25 21:01 Hct 31.4 % (37.0-47.0) L 05/18/25 21:01 MCV 101.3 fl (80-100) H 05/18/25 21:01 MCHC 31.8 g/dl (32-36) L 05/18/25 21:01 RDW 15.3 % (11.5-14.5) H 05/18/25 21:01 Plt Count 94 k/mm3 (150-375) L D 05/18/25 21:01 MPV 11.6 fl (7.4-10.4) H 05/18/25 21:01 Neutrophils % (Manual) 43 % (46-73) L 05/18/25 21:01 Monocytes % (Manual) 21 % (3-9) H 05/18/25 21:01 Abs Monocytes (Manual) 1.74 K/mm3 (0.1-0.90) H 05/18/25 21:01 PT 17.6 Seconds (11.1-14.7) H 05/18/25 21:01 APTT 43.5 Seconds (22.3-36.8) H 05/18/25 21:01 Anion Gap 14 mmol/L (4-12) H 05/18/25 21: Creatinine 1.51 mg/dL (0.7-1.0) H 05/18/25 21: Estimated GFR 36 (59-) L 05/18/25 21: Calcium 11.6 mg/dL (8.4-10.2) H 05/18/25 21: AST 75 U/L (14-36) H 05/18/25 21: ALT 46 U/L (6-35) H 05/18/25 21: Total Protein 12.5 g/dL (6.3-8.2) H 05/18/25 21: Urine Appearance Cloudy (Clear) H 05/18/25 21: Urine Protein 1+ mg/dL (Negative) H 05/18/25 21: Urine Glucose (UA) 2+ mg/dL (Negative) H 05/18/25 21: Leukocyte Esterase Rfl Trace ZEFERINO/UL (Negative) H 05/18/25 21: Urine RBC 11-20 /hpf (0-2) H 05/18/25 21:01 Most Recent Suicide Severity Rating Suicide Severity Rating NO RISK INDICATED 05/18/25 17:48
--- NOTE | 2025-05-19 01:38 | ADMGEN ---
This patient, Brittney Joseph, was admitted to 3 [facility] Surg Room 304-02. Patient/family oriented to hospital policies and general routines including ID bracelet, bed and alarms, visiting hours, pain management, procedures, bathroom and other care routines, personal items, smoking policy, room service/diet, and visiting hours. Information on how to activate the Rapid Response Team has been discussed. Patient/Family are encouraged to report perceived risks to care and to ask questions if they do not understand what they are told or what they should do.
[2025-05-19 01:54] LABS: Negative Monotest Control Negative (Negative); Positive Monotest Control Positive (Positive)
[2025-05-19 02:26] LABS: HIV 1/2 Ab P24 Ag Result Negative (Negative)
[2025-05-19 03:55] LABS: Cannabinoid Screen Urine Negative (Negative)
[2025-05-19 06:13] LABS: Hematocrit 28.3 % (37.0-47.0); Hemoglobin 8.8 g/dL (12.0-15.0); Immature Platelet Fraction Pct 7.1 % (0.9-11.2); Mean Corpuscular HGB Conc 31.1 g/dl (32-36); Mean Corpuscular Hemoglobin 32.0 pg (26-34); Mean Corpuscular Volume 102.9 fl (80-100); Platelet Count Result 77 k/mm3 (150-375); Red Blood Count 2.75 M/mm3 (4.2-5.4); White Blood Count 5.6 K/mm3 (4.5-10.0)
[2025-05-19 06:43] LABS: Alanine Aminotransferase 38 U/L (6-35); Albumin Level 3.3 g/dL (3.5-5.1); Alkaline Phosphatase 62 U/L (38-126); Anion Gap 11 mmol/L (4-12); Aspartate Amino Transferase 59 U/L (14-36); Bilirubin,Total 0.3 mg/dL (0.2-1.3); Blood Urea Nitrogen 7 mg/dL (7-17); Calcium 11.3 mg/dL (8.4-10.2); Carbon Dioxide 24 mmol/L (22-30); Chloride 107 mmol/L (98-107); Estimated CRCL calculation 69 ml/min; Estimated Glomerular Filt Rate 48; Glucose 93 mg/dL (65-110); Potassium 3.5 mmol/L (3.4-5.0); Sodium 142 mmol/L (137-145); Total Protein 10.8 g/dL (6.3-8.2)
[2025-05-19 06:59] LABS: Band Neutrophils Percent 3 % (0-6); Lymphocytes Absolute Manual 2.68 K/mm3 (1.1-4.5); Lymphocytes Percent Manual 48 % (18-44); Neutrophils Absolute Manual 2.24 K/mm3 (1.3-6.7); Neutrophils Percent Manual 37 % (46-73); Total Cells Counted 100
[2025-05-19 07:00] LABS: Basophils Absolute Manual 0.05 K/mm3 (0.0-0.1); Basophils Percent Manual 1 % (0-1); Eosinophils Absolute Manual 0.00 K/mm3 (0.02-0.50); Eosinophils Percent Manual 0 % (0-4); Macrocytosis 1+ (NORMAL); Monocytes Absolute Manual 0.61 K/mm3 (0.1-0.90); Monocytes Percent Manual 11 % (3-9); Schistocytes None Seen; Smudge Cells MODERATE
[2025-05-19] MEDS: HYDROcodone/acetaminophen (*CRX) 7.5-325 MG TABLET 1 TAB PO (08:51)
[2025-05-19] MEDS: SODIUM CHLORIDE 0.9% IV 1,000 ML 75 ML IV CONT ×2 (08:52→23:38)
[2025-05-19] MEDS: METOPROLOL TARTRATE 25 MG TABLET PO ×2 (09:02→20:29)
[2025-05-19] MEDS: PANTOPRAZOLE 40 MG TABLET PO ×2 (09:02→16:31)
--- NOTE | 2025-05-19 12:02 | PM.IMHP2 ---
H&P: HPI History of Present Illness Date/Time: 05/19/25 12:02 Chief Complaint: Left upper quadrant abdominal pain Narrative: 59-year-old female with past medical history of diabetes mellitus presenting with sudden onset of left upper quadrant abdominal pain which started 2 days ago. No recent trauma to left upper quadrant, fall. Denies any weight loss. Denies any fever. Denies any nausea, vomiting, constipation. Feels her abdominal girth has increased in size recently. CT abdomen and pelvis shows. Moderate splenomegaly. Splenic infarct. Abdominal lymphadenopathy suspicious for lymphoma. was noted to have mild hypercalcemia, MAYRA, anemia, thrombocytopenia. Review of Systems Review of Systems: All systems reviewed & are unremarkable except as noted in HPI and below PMFSH Past Medical History Medical History Asthma GERD (gastroesophageal reflux disease) Angina at rest Diabetes Surgical History Surgical History No pertinent past surgical history Family History Family History Mother Acute myocardial infarction Asthma Chronic obstructive pulmonary disease Congestive heart failure Diabetes mellitus Hypertension Sibling Acute myocardial infarction Asthma Diabetes mellitus Hypertension Daughter Asthma Social History Social History Smoking status: Former smoker Tobacco type: cigarettes and e-cigarettes/vaping Alcohol intake: never Substance use: never Lack of Transportation: No Lack of Food: Never True Current Housing: I Have Housing Concerned About Future Housing: No Difficulty Paying Gas/Electric Bills: No Difficulty Paying for Meds: No Currently Unemployed: No Education: Grade School Difficulty w/ Childcare or Family Care: No Spiritual care concerns: No Meds Home Medications and Allergies Home Medications ?Medication ?Instructions ?Recorded ?Confirmed ?Type albuterol sulfate 90 mcg/actuation 2 puff inhalation QID PRN 04/18/22 05/19/25 Rx aerosol inhaler shortness of breath or wheezing #8 grams hydrocodone 7.5 mg-acetaminophen 1 tablet PO Q8H PRN pain 04/18/22 05/19/25 History 325 mg tablet metoprolol tartrate 25 mg tablet 25 mg PO Q12H 04/18/22 05/19/25 History omeprazole 20 mg capsule,delayed 20 mg PO Q12H 04/18/22 05/19/25 History release empagliflozin 10 mg tablet 10 mg PO DAILY 05/19/25 05/19/25 History (Jardiance) gabapentin 300 mg capsule 300 mg PO HS 05/19/25 05/19/25 History glimepiride 4 mg tablet 4 mg PO DAILY 05/19/25 05/19/25 History semaglutide 1 mg/dose (4 mg/3 mL) 1 mg subcut WEEKLY 05/19/25 05/19/25 History subcutaneous pen injector (Ozempic) Allergies Allergy/AdvReac Type Severity Reaction Status Date / Time acetaminophen (From Tylenol) AdvReac Other Verified 05/19/25 01:45 Vital Signs Vital Signs - 24 hr 05/18/25 18:47 05/18/25 20:50 05/18/25 21:15 Temperature 97.7 F Pulse Rate 99 Respiratory Rate 18 Blood Pressure 126/67 141/82 H Pulse Oximetry 98 98 96 Oxygen Delivery 05/18/25 21:30 05/18/25 21:31 05/18/25 21:46 Temperature Pulse Rate 95 97 100 Respiratory Rate 19 19 17 Blood Pressure 127/59 L 115/58 L Pulse Oximetry 95 95 94 Oxygen Delivery 05/18/25 22:01 05/18/25 22:16 05/18/25 22:31 Temperature Pulse Rate 100 102 H 100 Respiratory Rate 16 20 16 Blood Pressure 119/56 L 130/69 124/54 L Pulse Oximetry 93 96 94 Oxygen Delivery 05/18/25 22:53 05/18/25 23:01 05/18/25 23:31 Temperature 98.4 F Pulse Rate 99 98 98 Respiratory Rate 21 H 16 21 H Blood Pressure 123/64 128/63 122/68 Pulse Oximetry 95 94 93 Oxygen Delivery 05/19/25 01:15 05/19/25 02:44 05/19/25 08:00 Temperature 98.2 F 97.8 F 97.4 F L Pulse Rate 78 86 93 Respiratory Rate 18 20 20 Blood Pressure 130/73 121/58 L 117/64 Pulse Oximetry 98 97 95 Oxygen Delivery 05/19/25 08:00 05/19/25 09:02 05/19/25 11:51 Temperature 97.9 F Pulse Rate 96 84 Respiratory Rate 16 Blood Pressure 115/65 Pulse Oximetry 94 Oxygen Delivery Room Air Exam Const: General: comfortable and in distress HENMT: Mouth: Yes dry mucous membranes Eyes: Sclera: sclerae normal Neck: Neck: supple Resp: Effort & Inspection: normal respiratory effort Auscultation: clear to auscultation bilaterally Cardio: Rate: regular rate Rhythm: regular rhythm GI: Inspection: distended GI Palp: Yes Soft to palpation and Yes Tenderness to palpation present (GI) Auscultation: normal bowel sounds Other: Left upper quadrant tenderness present Skin: General skin exam: normal color Neuro: Speech: normal speech Extrem: General: normal to inspection Psych: Mental Status: mental status grossly normal Results Labs Labs: Short CBC 05/18/25 05/19/25 Range/Units 21:01 05:35 WBC 8.3 5.6 (4.5-10.0) K/mm3 Hgb 10.0 L D 8.8 L (12.0-15.0) g/dL Hct 31.4 L 28.3 L (37.0-47.0) % Plt Count 94 L D 77 L (150-375) k/mm3 BMP 05/18/25 05/19/25 21:01 05:35 Sodium 143 142 Potassium 3.6 3.5 Chloride 104 107 Carbon Dioxide 25 24 BUN 8 7 Creatinine 1.51 H 1.16 H Glucose 97 93 Calcium 11.6 H 11.3 H Cardiac Enzymes 05/18/25 Range/Units 21:01 Troponin I < 0.012 (0.000-0.034) ng/mL Liver Function 05/18/25 05/19/25 Range/Units 21:01 05:35 Total Bilirubin 0.3 0.3 (0.2-1.3) mg/dL AST 75 H 59 H (14-36) U/L ALT 46 H 38 H (6-35) U/L Alkaline Phosphatase 69 62 (38-126) U/L Albumin 3.7 3.3 L (3.5-5.1) g/dL Urine 05/18/25 Range/Units 21:01 Urine Color Yellow (Yellow) Urine Appearance Cloudy H (Clear) Urine pH 5.0 (5.0-9.0) Ur Specific [place] 1.020 (1.001-1.035) Urine Protein 1+ H (Negative) mg/dL Urine Glucose (UA) 2+ H (Negative) mg/dL Quality VTE Prophylaxis VTE prophylaxis: mechanical ordered Assessment and Plan Assessment and plan (1) Thrombocytopenia: Code(s): D69.6 - Thrombocytopenia, unspecified Status: Acute (2) Diabetes: Code(s): E11.9 - Type 2 diabetes mellitus without complications Status: Acute (3) Anemia: Qualifiers: Anemia type: unspecified type Qualified Code(s): D64.9 - Anemia, unspecified Code(s): D64.9 - Anemia, unspecified Status: Acute (4) Splenic infarct: Code(s): D73.5 - Infarction of spleen Status: Acute (5) Adenopathy: Code(s): R59.9 - Enlarged lymph nodes, unspecified Status: Acute Plan 59-year-old female with past medical history of diabetes mellitus presenting with sudden onset of left quadrant abdominal pain MAYRA, anemia, thrombocytopenia, splenomegaly with splenic infarct along with abdominal lymphadenopathy concerning for lymphoma. 1. Abdominal pain: Likely secondary to mass effect with splenomegaly along with splenic infarct Admit to general medicine Pain control IV fluids Oncology consult Presence of abdominal lymph nodes is concerning for possible lymphoma Will wait for MAYRA to resolved before ordering a CT chest with contrast 2. Mild Hypercalcemia: check ionized calcium Continue with IV fluid Obtain vitamin-D levels, intact PTH, parathyroid related peptide 3. Anemia+ thrombocytopenia: ? Likely related to splenomegaly/? Possible Lymphoma Obtain iron panel, vitamin B12, folic acid level Obtain fecal occult blood Monitor for any bleeding Continue with PPI b.i.d. 4. Diabetes mellitus: Hold oral agents from home Blood glucose checked t.i.d. a.c. it is Add sliding scale insulin with meals 5. Code status: Full 6. DVT prophylaxis: SCDs, noted thrombocytopenia 7. Disposition: Admit to General Medicine Time Spent with Patient Time with patient: 45 - 74 minutes
[2025-05-19] MEDS: oxyCODONE HCL (*CRX) 5 MG TAB IR PO ×2 (15:11→19:55)
[2025-05-19] MEDS: MORPHINE SULFATE (*CRX) 4 MG/ML INJ IV PUSH ×2 (16:29→20:25)
[2025-05-19] MEDS: GABAPENTIN 300 MG CAPSULE PO (20:30)
[2025-05-20] VITALS (7 sets, daily range): BP systolic 114–145; BP diastolic 53–70; PULSE 85–98; RESP 16–20; TEMP 35.9–36.9; O2SAT 92–99
--- NOTE | 2025-05-20 | CONSULT_PTH ---
PATIENT: Brittney Joseph LOC: [id number] U#:[id number] AGE/SX: 59/F ROOM: 300 RE05/20/[address]: Walter Bautista APRN : 1965 BED: 01 DIS: 05/22/2025 SPEC #: [id number] RECD: 05/20/25 09:51 STATUS: [place]A REQ #: [id number] OSORIO: 05/20/25 00:[address]: Laurie Proctor DEPT: [facility] [place] Consult RECD BY: Laquita Mehta MLT, ([facility]) ENTERED: 05/20/25 09:51 SP TYPE: Consult OT DR: MD Dee Cano, Tissues: A - Peripheral Smear Procedures: Hematology Consult
[2025-05-20] MEDS: MORPHINE SULFATE (*CRX) 4 MG/ML INJ IV PUSH ×5 (00:39→23:02)
[2025-05-20] MEDS: ONDANSETRON INJ 4 MG/2 ML VIAL IV PUSH (02:57)
[2025-05-20 06:59] LABS: Hematocrit 28.5 % (37.0-47.0); Hemoglobin 9.0 g/dL (12.0-15.0); Immature Platelet Fraction Pct 7.6 % (0.9-11.2); Mean Corpuscular HGB Conc 31.6 g/dl (32-36); Mean Corpuscular Hemoglobin 32.7 pg (26-34); Mean Corpuscular Volume 103.6 fl (80-100); Platelet Count Result 71 k/mm3 (150-375); Red Blood Count 2.75 M/mm3 (4.2-5.4); White Blood Count 6.3 K/mm3 (4.5-10.0)
[2025-05-20 07:10] LABS: Hemoglobin A1C 6.5 % (<5.7)
[2025-05-20 07:22] LABS: Iron 66 ug/dL (37-170)
[2025-05-20 07:31] LABS: Percent Iron Saturation 46 % (20-50)
[2025-05-20 07:46] LABS: Alanine Aminotransferase 35 U/L (6-35); Albumin Level 3.3 g/dL (3.5-5.1); Alkaline Phosphatase 63 U/L (38-126); Anion Gap 11 mmol/L (4-12); Aspartate Amino Transferase 54 U/L (14-36); Bilirubin,Total 0.5 mg/dL (0.2-1.3); Blood Urea Nitrogen 8 mg/dL (7-17); Calcium 11.2 mg/dL (8.4-10.2); Carbon Dioxide 24 mmol/L (22-30); Chloride 105 mmol/L (98-107); Estimated CRCL calculation 65 ml/min; Estimated Glomerular Filt Rate 45; Glucose 127 mg/dL (65-110); Potassium 3.9 mmol/L (3.4-5.0); Sodium 140 mmol/L (137-145); Total Protein 10.9 g/dL (6.3-8.2)
[2025-05-20] MEDS: METOPROLOL TARTRATE 25 MG TABLET PO ×2 (08:20→20:50)
[2025-05-20] MEDS: PANTOPRAZOLE 40 MG TABLET PO ×2 (08:20→16:38)
[2025-05-20 09:48] LABS: Band Neutrophils Percent 5 % (0-6); Eosinophils Absolute Manual 0.06 K/mm3 (0.02-0.50); Eosinophils Percent Manual 1 % (0-4); Lymphocytes Absolute Manual 2.45 K/mm3 (1.1-4.5); Lymphocytes Percent Manual 39.0 % (18-44); Monocytes Absolute Manual 0.06 K/mm3 (0.1-0.90); Monocytes Percent Manual 1 % (3-9); Neutrophils Absolute Manual 3.71 K/mm3 (1.3-6.7); Neutrophils Percent Manual 54 % (46-73); Smudge Cells PRESENT; Total Cells Counted 100
[2025-05-20 09:50] LABS: Schistocytes None Seen
--- NOTE | 2025-05-20 10:56 | ECG_ITS ---
Test Date: 2025-05-20 11:12:37 Measurements Intervals [place] Rate: 94 P: 55 [place]: 194 QRS: 41 QRSD: 102 T: 51 QT: 342 QTc: 430 Interpretive Statements SINUS RHYTHM BASELINE ARTIFACT- I, II, III, AVR, AVL NORMAL ECG Compared to ECG 05/18/2025 21:14:59 No significant changes Electronically Signed On 05-20-2025 11:30:52 [employer] OPERATOR by Tal Woodson D.O.
[2025-05-20 11:11] LABS: Parathyroid Intact 55.1 pg/mL (14.5-75.2)
[2025-05-20 11:48] LABS: Troponin I < 0.012 ng/mL (0.000-0.034)
[2025-05-20] MEDS: SODIUM CHLORIDE 0.9% IV 1,000 ML 75 ML IV CONT (13:28)
[2025-05-20] MEDS: oxyCODONE HCL (*CRX) 5 MG TAB IR PO ×2 (16:38→20:50)
--- NOTE | 2025-05-20 17:29 | PM.IMPN2 ---
Assessment and Plan Assessment and Plan (1) Abdominal pain: Code(s): R10.9 - Unspecified abdominal pain Status: Acute Assessment and Plan: Likely secondary to mass effect with splenomegaly along with splenic infarct Pain control IV fluids increased to 125 mL Oncology consulted in ED Presence of abdominal lymph nodes is concerning for possible lymphoma Liver Test elevated - normal on imaging Will wait for MAYRA to resolved before ordering a CT chest with contrast (2) Hypercalcemia: Code(s): E83.52 - Hypercalcemia Status: Acute Assessment and Plan: checked ionized calcium- pending Continue with IV fluid Pending vitamin-D levels, intact PTH, parathyroid related peptide Consider other etiologies- B12 deficiency, sepsis, multiple myoma HIV and Dare- negative (3) MAYRA (acute kidney injury): Code(s): N17.9 - Acute kidney failure, unspecified Status: Acute Assessment and Plan: Likely related to hypercalcemia. see above EKG change in singal (4) Anemia: Qualifiers: Anemia type: unspecified type Qualified Code(s): D64.9 - Anemia, unspecified Code(s): D64.9 - Anemia, unspecified Status: Acute Assessment and Plan: Likely related to splenomegaly/? Possible Lymphoma Obtain iron panel, vitamin B12, folic acid level Obtain fecal occult blood Monitor for any bleeding Continue with PPI b.i.d. Subjective Date/time seen: 05/20/25 17:29 Interval history: 59-year-old female with past medical history of diabetes mellitus presenting with sudden onset of left upper quadrant abdominal pain which started 2 days ago. No recent trauma to left upper quadrant, fall. Denies any weight loss. Denies any fever. Denies any nausea, vomiting, constipation. Feels her abdominal girth has increased in size recently. CT abdomen and pelvis shows. Moderate splenomegaly. Splenic infarct. Abdominal lymphadenopathy suspicious for lymphoma. was noted to have mild hypercalcemia, MAYRA, anemia, thrombocytopenia Review of Systems Review of Systems: All systems reviewed & are unremarkable except as noted in HPI and below Exam Const: General: comfortable and in distress HENMT: Mouth: Yes dry mucous membranes Eyes: Sclera: sclerae normal Neck: Neck: supple Resp: Effort & Inspection: normal respiratory effort Auscultation: clear to auscultation bilaterally Cardio: Rate: regular rate Rhythm: regular rhythm GI: Inspection: distended Auscultation: normal bowel sounds Other: Left upper quadrant tenderness present Skin: General skin exam: normal color Neuro: Speech: normal speech Extrem: General: normal to inspection Psych: Mental Status: mental status grossly normal Objective Data Vital Signs Vital Signs: Vital Signs - 24 hr 05/19/25 20:00 05/19/25 20:29 05/20/25 00:00 Temperature 97.5 F L 97.7 F Pulse Rate 87 87 91 Respiratory Rate 19 17 Blood Pressure 133/54 L 126/53 L Pulse Oximetry 97 96 Oxygen Delivery 05/20/25 04:00 05/20/25 08:00 05/20/25 09:30 Temperature 97.5 F L 98.5 F Pulse Rate 96 98 98 Respiratory Rate 16 20 20 Blood Pressure 114/64 140/60 Pulse Oximetry 92 95 95 Oxygen Delivery Room Air 05/20/25 12:00 Temperature 97.7 F Pulse Rate 95 Respiratory Rate 18 Blood Pressure 129/70 Pulse Oximetry 98 Oxygen Delivery Intake/Output Intake/Output: Intake & Output 05/17/25 05/18/25 05/19/25 05/20/25 23:59 23:59 23:59 23:59 Intake Total 1000 3448 2260 Balance 1000 3448 2260 Meds/Results Medications: Active Medications Generic Name Dose Route Start Last Admin Trade Name Freq PRN Reason Stop Dose Admin Albuterol 2 puff 05/19/25 04:44 Albuterol Sulfate (*Sp) Aerosol 1 Puff INHALATION QID PRN Shortness Of Breath Or Wheezing Dextrose 12.5 gm 05/19/25 08:46 Dextrose 50% 25 Gm/50 Ml Syringe IV PUSH PRN PRN Hypoglycemia Protocol Gabapentin 300 mg 05/19/25 21:00 05/19/25 20:30 Gabapentin 300 Mg Capsule PO 300 mg HS DIEGO Administration Glucagon 1 mg 05/19/25 08:46 Glucagon For Inj 1 Mg Vial IM PRN PRN Hypoglycemia Protocol Glucose 15 gm 05/19/25 08:46 Glucose Oral Gel 15 Gm Of Glucse In 37.5 Gm Tube PO PRN PRN Hypoglycemia Protocol Sodium Chloride 1,000 mls @ 75 mls/hr 05/19/25 00:45 05/20/25 13:28 Normal Saline Iv IV CONT 75 mls/hr .[id number] DIEGO Administration Dextrose 1,000 mls @ 100 mls/hr 05/19/25 08:46 Dextrose 5% 1,000 Ml IVPB PRN PRN Hypoglycemia Protocol Insulin Aspart 3 - 6 units 05/19/25 12:00 05/20/25 12:32 Insulin Aspart (*Bkc) 100 Units/Ml SUB-Q Not Given TIDWM DIEGO Protocol Insulin Aspart 1 - 3 units 05/19/25 21:00 05/19/25 20:37 Insulin Aspart (*Bkc) 100 Units/Ml SUB-Q Not Given HS [facility] Protocol Metoprolol Tartrate 25 mg 05/19/25 09:00 05/20/25 08:20 Metoprolol Tartrate 25 Mg Tablet PO 25 mg Q12HR DIEGO Administration Morphine Sulfate 4 mg 05/19/25 04:43 05/20/25 13:24 Morphine Sulfate (*Crx) 4 Mg/Ml Inj IV PUSH 4 mg Q4H PRN Administration Breakthrough Pain Ondansetron HCl 4 mg 05/19/25 04:43 05/20/25 02:57 Ondansetron Inj 4 Mg/2 Ml Vial IV PUSH 4 mg Q4H PRN Administration Nausea And Vomiting Oxycodone HCl 5 mg 05/19/25 10:12 05/20/25 16:38 Oxycodone Hcl (*Crx) 5 Mg Tab Ir PO 5 mg Q4H PRN Administration Pain Rated 7-10 Pantoprazole Sodium 40 mg 05/19/25 09:00 05/20/25 16:38 Pantoprazole 40 Mg Tablet PO 40 mg BID DIEGO Administration Radiology Results: ITS Impressions Abdomen/Pelvis CT 05/19/25 07:20 IMPRESSION: 1. Moderate splenomegaly. Splenic infarct. 2. Abdominal lymphadenopathy suspicious for lymphoma. Labs Labs: Laboratory Results - last 24 hr 05/19/25 05/20/25 05/20/25 20:10 06:42 07:39 WBC 6.3 RBC 2.75 L Hgb 9.0 L Hct 28.5 L MCV 103.6 H MCH 32.7 MCHC 31.6 L RDW 15.2 H Plt Count 71 L MPV 11.5 H Immature Gran % (Auto) Not Reportable Neut % (Auto) Not Reportable Lymph % (Auto) Not Reportable Dare % (Auto) Not Reportable Eos % (Auto) Not Reportable Baso % (Auto) Not Reportable Lymph # (Auto) Not Reportable Dare # (Auto) Not Reportable Eos # (Auto) Not Reportable Baso # (Auto) Not Reportable Abs Immat Gran (auto) Not Reportable Absolute Neuts (auto) Not Reportable Absolute Nucleated RBC Not Reportable Total Counted 100 Neutrophils % (Manual) 54 Band Neutrophils % 5 Lymphocytes % (Manual) 39.0 Monocytes % (Manual) 1 L Eosinophils % (Manual) 1 Nucleated RBC % Not Reportable Abs Neuts (Manual) 3.71 Abs Lymphs (Manual) 2.45 Abs Monocytes (Manual) 0.06 L Absolute Eos (Manual) 0.06 Atypical Lymphocytes Present Smudge Cells Present Platelet Estimate Decreased % Immature Plt Fraction 7.6 Schistocytes None seen Sodium 140 Potassium 3.9 Chloride 105 Carbon Dioxide 24 Anion Gap 11 BUN 8 Creatinine 1.22 H Estim Creat Clear Calc 65 Estimated GFR 45 L Glucose 127 H POC Capillary Glucose 90 117 H Hemoglobin A1c 6.5 H Calcium 11.2 H Iron 66 TIBC 144 L % Saturation 46 Total Bilirubin 0.5 AST 54 H ALT 35 Alkaline Phosphatase 63 Troponin I Total Protein 10.9 H Albumin 3.3 L PTH Intact 55.1 05/20/25 05/20/25 05/20/25 11:17 11:30 17:06 WBC RBC Hgb Hct MCV MCH MCHC RDW Plt Count MPV Immature Gran % (Auto) Neut % (Auto) Lymph % (Auto) Dare % (Auto) Eos % (Auto) Baso % (Auto) Lymph # (Auto) Dare # (Auto) Eos # (Auto) Baso # (Auto) Abs Immat Gran (auto) Absolute Neuts (auto) Absolute Nucleated RBC Total Counted Neutrophils % (Manual) Band Neutrophils % Lymphocytes % (Manual) Monocytes % (Manual) Eosinophils % (Manual) Nucleated RBC % Abs Neuts (Manual) Abs Lymphs (Manual) Abs Monocytes (Manual) Absolute Eos (Manual) Atypical Lymphocytes Smudge Cells Platelet Estimate % Immature Plt Fraction Schistocytes Sodium Potassium Chloride Carbon Dioxide Anion Gap BUN Creatinine Estim Creat Clear Calc Estimated GFR Glucose POC Capillary Glucose 126 H 135 H Hemoglobin A1c Calcium Iron TIBC % Saturation Total Bilirubin AST ALT Alkaline Phosphatase Troponin I < 0.012 Total Protein Albumin PTH Intact Quality VTE Prophylaxis VTE prophylaxis: mechanical ordered
[2025-05-20 20:07] LABS: Magnesium 2.3 mg/dL (1.6-2.3)
[2025-05-20] MEDS: GABAPENTIN 300 MG CAPSULE PO (20:50)
[2025-05-21] MEDS: SODIUM CHLORIDE 0.9% IV 1,000 ML 125 ML IV CONT (01:23)
[2025-05-21] MEDS: oxyCODONE HCL (*CRX) 5 MG TAB IR PO ×3 (02:14→14:48)
--- NOTE | 2025-05-21 02:39 | PC.NURSE ---
2139: pt takes Metoprolol. Pt states she takes it for her heart but unable to state the exact reason. She states because of my family hx, my doctor prescribes it. she states doing stress test yearly and result been normal. Pt on IVF at 125ml/ hr for MAYRA, hypercalcemia; tolerating well. Will continue to monitor. 2199:pt needs bowel regime. No BM for the last 2 days. Pt on narcotics for abdomen LQ and back pain will relay to the day shift RN.
[2025-05-21 05:00] VITALS: BP 145/66; PULSE 95; RESP 16; TEMP 36.3; O2SAT 95
[2025-05-21] MEDS: MORPHINE SULFATE (*CRX) 4 MG/ML INJ IV PUSH ×2 (05:19→21:10)
[2025-05-21 06:32] LABS: Hematocrit 27.8 % (37.0-47.0); Hemoglobin 8.7 g/dL (12.0-15.0); Immature Platelet Fraction Pct 8.9 % (0.9-11.2); Mean Corpuscular HGB Conc 31.3 g/dl (32-36); Mean Corpuscular Hemoglobin 32.5 pg (26-34); Mean Corpuscular Volume 103.7 fl (80-100); Red Blood Count 2.68 M/mm3 (4.2-5.4); White Blood Count 6.4 K/mm3 (4.5-10.0)
[2025-05-21 06:54] LABS: Alanine Aminotransferase 27 U/L (6-35); Albumin Level 3.2 g/dL (3.5-5.1); Alkaline Phosphatase 67 U/L (38-126); Anion Gap 9 mmol/L (4-12); Aspartate Amino Transferase 48 U/L (14-36); Bilirubin,Total 0.5 mg/dL (0.2-1.3); Blood Urea Nitrogen 8 mg/dL (7-17); Calcium 10.9 mg/dL (8.4-10.2); Carbon Dioxide 25 mmol/L (22-30); Chloride 104 mmol/L (98-107); Estimated CRCL calculation 64 ml/min; Estimated Glomerular Filt Rate 44; Glucose 115 mg/dL (65-110); Potassium 3.7 mmol/L (3.4-5.0); Sodium 138 mmol/L (137-145); Total Protein 10.5 g/dL (6.3-8.2)
--- NOTE | 2025-05-21 06:56 | PM.IMPN2 ---
Assessment and Plan Assessment and Plan (1) Abdominal pain: Code(s): R10.9 - Unspecified abdominal pain Status: Acute Assessment and Plan: Likely secondary to mass effect with splenomegaly along with splenic infarct Pain controlled with oxycodone PRN Oncology consulted in ED Presence of abdominal lymph nodes is concerning for possible lymphoma Liver Test elevated - normal on imaging Will wait for MAYRA to resolved before ordering a CT chest with contrast Hepatitis panel order Continue to monitor for improvement (2) Hypercalcemia: Code(s): E83.52 - Hypercalcemia Status: Acute Assessment and Plan: checked ionized calcium- pending Continue with IV fluid Pending vitamin-D levels, intact PTH, parathyroid related peptide Consider other etiologies- B12 deficiency, sepsis, multiple myoma HIV and [place]- negative Calcium has improved, initial 11.2>> today 10.9 Likely resolved, but will continue to monitor (3) MAYRA (acute kidney injury): Code(s): N17.9 - Acute kidney failure, unspecified Status: Acute Assessment and Plan: Likely related to hypercalcemia. see above EKG shows no change from baseline CR has improved since initial 1.51, currently 1.25 AST improved from initial 54, currently 48 Protein improved from initial 12.5, currently 10.5 Likely improved but will continue to monitor (4) Diabetes: Code(s): E11.9 - Type 2 diabetes mellitus without complications Status: Acute Assessment and Plan: Well controlled Last BS- 120 Hypoglycemic protocol Low dose sliding scale ACHS Monitor I/O Diabetic diet Subjective Date/time seen: 05/21/25 10:50 Interval history: 59-year-old female with past medical history of diabetes mellitus presenting with sudden onset of left upper quadrant abdominal pain which started 2 days ago. No recent trauma to left upper quadrant, fall. Denies any weight loss. Denies any fever. Denies any nausea, vomiting, constipation. Feels her abdominal girth has increased in size recently. CT abdomen and pelvis showed moderate splenomegaly. Splenic infarct. Abdominal lymphadenopathy suspicious for lymphoma was noted to have mild hypercalcemia, MAYRA, anemia, thrombocytopenia. 05/21 Patient states she is feeling better today. She denies nausea, vomiting, diarrhea, constipation, lightheadedness, and chills. Patient states she still have some pain in the middle left quadrant of her stomach that radiates to the left shoulder. She reports it still hurts when she tries to breathe in. Patient states she has had a hepatitis vaccination. Patient reports some discomfort when she sits up. She is rating her pain 7/10 and the pain medicine helps. Patient states she has not heard from oncology yet. Review of Systems Review of Systems: All systems reviewed & are unremarkable except as noted in HPI and below Exam Const: General: comfortable and no acute distress Eyes: Pupils: Equal, round and reactive pupils present Neck: Neck: supple and no JVD Thyroid: thyroid normal Lymphatic: lymphadenopathy not noted Resp: Effort & Inspection: normal respiratory effort Auscultation: clear to auscultation bilaterally Cardio: Rate: regular rate Rhythm: regular rhythm GI: GI Palp: Yes Soft to palpation Auscultation: Hypoactive bowel sounds present Skin: General skin exam: normal color Neuro: General: gait normal and deep tendon reflexes 2+ bilaterally Speech: normal speech Motor exam (neuro): 5/5 motor strength present throughout Sensory Exam: normal sensation Psych: Mental Status: mental status grossly normal Affect: normal affect Objective Data Vital Signs Vital Signs: Vital Signs - 24 hr 05/20/25 08:00 05/20/25 09:30 05/20/25 12:00 Temperature 98.5 F 97.7 F Pulse Rate 98 98 95 Respiratory Rate 20 20 18 Blood Pressure 140/60 129/70 Pulse Oximetry 95 95 98 Oxygen Delivery Room Air 05/20/25 16:00 05/20/25 20:45 05/21/25 05:00 Temperature 97.8 F 96.7 F L 97.4 F L Pulse Rate 85 98 95 Respiratory Rate 18 18 16 Blood Pressure 130/68 145/65 H 145/66 H Pulse Oximetry 99 97 95 Oxygen Delivery Intake/Output Intake/Output: Intake & Output 05/18/25 05/19/25 05/20/25 05/21/25 23:59 23:59 23:59 23:59 Intake Total 1000 3448 4010.0 400 Balance 1000 3448 4010.0 400 Meds/Results Medications: Active Medications Generic Name Dose Route Start Last Admin Trade Name Freq PRN Reason Stop Dose Admin Albuterol 2 puff 05/19/25 04:44 Albuterol Sulfate (*Sp) Aerosol 1 Puff INHALATION QID PRN Shortness Of Breath Or Wheezing Dextrose 12.5 gm 05/19/25 08:46 Dextrose 50% 25 Gm/50 Ml Syringe IV PUSH PRN PRN Hypoglycemia Protocol Gabapentin 300 mg 05/19/25 21:00 05/20/25 20:50 Gabapentin 300 Mg Capsule PO 300 mg HS DIEGO Administration Glucagon 1 mg 05/19/25 08:46 Glucagon For Inj 1 Mg Vial IM PRN PRN Hypoglycemia Protocol Glucose 15 gm 05/19/25 08:46 Glucose Oral Gel 15 Gm Of Glucse In 37.5 Gm Tube PO PRN PRN Hypoglycemia Protocol Sodium Chloride 1,000 mls @ 125 mls/hr 05/19/25 00:45 05/21/25 01:23 Normal Saline Iv IV CONT 125 mls/hr .Q8H DIEGO Administration Dextrose 1,000 mls @ 100 mls/hr 05/19/25 08:46 Dextrose 5% 1,000 Ml IVPB PRN PRN Hypoglycemia Protocol Insulin Aspart 3 - 6 units 05/19/25 12:00 05/20/25 18:23 Insulin Aspart (*Bkc) 100 Units/Ml SUB-Q Not Given TIDWM DIEGO Protocol Insulin Aspart 1 - 3 units 05/19/25 21:00 05/20/25 22:02 Insulin Aspart (*Bkc) 100 Units/Ml SUB-Q Not Given HS DIEGO Protocol Metoprolol Tartrate 25 mg 05/19/25 09:00 05/20/25 20:50 Metoprolol Tartrate 25 Mg Tablet PO 25 mg Q12HR DIEGO Administration Morphine Sulfate 4 mg 05/19/25 04:43 05/21/25 05:19 Morphine Sulfate (*Crx) 4 Mg/Ml Inj IV PUSH 4 mg Q4H PRN Administration Breakthrough Pain Ondansetron HCl 4 mg 05/19/25 04:43 05/20/25 02:57 Ondansetron Inj 4 Mg/2 Ml Vial IV PUSH 4 mg Q4H PRN Administration Nausea And Vomiting Oxycodone HCl 5 mg 05/19/25 10:12 05/21/25 02:14 Oxycodone Hcl (*Crx) 5 Mg Tab Ir PO 5 mg Q4H PRN Administration Pain Rated 7-10 Pantoprazole Sodium 40 mg 05/19/25 09:00 05/20/25 16:38 Pantoprazole 40 Mg Tablet PO 40 mg BID DIEGO Administration Radiology Results: ITS Impressions Abdomen/Pelvis CT 05/19/25 07:20 IMPRESSION: 1. Moderate splenomegaly. Splenic infarct. 2. Abdominal lymphadenopathy suspicious for lymphoma. Labs Labs: Laboratory Results - last 24 hr 05/20/25 05/20/25 05/20/25 06:20 06:42 07:39 WBC 6.3 RBC 2.75 L Hgb 9.0 L Hct 28.5 L MCV 103.6 H MCH 32.7 MCHC 31.6 L RDW 15.2 H Plt Count 71 L MPV 11.5 H Immature Gran % (Auto) Not Reportable Neut % (Auto) Not Reportable Lymph % (Auto) Not Reportable [place] % (Auto) Not Reportable Eos % (Auto) Not Reportable Baso % (Auto) Not Reportable Lymph # (Auto) Not Reportable [place] # (Auto) Not Reportable Eos # (Auto) Not Reportable Baso # (Auto) Not Reportable Abs Immat Gran (auto) Not Reportable Absolute Neuts (auto) Not Reportable Absolute Nucleated RBC Not Reportable Total Counted 100 Neutrophils % (Manual) 54 Band Neutrophils % 5 Lymphocytes % (Manual) 39.0 Monocytes % (Manual) 1 L Eosinophils % (Manual) 1 Nucleated RBC % Not Reportable Abs Neuts (Manual) 3.71 Abs Lymphs (Manual) 2.45 Abs Monocytes (Manual) 0.06 L Absolute Eos (Manual) 0.06 Atypical Lymphocytes Present Smudge Cells Present Platelet Estimate Decreased % Immature Plt Fraction 7.6 Schistocytes None seen Sodium 140 Potassium 3.9 Chloride 105 Carbon Dioxide 24 Anion Gap 11 BUN 8 Creatinine 1.22 H Estim Creat Clear Calc 65 Estimated GFR 45 L Glucose 127 H POC Capillary Glucose 117 H Hemoglobin A1c 6.5 H Calcium 11.2 H Phosphorus 4.3 Magnesium 2.3 Iron 66 TIBC 144 L % Saturation 46 Total Bilirubin 0.5 AST 54 H ALT 35 Alkaline Phosphatase 63 Troponin I Total Protein 10.9 H Albumin 3.3 L PTH Intact 55.1 Ur Random Creatinine Ur Random Calcium 05/20/25 05/20/25 05/20/25 11:17 11:30 17:06 WBC RBC Hgb Hct MCV MCH MCHC RDW Plt Count MPV Immature Gran % (Auto) Neut % (Auto) Lymph % (Auto) [place] % (Auto) Eos % (Auto) Baso % (Auto) Lymph # (Auto) [place] # (Auto) Eos # (Auto) Baso # (Auto) Abs Immat Gran (auto) Absolute Neuts (auto) Absolute Nucleated RBC Total Counted Neutrophils % (Manual) Band Neutrophils % Lymphocytes % (Manual) Monocytes % (Manual) Eosinophils % (Manual) Nucleated RBC % Abs Neuts (Manual) Abs Lymphs (Manual) Abs Monocytes (Manual) Absolute Eos (Manual) Atypical Lymphocytes Smudge Cells Platelet Estimate % Immature Plt Fraction Schistocytes Sodium Potassium Chloride Carbon Dioxide Anion Gap BUN Creatinine Estim Creat Clear Calc Estimated GFR Glucose POC Capillary Glucose 126 H 135 H Hemoglobin A1c Calcium Phosphorus Magnesium Iron TIBC % Saturation Total Bilirubin AST ALT Alkaline Phosphatase Troponin I < 0.012 Total Protein Albumin PTH Intact Ur Random Creatinine Ur Random Calcium 05/20/25 05/20/25 05/21/25 20:44 23:01 05:54 WBC RBC Hgb Hct MCV MCH MCHC RDW Plt Count MPV Immature Gran % (Auto) Neut % (Auto) Lymph % (Auto) [place] % (Auto) Eos % (Auto) Baso % (Auto) Lymph # (Auto) [place] # (Auto) Eos # (Auto) Baso # (Auto) Abs Immat Gran (auto) Absolute Neuts (auto) Absolute Nucleated RBC Total Counted Neutrophils % (Manual) Band Neutrophils % Lymphocytes % (Manual) Monocytes % (Manual) Eosinophils % (Manual) Nucleated RBC % Abs Neuts (Manual) Abs Lymphs (Manual) Abs Monocytes (Manual) Absolute Eos (Manual) Atypical Lymphocytes Smudge Cells Platelet Estimate % Immature Plt Fraction Schistocytes Sodium 138 Potassium 3.7 Chloride 104 Carbon Dioxide 25 Anion Gap 9 BUN 8 Creatinine 1.25 H Estim Creat Clear Calc 64 Estimated GFR 44 L Glucose 115 H POC Capillary Glucose 116 H Hemoglobin A1c Calcium 10.9 H Phosphorus Magnesium Iron TIBC % Saturation Total Bilirubin 0.5 AST 48 H ALT 27 Alkaline Phosphatase 67 Troponin I Total Protein 10.5 H Albumin 3.2 L PTH Intact Ur Random Creatinine Cancelled Ur Random Calcium Cancelled
[2025-05-21 07:36] LABS: Platelet Count Result 65 k/mm3 (150-375)
[2025-05-21 08:05] LABS: Band Neutrophils Percent 3 % (0-6); Neutrophils Absolute Manual 2.62 K/mm3 (1.3-6.7); Neutrophils Percent Manual 38 % (46-73); Total Cells Counted 100
[2025-05-21 08:06] LABS: Eosinophils Absolute Manual 0.06 K/mm3 (0.02-0.50); Eosinophils Percent Manual 1 % (0-4); Lymphocytes Absolute Manual 3.45 K/mm3 (1.1-4.5); Lymphocytes Percent Manual 54 % (18-44); Monocytes Absolute Manual 0.25 K/mm3 (0.1-0.90); Monocytes Percent Manual 4 % (3-9)
[2025-05-21 08:08] LABS: Hypochromasia 1+
[2025-05-21 08:09] LABS: Anisocytosis 1+
[2025-05-21 08:10] LABS: Schistocytes None Seen
[2025-05-21] MEDS: PANTOPRAZOLE 40 MG TABLET PO ×2 (08:47→17:31)
[2025-05-21] MEDS: METOPROLOL TARTRATE 25 MG TABLET PO ×2 (08:47→21:01)
[2025-05-21 13:09] LABS: Calcium, Ionized 6.2 mg/dL (4.5-5.6)
[2025-05-21 14:00] VITALS: BP 141/60; PULSE 96; RESP 14; TEMP 36.2; O2SAT 97
--- NOTE | 2025-05-21 17:52 | WPDONCCN ---
Assessment and Plan Assessment and plan (1) Thrombocytopenia: Code(s): D69.6 - Thrombocytopenia, unspecified Status: Acute Assessment and Plan: Labs and symptoms noted. These findings including elevated creatinine, anemia, elevated protein and hypercalcemia is quite concerning for plasma cell disorders like myeloma. CT scan showed splenomegaly and abdominal lymphadenopathy which raises the possibility of lymphoplasmacytic lymphoma. I will order the skeletal survey while waiting for initial test results for multiple myeloma. I will also order CT chest. I will also order iron studies for anemia. We will check LDH and beta 2 microglobulin and ESR. Patient will need a bone marrow biopsy based on the skeletal survey and labs finding. She was provided with my office information for follow-up. HPI Data of Consult Date/Time: 05/21/25 17:52 Requesting Physician: Laurie Proctor DO Primary Care Provider: Dee HernandezMD Consult Narrative Narrative: Brittney Joseph is a 59 year old female without any previous history of malignancy and history of diabetes asthma and GERD came into the hospital with left upper outer quadrant pain for 2-3 days duration. She denies any recent injury and trauma. Denies any diarrhea and constipation. No melena hematochezia. Denies any weight loss. CT scan was performed that showed moderate splenomegaly with abdominal lymphadenopathy suspicious for lymphoma. Other labs showed hemoglobin [place] 8.7 [place] [address] calcium was elevated at 10.9 and creatinine was 1.2. Serum protein was elevated at 10.5. Serum protein electrophoresis and immunofixation studies have been ordered. Denies any other complaints. Review of Systems Review of Systems: Twelve point review of system was reviewed [facility] Past Medical History Medical History Asthma GERD (gastroesophageal reflux disease) Angina at rest Diabetes Surgical History Surgical History No pertinent past surgical history Family History Family History Mother Acute myocardial infarction Asthma Chronic obstructive pulmonary disease Congestive heart failure Diabetes mellitus Hypertension Sibling Acute myocardial infarction Asthma Diabetes mellitus Hypertension Daughter Asthma Social History Social History Smoking status: Former smoker Tobacco type: cigarettes and e-cigarettes/vaping Alcohol intake: never Substance use: never Lack of Transportation: No Lack of Food: Never True Current Housing: I Have Housing Concerned About Future Housing: No Difficulty Paying Gas/Electric Bills: No Difficulty Paying for Meds: No Currently Unemployed: No Education: Grade School Difficulty w/ Childcare or Family Care: No Spiritual care concerns: No Meds Home Medications and Allergies Home Medications ?Medication ?Instructions ?Recorded ?Confirmed ?Type albuterol sulfate 90 mcg/actuation 2 puff inhalation QID PRN 04/18/22 05/19/25 Rx aerosol inhaler shortness of breath or wheezing #8 grams hydrocodone 7.5 mg-acetaminophen 1 tablet PO Q8H PRN pain 04/18/22 05/19/25 History 325 mg tablet metoprolol tartrate 25 mg tablet 25 mg PO Q12H 04/18/22 05/19/25 History omeprazole 20 mg capsule,delayed 20 mg PO Q12H 04/18/22 05/19/25 History release empagliflozin 10 mg tablet 10 mg PO DAILY 05/19/25 05/19/25 History (Jardiance) gabapentin 300 mg capsule 300 mg PO HS 05/19/25 05/19/25 History glimepiride 4 mg tablet 4 mg PO DAILY 05/19/25 05/19/25 History semaglutide 1 mg/dose (4 mg/3 mL) 1 mg subcut WEEKLY 05/19/25 05/19/25 History subcutaneous pen injector (Ozempic) Allergies Allergy/AdvReac Type Severity Reaction Status Date / Time acetaminophen (From Tylenol) AdvReac Other Verified 05/19/25 01:45 Vital Signs Vital Signs - 24 hr 05/20/25 20:45 05/21/25 05:00 05/21/25 14:00 Temperature 35.9 C L 36.3 C L 36.2 C L Pulse Rate 98 95 96 Respiratory Rate 18 16 14 Blood Pressure 145/65 H 145/66 H 141/60 H Pulse Oximetry 97 95 97 Exam Narrative: Lungs are clear to auscultation bilaterally Cardiovascular regular rate rhythm no murmurs Abdomen is slightly distended Extremities no edema Results Labs 05/21/25 05:54 05/21/25 05:54 Labs: Short CBC 05/21/25 Range/Units 05:54 WBC 6.4 (4.5-10.0) K/mm3 Hgb 8.7 L (12.0-15.0) g/dL Hct 27.8 L (37.0-47.0) % Plt Count 65 L (150-375) k/mm3 BMP 05/21/25 05:54 Sodium 138 Potassium 3.7 Chloride 104 Carbon Dioxide 25 BUN 8 Creatinine 1.25 H Glucose 115 H Calcium 10.9 H Liver Function 05/21/25 Range/Units 05:54 Total Bilirubin 0.5 (0.2-1.3) mg/dL AST 48 H (14-36) U/L ALT 27 (6-35) U/L Alkaline Phosphatase 67 (38-126) U/L Albumin 3.2 L (3.5-5.1) g/dL
[2025-05-21 20:50] VITALS: BP 141/68; PULSE 98; RESP 20; TEMP 36.4; O2SAT 98
[2025-05-21] MEDS: GABAPENTIN 300 MG CAPSULE PO (21:01)
[2025-05-21 21:37] LABS: Iron 63 ug/dL (37-170); Percent Iron Saturation 43 % (20-50)
[2025-05-21 22:13] LABS: Ferritin 150.00 ng/mL (11.1-264)
[2025-05-22 04:40] VITALS: BP 114/50; PULSE 92; RESP 20; TEMP 35.7; O2SAT 93
[2025-05-22 06:28] LABS: Hematocrit 27.3 % (37.0-47.0); Hemoglobin 8.7 g/dL (12.0-15.0); Immature Platelet Fraction Pct 10.1 % (0.9-11.2); Mean Corpuscular HGB Conc 31.9 g/dl (32-36); Mean Corpuscular Hemoglobin 32.8 pg (26-34); Mean Corpuscular Volume 103.0 fl (80-100); Platelet Count Result 59 k/mm3 (150-375); Red Blood Count 2.65 M/mm3 (4.2-5.4); White Blood Count 5.6 K/mm3 (4.5-10.0)
[2025-05-22 06:51] LABS: Alanine Aminotransferase 25 U/L (6-35); Albumin Level 3.2 g/dL (3.5-5.1); Alkaline Phosphatase 67 U/L (38-126); Anion Gap 11 mmol/L (4-12); Aspartate Amino Transferase 48 U/L (14-36); Bilirubin,Total 0.4 mg/dL (0.2-1.3); Blood Urea Nitrogen 8 mg/dL (7-17); Calcium 11.2 mg/dL (8.4-10.2); Carbon Dioxide 26 mmol/L (22-30); Chloride 102 mmol/L (98-107); Estimated CRCL calculation 67 ml/min; Estimated Glomerular Filt Rate 47; Glucose 107 mg/dL (65-110); Potassium 3.6 mmol/L (3.4-5.0); Sodium 139 mmol/L (137-145); Total Protein 10.4 g/dL (6.3-8.2)
[2025-05-22 07:09] LABS: Vitamin B12 184 pg/mL (232-1245)
[2025-05-22 07:19] LABS: Hepatitis B Surface Antigen Negative (Negative)
[2025-05-22 07:25] LABS: Hepatitis B Core IgM Result Negative (Negative)
[2025-05-22 08:14] LABS: Eosinophils Absolute Manual 0.05 K/mm3 (0.02-0.50); Eosinophils Percent Manual 1 % (0-4); HAV RESULT Negative (Negative); Monocytes Absolute Manual 0.56 K/mm3 (0.1-0.90); Monocytes Percent Manual 10 % (3-9); Neutrophils Percent Manual 32 % (46-73); Total Cells Counted 100
[2025-05-22 08:15] LABS: Band Neutrophils Percent 1 % (0-6); Lymphocytes Absolute Manual 3.13 K/mm3 (1.1-4.5); Lymphocytes Percent Manual 56 % (18-44); Neutrophils Absolute Manual 1.84 K/mm3 (1.3-6.7)
[2025-05-22 08:16] LABS: Anisocytosis 1+
[2025-05-22 08:18] LABS: Schistocytes None Seen
[2025-05-22 08:19] LABS: Hypochromasia Occasional
[2025-05-22] MEDS: PANTOPRAZOLE 40 MG TABLET PO ×2 (09:07→16:45)
[2025-05-22] MEDS: oxyCODONE HCL (*CRX) 5 MG TAB IR PO ×2 (09:07→14:45)
[2025-05-22] MEDS: METOPROLOL TARTRATE 25 MG TABLET PO (09:07)
[2025-05-22] MEDS: MORPHINE SULFATE (*CRX) 4 MG/ML INJ IV PUSH ×2 (10:19→16:42)
[2025-05-22 11:09] LABS: Calcium, Urine 15.2 mg/dL (Not Estab.)
--- NOTE | 2025-05-22 13:27 | PM.DS ---
DS: Admitting Diagnosis Discharge Date 05/22/2025 Admitting Diagnosis Left upper quadrant abdominal pain DS: Discharge Diagnosis Discharge Diagnosis (1) Abdominal pain: Code(s): R10.9 - Unspecified abdominal pain Status: Acute (2) Hypercalcemia: Code(s): E83.52 - Hypercalcemia Status: Acute (3) MAYRA (acute kidney injury): Code(s): N17.9 - Acute kidney failure, unspecified Status: Acute (4) Diabetes: Code(s): E11.9 - Type 2 diabetes mellitus without complications Status: Acute DS: Summary Hospital Course Reason for hospitalization: MAYRA, abdominal pain, hypercalcemia, Hospital Course: 59-year-old female with past medical history of diabetes mellitus presenting with sudden onset of left upper quadrant abdominal pain which started a few days ago. No recent trauma to left upper quadrant, fall. Denies any weight loss. Denies any fever. Denies any nausea, vomiting, constipation. Feels her abdominal girth has increased in size recently. CT abdomen and pelvis shows. Moderate splenomegaly. Splenic infarct. Abdominal lymphadenopathy suspicious for lymphoma was noted to have mild hypercalcemia, MAYRA, anemia, thrombocytopenia. Patient abdominal pain, hypercalcemia, anemia, and thrombocytopenia is likely associated with the finding of a mass effect with splenomegaly along with splenic infract. Patient was treated with IV fluids and oncology was consulted. Patient pain and MAYRA was treated in patient and patient was instructed to follow up with oncology outpatient. Status at Discharge Functional status at discharge: independent ambulation Time Spent with Patient Time attestation: Total time spent providing and/or coordinating discharge services: Exam Const: General: comfortable Eyes: General: appearance normal, both eyes and all related structures Pupils: Equal, round and reactive pupils present Neck: Neck: supple and no JVD Thyroid: thyroid normal Resp: Effort & Inspection: normal respiratory effort Auscultation: clear to auscultation bilaterally Cardio: Rate: regular rate Rhythm: regular rhythm GI: Inspection: distended GI Palp: Yes Soft to palpation and Yes Tenderness to palpation present (GI) Auscultation: normal bowel sounds : External Female Exam: normal external appearance Skin: General skin exam: normal color Neuro: General: gait normal and deep tendon reflexes 2+ bilaterally Motor exam (neuro): 5/5 motor strength present throughout Psych: Mental Status: mental status grossly normal Affect: normal affect DS: Data Data Completed and Pending Labs on day of discharge: Labs from last 24 hours 05/22/25 05/22/25 05/22/25 11:49 07:47 05:38 WBC 5.6 RBC 2.65 L Hgb 8.7 L Hct 27.3 L MCV 103.0 H MCH 32.8 MCHC 31.9 L RDW 15.2 H Plt Count 59 L MPV 12.6 H Immature Gran % (Auto) Not Reportable Neut % (Auto) Not Reportable Lymph % (Auto) Not Reportable [place] % (Auto) Not Reportable Eos % (Auto) Not Reportable Baso % (Auto) Not Reportable Lymph # (Auto) Not Reportable [place] # (Auto) Not Reportable Eos # (Auto) Not Reportable Baso # (Auto) Not Reportable Abs Immat Gran (auto) Not Reportable Absolute Neuts (auto) Not Reportable Absolute Nucleated RBC Not Reportable Total Counted 100 Neutrophils % (Manual) 32 L Band Neutrophils % 1 Lymphocytes % (Manual) 56 H Monocytes % (Manual) 10 H Eosinophils % (Manual) 1 Nucleated RBC % Not Reportable Abs Neuts (Manual) 1.84 Abs Lymphs (Manual) 3.13 Abs Monocytes (Manual) 0.56 Absolute Eos (Manual) 0.05 Atypical Lymphocytes Present Platelet Estimate Decreased Large Platelets Present % Immature Plt Fraction 10.1 Hypochromasia Occasional Anisocytosis 1+ Schistocytes None seen ESR Sodium 139 Potassium 3.6 Chloride 102 Carbon Dioxide 26 Anion Gap 11 BUN 8 Creatinine 1.18 H Estim Creat Clear Calc 67 Estimated GFR 47 L Glucose 107 POC Capillary Glucose 109 H 101 Calcium 11.2 H Iron TIBC % Saturation Ferritin Total Bilirubin 0.4 AST 48 H ALT 25 Alkaline Phosphatase 67 Lactate Dehydrogenase Total Protein 10.4 H Albumin 3.2 L Bive-0-Ccdidwqcssvca Vitamin B12 Vitamin D 25-Hydroxy Folate Cancelled Ur Random Creatinine U Random Total Protein Protein/Creatinin Ratio Urine Calcium Calcium/Creat Ratio Urine Total Protein Urine Albumin (PEP) Urine Albumin U Xgqjw-3-Cqvreikj U Wlwlj-2-Cmpkvjci U Beta Globulin U Gamma Globulin U Random M-[place] (%) U Abnormal Prot Band 1 U Abnormal Prot Band 2 U Abnormal Prot Band 3 Urine PEP Interpret Hepatitis A IgM Ab Negative Hep Bs Antigen Negative Hep B Core IgM Ab Negative Hepatitis C Ab Screen Negative Miscellaneous Test 05/21/25 05/21/25 05/21/25 20:51 20:33 17:24 WBC RBC Hgb Hct MCV MCH MCHC RDW Plt Count MPV Immature Gran % (Auto) Neut % (Auto) Lymph % (Auto) [place] % (Auto) Eos % (Auto) Baso % (Auto) Lymph # (Auto) [place] # (Auto) Eos # (Auto) Baso # (Auto) Abs Immat Gran (auto) Absolute Neuts (auto) Absolute Nucleated RBC Total Counted Neutrophils % (Manual) Band Neutrophils % Lymphocytes % (Manual) Monocytes % (Manual) Eosinophils % (Manual) Nucleated RBC % Abs Neuts (Manual) Abs Lymphs (Manual) Abs Monocytes (Manual) Absolute Eos (Manual) Atypical Lymphocytes Platelet Estimate Large Platelets % Immature Plt Fraction Hypochromasia Anisocytosis Schistocytes ESR 123 H Sodium Potassium Chloride Carbon Dioxide Anion Gap BUN Creatinine Estim Creat Clear Calc Estimated GFR Glucose POC Capillary Glucose 150 H Calcium Iron 63 TIBC 146 L % Saturation 43 Ferritin 150.00 Total Bilirubin AST ALT Alkaline Phosphatase Lactate Dehydrogenase 183 Total Protein Albumin Nxwi-0-Teofarlcupzzi Pending Vitamin B12 Vitamin D 25-Hydroxy Folate Ur Random Creatinine U Random Total Protein Protein/Creatinin Ratio Urine Calcium Calcium/Creat Ratio Urine Total Protein Urine Albumin (PEP) Urine Albumin U Mpgpx-6-Wqlygjha U Nizct-7-Aoqtwicj U Beta Globulin U Gamma Globulin Pending U Random M-[place] (%) Pending U Abnormal Prot Band 1 Cancelled U Abnormal Prot Band 2 Cancelled U Abnormal Prot Band 3 Cancelled Urine PEP Interpret Cancelled Hepatitis A IgM Ab Hep Bs Antigen Hep B Core IgM Ab Hepatitis C Ab Screen Miscellaneous Test 05/21/25 05/21/25 05/21/25 17:24 17:24 17:24 WBC RBC Hgb Hct MCV MCH MCHC RDW Plt Count MPV Immature Gran % (Auto) Neut % (Auto) Lymph % (Auto) [place] % (Auto) Eos % (Auto) Baso % (Auto) Lymph # (Auto) [place] # (Auto) Eos # (Auto) Baso # (Auto) Abs Immat Gran (auto) Absolute Neuts (auto) Absolute Nucleated RBC Total Counted Neutrophils % (Manual) Band Neutrophils % Lymphocytes % (Manual) Monocytes % (Manual) Eosinophils % (Manual) Nucleated RBC % Abs Neuts (Manual) Abs Lymphs (Manual) Abs Monocytes (Manual) Absolute Eos (Manual) Atypical Lymphocytes Platelet Estimate Large Platelets % Immature Plt Fraction Hypochromasia Anisocytosis Schistocytes ESR Sodium Potassium Chloride Carbon Dioxide Anion Gap BUN Creatinine Estim Creat Clear Calc Estimated GFR Glucose POC Capillary Glucose Calcium Iron TIBC % Saturation Ferritin Total Bilirubin AST ALT Alkaline Phosphatase Lactate Dehydrogenase Total Protein Albumin Xclb-6-Uhplqxgdgphhi Vitamin B12 Vitamin D 25-Hydroxy Folate Ur Random Creatinine U Random Total Protein Protein/Creatinin Ratio Urine Calcium Calcium/Creat Ratio Urine Total Protein Urine Albumin (PEP) Urine Albumin U Dcece-9-Jhnyrmiu Pending U Zdwzl-0-Bohcoixm Pending Cancelled U Beta Globulin Pending Cancelled U Gamma Globulin Cancelled U Random M-[place] (%) U Abnormal Prot Band 1 U Abnormal Prot Band 2 U Abnormal Prot Band 3 Urine PEP Interpret Hepatitis A IgM Ab Hep Bs Antigen Hep B Core IgM Ab Hepatitis C Ab Screen Miscellaneous Test 05/21/25 05/21/25 05/21/25 17:24 16:58 05:53 WBC RBC Hgb Hct MCV MCH MCHC RDW Plt Count MPV Immature Gran % (Auto) Neut % (Auto) Lymph % (Auto) [place] % (Auto) Eos % (Auto) Baso % (Auto) Lymph # (Auto) [place] # (Auto) Eos # (Auto) Baso # (Auto) Abs Immat Gran (auto) Absolute Neuts (auto) Absolute Nucleated RBC Total Counted Neutrophils % (Manual) Band Neutrophils % Lymphocytes % (Manual) Monocytes % (Manual) Eosinophils % (Manual) Nucleated RBC % Abs Neuts (Manual) Abs Lymphs (Manual) Abs Monocytes (Manual) Absolute Eos (Manual) Atypical Lymphocytes Platelet Estimate Large Platelets % Immature Plt Fraction Hypochromasia Anisocytosis Schistocytes ESR Sodium Potassium Chloride Carbon Dioxide Anion Gap BUN Creatinine Estim Creat Clear Calc Estimated GFR Glucose POC Capillary Glucose 118 H Calcium Iron TIBC % Saturation Ferritin Total Bilirubin AST ALT Alkaline Phosphatase Lactate Dehydrogenase Total Protein Albumin Knjg-8-Osnadjlzuoovl Vitamin B12 184 L Vitamin D 25-Hydroxy Folate Ur Random Creatinine Cancelled U Random Total Protein Cancelled Protein/Creatinin Ratio Cancelled Urine Calcium Calcium/Creat Ratio Urine Total Protein Pending Urine Albumin (PEP) Pending Urine Albumin Cancelled U Tubmy-5-Janufswi Cancelled U Byerr-6-Cnusfqvw U Beta Globulin U Gamma Globulin U Random M-[place] (%) U Abnormal Prot Band 1 U Abnormal Prot Band 2 U Abnormal Prot Band 3 Urine PEP Interpret Hepatitis A IgM Ab Hep Bs Antigen Hep B Core IgM Ab Hepatitis C Ab Screen Miscellaneous Test Comment 05/21/25 05/20/25 05:49 23:01 WBC RBC Hgb Hct MCV MCH MCHC RDW Plt Count MPV Immature Gran % (Auto) Neut % (Auto) Lymph % (Auto) [place] % (Auto) Eos % (Auto) Baso % (Auto) Lymph # (Auto) [place] # (Auto) Eos # (Auto) Baso # (Auto) Abs Immat Gran (auto) Absolute Neuts (auto) Absolute Nucleated RBC Total Counted Neutrophils % (Manual) Band Neutrophils % Lymphocytes % (Manual) Monocytes % (Manual) Eosinophils % (Manual) Nucleated RBC % Abs Neuts (Manual) Abs Lymphs (Manual) Abs Monocytes (Manual) Absolute Eos (Manual) Atypical Lymphocytes Platelet Estimate Large Platelets % Immature Plt Fraction Hypochromasia Anisocytosis Schistocytes ESR Sodium Potassium Chloride Carbon Dioxide Anion Gap BUN Creatinine Estim Creat Clear Calc Estimated GFR Glucose POC Capillary Glucose Calcium Iron TIBC % Saturation Ferritin Total Bilirubin AST ALT Alkaline Phosphatase Lactate Dehydrogenase Total Protein Albumin Hmhj-9-Hjoflnirkyzee Vitamin B12 Vitamin D 25-Hydroxy < 12.8 Folate Ur Random Creatinine 26.1 U Random Total Protein Protein/Creatinin Ratio Urine Calcium 15.2 Calcium/Creat Ratio 582 H Urine Total Protein Urine Albumin (PEP) Urine Albumin U Jikdx-7-Qjvdnaii U Jiulh-3-Hkvjfqti U Beta Globulin U Gamma Globulin U Random M-[place] (%) U Abnormal Prot Band 1 U Abnormal Prot Band 2 U Abnormal Prot Band 3 Urine PEP Interpret Hepatitis A IgM Ab Hep Bs Antigen Hep B Core IgM Ab Hepatitis C Ab Screen Miscellaneous Test Discharge Plan Discharge Attending physician on discharge: Petty Angulo Consulting providers: Abdoul Nogueira Discharging Clinician: Walter Bautista Anticipated Discharge Date/Time: 05/22/25 15:30 Patient Disposition: Home Activity: as tolerated Diet: diabetic Discharge Instructions: You are being discharged from the hospital after treatment for acute kidney injury (MAYRA), a condition where your kidneys suddenly stopped working as well as they should. When doing the work up a finding on the CT abdomen and pelvis showed moderate splenomegaly, splenic infarct and abdominal lymphadenopathy suspicious for lymphoma. Oncology was consulted and gave you their card to make an appointment and follow up. Oncology did not recommend an anticoagulate.Please ensure to call and make the appointment as soon as possible. Your vitamin D level is low related to the elevated calcium level, I recommend increasing water intake to counteract elevated level of calcium. Your Medications Taking your medications is very important. Please make sure you follow the directions exactly as prescribed. Some of your medications, might have changed. You should take vitamin B12 1,000 mcg daily by mouth for low vitamin B12 level. You can continue your home medications as previously prescribed except Jardiance, please follow the directions as discussed with the prescribing provider. Please make sure to monitor blood sugars daily with each meal. All side effects of your medications were discussed before discharge. Patient should call 911 if you experience any of the following: - Chest pains or pressure - Trouble breathing - Fever over 100.4 or greater - Heavy bleeding or bleeding that will not stop Patient Instructions: How to Stop Smoking (ED), Acute Kidney Injury (DC), Electronic Cigarettes and Your Health (ED) Patient Language: Mohawk Stand Alone Forms: General Discharge Information Follow-up/Referrals: Abdoul Nogueira MD [Physician, Hematology] - Call for Appointment Mary,Dee Rodriges MD [Primary Care Provider, Unknown] Discharge Medications: New cyanocobalamin (vitamin B-12) [Vitamin B-12] 1,000 mcg tablet 1,000 mcg PO DAILY Qty: 30 0RF Continued gabapentin 300 mg capsule 300 mg PO HS glimepiride 4 mg tablet 4 mg PO DAILY Ozempic 1 mg/dose (4 mg/3 mL) pen injector 1 mg SUBCUT WEEKLY Rx Instructions: [place] hydrocodone-acetaminophen 7.5-325 mg tablet 1 tablet PO Q8H PRN (Reason: pain) omeprazole 20 mg capsule,delayed release(DR/EC) 20 mg PO Q12H metoprolol tartrate 25 mg tablet 25 mg PO Q12H albuterol sulfate 90 mcg/actuation HFA aerosol inhaler 2 puff INHALATION QID PRN (Reason: shortness of breath or wheezing) Qty: 8 0RF Discontinued Jardiance 10 mg tablet 10 mg PO DAILY Date of admission: 05/20/25 16:15 Primary Care Provider: MaryDee Admitting Provider: Laurie Proctor Attending physician on admission: Laurie Proctor Condition: Stable Quality VTE Prophylaxis VTE prophylaxis: mechanical ordered Hospitalist MIPS Heart Failure (Exclusion) Patient has history of Heart Transplant or Left Ventricular Assistive Device?: No IF YES, STOP HERE Heart Failure (Qualifier) Patient has current or prior documentation of LVEF less than or equal to 40%, or mod/servere depressed LVSF?: No IF NO, STOP HERE If Yes, Heart Failure (Qualifier) Patient was prescribed or already taking an Angiotensin-Converting Enzyme (DELROY) Inhibitor, or Antiotensin Receptor Tanvi (ARB): No Patient was prescribed or already taking bisoprolol, carvedilol, or sustained release metoprolol succinate: No If Medications not prescribed/taking Reason patient not prescribed/taking DELROY or ARB: Patient reasons: pt declined or other pt reason Reason patient not prescribed/taking bisoprolol, carvedilol, or sustained realease metoprolol succinate: Patient reasons: pt declined or other pt reason
[2025-05-22 14:00] VITALS: BP 123/58; PULSE 93; RESP 16; TEMP 36.2; O2SAT 98
[2025-05-25 13:08] LABS: Albumin, U 17.4 % (.); Alpha-1-Globulin, U 9.8 % (.); Alpha-2-Globulin, U 18.9 % (.); Beta Globulin, U 19.7 % (.); Gamma Globulin, U 34.1 % (.)
[2025-05-25 15:09] LABS: Immunoglobulin A, Qn >6400 mg/dL (87-352); Immunoglobulin G, Qn 110 mg/dL (586-1602); Immunoglobulin M, Qn 9 mg/dL (26-217)
[2025-05-26 18:08] LABS: 1,25-Dihydroxy, Vitamin D-2 <10 pg/mL (.); 1,25-Dihydroxy, Vitamin D-3 <10 pg/mL (.); Total 1,25-Dihydroxy,Vitamin D <10 pg/mL (.)
== END 2025-05-22 17:10 | disposition home or self-care (01) | DRG 815 ==
LOC: ANHED 05-19 01:08 → ANH3MEDSUR 05-19 01:17
PROVIDERS: Emergency Medicine; Internal Medicine; Internal Medicine Hematology & Oncology; Admitting Provider Internal Medicine; Emergency Provider Physician Assistant; PCP Emergency Medicine
DX: D73.5 Infarction of spleen (principal); N17.9 Acute kidney failure, unspecified; E83.52 Hypercalcemia; D64.9 Anemia, unspecified; E11.9 Type 2 diabetes mellitus without complications; D69.6 Thrombocytopenia, unspecified; K21.9 Gastro-esophageal reflux disease without esophagitis; J45.909 Unspecified asthma, uncomplicated; R59.9 Enlarged lymph nodes, unspecified
CPT/HCPCS: 36415; 71260; 74177; 77075; 80053; 80074; 80307; 81001; 81025; 82232; 82306; 82330; 82340; 82397; 82570; 82607; 82652; 82728; 82746; 82784; 82948; 83036; 83540; 83550; 83615; 83690; 83735; 83970; 84100; 84156; 84166; 84484; 85025; 85055; 85380; 85610; 85652; 85730; 86308; 86334; 86335; 86703; 93005; 96361; 96374; 96375; 96376; 99285; A9270; G0378; G0432; J2270; J2405; J7030; Q9967